=== PATIENT | male | born 1955 | race Caucasian/White ===

== ENCOUNTER 2018-03-02 12:43 | Emergency (ER) | END 2018-03-02 14:59 | disposition home or self-care (01) ==

== ENCOUNTER 2018-06-22 16:26 | Inpatient (IN) | payer OTHER ==
[~2018-06-22] VITALS: Ht 182.9 cm; Wt 61.2 kg
[~2018-06-22 16:26] MED LIST: CEPH-443 PO; LISI-471 PO
[2018-06-22] MEDS ORDERED: CEFEPIME 2GM/50 ML (PMX) 50 ML IVPB STA (16:34)
[2018-06-22] MEDS ORDERED: SODIUM CHLORIDE 0.9% 1L BAG IV* STA (16:34)
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
[2018-06-22] MEDS ORDERED: ACETAMINOPHEN 500 MG TAB PO STA (17:38)
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
[2018-06-22] MEDS ORDERED: NACL 0.9% 3 ML SYG IV SCH (18:30)
[2018-06-22] MEDS ORDERED: ACETAMINOPHEN 325 MG TAB PO PRN (18:30)
[2018-06-22] MEDS ORDERED: hydrALAzine 20 MG INJ IV PRN (19:00)
[2018-06-22] MEDS: traMADol 50 MG TAB PO PRN (20:02)
[2018-06-22 20:17] VITALS: PULSE 115
[2018-06-22 21:01] VITALS: BMI 18.4
[2018-06-22 21:25] VITALS: BP 136/81; PULSE 113; RESP 20
[2018-06-22] MEDS: SOD CHLORIDE 0.9% 1,000 ML IV SCH (22:04)
[2018-06-22] MEDS: TAMSULOSIN (SR) 0.4 MG CAP PO SCH (22:06)
[2018-06-22] MEDS: CEFEPIME 1GM/50 ML (PMX) 50 ML IV SCH (22:10)
[2018-06-22] MEDS ORDERED: SOD CHLORIDE 0.9% 500 ML IV ONE (23:30)
[2018-06-23] VITALS (12 sets, daily range): BP systolic 135–166; BP diastolic 78–90; PULSE 78–117; RESP 18–20
[2018-06-23] MEDS ORDERED: SOD CHLORIDE 0.9% 500 ML IV ONE (00:30)
[2018-06-23] MEDS ORDERED: PENDING SANTYL ORDER FOR WOUND CARE XX PRN (00:30)
[2018-06-23] MEDS ORDERED: POTASSIUM CHLORIDE (SR) 20 MEQ TAB PO STA (03:56)
[2018-06-23] MEDS ORDERED: SOD CHLORIDE 0.9% 1,000 ML IV ONE (03:56)
[2018-06-23] MEDS: SOD CHLORIDE 0.9% 1,000 ML IV SCH ×2 (07:28→20:04)
[2018-06-23] MEDS: ENOXAPARIN 30 MG/0.3 ML SYG SC SCH (09:00)
[2018-06-23] MEDS: TAMSULOSIN (SR) 0.4 MG CAP PO SCH (09:10)
[2018-06-23] MEDS: CEFEPIME 1GM/50 ML (PMX) 50 ML IV SCH (09:14)
[2018-06-23] MEDS: traMADol 50 MG TAB PO PRN (09:54)
[2018-06-23] MEDS ORDERED: BARIUM SULF 2% 450 ML BTL (BERRY SMOOTHIE) PO ONE (12:30)
[2018-06-23] MEDS: PIPER-TAZO 3.375 GM IV (PMX) 100 ML IVPB SCH ×3 (12:38→23:37)
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
[2018-06-23] MEDS ORDERED: VANCOMYCIN IV PER PHARMACY XX SCH (17:30)
[2018-06-23] MEDS ORDERED: morphine 2 MG INJ IV PRN (17:30)
[2018-06-23] MEDS: morphine 4 MG/ML VIAL IV PRN (17:44)
[2018-06-23] MEDS ORDERED: VANCOMYCIN HCL 1.25 GM in SOD CHLORIDE 0.9% 250 ML IVPB SCH (20:00)
[2018-06-23] MEDS: DOCUSATE SODIUM 100 MG CAP PO SCH (20:04)
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
[2018-06-23] MEDS: HYDROCODONE/APAP (10/325) TAB PO PRN (23:25)
[2018-06-24] VITALS (13 sets, daily range): BP systolic 137–164; BP diastolic 80–90; PULSE 73–150; RESP 18–19
[2018-06-24] MEDS: morphine 4 MG/ML VIAL IV PRN ×4 (05:36→22:19)
[2018-06-24] MEDS: PIPER-TAZO 3.375 GM IV (PMX) 100 ML IVPB SCH ×4 (05:36→23:44)
[2018-06-24] MEDS: TAMSULOSIN (SR) 0.4 MG CAP PO SCH (08:36)
[2018-06-24] MEDS: ENOXAPARIN 30 MG/0.3 ML SYG SC SCH (08:39)
[2018-06-24] MEDS: DOCUSATE SODIUM 100 MG CAP PO SCH ×2 (08:39→20:48)
[2018-06-24] MEDS: SOD CHLORIDE 0.9% 1,000 ML IV SCH ×2 (10:29→23:28)
[2018-06-24] MEDS ORDERED: LABETALOL HCL 20MG INJ IV PRN (13:30)
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
[2018-06-24] MEDS: VANCOMYCIN HCL 1.25 GM in SOD CHLORIDE 0.9% 250 ML IVPB SCH (20:07)
[2018-06-24] MEDS: ONDANSETRON 4 MG INJ IV PRN (20:07)
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
[2018-06-25] VITALS (12 sets, daily range): BP systolic 129–155; BP diastolic 75–87; PULSE 79–112; RESP 18–22
[2018-06-25] MEDS: morphine 4 MG/ML VIAL IV PRN ×4 (02:45→19:00)
[2018-06-25] MEDS: PIPER-TAZO 3.375 GM IV (PMX) 100 ML IVPB SCH ×3 (05:01→17:32)
[2018-06-25] MEDS: DOCUSATE SODIUM 100 MG CAP PO SCH ×2 (08:32→21:00)
[2018-06-25] MEDS: TAMSULOSIN (SR) 0.4 MG CAP PO SCH (08:32)
[2018-06-25] MEDS ORDERED: IODIXANOL LOCM 100 ML BTL ONE (08:59)
[2018-06-25] MEDS ORDERED: SOD CHLORIDE 0.9% 100 ML ONE (08:59)
[2018-06-25] MEDS: ENOXAPARIN 30 MG/0.3 ML SYG SC SCH (09:04)
--- NOTE | 2018-06-25 12:30 | CONS ---
Assessment/Plan Assessment/Plan Hospital Course (Demo Recall) All noted. No acute changes overnight. Patient looks comfortable. Status post CT scan this morning Microbiology: Blood culture growing gram-negative rods urine culture growing Proteus mirabilis susceptible to amikacin cefotaxime Chest x-ray on admission revealed no definite abnormalities. Antimicrobials: Vancomycin, Zosyn Physical examination: Well-developed chronically ill-appearing elderly man in no distress. Head atraumatic normocephalic sclera nonicteric neck is supple chest rise symmetrical breath sounds diminished bases heart S1-S2 abdomen soft bowel sounds present extremities wasted bilateral lower extremities Assessment: 1. Sepsis, present on admission 2. Proteus mirabilis bacteremia secondary to UTI 3. Multidrug-resistant Proteus mirabilis pyelonephritis 4. Bilateral hydronephrosis 5. Neurogenic bladder 6. Multiple decubitus with questionable osteomyelitis of right atrium and right iliac bone 7. Obstructive uropathy 8. Homelessness 9. Incomplete paraplegia Plan: Patient is clinically stable, surgery and urology on case, continue antibiotics,follow results of repeat CT abdomen pelvis with IV contrast, repeat blood culture, continue local wound care Consultation Date/Type/Reason Admit Date/Time Jun 22, 2018 at 18:09 Initial Consult Date 06/23/18 Type of Consult id Requesting Provider: TRACE REBOLLEDO Date/Time of Note DATE: 06/25/18 TIME: 12:24 Exam/Review of Systems Exam Vitals Vital Signs Date Temp Pulse Resp B/P (MAP) Pulse Ox O2 O2 Flow FiO2 Time Delivery Rate 06/25/18 112 12:15 06/25/18 98.0 22 136/78 100 Room Air 11:53 (97) Intake and Output 06/24/18 06/24/18 06/25/18 1414:59 22:59 06:59 IntakeIntake Total 950 ml 1470 ml OutputOutput Total 3800 ml 550 ml BalanceBalance -2850 ml 920 ml Results Result Diagram: 06/25/1852006/25/18520 Results 24hrs Laboratory Tests Test 06/24/18 13:46 06/25/18 05:21 White Blood Count 18.9 H 15.6 H Red Blood Count 5.04 4.56 L Hemoglobin 11.1 L 10.2 L Hematocrit 36.6 L 33.3 L Mean Corpuscular Volume 72.6 L 73.0 L Mean Corpuscular Hemoglobin 22.0 L 22.4 L Mean Corpuscular Hemoglobin Concent 30.3 L 30.6 L Red Cell Distribution Width 19.1 H 19.1 H Platelet Count 341 # 373 Mean Platelet Volume 9.5 9.5 Immature Granulocytes % 0.700 H 0.700 H Neutrophils % 90.4 H 84.3 H Lymphocytes % 3.8 L 6.9 L Monocytes % 3.8 6.4 Eosinophils % 0.9 1.4 Basophils % 0.4 0.3 Nucleated Red Blood Cells % 0.0 0.0 Immature Granulocytes # 0.140 H 0.110 H Neutrophils # 17.0 H 13.1 H Lymphocytes # 0.7 L 1.1 Monocytes # 0.7 1.0 H Eosinophils # 0.2 0.2 Basophils # 0.1 0.1 Nucleated Red Blood Cells # 0.0 0.0 Sodium Level 137 137 Potassium Level 3.9 3.7 Chloride Level 104 99 Carbon Dioxide Level 23 27 Anion Gap 10 # 11 Blood Urea Nitrogen 17 # 14 Creatinine 1.01 0.91 Est Glomerular Filtrat Rate mL/min > 60 > 60 Glucose Level 154 151 Calcium Level 8.0 L 7.7 L Total Bilirubin 0.1 L Direct Bilirubin 0.00 Indirect Bilirubin 0.1 Aspartate Amino Transf (AST/SGOT) 16 Alanine Aminotransferase (ALT/SGPT) 13 Alkaline Phosphatase 114 Total Protein 6.8 # Albumin 2.7 L Globulin 4.10 H Albumin/Globulin Ratio 0.65 Phosphorus Level 2.7 Magnesium Level 1.7 Medications Medication Current Medications Sodium Chloride 1,000 ml @ 75 mls/hr [id number] IV Last administered on 06/24/18at 10:29; Admin Dose 75 MLS/HR; Start 06/22/18 at 18:08 IV Flush (NS 3 ml) 3 ml PER PROTOCOL IV ; Start 06/22/18 at 18:30 Ondansetron HCl (Zofran Inj) 4 mg Q6H PRN IV NAUSEA/VOMITING Last administered on 06/24/18at 20:07; Admin Dose 4 MG; Start 06/22/18 at 18:30 Acetaminophen (Tylenol Tab) 650 mg Q6H PRN PO .PAIN 1-3 OR TEMP; Start 06/22/18 at 18:30 Enoxaparin Sodium (Lovenox) 30 mg DAILY SC Last administered on 06/25/18 09:04; Admin Dose 30 MG; Start 06/23/18 at 09:00 Phenazopyridine HCl (Pyridium) 200 mg TID PRN PO dysuria; Start 06/22/18 at 18:30 Hydralazine HCl (Apresoline) 10 mg Q4H PRN IV SBP >160; Start 06/22/18 at 19:00 Tramadol HCl (Ultram) 50 mg Q6H PRN PO MODERATE PAIN LEVEL 4-6 Last administered on 06/23/18at 09:54; Admin Dose 50 MG; Start 06/22/18 at 19:00 Miscellaneous Information (Pending [facility] Order For Wound Care) This patient villela... PRN PRN XX WOUND CARE; Start 06/23/18 at 00:30 Piperacillin Sod/ Tazobactam Sod 100 ml @ 200 mls/hr Q6 IVPB Last administered on 06/25/18 05:01; Admin Dose 200 MLS/HR; Start 06/23/18 at 12:30 Docusate Sodium (Colace) 100 mg BID PO Last administered on 06/23/18at 20:04; Admin Dose 100 MG; Start 06/23/18 at 21:00 Vancomycin HCl (Vanco Iv Per Pharmacy) VANCOMYCIN PER PHARMACY PER PROTOCOL XX ; Start 06/23/18 at 17:30 Acetaminophen/ Hydrocodone Bitart ([place] (10/325)) 1 tab Q4H PRN PO MODERATE PAIN LEVEL 4-6 Last administered on 06/23/18at 23:25; Admin Dose 1 TAB; Start 06/23/18 at 17:30 Tamsulosin HCl (Flomax) 0.4 mg DAILY PO Last administered on 06/25/18 08:32; Admin Dose 0.4 MG; Start 06/24/18 at 09:00 Morphine Sulfate (morphine) 2 mg Q4H PRN IV SEVERE PAIN LEVEL 7-10 Last administered on 06/25/18 07:37; Admin Dose 2 MG; Start 06/23/18 at 17:30 Vancomycin HCl 1.25 gm/Sodium Chloride 250 ml @ 83.333 mls/ hr Q24H IVPB Last administered on 06/24/18at 20:07; Admin Dose 83.333 MLS/HR; Start 06/24/18 at 20:00 Labetalol HCl (Labetalol) 10 mg Q4 PRN IV sbp>160; Start 06/24/18 at 13:30 JOHNSON PENDLETON NP Jun 25, 2018 12:30
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
[2018-06-25] MEDS: SOD CHLORIDE 0.45% 1,000 ML IV SCH (13:36)
--- NOTE | 2018-06-25 15:03 | PN ---
Date/Time of Note Date/Time of Note DATE: 06/25/18 TIME: 15:02 Assessment/Plan Lines/Catheters IV Catheter Type (from [facility]): Peripheral IV Baxter in Place (from [facility]): No Assessment/Plan Chief Complaint/Hosp Course 1. Multiple decubitus pressure ulcers -Encourage aggressive offloading -Encourage nutritional optimization -Continue wound care -Debridement as needed -Vitamin C 2. Possible abscess reported on CT not palpable clinically. Contrast ct:: Status post debridement and drainage of the right buttock abscess with associated skin defect and underlying osteomyelitis -abx per id 3. UTI on antibiotics 4. Acute leukocytosis and lactic acidosis secondary to sepsis secondary to above: improving -As above -Judicious fluid management -Antibiotics -Supportive measures 5. Hypoalbuminemia -Encourage nutritional optimization 6. Hypertension history -Nutrition and medication optimization 7. Anemia without evidence of acute blood loss -Monitor 8. Acute on chronic back pain, nephrolithiasis -Medical optimization -Judicious fluid management 9. Decompressed bladder with significant thickening concerning for bladder neoplasm versus cystitis: Urethritis, possible pyelonephritis -Consider urology consult -Antibiotics Thank you. Patient seen and examined in collaboration with Dr. Micah Hobbs. Subjective 24 Hr Interval Summary Feels well. Loose stools. No fevers, chills, sob, congested cough, cp, palpitations, villela, dizziness, n/v/d/dysuria. wbc improving Exam/Review of Systems Vital Signs Vitals Vital Signs Date Temp Pulse Resp B/P (MAP) Pulse Ox O2 O2 Flow FiO2 Time Delivery Rate 06/25/18 112 12:15 06/25/18 98.0 22 136/78 100 Room Air 11:53 (97) Intake and Output 06/24/18 06/24/18 06/25/18 1414:59 22:59 06:59 IntakeIntake Total 950 ml 1470 ml OutputOutput Total 3800 ml 550 ml BalanceBalance -2850 ml 920 ml Exam Free Text/Dictation Constitutional: alert, oriented No distress Psych: No anxiety Head: normocephalic, atraumatic Eyes: nl conjunctiva, EOMI, PERRL; No icteric ENMT: nl external ears & nose, nl lips & teeth, mucosa pink and moist Neck: supple, non-tender; No jvd Respiratory: normal air movement; No congested cough, No labored breathing, No wheezing Cardiovascular: regular rate and rhythm; No edema Gastrointestinal: soft, non-tender; No distended, No rebound or guarding Genitourinary - Male: nl penis, nl scrotum Musculoskeletal: No nl gait and stance, No joint tenderness Extremities: normal pulses; No calf tenderness, No edema, No tenderness Neurological: nl mental status, nl speech; No nl strength Skin: rash or lesions (Decubitus pressure ulcers as documented per nursing notes and pictures. No obvious abscess palpable- no palpable fluctuant areas. Right ischium : min odor/mod drainage); No ecchymosis Lymph: nl lymph nodes Results Result Diagram: 06/25/1821 06/25/18 0521 TIFFANIE KLEIN NP Jun 25, 2018 15:03
[2018-06-25] MEDS: HYDROCODONE/APAP (10/325) TAB PO PRN (15:49)
[2018-06-25] MEDS: PHENAZOPYRIDINE 200 MG TAB PO PRN (15:49)
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
[2018-06-25] MEDS: VANCOMYCIN HCL 1.25 GM in SOD CHLORIDE 0.9% 250 ML IVPB SCH (21:22)
[2018-06-25] MEDS: morphine LIQ (10 MG/5 ML) CUP PO PRN (23:02)
[2018-06-26] VITALS (11 sets, daily range): BP systolic 133–154; BP diastolic 76–83; PULSE 95–120; RESP 18–20
[2018-06-26] MEDS: PIPER-TAZO 3.375 GM IV (PMX) 100 ML IVPB SCH ×4 (01:25→17:52)
[2018-06-26] MEDS: HYDROCODONE/APAP (10/325) TAB PO PRN (01:25)
[2018-06-26] MEDS: morphine LIQ (10 MG/5 ML) CUP PO PRN ×3 (03:00→19:33)
[2018-06-26] MEDS: TAMSULOSIN (SR) 0.4 MG CAP PO SCH (08:32)
[2018-06-26] MEDS: DOCUSATE SODIUM 100 MG CAP PO SCH ×2 (08:39→21:00)
[2018-06-26] MEDS: ENOXAPARIN 30 MG/0.3 ML SYG SC SCH (08:39)
[2018-06-26] MEDS ORDERED: HYDROCODONE/APAP (5/325) TAB PO PRN (09:00)
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
--- NOTE | 2018-06-26 14:19 | CONS ---
Assessment/Plan Assessment/Plan Hospital Course (Demo Recall) All noted. No acute changes overnight. Patient looks comfortable. No fevers Microbiology: Blood culture growing gram-negative rods urine culture growing Proteus mirabilis susceptible to amikacin cefotaxime Chest x-ray on admission revealed no definite abnormalities. Antimicrobials: Vancomycin, Zosyn Physical examination: Well-developed chronically ill-appearing elderly man in no distress. Head atraumatic normocephalic sclera nonicteric neck is supple chest rise symmetrical breath sounds diminished bases heart S1-S2 abdomen soft bowel sounds present extremities wasted bilateral lower extremities Assessment: 1. Sepsis, present on admission 2. Proteus mirabilis bacteremia secondary to UTI 3. Multidrug-resistant Proteus mirabilis pyelonephritis 4. Bilateral hydronephrosis 5. Neurogenic bladder 6. Multiple decubitus with questionable osteomyelitis of right atrium and right iliac bone 7. Obstructive uropathy 8. Homelessness 9. Incomplete paraplegia Plan: Patient is clinically unchanged, urology rec-s noted, continue abx, f/u wound cx, surgical rec-s/wound care Consultation Date/Type/Reason Admit Date/Time Jun 22, 2018 at 18:09 Initial Consult Date 06/23/18 Type of Consult id Requesting Provider: TRACE REBOLLEDO Date/Time of Note DATE: 06/26/18 TIME: 14:17 Exam/Review of Systems Exam Vitals Vital Signs Date Temp Pulse Resp B/P (MAP) Pulse Ox O2 O2 Flow FiO2 Time Delivery Rate 06/26/18 109 12:10 06/26/18 98.1 20 154/83 100 Room Air 11:25 (106) Intake and Output 06/25/18 06/25/18 06/26/18 1515:00 23:00 07:00 IntakeIntake Total 850 ml 720 ml OutputOutput Total 700 ml 1350 ml BalanceBalance 150 ml -630 ml Results Result Diagram: 06/26/18 0521 06/26/18 0521 Results 24hrs Laboratory Tests Test 06/26/18 05:21 White Blood Count 15.4 H Red Blood Count 4.44 L Hemoglobin 9.9 L Hematocrit 32.1 L Mean Corpuscular Volume 72.3 L Mean Corpuscular Hemoglobin 22.3 L Mean Corpuscular Hemoglobin Concent 30.8 L Red Cell Distribution Width 18.8 H Platelet Count 440 H Mean Platelet Volume 9.0 Immature Granulocytes % 1.300 H Neutrophils % 84.2 H Lymphocytes % 7.0 L Monocytes % 5.4 Eosinophils % 1.8 Basophils % 0.3 Nucleated Red Blood Cells % 0.0 Immature Granulocytes # 0.200 H Neutrophils # 13.0 H Lymphocytes # 1.1 Monocytes # 0.8 Eosinophils # 0.3 Basophils # 0.0 Nucleated Red Blood Cells # 0.0 Sodium Level 134 L Potassium Level 3.9 Chloride Level 97 Carbon Dioxide Level 28 Anion Gap 9 Blood Urea Nitrogen 16 Creatinine 0.94 Est Glomerular Filtrat Rate mL/min > 60 Glucose Level 135 Calcium Level 7.8 L Phosphorus Level 3.0 Magnesium Level 1.7 Medications Medication Current Medications IV Flush (NS 3 ml) 3 ml PER PROTOCOL IV ; Start 06/22/18 at 18:30 Ondansetron HCl (Zofran Inj) 4 mg Q6H PRN IV NAUSEA/VOMITING Last administered on 06/24/18at 20:07; Admin Dose 4 MG; Start 06/22/18 at 18:30 Acetaminophen (Tylenol Tab) 650 mg Q6H PRN PO .PAIN 1-3 OR TEMP; Start 06/22/18 at 18:30 Enoxaparin Sodium (Lovenox) 30 mg DAILY SC Last administered on 06/25/18at 09:04; Admin Dose 30 MG; Start 06/23/18 at 09:00 Phenazopyridine HCl (Pyridium) 200 mg TID PRN PO dysuria Last administered on 06/25/18at 15:49; Admin Dose 200 MG; Start 06/22/18 at 18:30 Hydralazine HCl (Apresoline) 10 mg Q4H PRN IV SBP >160; Start 06/22/18 at 19:00 Tramadol HCl (Ultram) 50 mg Q6H PRN PO MODERATE PAIN LEVEL 4-6 Last administered on 06/23/18at 09:54; Admin Dose 50 MG; Start 06/22/18 at 19:00 Miscellaneous Information (Pending Santyl Order For Wound Care) This patient villela... PRN PRN XX WOUND CARE; Start 06/23/18 at 00:30 Piperacillin Sod/ Tazobactam Sod 100 ml @ 200 mls/hr Q6 IVPB Last administered on 06/26/18at 12:52; Admin Dose 200 MLS/HR; Start 06/23/18 at 12:30 Docusate Sodium (Colace) 100 mg BID PO Last administered on 06/23/18at 20:04; Admin Dose 100 MG; Start 06/23/18 at 21:00 Vancomycin HCl (Vanco Iv Per Pharmacy) VANCOMYCIN PER PHARMACY PER PROTOCOL XX ; Start 06/23/18 at 17:30 Acetaminophen/ Hydrocodone Bitart ([place] (10/325)) 1 tab Q4H PRN PO MODERATE PAIN LEVEL 4-6 Last administered on 06/26/18at 01:25; Admin Dose 1 TAB; Start 06/23/18 at 17:30 Tamsulosin HCl (Flomax) 0.4 mg DAILY PO Last administered on 06/26/18at 08:32; Admin Dose 0.4 MG; Start 06/24/18 at 09:00 Vancomycin HCl 1.25 gm/Sodium Chloride 250 ml @ 83.333 mls/ hr Q24H IVPB Last administered on 06/25/18at 21:22; Admin Dose 83.333 MLS/HR; Start 06/24/18 at 20:00 Labetalol HCl (Labetalol) 10 mg Q4 PRN IV sbp>160; Start 06/24/18 at 13:30 Sodium Chloride 1,000 ml @ 40 mls/hr Q24H IV Last administered on 06/25/18at 13:36; Admin Dose 40 MLS/HR; Start 06/25/18 at 13:00 Miscellaneous Information (*Rx Drug Level Order Reminder*) VANCO TR LEVEL PRIOR... ONCE ONCE XX ; Start 06/26/18 at 19:00; Stop 06/26/18 at 19:01 Morphine Sulfate (morphine) 6 mg Q4H PRN PO SEVERE PAIN LEVEL 7-10 Last administered on 06/26/18at 13:13; Admin Dose 6 MG; Start 06/25/18 at 21:30 Mupirocin (Bactroban) 1 applic BID TOP ; Start 06/26/18 at 21:00; Stop 07/03/18 at 20:59 JOHNSON PENDLETON NP Jun 26, 2018 14:19
--- NOTE | 2018-06-26 15:09 | PN ---
Date/Time of Note Date/Time of Note DATE: 06/26/18 TIME: 15:07 Assessment/Plan Lines/Catheters IV Catheter Type (from [facility]): Baxter in Place (from [facility]): No Assessment/Plan Chief Complaint/Hosp Course 1. Multiple decubitus pressure ulcers -Encourage aggressive offloading -Encourage nutritional optimization -Continue wound care -Debridement as needed -Vitamin C -We will likely need placement for osteomyelitis treatment 2. Possible abscess reported on CT not palpable clinically. Contrast ct:: Status post debridement and drainage of the right buttock abscess with associated skin defect and underlying osteomyelitis -abx per id 3. UTI on antibiotics 4. Acute leukocytosis and lactic acidosis secondary to sepsis secondary to above: improving -As above -Judicious fluid management -Antibiotics -Supportive measures 5. Hypoalbuminemia -Encourage nutritional optimization 6. Hypertension history -Nutrition and medication optimization 7. Anemia without evidence of acute blood loss -Monitor 8. Acute on chronic back pain, nephrolithiasis -Medical optimization -Judicious fluid management 9. Decompressed bladder with significant thickening concerning for bladder neoplasm versus cystitis: Urethritis, possible pyelonephritis -per urology -Antibiotics Thank you. Patient seen and examined in collaboration with Dr. Micah Hobbs. Subjective 24 Hr Interval Summary WBC minimally improved. Tachycardia. No fevers, chills, sob, congested cough, cp, palpitations, villela, dizziness, nausea, vomiting, diarrhea, dysuria. Exam/Review of Systems Vital Signs Vitals Vital Signs Date Temp Pulse Resp B/P (MAP) Pulse Ox O2 O2 Flow FiO2 Time Delivery Rate 06/26/18 109 12:10 06/26/18 98.1 20 154/83 100 Room Air 11:25 (106) Intake and Output 06/25/18 06/25/18 06/26/18 1515:00 23:00 07:00 IntakeIntake Total 850 ml 720 ml OutputOutput Total 700 ml 1350 ml BalanceBalance 150 ml -630 ml Exam Free Text/Dictation Constitutional: alert, oriented No distress Psych: No anxiety Head: normocephalic, atraumatic Eyes: nl conjunctiva, EOMI, PERRL; No icteric ENMT: nl external ears & nose, nl lips & teeth, mucosa pink and moist Neck: supple, non-tender; No jvd Respiratory: normal air movement; No congested cough, No labored breathing, No wheezing Cardiovascular: regular rate and rhythm; No edema Gastrointestinal: soft, non-tender; No distended, No rebound or guarding Genitourinary - Male: nl penis, nl scrotum Musculoskeletal: No nl gait and stance, No joint tenderness Extremities: normal pulses; No calf tenderness, No edema, No tenderness Neurological: nl mental status, nl speech; No nl strength Skin: rash or lesions (Decubitus pressure ulcers as documented per nursing notes and pictures. No obvious abscess palpable- no palpable fluctuant areas. Right ischium : min odor/mod drainage); No ecchymosis Lymph: nl lymph nodes Results Result Diagram: 06/26/1852006/26/18 0521 TIFFANIE KLEIN NP Jun 26, 2018 15:09
[2018-06-26] MEDS: SOD CHLORIDE 0.45% 1,000 ML IV SCH (15:57)
[2018-06-26] MEDS: ONDANSETRON 4 MG INJ IV PRN (15:57)
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
[2018-06-26] MEDS: SODIUM HYPOCHLORITE (1/40) 1 APPLIC BTL IRR SCH (17:53)
[2018-06-26] MEDS: VANCOMYCIN HCL 1.25 GM in SOD CHLORIDE 0.9% 250 ML IVPB SCH (19:33)
[2018-06-26] MEDS: MUPIROCIN 2% 22 GM OINT TOP SCH (21:01)
[2018-06-27] VITALS (12 sets, daily range): BP systolic 126–147; BP diastolic 73–84; PULSE 74–112; RESP 16–18
[2018-06-27] MEDS: PIPER-TAZO 3.375 GM IV (PMX) 100 ML IVPB SCH ×3 (00:01→11:47)
[2018-06-27] MEDS: PANTOPRAZOLE 40 MG INJ IV SCH (05:13)
[2018-06-27] MEDS: morphine LIQ (10 MG/5 ML) CUP PO PRN ×4 (06:41→23:43)
[2018-06-27] MEDS: ENOXAPARIN 30 MG/0.3 ML SYG SC SCH ×2 (09:00→09:23)
[2018-06-27] MEDS ORDERED: POLYETHYLENE GLYCOL 17 GM PACKET PO SCH (09:00)
[2018-06-27] MEDS: DOCUSATE SODIUM 100 MG CAP PO SCH ×2 (09:00→20:12)
[2018-06-27] MEDS: VANCOMYCIN HCL 1.25 GM in SOD CHLORIDE 0.9% 250 ML IVPB SCH ×2 (09:11→20:13)
[2018-06-27] MEDS: TAMSULOSIN (SR) 0.4 MG CAP PO SCH (09:11)
[2018-06-27] MEDS: SODIUM HYPOCHLORITE (1/40) 1 APPLIC BTL IRR SCH (09:12)
[2018-06-27] MEDS: MUPIROCIN 2% 22 GM OINT TOP SCH ×2 (09:16→21:10)
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
--- NOTE | 2018-06-27 11:58 | PN ---
Date/Time of Note Date/Time of Note DATE: 06/27/18 TIME: 11:52 Assessment/Plan Lines/Catheters IV Catheter Type (from [facility]): Peripheral IV Baxter in Place (from [facility]): Yes Assessment/Plan Chief Complaint/Hosp Course 1. Multiple decubitus pressure ulcers -Encourage aggressive offloading -Encourage nutritional optimization -Continue wound care -Debridement as needed -Vitamin C -We will likely need placement for osteomyelitis treatment 2. Possible abscess reported on CT not palpable clinically. Contrast ct:: Status post debridement and drainage of the right buttock abscess with associated skin defect and underlying osteomyelitis -abx per id 3. UTI on antibiotics 4. Acute leukocytosis: improving -As above -Judicious fluid management -Antibiotics -Supportive measures 5. Hypoalbuminemia -Encourage nutritional optimization 6. Hypertension history -Nutrition and medication optimization 7. Anemia without evidence of acute blood loss -Monitor 8. Acute on chronic back pain, nephrolithiasis -Medical optimization -Judicious fluid management 9. Decompressed bladder with significant thickening concerning for bladder neoplasm versus cystitis: Urethritis, possible pyelonephritis -per urology -Antibiotics 10. Dysphagia: -EGD pending Thank you. Patient seen and examined in collaboration with Dr. Micah Hobbs. Subjective 24 Hr Interval Summary Dysphagia episode yesterday. Pending EGD. No fevers, chills, sob, congested cough, cp, palpitations, [place], dizziness, nausea, vomiting, diarrhea, dysuria. Exam/Review of Systems Vital Signs Vitals Vital Signs Date Temp Pulse Resp B/P (MAP) Pulse Ox O2 O2 Flow FiO2 Time Delivery Rate 06/27/18 97.9 18 135/73 98 Room Air 11:25 (93) 06/27/18 105 08:29 Intake and Output 06/26/18 06/26/18 06/27/18 1515:00 23:00 07:00 IntakeIntake Total 1700 ml 1630 ml OutputOutput Total 2000 ml 1775 ml BalanceBalance -300 ml -145 ml Exam Free Text/Dictation Constitutional: alert, oriented No distress Psych: No anxiety Head: normocephalic, atraumatic Eyes: nl conjunctiva, EOMI, PERRL; No icteric ENMT: nl external ears & nose, nl lips & teeth, mucosa pink and moist Neck: supple, non-tender; No jvd Respiratory: normal air movement; No congested cough, No labored breathing, No wheezing Cardiovascular: regular rate and rhythm; No edema Gastrointestinal: soft, non-tender; No distended, No rebound or guarding Genitourinary - Male: nl penis, nl scrotum Musculoskeletal: No nl gait and stance, No joint tenderness Extremities: normal pulses; No calf tenderness, No edema, No tenderness Neurological: nl mental status, nl speech; No nl strength Skin: rash or lesions (Decubitus pressure ulcers: No obvious abscess palpable- no palpable fluctuant areas. Right ischium : Improved odor/mod drainage); No ecchymosis Lymph: nl lymph nodes Results Result Diagram: 06/27/18 0538 06/27/18 0538 TIFFANIE KLEIN NP Jun 27, 2018 11:57
[2018-06-27] MEDS: SOD CHLORIDE 0.45% 1,000 ML IV SCH ×2 (13:00→17:49)
[2018-06-27] MEDS: CARISOPRODOL 350 MG TAB PO PRN ×2 (14:10→23:43)
--- NOTE | 2018-06-27 15:46 | CONS ---
Assessment/Plan Assessment/Plan Hospital Course (Demo Recall) All noted. No acute changes overnight. Patient is awake, looks comfortable. No fevers Microbiology: Blood culture growing Proteus mirabilis, urine culture grew Proteus mirabilis and oxacillin sensitive staph aureus. Sacral wound culture growing E. coli, staph aureus and enterococcus species Chest x-ray on admission revealed no definite abnormalities. Antimicrobials: Vancomycin, Zosyn Physical examination: Well-developed chronically ill-appearing elderly man in no distress. Head atraumatic normocephalic sclera nonicteric neck is supple chest rise symmetrical breath sounds diminished bases heart S1-S2 abdomen soft bowel sounds present extremities wasted bilateral lower extremities Assessment: 1. Sepsis, present on admission 2. Proteus mirabilis bacteremia secondary to UTI 3. Multidrug-resistant Proteus mirabilis pyelonephritis 4. Bilateral hydronephrosis 5. Neurogenic bladder 6. Multiple decubitus with questionable osteomyelitis of right atrium and right iliac bone 7. Obstructive uropathy 8. Homelessness 9. Incomplete paraplegia Plan: Patient is clinically unchanged, will change Zosyn to Cefepime, f/u final cx, urology/surgical rec-s/wound care Consultation Date/Type/Reason Admit Date/Time Jun 22, 2018 at 18:09 Initial Consult Date 06/23/18 Type of Consult id Requesting Provider: TRACE REBOLLEDO Date/Time of Note DATE: 06/27/18 TIME: 15:42 Exam/Review of Systems Exam Vitals Vital Signs Date Temp Pulse Resp B/P (MAP) Pulse Ox O2 O2 Flow FiO2 Time Delivery Rate 06/27/18 98.2 107 18 137/84 97 Room Air 15:20 (101) Intake and Output 06/26/18 06/26/18 06/27/18 1515:00 23:00 07:00 IntakeIntake Total 1700 ml 1630 ml OutputOutput Total 2000 ml 1775 ml BalanceBalance -300 ml -145 ml Results Result Diagram: 06/27/18 0538 06/27/18 0538 Results 24hrs Laboratory Tests Test 06/26/18 18:44 06/27/18 05:38 Vancomycin Level Trough 7.2 L White Blood Count 16.1 H Red Blood Count 3.87 L Hemoglobin 8.6 L Hematocrit 28.0 L Mean Corpuscular Volume 72.4 L Mean Corpuscular Hemoglobin 22.2 L Mean Corpuscular Hemoglobin Concent 30.7 L Red Cell Distribution Width 18.6 H Platelet Count 411 Mean Platelet Volume 8.7 Immature Granulocytes % 1.300 H Neutrophils % 85.2 H Lymphocytes % 6.2 L Monocytes % 5.5 Eosinophils % 1.6 Basophils % 0.2 Nucleated Red Blood Cells % 0.0 Immature Granulocytes # 0.210 H Neutrophils # 13.7 H Lymphocytes # 1.0 Monocytes # 0.9 Eosinophils # 0.3 Basophils # 0.0 Nucleated Red Blood Cells # 0.0 Sodium Level 133 L Potassium Level 4.1 Chloride Level 102 Carbon Dioxide Level 28 Anion Gap 3 L Blood Urea Nitrogen 13 Creatinine 0.91 Est Glomerular Filtrat Rate mL/min > 60 Glucose Level 157 Calcium Level 7.6 L Phosphorus Level 2.9 Magnesium Level 1.6 L Medications Medication Current Medications IV Flush (NS 3 ml) 3 ml PER PROTOCOL IV ; Start 06/22/18 at 18:30 Ondansetron HCl (Zofran Inj) 4 mg Q6H PRN IV NAUSEA/VOMITING Last administered on 06/26/18at 15:57; Admin Dose 4 MG; Start 06/22/18 at 18:30 Acetaminophen (Tylenol Tab) 650 mg Q6H PRN PO .PAIN 1-3 OR TEMP; Start 06/22/18 at 18:30 Enoxaparin Sodium (Lovenox) 30 mg DAILY SC Last administered on 06/27/18at 09:23; Admin Dose 30 MG; Start 06/23/18 at 09:00 Phenazopyridine HCl (Pyridium) 200 mg TID PRN PO dysuria Last administered on 06/25/18at 15:49; Admin Dose 200 MG; Start 06/22/18 at 18:30 Hydralazine HCl (Apresoline) 10 mg Q4H PRN IV SBP >160; Start 06/22/18 at 19:00 Tramadol HCl (Ultram) 50 mg Q6H PRN PO MODERATE PAIN LEVEL 4-6 Last administered on 06/23/18at 09:54; Admin Dose 50 MG; Start 06/22/18 at 19:00 Miscellaneous Information (Pending Santyl Order For Wound Care) This patient villela... PRN PRN XX WOUND CARE; Start 06/23/18 at 00:30 Piperacillin Sod/ Tazobactam Sod 100 ml @ 200 mls/hr Q6 IVPB Last administered on 06/27/18 11:47; Admin Dose 200 MLS/HR; Start 06/23/18 at 12:30 Docusate Sodium (Colace) 100 mg BID PO Last administered on 06/23/18at 20:04; Admin Dose 100 MG; Start 06/23/18 at 21:00 Vancomycin HCl (Vanco Iv Per Pharmacy) VANCOMYCIN PER PHARMACY PER PROTOCOL XX ; Start 06/23/18 at 17:30 Acetaminophen/ Hydrocodone Bitart ([place] (10)) 1 tab Q4H PRN PO MODERATE PAIN LEVEL 4-6 Last administered on 06/26/18at 01:25; Admin Dose 1 TAB; Start 06/23/18 at 17:30 Tamsulosin HCl (Flomax) 0.4 mg DAILY PO Last administered on 06/27/18 09:11; Admin Dose 0.4 MG; Start 06/24/18 at 09:00 Labetalol HCl (Labetalol) 10 mg Q4 PRN IV sbp>160; Start 06/24/18 at 13:30 Sodium Chloride 1,000 ml @ 40 mls/hr Q24H IV Last administered on 06/26/18at 15:57; Admin Dose 40 MLS/HR; Start 06/25/18 at 13:00 Morphine Sulfate (morphine) 6 mg Q4H PRN PO SEVERE PAIN LEVEL 7-10 Last administered on 06/27/18at 11:47; Admin Dose 6 MG; Start 06/25/18 at 21:30 Mupirocin (Bactroban) 1 applic BID TOP Last administered on 06/27/18at 09:16; Admin Dose 1 APPLIC; Start 06/26/18 at 21:00; Stop 07/03/18 at 20:59 Sodium Hypochlorite (Dakin'S (Dilute )) 1 applic DAILY IRR Last administered on 06/27/18 09:12; Admin Dose 1 APPLIC; Start 06/26/18 at 16:00 Pantoprazole (Protonix Iv) 40 mg DAILY@06 IV Last administered on 06/27/18at 05:13; Admin Dose 40 MG; Start 06/27/18 at 06:00 Polyethylene Glycol (Miralax) 17 gm DAILY PO ; Start 06/27/18 at 09:00 Vancomycin HCl 1.25 gm/Sodium Chloride 250 ml @ 83.333 mls/ hr Q12H IVPB Last administered on 06/27/18at 09:11; Admin Dose 83.333 MLS/HR; Start 06/27/18 at 08:00 Carisoprodol (Soma) 350 mg Q8H PRN PO muscle spasms Last administered on 06/27/18at 14:10; Admin Dose 350 MG; Start 06/27/18 at 12:00 JOHNSON PENDLETON NP Jun 27, 2018 15:46
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
[2018-06-27] MEDS ORDERED: MAGNESIUM SULFATE 2 GM/50 ML 50 ML IVPB ONE (19:30)
[2018-06-27] MEDS: CEFEPIME 1GM/50 ML (PMX) 50 ML IVPB SCH (23:43)
[2018-06-28] VITALS (11 sets, daily range): BP systolic 126–150; BP diastolic 64–82; PULSE 79–111; RESP 18–22
[2018-06-28] MEDS: PANTOPRAZOLE 40 MG INJ IV SCH (05:51)
[2018-06-28] MEDS: morphine LIQ (10 MG/5 ML) CUP PO PRN ×3 (05:55→20:28)
[2018-06-28] MEDS ORDERED: POLYETHYLENE GLYCOL 17 GM PACKET PO PRN (09:00)
[2018-06-28] MEDS: CEFEPIME 1GM/50 ML (PMX) 50 ML IVPB SCH ×2 (09:14→20:30)
[2018-06-28] MEDS: SODIUM HYPOCHLORITE (1/40) 1 APPLIC BTL IRR SCH (09:14)
[2018-06-28] MEDS: VANCOMYCIN HCL 1.25 GM in SOD CHLORIDE 0.9% 250 ML IVPB SCH ×2 (09:14→21:22)
[2018-06-28] MEDS: DOCUSATE SODIUM 100 MG CAP PO SCH ×2 (09:25→20:29)
[2018-06-28] MEDS: MUPIROCIN 2% 22 GM OINT TOP SCH ×2 (09:25→21:43)
[2018-06-28] MEDS: TAMSULOSIN (SR) 0.4 MG CAP PO SCH (09:25)
[2018-06-28] MEDS: ENOXAPARIN 30 MG/0.3 ML SYG SC SCH (09:25)
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
[2018-06-28] MEDS: CARISOPRODOL 350 MG TAB PO PRN ×2 (11:59→20:34)
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
[2018-06-28] MEDS: metroNIDAZOLE 250 MG TAB PO SCH ×2 (14:26→21:29)
[2018-06-28] MEDS ORDERED: MAGNESIUM HYDROXIDE 30ML CUP PO PRN (21:00)
[2018-06-28] MEDS ORDERED: MAGNESIUM HYDROXIDE 30ML CUP PO ONE (21:00)
[2018-06-29] VITALS (12 sets, daily range): BP systolic 124–141; BP diastolic 70–83; PULSE 101–111; RESP 18–20
[2018-06-29] MEDS: morphine LIQ (10 MG/5 ML) CUP PO PRN ×3 (05:07→21:11)
[2018-06-29] MEDS: PANTOPRAZOLE 40 MG INJ IV SCH (05:08)
[2018-06-29] MEDS: CARISOPRODOL 350 MG TAB PO PRN ×3 (05:08→21:10)
[2018-06-29] MEDS: metroNIDAZOLE 250 MG TAB PO SCH ×3 (05:08→21:10)
[2018-06-29] MEDS: DOCUSATE SODIUM 100 MG CAP PO SCH ×3 (09:54→21:20)
[2018-06-29] MEDS: TAMSULOSIN (SR) 0.4 MG CAP PO SCH (09:54)
[2018-06-29] MEDS: MUPIROCIN 2% 22 GM OINT TOP SCH ×2 (09:56→21:17)
[2018-06-29] MEDS: LISINOPRIL 5 MG TAB PO SCH (09:56)
[2018-06-29] MEDS: CEFEPIME 1GM/50 ML (PMX) 50 ML IVPB SCH ×2 (09:56→21:14)
[2018-06-29] MEDS: SODIUM HYPOCHLORITE (1/40) 1 APPLIC BTL IRR SCH (09:57)
[2018-06-29] MEDS: ENOXAPARIN 30 MG/0.3 ML SYG SC SCH (10:05)
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
[2018-06-29] MEDS: VANCOMYCIN 1 GM 250 ML IVPB SCH ×2 (11:32→22:02)
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
[2018-06-29] MEDS: PHENAZOPYRIDINE 200 MG TAB PO PRN (13:21)
[2018-06-30] VITALS (9 sets, daily range): BP systolic 108–140; BP diastolic 63–82; PULSE 98–112; RESP 18
[2018-06-30] MEDS: CARISOPRODOL 350 MG TAB PO PRN ×3 (05:21→19:16)
[2018-06-30] MEDS: PANTOPRAZOLE 40 MG INJ IV SCH (05:21)
[2018-06-30] MEDS: metroNIDAZOLE 250 MG TAB PO SCH ×3 (05:21→21:45)
[2018-06-30] MEDS: morphine LIQ (10 MG/5 ML) CUP PO PRN (05:22)
[2018-06-30] MEDS: DOCUSATE SODIUM 100 MG CAP PO SCH ×2 (09:00→21:06)
[2018-06-30] MEDS: SODIUM HYPOCHLORITE (1/40) 1 APPLIC BTL IRR SCH (09:00)
[2018-06-30] MEDS: TAMSULOSIN (SR) 0.4 MG CAP PO SCH (09:09)
[2018-06-30] MEDS: LISINOPRIL 5 MG TAB PO SCH (09:09)
[2018-06-30] MEDS: CEFEPIME 1GM/50 ML (PMX) 50 ML IVPB SCH ×2 (09:10→21:05)
--- NOTE | 2018-06-30 09:11 | PN ---
Date/Time of Note Date/Time of Note DATE: 06/30/18 TIME: 09:11 Assessment/Plan VTE Prophylaxis Risk score (from Ns)>0 risk: 7 SCD applied (from Nsg): Yes Pharmacological prophylaxis: LMWH Lines/Catheters IV Catheter Type (from Nrsg): Saline Lock Urinary Cath still in place: No Assessment/Plan Assessment/Plan 1. Sepsis secondary to UTI, decubitus ulcers, and OM - ID on board and appreciate recommendation. Remains with elevated WBC and plan is to continue 6 weeks of antibiotics for OM treatment - remains afebrile - continue on current treatment 2. UTI with hydronephrosis - Urology on board and appreciate recommendations. plans to d/c cortez and continue with self cathing which patient is used to - continue on current antibiotics - CT scan results noted 3. Sacral decubitus ulcer with abscess - ID on board and continuing current antibiotics - Surgery on board and appreciate consultation. Will perform debridement as needed. Offloading as much as possible - wound care on board 4. Osteomyelitis of ischium - Will need to complete 6 weeks of IV antibiotics - ID on board and appreciate recommendations 5. Acute on chronic back pain - Pain control - soma for muscle spasms, patient on this chronically outpatient 6. Acute kidney injury- resolved - Likely secondary to UTI 7. Hypertension - Resume home meds as needed 8. Disposition - Continue current care at this time. - CM on board for placement for IV antibiotics Result Diagram: 06/30/18 0517 06/30/18 0517 Results 24hrs Laboratory Tests Test 06/30/18 05:17 White Blood Count 16.9 H Red Blood Count 3.70 L Hemoglobin 8.2 L Hematocrit 27.0 L Mean Corpuscular Volume 73.0 L Mean Corpuscular Hemoglobin 22.2 L Mean Corpuscular Hemoglobin Concent 30.4 L Red Cell Distribution Width 18.8 H Platelet Count 477 H Mean Platelet Volume 8.4 Immature Granulocytes % 1.000 H Neutrophils % 85.0 H Lymphocytes % 6.0 L Monocytes % 6.4 Eosinophils % 1.4 Basophils % 0.2 Nucleated Red Blood Cells % 0.0 Immature Granulocytes # 0.170 H Neutrophils # 14.3 H Lymphocytes # 1.0 Monocytes # 1.1 H Eosinophils # 0.2 Basophils # 0.0 Nucleated Red Blood Cells # 0.0 Sodium Level 134 L Potassium Level 4.2 Chloride Level 100 Carbon Dioxide Level 27 Anion Gap 7 Blood Urea Nitrogen 20 Creatinine 0.89 Est Glomerular Filtrat Rate mL/min > 60 Glucose Level 137 Calcium Level 7.7 L Phosphorus Level 3.1 Magnesium Level 1.9 Subjective 24 Hr Interval Summary Free Text/Dictation Patient states he is still in pain and complaining morphine was changed from IV to PO and discussed shortage in hospital. States IV provided some relief but now PO Morphine doesn't help Also upset since he is unsure if he had a BM and he is never told by nursing. Patient continues to refuse PT services as well. Exam/Review of Systems Exam Vitals Vital Signs Date Temp Pulse Resp B/P (MAP) Pulse Ox O2 O2 Flow FiO2 Time Delivery Rate 06/30/18 112 08:00 06/30/18 97.7 18 127/76 96 Room Air 07:31 (93) Intake and Output 06/29/18 06/29/18 06/30/18 1515:00 23:00 07:00 IntakeIntake Total 300 ml 50 ml 1550 ml OutputOutput Total 1900 ml BalanceBalance 300 ml 50 ml -350 ml Exam General: Patient is laying in bed and answers questions appropriately. appears irritated Neck: Supple Respiratory: Clear to auscultation bilaterally. no wheezing or rhonchi Cardiovascular: regular rate and rhythm, no obvious murmurs Gastrointestinal: soft, non-tender to palpation, bowel sounds heard. Neurological: Moves UE bilaterally Skin: Multiple lesions Results Results 24hrs Laboratory Tests Test 06/30/18 05:17 White Blood Count 16.9 H Red Blood Count 3.70 L Hemoglobin 8.2 L Hematocrit 27.0 L Mean Corpuscular Volume 73.0 L Mean Corpuscular Hemoglobin 22.2 L Mean Corpuscular Hemoglobin Concent 30.4 L Red Cell Distribution Width 18.8 H Platelet Count 477 H Mean Platelet Volume 8.4 Immature Granulocytes % 1.000 H Neutrophils % 85.0 H Lymphocytes % 6.0 L Monocytes % 6.4 Eosinophils % 1.4 Basophils % 0.2 Nucleated Red Blood Cells % 0.0 Immature Granulocytes # 0.170 H Neutrophils # 14.3 H Lymphocytes # 1.0 Monocytes # 1.1 H Eosinophils # 0.2 Basophils # 0.0 Nucleated Red Blood Cells # 0.0 Sodium Level 134 L Potassium Level 4.2 Chloride Level 100 Carbon Dioxide Level 27 Anion Gap 7 Blood Urea Nitrogen 20 Creatinine 0.89 Est Glomerular Filtrat Rate mL/min > 60 Glucose Level 137 Calcium Level 7.7 L Phosphorus Level 3.1 Magnesium Level 1.9 Medications Medication Current Medications IV Flush (NS 3 ml) 3 ml PER PROTOCOL IV ; Start 06/22/18 at 18:30 Ondansetron HCl (Zofran Inj) 4 mg Q6H PRN IV NAUSEA/VOMITING Last administered on 06/26/18at 15:57; Admin Dose 4 MG; Start 06/22/18 at 18:30 Acetaminophen (Tylenol Tab) 650 mg Q6H PRN PO .PAIN 1-3 OR TEMP; Start 06/22/18 at 18:30 Enoxaparin Sodium (Lovenox) 30 mg DAILY SC Last administered on 06/29/18 10:05; Admin Dose 30 MG; Start 06/23/18 at 09:00 Phenazopyridine HCl (Pyridium) 200 mg TID PRN PO dysuria Last administered on 06/29/18 13:21; Admin Dose 200 MG; Start 06/22/18 at 18:30 Hydralazine HCl (Apresoline) 10 mg Q4H PRN IV SBP >160; Start 06/22/18 at 19:00 Tramadol HCl (Ultram) 50 mg Q6H PRN PO MODERATE PAIN LEVEL 4-6 Last administered on 06/23/18 09:54; Admin Dose 50 MG; Start 06/22/18 at 19:00 [facility]iscellaneous [facility] This patient villela... PRN PRN XX WOUND CARE; Start 06/23/18 at 00:30 Docusate Sodium (Colace) 100 mg BID PO Last administered on 06/29/18 09:54; Admin Dose 100 MG; Start 06/23/18 at 21:00 Vancomycin HCl (Vanco Iv Per Pharmacy) VANCOMYCIN PER PHARMACY PER PROTOCOL XX ; Start 06/23/18 at 17:30 Acetaminophen/ Hydrocodone Bitart (Hobbs (10/325)) 1 tab Q4H PRN PO MODERATE PAIN LEVEL 4-6 Last administered on 06/26/18 01:25; Admin Dose 1 TAB; Start 06/23/18 at 17:30 Tamsulosin HCl (Flomax) 0.4 mg DAILY PO Last administered on 06/29/18 09:54; Admin Dose 0.4 MG; Start 06/24/18 at 09:00 Labetalol HCl (Labetalol) 10 mg Q4 PRN IV sbp>160; Start 06/24/18 at 13:30 Morphine Sulfate (morphine) 6 mg Q4H PRN PO SEVERE PAIN LEVEL 7-10 Last administered on 06/30/18 05:22; Admin Dose 6 MG; Start 06/25/18 at 21:30 Mupirocin (Bactroban) 1 applic BID TOP Last administered on 06/29/18 21:17; Admin Dose 1 APPLIC; Start 06/26/18 at 21:00; Stop 07/03/18 at 20:59 Sodium Hypochlorite (Dakin'S (Dilute )) 1 applic DAILY IRR Last administere d on 06/29/18 09:57; Admin Dose 1 APPLIC; Start 06/26/18 at 16:00 Pantoprazole (Protonix Iv) 40 mg DAILY@06 IV Last administered on 06/30/18 05:21; Admin Dose 40 MG; Start 06/27/18 at 06:00 Cefepime HCl 50 ml @ 100 mls/hr Q12 IVPB Last administered on 06/29/18 21:14; Admin Dose 100 MLS/HR; Start 06/27/18 at 21:00 Polyethylene Glycol (Miralax) 17 gm DAILY PRN PO constipation; Start 06/28/18 at 09:00 Carisoprodol (Soma) 350 mg Q6 PRN PO muscle spasms Last administered on 06/30/18 05:21; Admin Dose 350 MG; Start 06/28/18 at 10:00 Lisinopril (Zestril) 5 mg DAILY PO Last administered on 06/29/18 09:56; Admin Dose 5 MG; Start 06/29/18 at 09:00 Metronidazole (Flagyl) 250 mg Q8 PO Last administered on 06/30/18 05:21; Admin Dose 250 MG; Start 06/28/18 at 14:00 Magnesium Hydroxide (Milk Of Mag) 30 ml DAILY PRN PO CONSTIPATION; Start 06/28/18 at 21:00 Vancomycin HCl 250 ml @ 125 mls/hr Q12H IVPB Last administered on 06/29/18 22:02; Admin Dose 125 MLS/HR; Start 06/29/18 at 09:00 KINGA WILLETT MD Jun 30, 2018 09:11
[2018-06-30] MEDS: ENOXAPARIN 30 MG/0.3 ML SYG SC SCH (09:38)
[2018-06-30] MEDS: VANCOMYCIN 1 GM 250 ML IVPB SCH ×2 (10:00→21:45)
[2018-06-30] MEDS ORDERED: OXYCODONE/ACETAMINOPHEN (10/325) TAB PO PRN (10:30)
--- NOTE | 2018-06-30 10:57 | PN ---
Date/Time of Note Date/Time of Note DATE: 06/30/18 TIME: 10:52 Assessment/Plan Lines/Catheters IV Catheter Type (from [facility]): Saline Lock Baxter in Place (from [facility]): Yes Assessment/Plan Chief Complaint/Hosp Course 1. Multiple decubitus pressure ulcers -Encourage aggressive offloading -Encourage nutritional optimization -Continue wound care -Debridement as needed -Vitamin C -Osteomyelitis treatment 2. Possible abscess reported on CT not palpable clinically. Contrast ct:: Status post debridement and drainage of the right buttock abscess with associated skin defect and underlying osteomyelitis -abx per id -as above 3. UTI on antibiotics 4. Acute leukocytosis persisting -As above -Judicious fluid management -Antibiotics -Supportive measures -? further imaging 5. Hypoalbuminemia -Encourage nutritional optimization 6. Hypertension history -Nutrition and medication optimization 7. Anemia without evidence of acute blood loss -Monitor 8. Acute on chronic back pain, nephrolithiasis -Medical optimization -Judicious fluid management 9. Decompressed bladder with significant thickening concerning for bladder neoplasm versus cystitis: Urethritis, possible pyelonephritis -Urology following -Antibiotics 10. Dysphagia: -EGD refused by patient 11. Elevated CEA however patient refusing colonoscopy and further workup Thank you Subjective 24 Hr Interval Summary Dysphagia but patient refusing EGD. Elevated CEA but refusing colonoscopy by GI. No fevers, chills, sob, congested cough, cp, palpitations, villela, dizziness, nausea, vomiting, diarrhea, dysuria. Bowel function. Exam/Review of Systems Vital Signs Vitals Vital Signs Date Temp Pulse Resp B/P (MAP) Pulse Ox O2 O2 Flow FiO2 Time Delivery Rate 06/30/18 109 16:00 06/30/18 97.4 18 110/63 98 Room Air 15:30 (79) Intake and Output 06/29/18 06/29/18 06/30/18 1515:00 23:00 07:00 IntakeIntake Total 300 ml 50 ml 1550 ml OutputOutput Total 1900 ml BalanceBalance 300 ml 50 ml -350 ml Exam Free Text/Dictation Constitutional: alert, oriented No distress Psych: No anxiety Head: normocephalic, atraumatic Eyes: nl conjunctiva, EOMI, PERRL; No icteric ENMT: nl external ears & nose, nl lips & teeth, mucosa pink and moist Neck: supple, non-tender; No jvd Respiratory: normal air movement; No congested cough, No labored breathing, No wheezing Cardiovascular: regular rate and rhythm; No edema Gastrointestinal: soft, non-tender; No distended, No rebound or guarding Genitourinary - Male: nl penis, nl scrotum Musculoskeletal: No nl gait and stance, No joint tenderness Extremities: normal pulses; No calf tenderness, No edema, No tenderness Neurological: nl mental status, nl speech; No nl strength Skin: rash or lesions (Decubitus pressure ulcers: No obvious abscess palpable- no palpable fluctuant areas. Right ischium : Improved odor/mod drainage); No ecchymosis Lymph: nl lymph nodes Results Result Diagram: 06/30/18 0517 06/30/18 0517 GUSTABO GARCIA MD Jun 30, 2018 10:57
[2018-06-30] MEDS: HYDROmorphONE 0.5 MG/0.5 ML SYG IV PRN ×4 (11:01→23:27)
--- NOTE | 2018-06-30 13:40 | CONS ---
Assessment/Plan Assessment/Plan Hospital Course (Demo Recall) Awake, looks comfortable, s/p Baxter dc'd Microbiology: Blood culture growing Proteus mirabilis, urine culture grew Proteus mirabilis and oxacillin sensitive staph aureus. Sacral wound culture growing E. coli, staph aureus and enterococcus species Chest x-ray on admission revealed no definite abnormalities. Antimicrobials: Vancomycin, Cefepime, Flagyl Physical examination: Well-developed chronically ill-appearing elderly man in no distress. Head atraumatic normocephalic sclera nonicteric neck is supple chest rise symmetrical breath sounds diminished bases heart S1-S2 abdomen soft bowel sounds present extremities wasted bilateral lower extremities Assessment: 1. Sepsis, present on admission 2. Proteus mirabilis bacteremia secondary to UTI 3. Multidrug-resistant Proteus mirabilis pyelonephritis 4. Bilateral hydronephrosis 5. Neurogenic bladder 6. Multiple decubitus with questionable osteomyelitis of right atrium and right iliac bone 7. Obstructive uropathy 8. Homelessness 9. Incomplete paraplegia Plan: Stable, continue present care, needs 6 weeks IV abx for OM Consultation Date/Type/Reason Admit Date/Time Jun 22, 2018 at 18:09 Initial Consult Date 06/23/18 Type of Consult id Requesting Provider: TRACE REBOLLEDO Date/Time of Note DATE: 06/30/18 TIME: 13:39 Exam/Review of Systems Exam Vitals Vital Signs Date Temp Pulse Resp B/P (MAP) Pulse Ox O2 O2 Flow FiO2 Time Delivery Rate 06/30/18 112 12:00 06/30/18 98.1 18 124/70 95 Room Air 11:25 (88) Intake and Output 06/29/18 06/29/18 06/30/18 1515:00 23:00 07:00 IntakeIntake Total 300 ml 50 ml 1550 ml OutputOutput Total 1900 ml BalanceBalance 300 ml 50 ml -350 ml Results Result Diagram: 06/30/18 0517 06/30/18 0517 Results 24hrs Laboratory Tests Test 06/30/18 05:17 White Blood Count 16.9 H Red Blood Count 3.70 L Hemoglobin 8.2 L Hematocrit 27.0 L Mean Corpuscular Volume 73.0 L Mean Corpuscular Hemoglobin 22.2 L Mean Corpuscular Hemoglobin Concent 30.4 L Red Cell Distribution Width 18.8 H Platelet Count 477 H Mean Platelet Volume 8.4 Immature Granulocytes % 1.000 H Neutrophils % 85.0 H Lymphocytes % 6.0 L Monocytes % 6.4 Eosinophils % 1.4 Basophils % 0.2 Nucleated Red Blood Cells % 0.0 Immature Granulocytes # 0.170 H Neutrophils # 14.3 H Lymphocytes # 1.0 Monocytes # 1.1 H Eosinophils # 0.2 Basophils # 0.0 Nucleated Red Blood Cells # 0.0 Sodium Level 134 L Potassium Level 4.2 Chloride Level 100 Carbon Dioxide Level 27 Anion Gap 7 Blood Urea Nitrogen 20 Creatinine 0.89 Est Glomerular Filtrat Rate mL/min > 60 Glucose Level 137 Calcium Level 7.7 L Phosphorus Level 3.1 Magnesium Level 1.9 Medications Medication Current Medications IV Flush (NS 3 ml) 3 ml PER PROTOCOL IV ; Start 06/22/18 at 18:30 Ondansetron HCl (Zofran Inj) 4 mg Q6H PRN IV NAUSEA/VOMITING Last administered on 06/26/18at 15:57; Admin Dose 4 MG; Start 06/22/18 at 18:30 Acetaminophen (Tylenol Tab) 650 mg Q6H PRN PO .PAIN 1-3 OR TEMP; Start 06/22/18 at 18:30 Enoxaparin Sodium (Lovenox) 30 mg DAILY SC Last administered on 06/30/18 09:38; Admin Dose 30 MG; Start 06/23/18 at 09:00 Phenazopyridine HCl (Pyridium) 200 mg TID PRN PO dysuria Last administered on 06/29/18 13:21; Admin Dose 200 MG; Start 06/22/18 at 18:30 Hydralazine HCl (Apresoline) 10 mg Q4H PRN IV SBP >160; Start 06/22/18 at 19:00 Tramadol HCl (Ultram) 50 mg Q6H PRN PO MODERATE PAIN LEVEL 4-6 Last administered on 06/23/18 09:54; Admin Dose 50 MG; Start 06/22/18 at 19:00 Miscellaneous Information (Pending [facility] Order For Wound Care) This patient villela... PRN PRN XX WOUND CARE; Start 06/23/18 at 00:30 Docusate Sodium (Colace) 100 mg BID PO Last administered on 06/29/18 09:54; Admin Dose 100 MG; Start 06/23/18 at 21:00 Vancomycin HCl (Vanco Iv Per Pharmacy) VANCOMYCIN PER PHARMACY PER PROTOCOL XX ; Start 06/23/18 at 17:30 Tamsulosin HCl (Flomax) 0.4 mg DAILY PO Last administered on 06/30/18 09:09; Admin Dose 0.4 MG; Start 06/24/18 at 09:00 Labetalol HCl (Labetalol) 10 mg Q4 PRN IV sbp>160; Start 06/24/18 at 13:30 Mupirocin (Bactroban) 1 applic BID TOP Last administered on 06/29/18 21:17; Admin Dose 1 APPLIC; Start 06/26/18 at 21:00; Stop 07/03/18 at 20:59 Sodium Hypochlorite (Dakin'S (Dilute )) 1 applic DAILY IRR Last administered on 06/29/18 09:57; Admin Dose 1 APPLIC; Start 06/26/18 at 16:00 Pantoprazole (Protonix Iv) 40 mg DAILY@06 IV Last administered on 06/30/18 05:21; Admin Dose 40 MG; Start 06/27/18 at 06:00 Cefepime HCl 50 ml @ 100 mls/hr Q12 IVPB Last administered on 06/30/18 09:10; Admin Dose 100 MLS/HR; Start 06/27/18 at 21:00 Polyethylene Glycol (Miralax) 17 gm DAILY PRN PO constipation; Start 06/28/18 at 09:00 Carisoprodol (Soma) 350 mg Q6 PRN PO muscle spasms Last administered on 06/30/18 11:00; Admin Dose 350 MG; Start 06/28/18 at 10:00 Lisinopril (Zestril) 5 mg DAILY PO Last administered on 06/30/18 09:09; Admin Dose 5 MG; Start 06/29/18 at 09:00 Metronidazole (Flagyl) 250 mg Q8 PO Last administered on 06/30/18 05:21; Admin Dose 250 MG; Start 06/28/18 at 14:00 Magnesium Hydroxide (Milk Of Mag) 30 ml DAILY PRN PO CONSTIPATION; Start 06/28 at 21:00 Vancomycin HCl 250 ml @ 125 mls/hr Q12H IVPB Last administered on 2/4/19at 10:00; Admin Dose 125 MLS/HR; Start 06/29/18 at 09:00 Oxycodone/ Acetaminophen (Endocet ()) 1 tab Q4H PRN PO MODERATE PAIN LEVEL 4-6; Start 06/30/18 at 10:30 Hydromorphone HCl (Dilaudid) 0.5 mg Q4H PRN IV SEVERE PAIN LEVEL 7-10 Last administered on 06/30/18at 11:01; Admin Dose 0.5 MG; Start 06/30/18 at 10:30 JOHNSON PENDLETON NP Jun 30, 2018 13:40
[2018-06-30] MEDS: MUPIROCIN 2% 22 GM OINT TOP SCH ×2 (15:19→21:09)
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
[2018-07-01] VITALS (9 sets, daily range): BP systolic 97–131; BP diastolic 60–73; PULSE 89–119; RESP 16–18
[2018-07-01] MEDS: CARISOPRODOL 350 MG TAB PO PRN ×4 (01:35→20:32)
[2018-07-01] MEDS: HYDROmorphONE 0.5 MG/0.5 ML SYG IV PRN ×5 (03:36→21:51)
[2018-07-01] MEDS: metroNIDAZOLE 250 MG TAB PO SCH ×2 (05:23→14:22)
[2018-07-01] MEDS: PANTOPRAZOLE 40 MG INJ IV SCH (05:23)
[2018-07-01] MEDS: TAMSULOSIN (SR) 0.4 MG CAP PO SCH (08:00)
[2018-07-01] MEDS: CEFEPIME 1GM/50 ML (PMX) 50 ML IVPB SCH ×2 (08:01→20:32)
[2018-07-01] MEDS: LISINOPRIL 5 MG TAB PO SCH (08:01)
[2018-07-01] MEDS: ENOXAPARIN 30 MG/0.3 ML SYG SC SCH (08:22)
--- NOTE | 2018-07-01 08:49 | PN ---
Date/Time of Note Date/Time of Note DATE: 07/01/18 TIME: 08:49 Assessment/Plan VTE Prophylaxis Risk score (from Ns)>0 risk: 6 SCD applied (from Ns): Yes Pharmacological prophylaxis: LMWH Lines/Catheters IV Catheter Type (from Nrsg): Saline Lock Urinary Cath still in place: No Assessment/Plan Assessment/Plan 1. Sepsis secondary to UTI, decubitus ulcers, and OM - WBC trending down and remains afebrile - ID on board and appreciate consultation. Continue IV antibiotics for total of 6 weeks 2. UTI with hydronephrosis - Urology on board and appreciate recommendations. cortez d/c but patient having difficulty while straight cathing. per nursing, he has been leaving the cath tubing inserted to drain into the basin - continue on current antibiotics - CT scan results noted 3. Sacral decubitus ulcer with abscess - ID on board and continuing current antibiotics - Surgery on board and appreciate consultation. Will perform debridement as needed. Offloading as much as possible - wound care on board 4. Osteomyelitis of ischium - Will need to complete 6 weeks of IV antibiotics - ID on board and appreciate recommendations 5. Acute on chronic back pain - Pain control - soma for muscle spasms, patient on this chronically outpatient 6. Acute kidney injury- resolved - Likely secondary to UTI 7. Hypertension - Resume home meds as needed 8. Disposition - CM on board for placement but will be challenging. Required 6 weeks of antibiotics total for tx of osteomyelitis Result Diagram: 07/01/18 0553 07/01/18 0553 Results 24hrs Laboratory Tests Test 06/30/18 20:02 07/01/18 05:53 Vancomycin Level Trough 16.3 White Blood Count 14.3 H Red Blood Count 3.86 L Hemoglobin 8.5 L Hematocrit 28.8 L Mean Corpuscular Volume 74.6 L Mean Corpuscular Hemoglobin 22.0 L Mean Corpuscular Hemoglobin Concent 29.5 L Red Cell Distribution Width 19.0 H Platelet Count 490 H Mean Platelet Volume 8.5 Immature Granulocytes % 1.100 H Neutrophils % 82.2 H Lymphocytes % 8.5 L Monocytes % 6.4 Eosinophils % 1.4 Basophils % 0.4 Nucleated Red Blood Cells % 0.0 Immature Granulocytes # 0.160 H Neutrophils # 11.7 H Lymphocytes # 1.2 Monocytes # 0.9 Eosinophils # 0.2 Basophils # 0.1 Nucleated Red Blood Cells # 0.0 Sodium Level 136 Potassium Level 4.5 Chloride Level 100 Carbon Dioxide Level 31 Anion Gap 5 Blood Urea Nitrogen 24 H Creatinine 1.01 Glucose Level 87 # Calcium Level 8.1 L Phosphorus Level 3.6 Magnesium Level 2.1 Albumin 2.7 L Subjective 24 Hr Interval Summary Free Text/Dictation Patient still upset about his care and states people do not come quick enough. Also getting frustrated with straight cathing since keeps leaking following insertion. Exam/Review of Systems Exam Vitals Vital Signs Date Temp Pulse Resp B/P (MAP) Pulse Ox O2 O2 Flow FiO2 Time Delivery Rate 07/01/18 109 08:25 07/01/18 98.5 16 131/71 98 Room Air 08:18 (91) Intake and Output 06/30/18 06/30/18 07/01/18 1515:00 23:00 07:00 IntakeIntake Total 300 ml 1100 ml 850 ml OutputOutput Total 800 ml 900 ml BalanceBalance -500 ml 1100 ml -50 ml Exam General: Patient is laying in bed and answers questions appropriately. frustrated Neck: Supple Respiratory: Clear to auscultation bilaterally. no wheezing or rhonchi Cardiovascular: regular rate and rhythm, no obvious murmurs Gastrointestinal: soft, non-tender to palpation, bowel sounds heard. Neurological: Moves UE bilaterally Skin: Multiple lesions Results Results 24hrs Laboratory Tests Test 06/30/18 20:02 07/01/18 05:53 Vancomycin Level Trough 16.3 White Blood Count 14.3 H Red Blood Count 3.86 L Hemoglobin 8.5 L Hematocrit 28.8 L Mean Corpuscular Volume 74.6 L Mean Corpuscular Hemoglobin 22.0 L Mean Corpuscular Hemoglobin Concent 29.5 L Red Cell Distribution Width 19.0 H Platelet Count 490 H Mean Platelet Volume 8.5 Immature Granulocytes % 1.100 H Neutrophils % 82.2 H Lymphocytes % 8.5 L Monocytes % 6.4 Eosinophils % 1.4 Basophils % 0.4 Nucleated Red Blood Cells % 0.0 Immature Granulocytes # 0.160 H Neutrophils # 11.7 H Lymphocytes # 1.2 Monocytes # 0.9 Eosinophils # 0.2 Basophils # 0.1 Nucleated Red Blood Cells # 0.0 Sodium Level 136 Potassium Level 4.5 Chloride Level 100 Carbon Dioxide Level 31 Anion Gap 5 Blood Urea Nitrogen 24 H Creatinine 1.01 Glucose Level 87 # Calcium Level 8.1 L Phosphorus Level 3.6 Magnesium Level 2.1 Albumin 2.7 L Medications Medication Current Medications IV Flush (NS 3 ml) 3 ml PER PROTOCOL IV ; Start 06/22/18 at 18:30 Ondansetron HCl (Zofran Inj) 4 mg Q6H PRN IV NAUSEA/VOMITING Last administered on 06/26/18at 15:57; Admin Dose 4 MG; Start 06/22/18 at 18:30 Acetaminophen (Tylenol Tab) 650 mg Q6H PRN PO .PAIN 1-3 OR TEMP; Start 06/22/18 at 18:30 Enoxaparin Sodium (Lovenox) 30 mg DAILY SC Last administered on 07/01/18at 08:22; Admin Dose 30 MG; Start 06/23/18 at 09:00 Phenazopyridine HCl (Pyridium) 200 mg TID PRN PO dysuria Last administered on 06/29/18at 13:21; Admin Dose 200 MG; Start 06/22/18 at 18:30 Hydralazine HCl (Apresoline) 10 mg Q4H PRN IV SBP >160; Start 06/22/18 at 19:00 Tramadol HCl (Ultram) 50 mg Q6H PRN PO MODERATE PAIN LEVEL 4-6 Last administered on 06/23/18at 09:54; Admin Dose 50 MG; Start 06/22/18 at 19:00 Miscellaneous Information [facility] This patient villela... PRN PRN XX WOUND CARE; Start 06/23/18 at 00:30 Docusate Sodium (Colace) 100 mg BID PO Last administered on 06/30/18at 21:06; Admin Dose 100 MG; Start 06/23/18 at 21:00 Vancomycin HCl (Vanco Iv Per Pharmacy) VANCOMYCIN PER PHARMACY PER PROTOCOL XX ; Start 06/23/18 at 17:30 Tamsulosin HCl (Flomax) 0.4 mg DAILY PO Last administered on 07/01/18at 08:00; Admin Dose 0.4 MG; Start 06/24/18 at 09:00 Labetalol HCl (Labetalol) 10 mg Q4 PRN IV sbp>160; Start 06/24/18 at 13:30 Mupirocin (Bactroban) 1 applic BID TOP Last administered on 06/30/18 21:09; Admin Dose 1 APPLIC; Start 06/26/18 at 21:00; Stop 07/03/18 at 20:59 Sodium Hypochlorite (Dakin'S (Dilute )) 1 applic DAILY IRR Last administered on 06/29/18 09:57; Admin Dose 1 APPLIC; Start 06/26/18 at 16:00 Pantoprazole (Protonix Iv) 40 mg DAILY@06 IV Last administered on 07/01/18 05:23; Admin Dose 40 MG; Start 06/27/18 at 06:00 Cefepime HCl 50 ml @ 100 mls/hr Q12 IVPB Last administered on 07/01/18 08:01; Admin Dose 100 MLS/HR; Start 06/27/18 at 21:00 Polyethylene Glycol (Miralax) 17 gm DAILY PRN PO constipation; Start 06/28/18 at 09:00 Carisoprodol (Soma) 350 mg Q6 PRN PO muscle spasms Last administered on 07/01/18 08:01; Admin Dose 350 MG; Start 06/28/18 at 10:00 Lisinopril (Zestril) 5 mg DAILY PO Last administered on 07/01/18 08:01; Admin Dose 5 MG; Start 06/29/18 at 09:00 Metronidazole (Flagyl) 250 mg Q8 PO Last administered on 07/01/18 05:23; Admin Dose 250 MG; Start 06/28/18 at 14:00 Magnesium Hydroxide (Milk Of Mag) 30 ml DAILY PRN PO CONSTIPATION; Start 06/28/18 at 21:00 Vancomycin HCl 250 ml @ 125 mls/hr Q12H IVPB Last administered on 06/30/18 21:45; Admin Dose 125 MLS/HR; Start 06/29/18 at 09:00 Oxycodone/ Acetaminophen (Endocet (10/ 325)) 1 tab Q4H PRN PO MODERATE PAIN LEVEL 4-6; Start 06/30/18 at 10:30 Hydromorphone HCl (Dilaudid) 0.5 mg Q4H PRN IV SEVERE PAIN LEVEL 7-10 Last administered on 07/01/18 08:02; Admin Dose 0.5 MG; Start 06/30/18 at 10:30 KINGA WILLETT MD Jul 01, 2018 08:49
[2018-07-01] MEDS: DOCUSATE SODIUM 100 MG CAP PO SCH ×2 (09:00→21:00)
[2018-07-01] MEDS: MUPIROCIN 2% 22 GM OINT TOP SCH ×2 (11:48→20:45)
[2018-07-01] MEDS: VANCOMYCIN 1 GM 250 ML IVPB SCH ×2 (11:48→21:26)
--- NOTE | 2018-07-01 14:16 | PN ---
Date/Time of Note Date/Time of Note DATE: 07/01/18 TIME: 14:14 Assessment/Plan Lines/Catheters IV Catheter Type (from [facility]): Saline Lock Baxter in Place (from [facility]): Yes Assessment/Plan Chief Complaint/Hosp Course 1. Multiple decubitus pressure ulcers -Encourage aggressive offloading -Encourage nutritional optimization -Continue wound care -Debridement as needed -Vitamin C -Osteomyelitis treatment 2. Possible abscess reported on CT not palpable clinically. Contrast ct:: Status post debridement and drainage of the right buttock abscess with associated skin defect and underlying osteomyelitis -abx per id -as above 3. UTI on antibiotics 4. Acute leukocytosis persisting but improved -As above -Judicious fluid management -Antibiotics -Supportive measures 5. Hypoalbuminemia -Encourage nutritional optimization 6. Hypertension history -Nutrition and medication optimization 7. Anemia without evidence of acute blood loss -Monitor 8. Acute on chronic back pain, nephrolithiasis -Medical optimization -Judicious fluid management 9. Decompressed bladder with significant thickening concerning for bladder neoplasm versus cystitis: Urethritis, possible pyelonephritis -Urology following -Antibiotics 10. Dysphagia: -EGD refused by patient 11. Elevated CEA however patient refusing colonoscopy and further workup Thank you. Patient seen and examined in collaboration with Dr. Micah Hobbs. Subjective 24 Hr Interval Summary Intermittently agitated but no physical complaints. No fevers, chills, sob, congested cough, cp, palpitations, villela, dizziness, n/v/d/dysuria. WBC improving. Tachycardia. Exam/Review of Systems Vital Signs Vitals Vital Signs Date Temp Pulse Resp B/P (MAP) Pulse Ox O2 O2 Flow FiO2 Time Delivery Rate 07/01/18 98.5 110 18 112/69 100 Room Air 12:23 (83) Intake and Output 06/30/18 06/30/18 07/01/18 1515:00 23:00 07:00 IntakeIntake Total 300 ml 1100 ml 850 ml OutputOutput Total 800 ml 900 ml BalanceBalance -500 ml 1100 ml -50 ml Exam Free Text/Dictation Constitutional: alert, oriented No distress Psych: No anxiety Head: normocephalic, atraumatic Eyes: nl conjunctiva, EOMI, PERRL; No icteric ENMT: nl external ears & nose, nl lips & teeth, mucosa pink and moist Neck: supple, non-tender; No jvd Respiratory: normal air movement; No congested cough, No labored breathing, No wheezing Cardiovascular: regular rate and rhythm; No edema Gastrointestinal: soft, non-tender; No distended, No rebound or guarding Genitourinary - Male: nl penis, nl scrotum Musculoskeletal: No nl gait and stance, No joint tenderness Extremities: normal pulses; No calf tenderness, No edema, No tenderness Neurological: nl mental status, nl speech; No nl strength Skin: rash or lesions (Decubitus pressure ulcers: No obvious abscess palpable- no palpable fluctuant areas. Right ischium : Improved odor/mod drainage); No ecchymosis Lymph: nl lymph nodes Results Result Diagram: 07/01/18 0553 07/01/18 0553 TIFFANIE KLEIN NP Jul 01, 2018 14:16
--- NOTE | 2018-07-01 14:55 | CONS ---
Assessment/Plan Assessment/Plan Hospital Course (Demo Recall) Awake, no fevers, looks comfortable Microbiology: Blood culture growing Proteus mirabilis, urine culture grew Proteus mirabilis and oxacillin sensitive staph aureus. Sacral wound culture growing E. coli, staph aureus and enterococcus species Chest x-ray on admission revealed no definite abnormalities. Antimicrobials: Vancomycin, Cefepime, Flagyl Physical examination: Well-developed chronically ill-appearing elderly man in no distress. Head atraumatic normocephalic sclera nonicteric neck is supple chest rise symmetrical breath sounds diminished bases heart S1-S2 abdomen soft bowel sounds present extremities wasted bilateral lower extremities Assessment: 1. Sepsis, present on admission 2. Proteus mirabilis bacteremia secondary to UTI 3. Multidrug-resistant Proteus mirabilis pyelonephritis 4. Bilateral hydronephrosis 5. Neurogenic bladder 6. Multiple decubitus with questionable osteomyelitis of right atrium and right iliac bone 7. Obstructive uropathy 8. Homelessness 9. Incomplete paraplegia Plan: Stable, dc Flagyl, continue present care, needs 6 weeks IV abx for OM Consultation Date/Type/Reason Admit Date/Time Jun 22, 2018 at 18:09 Initial Consult Date 06/23/18 Type of Consult id Requesting Provider: TRACE REBOLLEDO Date/Time of Note DATE: 07/01/18 TIME: 14:54 Exam/Review of Systems Exam Vitals Vital Signs Date Temp Pulse Resp B/P (MAP) Pulse Ox O2 O2 Flow FiO2 Time Delivery Rate 07/01/18 98.5 110 18 112/69 100 Room Air 12:23 (83) Intake and Output 06/30/18 06/30/18 07/01/18 1515:00 23:00 07:00 IntakeIntake Total 300 ml 1100 ml 850 ml OutputOutput Total 800 ml 900 ml BalanceBalance -500 ml 1100 ml -50 ml Results Result Diagram: 07/01/18 0553 07/01/18 0553 Results 24hrs Laboratory Tests Test 06/30/18 20:02 07/01/18 05:53 Vancomycin Level Trough 16.3 White Blood Count 14.3 H Red Blood Count 3.86 L Hemoglobin 8.5 L Hematocrit 28.8 L Mean Corpuscular Volume 74.6 L Mean Corpuscular Hemoglobin 22.0 L Mean Corpuscular Hemoglobin Concent 29.5 L Red Cell Distribution Width 19.0 H Platelet Count 490 H Mean Platelet Volume 8.5 Immature Granulocytes % 1.100 H Neutrophils % 82.2 H Lymphocytes % 8.5 L Monocytes % 6.4 Eosinophils % 1.4 Basophils % 0.4 Nucleated Red Blood Cells % 0.0 Immature Granulocytes # 0.160 H Neutrophils # 11.7 H Lymphocytes # 1.2 Monocytes # 0.9 Eosinophils # 0.2 Basophils # 0.1 Nucleated Red Blood Cells # 0.0 Sodium Level 136 Potassium Level 4.5 Chloride Level 100 Carbon Dioxide Level 31 Anion Gap 5 Blood Urea Nitrogen 24 H Creatinine 1.01 Glucose Level 87 # Calcium Level 8.1 L Phosphorus Level 3.6 Magnesium Level 2.1 Albumin 2.7 L Medications Medication Current Medications IV Flush (NS 3 ml) 3 ml PER PROTOCOL IV ; Start 06/22/18 at 18:30 Ondansetron HCl (Zofran Inj) 4 mg Q6H PRN IV NAUSEA/VOMITING Last administered on 06/26/18at 15:57; Admin Dose 4 MG; Start 06/22/18 at 18:30 Acetaminophen (Tylenol Tab) 650 mg Q6H PRN PO .PAIN 1-3 OR TEMP; Start 06/22/18 at 18:30 Enoxaparin Sodium (Lovenox) 30 mg DAILY SC Last administered on 07/01/18at 08:22; Admin Dose 30 MG; Start 06/23/18 at 09:00 Phenazopyridine HCl (Pyridium) 200 mg TID PRN PO dysuria Last administered on 06/29/18at 13:21; Admin Dose 200 MG; Start 06/22/18 at 18:30 Hydralazine HCl (Apresoline) 10 mg Q4H PRN IV SBP >160; Start 06/22/18 at 19:00 Tramadol HCl (Ultram) 50 mg Q6H PRN PO MODERATE PAIN LEVEL 4-6 Last administered on 06/23/18at 09:54; Admin Dose 50 MG; Start 06/22/18 at 19:00 Miscellaneous Information (Pending Santyl Order For Wound Care) This patient villela... PRN PRN XX WOUND CARE; Start 06/23/18 at 00:30 Docusate Sodium (Colace) 100 mg BID PO Last administered on 06/30/18at 21:06; Admin Dose 100 MG; Start 06/23/18 at 21:00 Vancomycin HCl (Vanco Iv Per Pharmacy) VANCOMYCIN PER PHARMACY PER PROTOCOL XX ; Start 06/23/18 at 17:30 Tamsulosin HCl (Flomax) 0.4 mg DAILY PO Last administered on 07/01/18 08:00; Admin Dose 0.4 MG; Start 06/24/18 at 09:00 Labetalol HCl (Labetalol) 10 mg Q4 PRN IV sbp>160; Start 06/24/18 at 13:30 Mupirocin (Bactroban) 1 applic BID TOP Last administered on 07/01/18 11:48; Admin Dose 1 APPLIC; Start 06/26/18 at 21:00; Stop 07/03/18 at 20:59 Sodium Hypochlorite (Dakin'S (Dilute )) 1 applic DAILY IRR Last admi nistered on 06/29/18 09:57; Admin Dose 1 APPLIC; Start 06/26/18 at 16:00 Pantoprazole (Protonix Iv) 40 mg DAILY@06 IV Last administered on 07/01/18 05:23; Admin Dose 40 MG; Start 06/27/18 at 06:00 Cefepime HCl 50 ml @ 100 mls/hr Q12 IVPB Last administered on 07/01/18 08:01; Admin Dose 100 MLS/HR; Start 06/27/18 at 21:00 Polyethylene Glycol (Miralax) 17 gm DAILY PRN PO constipation; Start 06/28/18 at 09:00 Carisoprodol (Soma) 350 mg Q6 PRN PO muscle spasms Last administered on 07/01/18 13:40; Admin Dose 350 MG; Start 06/28/18 at 10:00 Lisinopril (Zestril) 5 mg DAILY PO Last administered on 07/01/18 08:01; Admin Dose 5 MG; Start 06/29/18 at 09:00 Metronidazole (Flagyl) 250 mg Q8 PO Last administered on 07/01/18 14:22; Admin Dose 250 MG; Start 06/28/18 at 14:00 Magnesium Hydroxide (Milk Of Mag) 30 ml DAILY PRN PO CONSTIPATION; Start 06/28/18 at 21:00 Vancomycin HCl 250 ml @ 125 mls/hr Q12H IVPB Last administered on 2/5/19at 11:48; Admin Dose 125 MLS/HR; Start 06/29/18 at 09:00 Oxycodone/ Acetaminophen (Endocet ()) 1 tab Q4H PRN PO MODERATE PAIN LEVEL 4-6; Start 06/30/18 at 10:30 Hydromorphone HCl (Dilaudid) 0.5 mg Q4H PRN IV SEVERE PAIN LEVEL 7-10 Last administered on 07/01/18at 13:41; Admin Dose 0.5 MG; Start 06/30/18 at 10:30 JOHNSON PENDLETON HIDE SORTER Jul 01, 2018 14:55
[2018-07-01] MEDS ORDERED: traMADol 50 MG TAB PO PRN (19:00)
[2018-07-01] MEDS: SODIUM HYPOCHLORITE (1/40) 1 APPLIC BTL IRR SCH (20:32)
[2018-07-02] VITALS (10 sets, daily range): BP systolic 117–148; BP diastolic 55–72; PULSE 79–111; RESP 16–18
[2018-07-02] MEDS: HYDROmorphONE 0.5 MG/0.5 ML SYG IV PRN ×5 (01:51→21:49)
[2018-07-02] MEDS: PANTOPRAZOLE 40 MG INJ IV SCH (06:18)
--- NOTE | 2018-07-02 08:15 | PN ---
Date/Time of Note Date/Time of Note DATE: 07/02/18 TIME: 08:15 Assessment/Plan VTE Prophylaxis Risk score (from Ns)>0 risk: 6 SCD applied (from Nsg): Yes Pharmacological prophylaxis: LMWH Lines/Catheters IV Catheter Type (from Nrsg): Saline Lock Urinary Cath still in place: No Assessment/Plan Assessment/Plan 1. Sepsis secondary to UTI, decubitus ulcers, and OM - Remains afebrile and WBC continues to trend downward - ID on board and appreciate consultation. Continue IV antibiotics for total of 6 weeks 2. UTI with hydronephrosis - Urology on board and appreciate recommendations. aware of leakage and frequency of straight caths. KUB ordered this am to assess nephrolithiasis - continue on current antibiotics - CT scan results noted 3. Sacral decubitus ulcer with abscess - ID on board and continuing current antibiotics - Surgery on board and appreciate consultation. Will perform debridement as needed. Offloading as much as possible - wound care on board 4. Osteomyelitis of ischium - Will need to complete 6 weeks of IV antibiotics - ID on board and appreciate recommendations 5. Acute on chronic back pain - Pain control - soma for muscle spasms, patient on this chronically outpatient 6. Acute kidney injury- resolved - Likely secondary to UTI 7. Hypertension - Resume home meds as needed 8. Disposition - CM on board for placement but will be challenging. Required 6 weeks of antibiotics total for tx of osteomyelitis Result Diagram: 07/02/18 0507 07/02/18 0507 Results 24hrs Laboratory Tests Test 07/02/18 05:07 White Blood Count 13.0 H Red Blood Count 3.82 L Hemoglobin 8.6 L Hematocrit 28.5 L Mean Corpuscular Volume 74.6 L Mean Corpuscular Hemoglobin 22.5 L Mean Corpuscular Hemoglobin Concent 30.2 L Red Cell Distribution Width 18.9 H Platelet Count 519 H Mean Platelet Volume 8.3 Immature Granulocytes % 0.800 H Neutrophils % 83.7 H Lymphocytes % 8.3 L Monocytes % 6.1 Eosinophils % 0.9 Basophils % 0.2 Nucleated Red Blood Cells % 0.0 Immature Granulocytes # 0.110 H Neutrophils # 10.8 H Lymphocytes # 1.1 Monocytes # 0.8 Eosinophils # 0.1 Basophils # 0.0 Nucleated Red Blood Cells # 0.0 Blood Urea Nitrogen 26 H Creatinine 1.06 Subjective 24 Hr Interval Summary Free Text/Dictation Patient still upset that he is not being attended to in a timely manner and sitting in wet chucks. No acute overnight events. Still with leakage in between catheterizations. Exam/Review of Systems Exam Vitals Vital Signs Date Temp Pulse Resp B/P (MAP) Pulse Ox O2 O2 Flow FiO2 Time Delivery Rate 07/02/18 107 08:09 07/02/18 97.5 16 117/70 98 Room Air 07:38 (86) Intake and Output 07/01/18 07/01/18 07/02/18 1515:00 23:00 07:00 IntakeIntake Total 300 ml 1200 ml 1400 ml OutputOutput Total 1000 ml 1500 ml BalanceBalance 300 ml 200 ml -100 ml Exam General: Patient is laying in bed and answers questions appropriately. more pleasant but remains frustrated Neck: Supple Respiratory: Clear to auscultation bilaterally. no wheezing or rhonchi Cardiovascular: regular rate and rhythm, no obvious murmurs Gastrointestinal: soft, non-tender to palpation, bowel sounds heard. Skin: Multiple lesions Results Results 24hrs Laboratory Tests Test 07/02/18 05:07 White Blood Count 13.0 H Red Blood Count 3.82 L Hemoglobin 8.6 L Hematocrit 28.5 L Mean Corpuscular Volume 74.6 L Mean Corpuscular Hemoglobin 22.5 L Mean Corpuscular Hemoglobin Concent 30.2 L Red Cell Distribution Width 18.9 H Platelet Count 519 H Mean Platelet Volume 8.3 Immature Granulocytes % 0.800 H Neutrophils % 83.7 H Lymphocytes % 8.3 L Monocytes % 6.1 Eosinophils % 0.9 Basophils % 0.2 Nucleated Red Blood Cells % 0.0 Immature Granulocytes # 0.110 H Neutrophils # 10.8 H Lymphocytes # 1.1 Monocytes # 0.8 Eosinophils # 0.1 Basophils # 0.0 Nucleated Red Blood Cells # 0.0 Blood Urea Nitrogen 26 H Creatinine 1.06 Medications Medication Current Medications IV Flush (NS 3 ml) 3 ml PER PROTOCOL IV ; Start 06/22/18 at 18:30 Ondansetron HCl (Zofran Inj) 4 mg Q6H PRN IV NAUSEA/VOMITING Last administered on 06/26/18at 15:57; Admin Dose 4 MG; Start 06/22/18 at 18:30 Acetaminophen (Tylenol Tab) 650 mg Q6H PRN PO .PAIN 1-3 OR TEMP; Start 06/22/18 at 18:30 Enoxaparin Sodium (Lovenox) 30 mg DAILY SC Last administered on 07/01/18 08:22; Admin Dose 30 MG; Start 06/23/18 at 09:00 Phenazopyridine HCl (Pyridium) 200 mg TID PRN PO dysuria Last administered on 06/29/18 13:21; Admin Dose 200 MG; Start 06/22/18 at 18:30 Hydralazine HCl (Apresoline) 10 mg Q4H PRN IV SBP >160; Start 06/22/18 at 19:00 Miscellaneous Information (Pending Santyl Order For Wound Care) This patient ville[place]... PRN PRN XX WOUND CARE; Start 06/23/18 at 00:30 Docusate Sodium (Colace) 100 mg BID PO Last administered on 06/30/18 21:06; Admin Dose 100 MG; Start 06/23/18 at 21:00 Vancomycin HCl (Vanco Iv Per Pharmacy) VANCOMYCIN PER PHARMACY PER PROTOCOL XX ; Start 06/23/18 at 17:30 Tamsulosin HCl (Flomax) 0.4 mg DAILY PO Last administered on 07/01/18 08:00; Admin Dose 0.4 MG; Start 06/24/18 at 09:00 Labetalol HCl (Labetalol) 10 mg Q4 PRN IV sbp>160; Start 06/24/18 at 13:30 Mupirocin (Bactroban) 1 applic BID TOP Last administered on 07/01/18at 20:45; Admin Dose 1 APPLIC; Start 06/26/18 at 21:00; Stop 07/03/18 at 20:59 Sodium Hypochlorite (Dakin'S (Dilute 40)) 1 applic DAILY IRR Last administered on 07/01/18 20:32; Admin Dose 1 APPLIC; Start 06/26/18 at 16:00 Pantoprazole (Protonix Iv) 40 mg DAILY@06 IV Last administered on 07/02/18 06:18; Admin Dose 40 MG; Start 06/27/18 at 06:00 Cefepime HCl 50 ml @ 100 mls/hr Q12 IVPB Last administered on 07/01/18 20:32; Admin Dose 100 MLS/HR; Start 06/27/18 at 21:00 Polyethylene Glycol (Miralax) 17 gm DAILY PRN PO constipation; Start 06/28/18 at 09:00 Carisoprodol (Soma) 350 mg Q6 PRN PO muscle spasms Last administered on 07/01/18at 20:32; Admin Dose 350 MG; Start 06/28/18 at 10:00 Lisinopril (Zestril) 5 mg DAILY PO Last administered on 07/01/18at 08:01; Admin Dose 5 MG; Start 06/29/18 at 09:00 Magnesium Hydroxide (Milk Of Mag) 30 ml DAILY PRN PO CONSTIPATION; Start 06/28/18 at 21:00 Vancomycin HCl 250 ml @ 125 mls/hr Q12H IVPB Last administered on 07/01/18at 21:26; Admin Dose 125 MLS/HR; Start 06/29/18 at 09:00 Hydromorphone HCl (Dilaudid) 1 mg Q4H PRN IV SEVERE PAIN LEVEL 7-10 Last administered on 07/02/18at 06:21; Admin Dose 1 MG; Start 07/01/18 at 18:30 Oxycodone/ Acetaminophen (Endocet (10/ 325)) 2 tab Q4H PRN PO MODERATE PAIN LEVEL 4-6; Start 07/01/18 at 18:30 Tramadol HCl (Ultram) 100 mg Q6H PRN PO MODERATE PAIN LEVEL 4-6; Start 07/01/18 at 19:00 KINGA WILLETT MD Jul 02, 2018 08:15
[2018-07-02] MEDS: CEFEPIME 1GM/50 ML (PMX) 50 ML IVPB SCH ×2 (08:21→20:49)
[2018-07-02] MEDS: LISINOPRIL 5 MG TAB PO SCH (08:21)
[2018-07-02] MEDS: TAMSULOSIN (SR) 0.4 MG CAP PO SCH (08:22)
[2018-07-02] MEDS: ENOXAPARIN 30 MG/0.3 ML SYG SC SCH (08:23)
[2018-07-02] MEDS: DOCUSATE SODIUM 100 MG CAP PO SCH ×2 (08:29→20:49)
[2018-07-02] MEDS: SODIUM HYPOCHLORITE (1/40) 1 APPLIC BTL IRR SCH (08:30)
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
[2018-07-02] MEDS: OXYCODONE/ACETAMINOPHEN (10/325) TAB PO PRN ×3 (08:39→20:49)
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
[2018-07-02] MEDS: MUPIROCIN 2% 22 GM OINT TOP SCH ×2 (09:04→20:49)
[2018-07-02] MEDS: VANCOMYCIN 1 GM 250 ML IVPB SCH ×2 (09:04→21:48)
--- NOTE | 2018-07-02 11:59 | CONS ---
Assessment/Plan Assessment/Plan Hospital Course (Demo Recall) All noted, no events over night, no fevers, looks comfortable Microbiology: Blood culture growing Proteus mirabilis, urine culture grew Proteus mirabilis and oxacillin sensitive staph aureus. Sacral wound culture growing E. coli, staph aureus and enterococcus species Chest x-ray on admission revealed no definite abnormalities. Antimicrobials: Vancomycin, Cefepime Physical examination: Well-developed chronically ill-appearing elderly man in no distress. Head atraumatic normocephalic sclera nonicteric neck is supple chest rise symmetrical breath sounds diminished bases heart S1-S2 abdomen soft bowel sounds present extremities wasted bilateral lower extremities Assessment: 1. Sepsis, present on admission 2. Proteus mirabilis bacteremia secondary to UTI, repeat bld cx neg 3. Multidrug-resistant Proteus mirabilis pyelonephritis 4. Bilateral hydronephrosis 5. Neurogenic bladder 6. Multiple decubitus with questionable osteomyelitis of right atrium and right iliac bone 7. Obstructive uropathy 8. Homelessness 9. Incomplete paraplegia Plan: Remains stable, urology rec-s noted, continue straight cath, abx for 6 weeks Consultation Date/Type/Reason Admit Date/Time Jun 22, 2018 at 18:09 Initial Consult Date 06/23/18 Type of Consult id Requesting Provider: TRACE REBOLLEDO Date/Time of Note DATE: 07/02/18 TIME: 11:56 Exam/Review of Systems Exam Vitals Vital Signs Date Temp Pulse Resp B/P (MAP) Pulse Ox O2 O2 Flow FiO2 Time Delivery Rate 07/02/18 97.5 79 18 119/66 98 Room Air 11:16 (83) Intake and Output 07/01/18 07/01/18 07/02/18 1515:00 23:00 07:00 IntakeIntake Total 300 ml 1200 ml 1400 ml OutputOutput Total 1000 ml 1500 ml BalanceBalance 300 ml 200 ml -100 ml Results Result Diagram: 07/02/18 0507 07/02/18 0507 Results 24hrs Laboratory Tests Test 07/02/18 05:07 White Blood Count 13.0 H Red Blood Count 3.82 L Hemoglobin 8.6 L Hematocrit 28.5 L Mean Corpuscular Volume 74.6 L Mean Corpuscular Hemoglobin 22.5 L Mean Corpuscular Hemoglobin Concent 30.2 L Red Cell Distribution Width 18.9 H Platelet Count 519 H Mean Platelet Volume 8.3 Immature Granulocytes % 0.800 H Neutrophils % 83.7 H Lymphocytes % 8.3 L Monocytes % 6.1 Eosinophils % 0.9 Basophils % 0.2 Nucleated Red Blood Cells % 0.0 Immature Granulocytes # 0.110 H Neutrophils # 10.8 H Lymphocytes # 1.1 Monocytes # 0.8 Eosinophils # 0.1 Basophils # 0.0 Nucleated Red Blood Cells # 0.0 Blood Urea Nitrogen 26 H Creatinine 1.06 Medications Medication Current Medications IV Flush (NS 3 ml) 3 ml PER PROTOCOL IV ; Start 06/22/18 at 18:30 Ondansetron HCl (Zofran Inj) 4 mg Q6H PRN IV NAUSEA/VOMITING Last administered on 06/26/18at 15:57; Admin Dose 4 MG; Start 06/22/18 at 18:30 Acetaminophen (Tylenol Tab) 650 mg Q6H PRN PO .PAIN 1-3 OR TEMP; Start 06/22/18 at 18:30 Enoxaparin Sodium (Lovenox) 30 mg DAILY SC Last administered on 07/02/18at 08:23; Admin Dose 30 MG; Start 06/23/18 at 09:00 Phenazopyridine HCl (Pyridium) 200 mg TID PRN PO dysuria Last administered on 06/29/18at 13:21; Admin Dose 200 MG; Start 06/22/18 at 18:30 Hydralazine HCl (Apresoline) 10 mg Q4H PRN IV SBP >160; Start 06/22/18 at 19:00 Miscellaneous Information (Pending [facility] Order For Wound Care) This patient villela... PRN PRN XX WOUND CARE; Start 06/23/18 at 00:30 Docusate Sodium (Colace) 100 mg BID PO Last administered on 06/30/18at 21:06; Admin Dose 100 MG; Start 06/23/18 at 21:00 Vancomycin HCl (Vanco Iv Per Pharmacy) VANCOMYCIN PER PHARMACY PER PROTOCOL XX ; Start 06/23/18 at 17:30 Tamsulosin HCl (Flomax) 0.4 mg DAILY PO Last administered on 07/02/18at 08:22; Admin Dose 0.4 MG; Start 06/24/18 at 09:00 Labetalol HCl (Labetalol) 10 mg Q4 PRN IV sbp>160; Start 06/24/18 at 13:30 Mupirocin (Bactroban) 1 applic BID TOP Last administered on 07/02/18 09:04; Admin Dose 1 APPLIC; Start 06/26/18 at 21:00; Stop 07/03/18 at 20:59 Sodium Hypochlorite (Dakin'S (Dilute )) 1 applic DAILY IRR Last administe red on 07/01/18 20:32; Admin Dose 1 APPLIC; Start 06/26/18 at 16:00 Pantoprazole (Protonix Iv) 40 mg DAILY@06 IV Last administered on 07/02/18 06:18; Admin Dose 40 MG; Start 06/27/18 at 06:00 Cefepime HCl 50 ml @ 100 mls/hr Q12 IVPB Last administered on 07/02/18 08:21; Admin Dose 100 MLS/HR; Start 06/27/18 at 21:00 Polyethylene Glycol (Miralax) 17 gm DAILY PRN PO constipation; Start 06/28/18 at 09:00 Carisoprodol (Soma) 350 mg Q6 PRN PO muscle spasms Last administered on 07/01/18 20:32; Admin Dose 350 MG; Start 06/28/18 at 10:00 Lisinopril (Zestril) 5 mg DAILY PO Last administered on 07/02/18 08:21; Admin Dose 5 MG; Start 06/29/18 at 09:00 Magnesium Hydroxide (Milk Of Mag) 30 ml DAILY PRN PO CONSTIPATION; Start 06/28/18 at 21:00 Vancomycin HCl 250 ml @ 125 mls/hr Q12H IVPB Last administered on 07/02/18 09:04; Admin Dose 125 MLS/HR; Start 06/29/18 at 09:00 Hydromorphone HCl (Dilaudid) 1 mg Q4H PRN IV SEVERE PAIN LEVEL 7-10 Last administered on 07/02/18 06:21; Admin Dose 1 MG; Start 07/01/18 at 18:30 Oxycodone/ Acetaminophen (Endocet (10/ 325)) 2 tab Q4H PRN PO MODERATE PAIN LEVEL 4-6 Last administered on 07/02/18 08:39; Admin Dose 2 TAB; Start 07/01/18 at 18:30 Tramadol HCl (Ultram) 100 mg Q6H PRN PO MODERATE PAIN LEVEL 4-6; Start 07/01/18 at 19:00 JOHNSON PENDLETON NP Jul 02, 2018 11:59
[2018-07-02] MEDS: CARISOPRODOL 350 MG TAB PO PRN (16:12)
--- NOTE | 2018-07-02 18:41 | PN ---
Date/Time of Note Date/Time of Note DATE: 07/02/18 TIME: 18:40 Assessment/Plan Lines/Catheters IV Catheter Type (from [facility]): Saline Lock Baxter in Place (from [facility]): No Assessment/Plan Chief Complaint/Hosp Course 1. Multiple decubitus pressure ulcers -Encourage aggressive offloading -Encourage nutritional optimization -Continue wound care -Debridement as needed -Vitamin C -Osteomyelitis treatment 2. Possible abscess reported on CT not palpable clinically. Contrast ct:: Status post debridement and drainage of the right buttock abscess with associated skin defect and underlying osteomyelitis -abx per id -as above 3. UTI on antibiotics 4. Acute leukocytosis persisting but improved -As above -Judicious fluid management -Antibiotics -Supportive measures 5. Hypoalbuminemia -Encourage nutritional optimization 6. Hypertension history -Nutrition and medication optimization 7. Anemia without evidence of acute blood loss -Monitor 8. Acute on chronic back pain, nephrolithiasis -Medical optimization -Judicious fluid management 9. Decompressed bladder with significant thickening concerning for bladder neoplasm versus cystitis: Urethritis, possible pyelonephritis -Urology following -Antibiotics 10. Dysphagia: -EGD refused by patient 11. Elevated CEA however patient refusing colonoscopy and further workup Thank you Subjective 24 Hr Interval Summary Intermittently agitated. No fevers, chills, sob, congested cough, cp, palpitations, villela, dizziness, n/v/d/dysuria. WBC improving. Tachycardia on/off. Exam/Review of Systems Vital Signs Vitals Vital Signs Date Temp Pulse Resp B/P (MAP) Pulse Ox O2 O2 Flow FiO2 Time Delivery Rate 07/02/18 98 16:06 07/02/18 98.7 18 134/72 98 Room Air 15:23 (92) Intake and Output 07/01/18 07/01/18 07/02/18 1515:00 23:00 07:00 IntakeIntake Total 300 ml 1200 ml 1400 ml OutputOutput Total 1000 ml 1500 ml BalanceBalance 300 ml 200 ml -100 ml Exam Free Text/Dictation Constitutional: alert, oriented No distress Psych: No anxiety Head: normocephalic, atraumatic Eyes: nl conjunctiva, EOMI, PERRL; No icteric ENMT: nl external ears & nose, nl lips & teeth, mucosa pink and moist Neck: supple, non-tender; No jvd Respiratory: normal air movement; No congested cough, No labored breathing, No wheezing Cardiovascular: regular rate and rhythm; No edema Gastrointestinal: soft, non-tender; No distended, No rebound or guarding Genitourinary - Male: nl penis, nl scrotum Musculoskeletal: No nl gait and stance, No joint tenderness Extremities: normal pulses; No calf tenderness, No edema, No tenderness Neurological: nl mental status, nl speech; No nl strength Skin: rash or lesions (Decubitus pressure ulcers: No obvious abscess palpable- no palpable fluctuant areas. Right ischium : Improved odor/mod drainage); No ecchymosis Lymph: nl lymph nodes Results Result Diagram: 07/02/18 0507 07/02/18 0507 GUSTABO GARCIA MD Jul 02, 2018 18:41
[2018-07-03] VITALS (12 sets, daily range): BP systolic 113–126; BP diastolic 58–71; PULSE 98–111; RESP 17–18
[2018-07-03] MEDS: HYDROmorphONE 0.5 MG/0.5 ML SYG IV PRN ×6 (01:57→22:55)
[2018-07-03] MEDS: CARISOPRODOL 350 MG TAB PO PRN ×3 (04:09→22:55)
[2018-07-03] MEDS: OXYCODONE/ACETAMINOPHEN (10/325) TAB PO PRN ×2 (04:09→20:17)
[2018-07-03] MEDS: PANTOPRAZOLE 40 MG INJ IV SCH (05:55)
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
[2018-07-03] MEDS: SODIUM HYPOCHLORITE (1/40) 1 APPLIC BTL IRR SCH (08:21)
[2018-07-03] MEDS ORDERED: MAGNESIUM HYDROXIDE 30ML CUP PO ONE (08:30)
[2018-07-03] MEDS: DOCUSATE SODIUM 100 MG CAP PO SCH ×2 (09:00→20:19)
--- NOTE | 2018-07-03 09:06 | PN ---
Date/Time of Note Date/Time of Note DATE: 07/03/18 TIME: 09:06 Assessment/Plan VTE Prophylaxis Risk score (from Ns)>0 risk: 6 SCD applied (from Ns): No SCD contraindicated: patient refusal Pharmacological prophylaxis: LMWH Lines/Catheters IV Catheter Type (from Nrsg): Peripheral IV Urinary Cath still in place: Yes Reason Cath still needed: urinary retention, pres ulcer contaminated by urine Assessment/Plan Assessment/Plan 1. Sepsis secondary to UTI, decubitus ulcers, and OM- stable - Remains afebrile - ID on board and appreciate consultation. Continue IV antibiotics for total of 6 weeks for treatment of osteomyelitis 2. UTI with hydronephrosis - Urology on board and appreciate recommendations. due to leakage affecting sacral wounds, catheter reinserted. - continue on current antibiotics - CT scan results noted 3. Sacral decubitus ulcer with abscess - ID on board and continuing current antibiotics - Surgery on board and appreciate consultation. Offloading as much as possible - wound care on board 4. Osteomyelitis of ischium - Will need to complete 6 weeks of IV antibiotics - ID on board and appreciate recommendations 5. Acute on chronic back pain - Pain control - soma for muscle spasms, patient on this chronically outpatient 6. Acute kidney injury- resolved - Likely secondary to UTI 7. Hypertension - stable 8. Disposition - CM on board for placement. Required 6 weeks of antibiotics total for tx of osteomyelitis Result Diagram: 07/02/18 0507 07/02/18 0507 Subjective 24 Hr Interval Summary Free Text/Dictation Patient appears more comfortable today with less frustration but does have noted lower extremity muscle spasms. No acute overnight events. Baxter placed due to leakage from straight cathing affecting his wounds. Exam/Review of Systems Exam Vitals Vital Signs Date Temp Pulse Resp B/P (MAP) Pulse Ox O2 O2 Flow FiO2 Time Delivery Rate 07/03/18 110 08:09 07/03/18 97.9 18 120/67 96 Room Air 07:30 (84) Intake and Output 07/02/18 07/02/18 07/03/18 1515:00 23:00 07:00 IntakeIntake Total 300 ml 1050 ml OutputOutput Total 700 ml 50 ml 800 ml BalanceBalance -400 ml -50 ml 250 ml Exam General: Patient is laying in bed and answers questions appropriately. no acute distress Neck: Supple Respiratory: Clear to auscultation bilaterally. no wheezing or rhonchi Cardiovascular: regular rate and rhythm, no obvious murmurs Gastrointestinal: soft, non-tender to palpation, bowel sounds heard. Musculoskeletal: LE muscle spasms noted Skin: Multiple lesions Medications Medication Current Medications IV Flush (NS 3 ml) 3 ml PER PROTOCOL IV ; Start 06/22/18 at 18:30 Ondansetron HCl (Zofran Inj) 4 mg Q6H PRN IV NAUSEA/VOMITING Last administered on 06/26/18at 15:57; Admin Dose 4 MG; Start 06/22/18 at 18:30 Acetaminophen (Tylenol Tab) 650 mg Q6H PRN PO .PAIN 1-3 OR TEMP; Start 06/22/18 at 18:30 Enoxaparin Sodium (Lovenox) 30 mg DAILY SC Last administered on 07/02/18at 08:23; Admin Dose 30 MG; Start 06/23/18 at 09:00 Phenazopyridine HCl (Pyridium) 200 mg TID PRN PO dysuria Last administered on 06/29/18at 13:21; Admin Dose 200 MG; Start 06/22/18 at 18:30 Hydralazine HCl (Apresoline) 10 mg Q4H PRN IV SBP >160; Start 06/22/18 at 19:00 Miscellaneous Information (Pending [facility] Order For Wound Care) This patient villela... PRN PRN XX WOUND CARE; Start 06/23/18 at 00:30 Docusate Sodium (Colace) 100 mg BID PO Last administered on 07/02/18at 20:49; Admin Dose 100 MG; Start 06/23/18 at 21:00 Vancomycin HCl (Vanco Iv Per Pharmacy) VANCOMYCIN PER PHARMACY PER PROTOCOL XX ; Start 06/23/18 at 17:30 Tamsulosin HCl (Flomax) 0.4 mg DAILY PO Last administered on 07/02/18 08:22; Admin Dose 0.4 MG; Start 06/24/18 at 09:00 Labetalol HCl (Labetalol) 10 mg Q4 PRN IV sbp>160; Start 06/24/18 at 13:30 Mupirocin (Bactroban) 1 applic BID TOP Last administered on 07/02/18at 20:49; Admin Dose 1 APPLIC; Start 06/26/18 at 21:00; Stop 07/03/18 at 20:59 Sodium Hypochlorite (Dakin'S (Dilute )) 1 applic DAILY IRR Last administered on 07/01/18 20:32; Admin Dose 1 APPLIC; Start 06/26/18 at 16:00 Pantoprazole (Protonix Iv) 40 mg DAILY@06 IV Last administered on 07/03/18 05:55; Admin Dose 40 MG; Start 06/27/18 at 06:00 Cefepime HCl 50 ml @ 100 mls/hr Q12 IVPB Last administered on 07/02/18 20:49; Admin Dose 100 MLS/HR; Start 06/27/18 at 21:00 Polyethylene Glycol (Miralax) 17 gm DAILY PRN PO constipation; Start 06/28/18 at 09:00 Carisoprodol (Soma) 350 mg Q6 PRN PO muscle spasms Last administered on 07/03/18 04:09; Admin Dose 350 MG; Start 06/28/18 at 10:00 Lisinopril (Zestril) 5 mg DAILY PO Last administered on 07/02/18 08:21; Admin Dose 5 MG; Start 06/29/18 at 09:00 Magnesium Hydroxide (Milk Of Mag) 30 ml DAILY PRN PO CONSTIPATION; Start 06/28/18 at 21:00 Vancomycin HCl 250 ml @ 125 mls/hr Q12H IVPB Last administered on 07/02/18 21:48; Admin Dose 125 MLS/HR; Start 06/29/18 at 09:00 Hydromorphone HCl (Dilaudid) 1 mg Q4H PRN IV SEVERE PAIN LEVEL 7-10 Last administered on 07/03/18 05:55; Admin Dose 1 MG; Start 07/01/18 at 18:30 Oxycodone/ Acetaminophen (Endocet (10/ 325)) 2 tab Q4H PRN PO MODERATE PAIN LEVEL 4-6 Last administered on 07/03/18 04:09; Admin Dose 2 TAB; Start 07/01/18 at 18:30 Tramadol HCl (Ultram) 100 mg Q6H PRN PO MODERATE PAIN LEVEL 4-6; Start 07/01/18 at 19:00 Magnesium Hydroxide (Milk Of Mag) 30 ml DAILY PO ; Start 07/04/18 at 09:00 KINGA WILLETT MD Jul 03, 2018 09:06
[2018-07-03] MEDS: TAMSULOSIN (SR) 0.4 MG CAP PO SCH (09:11)
[2018-07-03] MEDS: CEFEPIME 1GM/50 ML (PMX) 50 ML IVPB SCH ×2 (09:12→20:21)
[2018-07-03] MEDS: LISINOPRIL 5 MG TAB PO SCH (09:12)
[2018-07-03] MEDS: ENOXAPARIN 30 MG/0.3 ML SYG SC SCH (09:20)
[2018-07-03] MEDS: VANCOMYCIN 1 GM 250 ML IVPB SCH ×2 (10:19→21:50)
[2018-07-03] MEDS: MUPIROCIN 2% 22 GM OINT TOP SCH (10:20)
--- NOTE | 2018-07-03 10:27 | PN ---
Date/Time of Note Date/Time of Note DATE: 07/03/18 TIME: 10:23 Assessment/Plan Lines/Catheters IV Catheter Type (from [facility]): Peripheral IV Cortez in Place (from [facility]): Yes Assessment/Plan Chief Complaint/Hosp Course 1. Multiple decubitus pressure ulcers -Encourage aggressive offloading -Encourage nutritional optimization -Continue wound care -Debridement as needed -Vitamin C -Osteomyelitis treatment> per id 2. Possible abscess reported on CT not palpable clinically. Contrast ct:: Status post debridement and drainage of the right buttock abscess with associat ed skin defect and underlying osteomyelitis -abx per id -as above 3. UTI on antibiotics 4. Acute leukocytosis persisting but improved -As above -Judicious fluid management -Antibiotics -Supportive measures 5. Hypoalbuminemia -Encourage nutritional optimization 6. Hypertension history -Nutrition and medication optimization 7. Anemia without evidence of acute blood loss -Monitor 8. Acute on chronic back pain, nephrolithiasis -Medical optimization -Judicious fluid management 9. Decompressed bladder with significant thickening concerning for bladder neoplasm versus cystitis: Urethritis, possible pyelonephritis; leaking between self caths, indwelling cortez placed -per Urology -Antibiotics 10. Dysphagia: -EGD refused by patient 11. Elevated CEA however patient refusing colonoscopy and further workup Thank you. Patient seen and examined in collaboration with Dr. Micah Hobbs. Subjective 24 Hr Interval Summary WBC improving. No fevers, chills, sob, congested cough, cp, palpitations, villela, dizziness, n/v/d/dysuria. + bowel function. Exam/Review of Systems Vital Signs Vitals Vital Signs Date Temp Pulse Resp B/P (MAP) Pulse Ox O2 O2 Flow FiO2 Time Delivery Rate 07/03/18 110 08:09 07/03/18 97.9 18 120/67 96 Room Air 07:30 (84) Intake and Output 07/02/18 07/02/18 07/03/18 1515:00 23:00 07:00 IntakeIntake Total 300 ml 1050 ml OutputOutput Total 700 ml 50 ml 800 ml BalanceBalance -400 ml -50 ml 250 ml Exam Free Text/Dictation Constitutional: alert, oriented No distress Psych: No anxiety Head: normocephalic, atraumatic Eyes: nl conjunctiva, EOMI, PERRL; No icteric ENMT: nl external ears & nose, nl lips & teeth, mucosa pink and moist Neck: supple, non-tender; No jvd Respiratory: normal air movement; No congested cough, No labored breathing, No wheezing Cardiovascular: regular rate and rhythm; No edema Gastrointestinal: soft, non-tender; No distended, No rebound or guarding Genitourinary - Male: nl penis, nl scrotum Musculoskeletal: No nl gait and stance, No joint tenderness Extremities: normal pulses; No calf tenderness, No edema, No tenderness Neurological: nl mental status, nl speech; No nl strength Skin: rash or lesions (Decubitus pressure ulcers: No obvious abscess palpable- no palpable fluctuant areas. Right ischium : Improved odor/mod drainage); No ecchymosis Lymph: nl lymph nodes Results Result Diagram: 07/02/18 0507 07/02/18 0507 TIFFANIE KLEIN NP Jul 03, 2018 10:27
--- NOTE | 2018-07-03 14:22 | CONS ---
Assessment/Plan Assessment/Plan Hospital Course (Demo Recall) Alert, no fevers, nad Microbiology: Blood culture growing Proteus mirabilis, urine culture grew Proteus mirabilis and oxacillin sensitive staph aureus. Sacral wound culture growing E. coli, staph aureus and enterococcus species Chest x-ray on admission revealed no definite abnormalities. Indwelling: Baxter Antimicrobials: Vancomycin, Cefepime Physical examination: Well-developed chronically ill-appearing elderly man in no distress. Head atraumatic normocephalic sclera nonicteric neck is supple chest rise symmetrical breath sounds diminished bases heart S1-S2 abdomen soft bowel s ounds present extremities wasted bilateral lower extremities Assessment: 1. Sepsis, present on admission 2. Proteus mirabilis bacteremia secondary to UTI, repeat bld cx neg 3. Multidrug-resistant Proteus mirabilis pyelonephritis 4. Bilateral hydronephrosis 5. Neurogenic bladder 6. Multiple decubitus with questionable osteomyelitis of right atrium and right iliac bone 7. Obstructive uropathy 8. Homelessness 9. Incomplete paraplegia Plan: Remains stable, repeat urine cx + Enterococcus, continue abx Consultation Date/Type/Reason Admit Date/Time Jun 22, 2018 at 18:09 Initial Consult Date 06/23/18 Type of Consult id Requesting Provider: TRACE REBOLLEDO Date/Time of Note DATE: 07/03/18 TIME: 14:21 Exam/Review of Systems Exam Vitals Vital Signs Date Temp Pulse Resp B/P (MAP) Pulse Ox O2 O2 Flow FiO2 Time Delivery Rate 07/03/18 98 12:10 07/03/18 98.0 18 124/68 96 Room Air 11:25 (86) Intake and Output 07/02/18 07/02/18 07/03/18 1414:59 22:59 06:59 IntakeIntake Total 300 ml 1050 ml OutputOutput Total 700 ml 50 ml 800 ml BalanceBalance -400 ml -50 ml 250 ml Results Result Diagram: 07/02/18 0507 07/02/18 0507 Medications Medication Current Medications IV Flush (NS 3 ml) 3 ml PER PROTOCOL IV ; Start 06/22/18 at 18:30 Ondansetron HCl (Zofran Inj) 4 mg Q6H PRN IV NAUSEA/VOMITING Last administered on 06/26/18at 15:57; Admin Dose 4 MG; Start 06/22/18 at 18:30 Acetaminophen (Tylenol Tab) 650 mg Q6H PRN PO .PAIN 1-3 OR TEMP; Start 06/22/18 at 18:30 Enoxaparin Sodium (Lovenox) 30 mg DAILY SC Last administered on 07/03/18 09:20; Admin Dose 30 MG; Start 06/23/18 at 09:00 Phenazopyridine HCl (Pyridium) 200 mg TID PRN PO dysuria Last administered on 06/29/18 13:21; Admin Dose 200 MG; Start 06/22/18 at 18:30 Hydralazine HCl (Apresoline) 10 mg Q4H PRN IV SBP >160; Start 06/22/18 at 19:00 Miscellaneous Information (Pending [facility] Order For Wound Care) This patient villela... PRN PRN XX WOUND CARE; Start 06/23/18 at 00:30 Docusate Sodium (Colace) 100 mg BID PO Last administered on 07/02/18 20:49; Admin Dose 100 MG; Start 06/23/18 at 21:00 Vancomycin HCl (Vanco Iv Per Pharmacy) VANCOMYCIN PER PHARMACY PER PROTOCOL XX ; Start 06/23/18 at 17:30 Tamsulosin HCl (Flomax) 0.4 mg DAILY PO Last administered on 07/03/18 09:11; Admin Dose 0.4 MG; Start 06/24/18 at 09:00 Labetalol HCl (Labetalol) 10 mg Q4 PRN IV sbp>160; Start 06/24/18 at 13:30 Mupirocin (Bactroban) 1 applic BID TOP Last administered on 07/03/18at 10:20; Admin Dose 1 APPLIC; Start 06/26/18 at 21:00; Stop 07/03/18 at 20:59 Sodium Hypochlorite (Dakin'S (Dilute )) 1 applic DAILY IRR Last administered on 07/01/18 20:32; Admin Dose 1 APPLIC; Start 06/26/18 at 16:00 Pantoprazole (Protonix Iv) 40 mg DAILY@06 IV Last administered on 07/03/18 05:55; Admin Dose 40 MG; Start 06/27/18 at 06:00 Cefepime HCl 50 ml @ 100 mls/hr Q12 IVPB Last administered on 07/03/18 09:12; Admin Dose 100 MLS/HR; Start 06/27/18 at 21:00 Polyethylene Glycol (Miralax) 17 gm DAILY PRN PO constipation; Start 06/28/18 at 09:00 Carisoprodol (Soma) 350 mg Q6 PRN PO muscle spasms Last administered on 07/03/18 13:49; Admin Dose 350 MG; Start 06/28/18 at 10:00 Lisinopril (Zestril) 5 mg DAILY PO Last administered on 07/03/18 09:12; Admin Dose 5 MG; Start 06/29/18 at 09:00 Magnesium Hydroxide (Milk Of Mag) 30 ml DAILY PRN PO CONSTIPATION; Start at 21:00 Vancomycin HCl 250 ml @ 125 mls/hr Q12H IVPB Last administered on 07/03/18 10:19; Admin Dose 125 MLS/HR; Start 06/29/18 at 09:00 Hydromorphone HCl (Dilaudid) 1 mg Q4H PRN IV SEVERE PAIN LEVEL 7-10 Last administered on 07/03/18 13:50; Admin Dose 1 MG; Start 07/01/18 at 18:30 Oxycodone/ Acetaminophen (Endocet (10/ 325)) 2 tab Q4H PRN PO MODERATE PAIN LEVEL 4-6 Last administered on 07/03/18 04:09; Admin Dose 2 TAB; Start 07/01/18 at 18:30 Tramadol HCl (Ultram) 100 mg Q6H PRN PO MODERATE PAIN LEVEL 4-6; Start 07/01/18 at 19:00 Magnesium Hydroxide (Milk Of Mag) 30 ml DAILY PO ; Start 07/04/18 at 09:00 JOHNSON PENDLETON NP Jul 03, 2018 14:22
[2018-07-04] VITALS (13 sets, daily range): BP systolic 112–132; BP diastolic 61–72; PULSE 93–111; RESP 18–19
[2018-07-04] MEDS: HYDROmorphONE 0.5 MG/0.5 ML SYG IV PRN ×5 (04:25→21:00)
[2018-07-04] MEDS: OXYCODONE/ACETAMINOPHEN (10/325) TAB PO PRN (05:42)
[2018-07-04] MEDS: PANTOPRAZOLE (EC) 40 MG TAB PO SCH (05:42)
[2018-07-04] MEDS: LISINOPRIL 5 MG TAB PO SCH (08:27)
[2018-07-04] MEDS: MAGNESIUM HYDROXIDE 30ML CUP PO SCH (08:27)
[2018-07-04] MEDS: DOCUSATE SODIUM 100 MG CAP PO SCH ×2 (08:27→20:44)
[2018-07-04] MEDS: TAMSULOSIN (SR) 0.4 MG CAP PO SCH (08:27)
[2018-07-04] MEDS: SODIUM HYPOCHLORITE (1/40) 1 APPLIC BTL IRR SCH (08:27)
[2018-07-04] MEDS: CEFEPIME 1GM/50 ML (PMX) 50 ML IVPB SCH ×2 (08:27→20:48)
[2018-07-04] MEDS: VANCOMYCIN 1 GM 250 ML IVPB SCH (08:29)
[2018-07-04] MEDS: ENOXAPARIN 30 MG/0.3 ML SYG SC SCH (08:45)
--- NOTE | 2018-07-04 08:54 | PN ---
Date/Time of Note Date/Time of Note DATE: 07/04/18 TIME: 08:54 Assessment/Plan VTE Prophylaxis Risk score (from Ns)>0 risk: 8 [place] [facility] [place] contraindicated: patient refusal Pharmacological prophylaxis: LMWH Lines/Catheters IV C[facility] Type (from [facility]): Peripheral IV Urinary Cath still in place: Yes Reason Cath still needed: urinary retention, pres ulcer contaminated by urine Assessment/Plan Assessment/Plan 1. Sepsis secondary to UTI, decubitus ulcers, and OM- stable - WBC normalized and remains afebrile - ID on board and appreciate consultation. Continue IV antibiotics for total of 6 weeks for treatment of osteomyelitis 2. UTI with hydronephrosis - Urology on board and appreciate recommendations. - continue on current antibiotics - CT scan results noted and discussed results with patient 3. Sacral decubitus ulcer with abscess - Surgery on board and appreciate consultation. Offloading as much as possible - wound care on board 4. Osteomyelitis of ischium - Will need to complete 6 weeks of IV antibiotics - ID on board and appreciate recommendations 5. Acute on chronic back pain - Pain control - soma for muscle spasms, patient on this chronically outpatient 6. Acute kidney injury- resolved - Likely secondary to UTI 7. Hypertension - stable 8. Disposition - CM on board for placement to SNF for fpc antibiotic therapy Result Diagram: 07/04/1813 07/04/18 0513 Results 24hrs Laboratory Tests Test 07/04/18 05:13 White Blood Count 9.2 # Red Blood Count 3.45 L Hemoglobin 7.7 L Hematocrit 26.2 L Mean Corpuscular Volume 75.9 L Mean Corpuscular Hemoglobin 22.3 L Mean Corpuscular Hemoglobin Concent 29.4 L Red Cell Distribution Width 19.1 H Platelet Count 411 # Mean Platelet Volume 9.9 Immature Granulocytes % 0.500 H Neutrophils % 79.3 H Lymphocytes % 11.1 L Monocytes % 6.7 Eosinophils % 1.7 Basophils % 0.7 Nucleated Red Blood Cells % 0.0 Immature Granulocytes # 0.050 H Neutrophils # 7.3 Lymphocytes # 1.0 Monocytes # 0.6 Eosinophils # 0.2 Basophils # 0.1 Nucleated Red Blood Cells # 0.0 Blood Urea Nitrogen 26 H Creatinine 0.84 Subjective 24 Hr Interval Summary Free Text/Dictation Patient denies any acute issues. Doing well and no overnight events. 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 Exam/Review of Systems Exam Vitals Vital Signs Date Temp Pulse Resp B/P (MAP) Pulse Ox O2 O2 Flow FiO2 Time Delivery Rate 07/04/18 109 08:01 07/04/18 97.9 18 122/62 96 Room Air 07:28 (82) Intake and Output 07/03/18 07/03/18 07/04/18 1515:00 23:00 07:00 IntakeIntake Total 1350 ml 1050 ml OutputOutput Total 1500 ml 1300 ml BalanceBalance -150 ml -250 ml Exam General: Patient is laying in bed and answers questions appropriately. no acute distress Neck: Supple Respiratory: Clear to auscultation bilaterally. no wheezing or rhonchi Cardiovascular: regular rate and rhythm, no obvious murmurs Gastrointestinal: soft, non-tender to palpation, bowel sounds heard. Musculoskeletal: LE muscle spasms noted Skin: Multiple lesions Results Results 24hrs Laboratory Tests Test 07/04/18 05:13 White Blood Count 9.2 # Red Blood Count 3.45 L Hemoglobin 7.7 L Hematocrit 26.2 L Mean Corpuscular Volume 75.9 L Mean Corpuscular Hemoglobin 22.3 L Mean Corpuscular Hemoglobin Concent 29.4 L Red Cell Distribution Width 19.1 H Platelet Count 411 # Mean Platelet Volume 9.9 Immature Granulocytes % 0.500 H Neutrophils % 79.3 H Lymphocytes % 11.1 L Monocytes % 6.7 Eosinophils % 1.7 Basophils % 0.7 Nucleated Red Blood Cells % 0.0 Immature Granulocytes # 0.050 H Neutrophils # 7.3 Lymphocytes # 1.0 Monocytes # 0.6 Eosinophils # 0.2 Basophils # 0.1 Nucleated Red Blood Cells # 0.0 Blood Urea Nitrogen 26 H Creatinine 0.84 Medications Medication Current Medications IV Flush (NS 3 ml) 3 ml PER PROTOCOL IV ; Start 06/22/18 at 18:30 Ondansetron HCl (Zofran Inj) 4 mg Q6H PRN IV NAUSEA/VOMITING Last administered on 06/26/18at 15:57; Admin Dose 4 MG; Start 06/22/18 at 18:30 Acetaminophen (Tylenol Tab) 650 mg Q6H PRN PO .PAIN 1-3 OR TEMP; Start 06/22/18 at 18:30 Enoxaparin Sodium (Lovenox) 30 mg DAILY SC Last administered on 07/03/18 09:20; Admin Dose 30 MG; Start 06/23/18 at 09:00 Phenazopyridine HCl (Pyridium) 200 mg TID PRN PO dysuria Last administered on 06/29/18 13:21; Admin Dose 200 MG; Start 06/22/18 at 18:30 Hydralazine HCl (Apresoline) 10 mg Q4H PRN IV SBP >160; Start 06/22/18 at 19:00 Miscellaneous Information (Pending [facility] Order For Wound Care) This patient villela... PRN PRN XX WOUND CARE; Start 06/23/18 at 00:30 Docusate Sodium (Colace) 100 mg BID PO Last administered on 07/04/18 08:27; Admin Dose 100 MG; Start 06/23/18 at 21:00 Vancomycin HCl (Vanco Iv Per Pharmacy) VANCOMYCIN PER PHARMACY PER PROTOCOL XX ; Start 06/23/18 at 17:30 Tamsulosin HCl (Flomax) 0.4 mg DAILY PO Last administered on 07/04/18 08:27; Admin Dose 0.4 MG; Start 06/24/18 at 09:00 Labetalol HCl (Labetalol) 10 mg Q4 PRN IV sbp>160; Start 06/24/18 at 13:30 Sodium Hypochlorite (Dakin'S (Dilute 140)) 1 applic DAILY IRR Last administered on 07/04/18 08:27; Admin Dose 1 APPLIC; Start 06/26/18 at 16:00 Cefepime HCl 50 ml @ 100 mls/hr Q12 IVPB Last administered on 07/04/18 08:27; Admin Dose 100 MLS/HR; Start 06/27/18 at 21:00 Polyethylene Glycol (Miralax) 17 gm DAILY PRN PO constipation; Start 06/28/18 at 09:00 Carisoprodol (Soma) 350 mg Q6 PRN PO muscle spasms Last administered on 07/03/18 22:55; Admin Dose 350 MG; Start 06/28/18 at 10:00 Lisinopril (Zestril) 5 mg DAILY PO Last administered on 07/04/18 08:27; Admin Dose 5 MG; Start 06/29/18 at 09:00 Magnesium Hydroxide (Milk Of Mag) 30 ml DAILY PRN PO CONSTIPATION; Start 06/28/18 at 21:00 Vancomycin HCl 250 ml @ 125 mls/hr Q12H IVPB Last administered on 07/04/18 08:29; Admin Dose 125 MLS/HR; Start 06/29/18 at 09:00 Hydromorphone HCl (Dilaudid) 1 mg Q4H PRN IV SEVERE PAIN LEVEL 7-10 Last administered on 07/04/18 04:25; Admin Dose 1 MG; Start 07/01/18 at 18:30 Oxycodone/ Acetaminophen (Endocet (10/ 325)) 2 tab Q4H PRN PO MODERATE PAIN LEVEL 4-6 Last administered on 07/04/18 05:42; Admin Dose 2 TAB; Start 07/01/18 at 18:30 Tramadol HCl (Ultram) 100 mg Q6H PRN PO MODERATE PAIN LEVEL 4-6; Start 07/01/18 at 19:00 Magnesium Hydroxide (Milk Of Mag) 30 ml DAILY PO Last administered on 07/04/18 08:27; Admin Dose 30 ML; Start 07/04/18 at 09:00 Pantoprazole (Protonix Tab) 40 mg DAILY@06 PO Last administered on 07/04/18 05:42; Admin Dose 40 MG; Start 07/04/18 at 06:00 KINGA WILLETT MD Jul 04, 2018 08:54
--- NOTE | 2018-07-04 11:43 | PN ---
Date/Time of Note Date/Time of Note DATE: 07/04/18 TIME: 11:38 Assessment/Plan Lines/Catheters IV Catheter Type (from [facility]): Peripheral IV Cortez in Place (from [facility]): Yes Assessment/Plan Chief Complaint/Hosp Course 1. Multiple decubitus pressure ulcers -Encourage aggressive offloading -Encourage nutritional optimization -Continue wound care -Debridement as needed -Vitamin C -Osteomyelitis treatment> per id 2. Possible abscess reported on CT not palpable clinically. Contrast ct:: Status post debridement and drainage of the right buttock abscess with associat ed skin defect and underlying osteomyelitis -abx per id -as above 3. UTI on antibiotics 4. Acute leukocytosis resolved 5. Hypoalbuminemia -Encourage nutritional optimization 6. Hypertension history -Nutrition and medication optimization 7. Anemia without evidence of acute blood loss -Monitor 8. Acute on chronic back pain, nephrolithiasis -Medical optimization -Judicious fluid management 9. Decompressed bladder with significant thickening concerning for bladder neoplasm versus cystitis: Urethritis, possible pyelonephritis; leaking between self caths, indwelling cortez placed -per Urology -Antibiotics 10. Dysphagia: -EGD refused by patient 11. Elevated CEA however patient refusing colonoscopy and further workup 12. Constipation: -bowel optimization Thank you. Patient seen and examined in collaboration with Dr. Micah Hobbs. Subjective 24 Hr Interval Summary Intermittently agitated. No fevers, chills, sob, congested cough, cp, palpitations, [place], dizziness, n/v/d/dysuria, acute pain/discomfort. Exam/Review of Systems Vital Signs Vitals Vital Signs Date Temp Pulse Resp B/P (MAP) Pulse Ox O2 O2 Flow FiO2 Time Delivery Rate 07/04/18 97.9 95 18 132/72 98 Room Air 11:31 (92) Intake and Output 07/03/18 07/03/18 07/04/18 1414:59 22:59 06:59 IntakeIntake Total 1350 ml 1050 ml OutputOutput Total 1500 ml 1300 ml BalanceBalance -150 ml -250 ml Exam Free Text/Dictation Constitutional: alert, oriented No distress Psych: No anxiety Head: normocephalic, atraumatic Eyes: nl conjunctiva, EOMI, PERRL; No icteric ENMT: nl external ears & nose, nl lips & teeth, mucosa pink and moist Neck: supple, non-tender; No jvd Respiratory: normal air movement; No congested cough, No labored breathing, No wheezing Cardiovascular: regular rate and rhythm; No edema Gastrointestinal: soft, non-tender; No distended, No rebound or guarding Genitourinary - Male: nl penis, nl scrotum Musculoskeletal: No nl gait and stance, No joint tenderness Extremities: normal pulses; No calf tenderness, No edema, No tenderness Neurological: nl mental status, nl speech; No nl strength Skin: rash or lesions (Decubitus pressure ulcers: No obvious abscess palpable- no palpable fluctuant areas, packed. Right ischium : no odor/mod drainage); No ecchymosis Lymph: nl lymph nodes Results Result Diagram: 07/04/18 0513 07/04/18 0513 TIFFANIE KLEIN NP Jul 04, 2018 11:43
--- NOTE | 2018-07-04 11:54 | CONS ---
Assessment/Plan Assessment/Plan Hospital Course (Demo Recall) All noted, no events over night, looks comfortable, no fevers WBC 9.2 Microbiology: Blood culture growing Proteus mirabilis, urine culture grew Proteus mirabilis and oxacillin sensitive staph aureus. Sacral wound culture growing E. coli, staph aureus and enterococcus species Chest x-ray on admission revealed no definite abnormalities. Indwelling: Baxter Antimicrobials: Vancomycin, Cefepime Physical examination: Well-developed chronically ill-appearing elderly man in no distress. Head atraumatic normocephalic sclera nonicteric neck is supple chest rise symmetrical breath sounds diminished bases heart S1-S2 abdomen soft bowel sounds present extremities wasted bilateral lower extremities Assessment: 1. Sepsis, present on admission 2. Proteus mirabilis bacteremia secondary to UTI, repeat bld cx neg 3. Multidrug-resistant Proteus mirabilis pyelonephritis 4. Bilateral hydronephrosis 5. Neurogenic bladder 6. Multiple decubitus with questionable osteomyelitis of right atrium and right iliac bone 7. Obstructive uropathy 8. Homelessness 9. Incomplete paraplegia Plan: Remains stable, repeat urine cx + Enterococcus, continue abx Consultation Date/Type/Reason Admit Date/Time Jun 22, 2018 at 18:09 Initial Consult Date 06/23/18 Type of Consult id Requesting Provider: TRACE REBOLLEDO Date/Time of Note DATE: 07/04/18 TIME: 11:53 Exam/Review of Systems Exam Vitals Vital Signs Date Temp Pulse Resp B/P (MAP) Pulse Ox O2 O2 Flow FiO2 Time Delivery Rate 07/04/18 97.9 95 18 132/72 98 Room Air 11:31 (92) Intake and Output 07/03/18 07/03/18 07/04/18 1515:00 23:00 07:00 IntakeIntake Total 1350 ml 1050 ml OutputOutput Total 1500 ml 1300 ml BalanceBalance -150 ml -250 ml Results Result Diagram: 07/04/18 0513 07/04/18 0513 Results 24hrs Laboratory Tests Test 07/04/18 05:13 White Blood Count 9.2 # Red Blood Count 3.45 L Hemoglobin 7.7 L Hematocrit 26.2 L Mean Corpuscular Volume 75.9 L Mean Corpuscular Hemoglobin 22.3 L Mean Corpuscular Hemoglobin Concent 29.4 L Red Cell Distribution Width 19.1 H Platelet Count 411 # Mean Platelet Volume 9.9 Immature Granulocytes % 0.500 H Neutrophils % 79.3 H Lymphocytes % 11.1 L Monocytes % 6.7 Eosinophils % 1.7 Basophils % 0.7 Nucleated Red Blood Cells % 0.0 Immature Granulocytes # 0.050 H Neutrophils # 7.3 Lymphocytes # 1.0 Monocytes # 0.6 Eosinophils # 0.2 Basophils # 0.1 Nucleated Red Blood Cells # 0.0 Blood Urea Nitrogen 26 H Creatinine 0.84 Medications Medication Current Medications IV Flush (NS 3 ml) 3 ml PER PROTOCOL IV ; Start 06/22/18 at 18:30 Ondansetron HCl (Zofran Inj) 4 mg Q6H PRN IV NAUSEA/VOMITING Last administered on 06/26/18at 15:57; Admin Dose 4 MG; Start 06/22/18 at 18:30 Acetaminophen (Tylenol Tab) 650 mg Q6H PRN PO .PAIN 1-3 OR TEMP; Start 06/22/18 at 18:30 Enoxaparin Sodium (Lovenox) 30 mg DAILY SC Last administered on 07/03/18at 09:20; Admin Dose 30 MG; Start 06/23/18 at 09:00 Phenazopyridine HCl (Pyridium) 200 mg TID PRN PO dysuria Last administered on 06/29/18 13:21; Admin Dose 200 MG; Start 06/22/18 at 18:30 Hydralazine HCl (Apresoline) 10 mg Q4H PRN IV SBP >160; Start 06/22/18 at 19:00 Miscellaneous Information (Pending [facility] Order For Wound Care) This patient [place] ... PRN PRN XX WOUND CARE; Start 06/23/18 at 00:30 Docusate Sodium (Colace) 100 mg BID PO Last administered on 07/04/18 08:27; Admin Dose 100 MG; Start 06/23/18 at 21:00 Vancomycin HCl (Vanco Iv Per Pharmacy) VANCOMYCIN PER PHARMACY PER PROTOCOL XX ; Start 06/23/18 at 17:30 Tamsulosin HCl (Flomax) 0.4 mg DAILY PO Last administered on 07/04/18 08:27; Admin Dose 0.4 MG; Start 06/24/18 at 09:00 Labetalol HCl (Labetalol) 10 mg Q4 PRN IV sbp>160; Start 06/24/18 at 13:30 Sodium Hypochlorite (Dakin'S (Dilute )) 1 applic DAILY IRR Last administered on 07/04/18 08:27; Admin Dose 1 APPLIC; Start 06/26/18 at 16:00 Cefepime HCl 50 ml @ 100 mls/hr Q12 IVPB Last administered on 07/04/18 08:27; Admin Dose 100 MLS/HR; Start 06/27/18 at 21:00 Polyethylene Glycol (Miralax) 17 gm DAILY PRN PO constipation; Start 06/28/18 at 09:00 Carisoprodol (Soma) 350 mg Q6 PRN PO muscle spasms Last administered on 07/03/18 22:55; Admin Dose 350 MG; Start 06/28/18 at 10:00 Lisinopril (Zestril) 5 mg DAILY PO Last administered on 07/04/18 08:27; Admin Dose 5 MG; Start 06/29/18 at 09:00 Magnesium Hydroxide (Milk Of Mag) 30 ml DAILY PRN PO CONSTIPATION; Start 06/28/18 at 21:00 Vancomycin HCl 250 ml @ 125 mls/hr Q12H IVPB Last administered on 07/04/18 08:29; Admin Dose 125 MLS/HR; Start 06/29/18 at 09:00 Hydromorphone HCl (Dilaudid) 1 mg Q4H PRN IV SEVERE PAIN LEVEL 7-10 Last administered on 07/04/18 09:06; Admin Dose 1 MG; Start 07/01/18 at 18:30 Oxycodone/ Acetaminophen (Endocet (10/ 325)) 2 tab Q4H PRN PO MODERATE PAIN LEVEL 4-6 Last administered on 07/04/18 05:42; Admin Dose 2 TAB; Start 07/01/18 at 18:30 Tramadol HCl (Ultram) 100 mg Q6H PRN PO MODERATE PAIN LEVEL 4-6; Start 07/01/18 at 19:00 Magnesium Hydroxide (Milk Of Mag) 30 ml DAILY PO Last administered on 07/04/18 08:27; Admin Dose 30 ML; Start 07/04/18 at 09:00 Pantoprazole (Protonix Tab) 40 mg DAILY@06 PO Last administered on 07/04/18 05:42; Admin Dose 40 MG; Start 07/04/18 at 06:00 JOHNSON PENDLETON NP Jul 04, 2018 11:54
[2018-07-04] MEDS: CARISOPRODOL 350 MG TAB PO PRN (13:15)
[2018-07-05] VITALS (12 sets, daily range): BP systolic 114–143; BP diastolic 61–78; PULSE 73–114; RESP 18–20
[2018-07-05] MEDS: VANCOMYCIN 750 MG (PMX) 250 ML IVPB SCH ×2 (00:28→12:11)
[2018-07-05] MEDS: OXYCODONE/ACETAMINOPHEN (10/325) TAB PO PRN (00:29)
[2018-07-05] MEDS: HYDROmorphONE 0.5 MG/0.5 ML SYG IV PRN ×5 (02:27→20:17)
[2018-07-05] MEDS: PANTOPRAZOLE (EC) 40 MG TAB PO SCH (06:21)
[2018-07-05] MEDS: SODIUM HYPOCHLORITE (1/40) 1 APPLIC BTL IRR SCH (08:21)
[2018-07-05] MEDS: TAMSULOSIN (SR) 0.4 MG CAP PO SCH (08:22)
[2018-07-05] MEDS: MAGNESIUM HYDROXIDE 30ML CUP PO SCH ×3 (08:22→08:45)
[2018-07-05] MEDS: CEFEPIME 1GM/50 ML (PMX) 50 ML IVPB SCH ×2 (08:22→20:17)
[2018-07-05] MEDS: DOCUSATE SODIUM 100 MG CAP PO SCH ×2 (08:22→08:44)
[2018-07-05] MEDS: LISINOPRIL 5 MG TAB PO SCH (08:22)
[2018-07-05] MEDS: ENOXAPARIN 30 MG/0.3 ML SYG SC SCH (08:35)
--- NOTE | 2018-07-05 11:35 | CONS ---
Consultation Date/Type/Reason Admit Date/Time Jun 22, 2018 at 18:09 Initial Consult Date SUBJECTIVE: Pt is awake, alert, resting in bed. No fevers. VS: HR: 104, T: 98.0 LABS: reviewed. Microbiology: Blood culture growing Proteus mirabilis, urine culture grew Proteus mirabilis and oxacillin sensitive staph aureus. Sacral wound culture growing E. coli, staph aureus and enterococcus species Chest x-ray on admission revealed no definite abnormalities. Indwelling: Baxter Antimicrobials: Vancomycin, Cefepime Physical examination: GEN: Well-developed chronically ill-appearing elderly man, in no distress. HENT: Head atraumatic normocephalic, sclera nonicteric, neck is supple. PULM: chest rise symmetrical, breath sounds diminished bases Heart: S1-S2 abdomen soft bowel sounds present Extremities: wasted bilateral lower extremities, no cyanosis Assessment: 1. Sepsis, present on admission 2. Proteus mirabilis bacteremia secondary to UTI, repeat bld cx neg 3. Multidrug-resistant Proteus mirabilis pyelonephritis 4. Bilateral hydronephrosis 5. Neurogenic bladder 6. Multiple decubitus with questionable osteomyelitis of right atrium and right iliac bone 7. Obstructive uropathy 8. Homelessness 9. Incomplete paraplegia Plan: Remains stable. Continue current abx. Tachycardia is noted today. WBC is improved and no fevers. Responding well to current treatment. Requesting Provider: TRACE REBOLLEDO Date/Time of Note DATE: 07/05/18 TIME: 11:31 Exam/Review of Systems Exam Vitals Vital Signs Date Temp Pulse Resp B/P (MAP) Pulse Ox O2 O2 Flow FiO2 Time Delivery Rate 07/05/18 98.0 104 20 140/76 96 Room Air 11:17 (97) Intake and Output 07/04/18 07/04/18 07/05/18 1515:00 23:00 07:00 IntakeIntake Total 300 ml 1500 ml 1250 ml OutputOutput Total 1650 ml 1900 ml BalanceBalance 300 ml -150 ml -650 ml Results Result Diagram: 07/04/18 0513 07/04/18 0513 Results 24hrs Laboratory Tests Test 07/04/18 19:25 Vancomycin Level Trough 20.6 *H Medications Medication Current Medications IV Flush (NS 3 ml) 3 ml PER PROTOCOL IV ; Start 06/22/18 at 18:30 Ondansetron HCl (Zofran Inj) 4 mg Q6H PRN IV NAUSEA/VOMITING Last administered on 06/26/18at 15:57; Admin Dose 4 MG; Start 06/22/18 at 18:30 Acetaminophen (Tylenol Tab) 650 mg Q6H PRN PO .PAIN 1-3 OR TEMP; Start 06/22/18 at 18:30 Enoxaparin Sodium (Lovenox) 30 mg DAILY SC Last administered on 07/05/18at 08:35; Admin Dose 30 MG; Start 06/23/18 at 09:00 Phenazopyridine HCl (Pyridium) 200 mg TID PRN PO dysuria Last administered on 06/29/18 13:21; Admin Dose 200 MG; Start 06/22/18 at 18:30 Hydralazine HCl (Apresoline) 10 mg Q4H PRN IV SBP >160; Start 06/22/18 at 19:00 Miscellaneous Information (Pending [facility] Order For Wound Care) This patient villela... PRN PRN XX WOUND CARE; Start 06/23/18 at 00:30 Docusate Sodium (Colace) 100 mg BID PO Last administered on 07/04/18 08:27; Ad min Dose 100 MG; Start 06/23/18 at 21:00 Vancomycin HCl (Vanco Iv Per Pharmacy) VANCOMYCIN PER PHARMACY PER PROTOCOL XX ; Start 06/23/18 at 17:30 Tamsulosin HCl (Flomax) 0.4 mg DAILY PO Last administered on 07/05/18 08:22; Admin Dose 0.4 MG; Start 06/24/18 at 09:00 Labetalol HCl (Labetalol) 10 mg Q4 PRN IV sbp>160; Start 06/24/18 at 13:30 Sodium Hypochlorite (Dakin'S (Dilute 140)) 1 applic DAILY IRR Last administered on 07/05/18 08:21; Admin Dose 1 APPLIC; Start 06/26/18 at 16:00 Cefepime HCl 50 ml @ 100 mls/hr Q12 IVPB Last administered on 07/05/18 08:22; Admin Dose 100 MLS/HR; Start 06/27/18 at 21:00 Polyethylene Glycol (Miralax) 17 gm DAILY PRN PO constipation; Start 06/28/18 at 09:00 Carisoprodol (Soma) 350 mg Q6 PRN PO muscle spasms Last administered on 07/04/18 13:15; Admin Dose 350 MG; Start 06/28/18 at 10:00 Lisinopril (Zestril) 5 mg DAILY PO Last administered on 07/05/18 08:22; Admin Dose 5 MG; Start 06/29/18 at 09:00 Magnesium Hydroxide (Milk Of Mag) 30 ml DAILY PRN PO CONSTIPATION; Start 06/28/18 at 21:00 Hydromorphone HCl (Dilaudid) 1 mg Q4H PRN IV SEVERE PAIN LEVEL 7-10 Last administered on 07/05/18 10:53; Admin Dose 1 MG; Start 07/01/18 at 18:30 Oxycodone/ Acetaminophen (Endocet (10/ 325)) 2 tab Q4H PRN PO MODERATE PAIN LEVEL 4-6 Last administered on 07/05/18 00:29; Admin Dose 2 TAB; Start 07/01/18 at 18:30 Tramadol HCl (Ultram) 100 mg Q6H PRN PO MODERATE PAIN LEVEL 4-6; Start 07/01/18 at 19:00 Magnesium Hydroxide (Milk Of Mag) 30 ml DAILY PO Last administered on 07/04/18 08:27; Admin Dose 30 ML; Start 07/04/18 at 09:00 Pantoprazole (Protonix Tab) 40 mg DAILY@06 PO Last administered on 07/05/18 06:21; Admin Dose 40 MG; Start 07/04/18 at 06:00 Vancomycin/Sodium Chloride 250 ml @ 125 mls/hr Q12H IVPB Last administered on 07/05/18 00:28; Admin Dose 125 MLS/HR; Start 07/05/18 at 00:00 AURA JAVED Jul 05, 2018 11:35
--- NOTE | 2018-07-05 13:29 | PN ---
Date/Time of Note Date/Time of Note DATE: 07/05/18 TIME: 13:26 Assessment/Plan VTE Prophylaxis Risk score (from Ns)>0 risk: 8 SCD applied (from Ns): No SCD contraindicated: patient refusal Pharmacological prophylaxis: LMWH Lines/Catheters IV Catheter Type (from Nrsg): Peripheral IV Urinary Cath still in place: Yes Reason Cath still needed: urinary retention Assessment/Plan Assessment/Plan 1. Sepsis secondary to UTI, decubitus ulcers, and OM- resolving - Remains afebrile and continue on currently antibiotics - ID on board and appreciate consultation. Plan to continue total of 6 weeks of IV antibiotics for OM 2. UTI with hydronephrosis - Urology on board and appreciate recommendations. - continue on current antibiotics - CT scan results noted and discussed results with patient 3. Sacral decubitus ulcer with abscess - Surgery on board and appreciate consultation. Offloading as much as possible - wound care on board 4. Osteomyelitis of ischium - Will need to complete 6 weeks of IV antibiotics - ID on board and appreciate recommendations 5. Acute on chronic back pain - Pain control - soma for muscle spasms, patient on this chronically outpatient 6. Acute kidney injury- resolved 7. Hypertension - stable 8. Disposition - Continue current treatment and CM on board for placement Result Diagram: 07/04/18 0507/04/18 05 Results 24hrs Laboratory Tests Test 07/04/18 19:25 Vancomycin Level Trough 20.6 *H Subjective 24 Hr Interval Summary Free Text/Dictation Patient doing well and denies any new issues. No acute overnight events. Exam/Review of Systems Exam Vitals Vital Signs Date Temp Pulse Resp B/P (MAP) Pulse Ox O2 O2 Flow FiO2 Time Delivery Rate 07/05/18 104 12:01 07/05/18 98.0 20 140/76 96 Room Air 11:17 (97) Intake and Output 07/04/18 07/04/18 07/05/18 1515:00 23:00 07:00 IntakeIntake Total 300 ml 1500 ml 1250 ml OutputOutput Total 1650 ml 1900 ml BalanceBalance 300 ml -150 ml -650 ml Exam General: Patient is sitting up in bed and answers questions appropriately. no acute distress Neck: Supple Respiratory: Clear to auscultation bilaterally. no wheezing or rhonchi Cardiovascular: regular rate and rhythm, no obvious murmurs Gastrointestinal: soft, non-tender to palpation, bowel sounds heard. Musculoskeletal: LE muscle spasms noted Skin: Multiple lesions Results Results 24hrs Laboratory Tests Test 07/04/18 19:25 Vancomycin Level Trough 20.6 *H Medications Medication Current Medications IV Flush (NS 3 ml) 3 ml PER PROTOCOL IV ; Start 06/22/18 at 18:30 Ondansetron HCl (Zofran Inj) 4 mg Q6H PRN IV NAUSEA/VOMITING Last administered on 06/26/18at 15:57; Admin Dose 4 MG; Start 06/22/18 at 18:30 Acetaminophen (Tylenol Tab) 650 mg Q6H PRN PO .PAIN 1-3 OR TEMP; Start 06/22/18 at 18:30 Enoxaparin Sodium (Lovenox) 30 mg DAILY SC Last administered on 07/05/18at 08:35; Admin Dose 30 MG; Start 06/23/18 at 09:00 Phenazopyridine HCl (Pyridium) 200 mg TID PRN PO dysuria Last administered on 06/29/18at 13:21; Admin Dose 200 MG; Start 06/22/18 at 18:30 Hydralazine HCl (Apresoline) 10 mg Q4H PRN IV SBP >160; Start 06/22/18 at 19:00 Miscellaneous Information (Pending [facility] Order For Wound Care) This patient villela... PRN PRN XX WOUND CARE; Start 06/23/18 at 00:30 Docusate Sodium (Colace) 100 mg BID PO Last administered on 07/04/18at 08:27; Admin Dose 100 MG; Start 06/23/18 at 21:00 Vancomycin HCl (Vanco Iv Per Pharmacy) VANCOMYCIN PER PHARMACY PER PROTOCOL XX ; Start 06/23/18 at 17:30 Tamsulosin HCl (Flomax) 0.4 mg DAILY PO Last administered on 07/05/18at 08:22; Admin Dose 0.4 MG; Start 06/24/18 at 09:00 Labetalol HCl (Labetalol) 10 mg Q4 PRN IV sbp>160; Start 06/24/18 at 13:30 Sodium Hypochlorite (Dakin'S (Dilute )) 1 applic DAILY IRR Last administered on 07/05/18at 08:21; Admin Dose 1 APPLIC; Start 06/26/18 at 16:00 Cefepime HCl 50 ml @ 100 mls/hr Q12 IVPB Last administered on 07/05/18 08:22; Admin Dose 100 MLS/HR; Start 06/27/18 at 21:00 Polyethylene Glycol (Miralax) 17 gm DAILY PRN PO constipation; Start 06/28/18 at 09:00 Carisoprodol (Soma) 350 mg Q6 PRN PO muscle spasms Last administered on 07/04/18 13:15; Admin Dose 350 MG; Start 06/28/18 at 10:00 Lisinopril (Zestril) 5 mg DAILY PO Last administered on 07/05/18 08:22; Admin Dose 5 MG; Start 06/29/18 at 09:00 Magnesium Hydroxide (Milk Of Mag) 30 ml DAILY PRN PO CONSTIPATION; Start 06/28/18 at 21:00 Hydromorphone HCl (Dilaudid) 1 mg Q4H PRN IV SEVERE PAIN LEVEL 7-10 Last administered on 07/05/18 10:53; Admin Dose 1 MG; Start 07/01/18 at 18:30 Oxycodone/ Acetaminophen (Endocet (10/ 325)) 2 tab Q4H PRN PO MODERATE PAIN LEVEL 4-6 Last administered on 07/05/18 00:29; Admin Dose 2 TAB; Start 07/01/18 at 18:30 Tramadol HCl (Ultram) 100 mg Q6H PRN PO MODERATE PAIN LEVEL 4-6; Start 07/01/18 at 19:00 Magnesium Hydroxide (Milk Of Mag) 30 ml DAILY PO Last administered on 07/04/18 08:27; Admin Dose 30 ML; Start 07/04/18 at 09:00 Pantoprazole (Protonix Tab) 40 mg DAILY@06 PO Last administered on 07/05/18 06:21; Admin Dose 40 MG; Start 07/04/18 at 06:00 Vancomycin/Sodium Chloride 250 ml @ 125 mls/hr Q12H IVPB Last administered on 07/05/18 12:11; Admin Dose 125 MLS/HR; Start 07/05/18 at 00:00 KINGA WILLETT MD Jul 05, 2018 13:29
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
--- NOTE | 2018-07-05 17:19 | PN ---
Date/Time of Note Date/Time of Note DATE: 07/05/18 TIME: 17:18 Assessment/Plan Lines/Catheters IV Catheter Type (from [facility]): Peripheral IV Cortez in Place (from [facility]): Yes Assessment/Plan Chief Complaint/Hosp Course 1. Multiple decubitus pressure ulcers -Encourage aggressive offloading -Encourage nutritional optimization -Continue wound care -Debridement as needed -Vitamin C -Continue osteomyelitis treatment> per id 2. Possible abscess reported on CT not palpable clinically. Contrast ct:: Status post debridement and drainage of the right buttock abscess with associated skin defect and underlying osteomyelitis -abx per id -as above 3. UTI on antibiotics 4. Acute leukocytosis resolved 5. Hypoalbuminemia -Encourage nutritional optimization 6. Hypertension history -Nutrition and medication optimization 7. Anemia without evidence of acute blood loss -Monitor 8. Acute on chronic back pain, nephrolithiasis -Medical optimization -Judicious fluid management 9. Decompressed bladder with significant thickening concerning for bladder neoplasm versus cystitis: Urethritis, possible pyelonephritis; leaking between self caths, indwelling cortez placed -per Urology -Antibiotics 10. Dysphagia: -EGD refused by patient 11. Elevated CEA however patient refusing colonoscopy and further workup 12. Constipation: -bowel optimization Thank you. Patient seen and examined in collaboration with Dr. Micah Hobbs. Subjective 24 Hr Interval Summary WBC normalized. Minimal tachycardia. No fevers, chills, sob, congested cough, cp, palpitations, villela, dizziness, nausea, vomiting, diarrhea, dysuria. Exam/Review of Systems Vital Signs Vitals Vital Signs Date Temp Pulse Resp B/P (MAP) Pulse Ox O2 O2 Flow FiO2 Time Delivery Rate 07/05/18 112 16:01 07/05/18 98.0 20 141/78 95 Room Air 14:59 (99) Intake and Output 07/04/18 07/04/18 07/05/18 1515:00 23:00 07:00 IntakeIntake Total 300 ml 1500 ml 1250 ml OutputOutput Total 1650 ml 1900 ml BalanceBalance 300 ml -150 ml -650 ml Exam Free Text/Dictation Constitutional: alert, oriented No distress Psych: No anxiety Head: normocephalic, atraumatic Eyes: nl conjunctiva, EOMI, PERRL; No icteric ENMT: nl external ears & nose, nl lips & teeth, mucosa pink and moist Neck: supple, non-tender; No jvd Respiratory: normal air movement; No congested cough, No labored breathing, No wheezing Cardiovascular: regular rate and rhythm; No edema Gastrointestinal: soft, non-tender; No distended, No rebound or guarding Genitourinary - Male: nl penis, nl scrotum Musculoskeletal: No nl gait and stance, No joint tenderness Extremities: normal pulses; No calf tenderness, No edema, No tenderness Neurological: nl mental status, nl speech; No nl strength Skin: rash or lesions (Decubitus pressure ulcers: packed, no odor/drainage. Right ischium : no odor/mod drainage); No ecchymosis Lymph: nl lymph nodes Results Result Diagram: 07/04/18 0513 07/04/18 0513 TIFFANIE KLEIN NP Jul 05, 2018 17:19
[2018-07-06] VITALS (12 sets, daily range): BP systolic 102–153; BP diastolic 55–75; PULSE 83–110; RESP 16–20
[2018-07-06] MEDS: VANCOMYCIN 750 MG (PMX) 250 ML IVPB SCH ×2 (00:39→12:26)
[2018-07-06] MEDS: HYDROmorphONE 0.5 MG/0.5 ML SYG IV PRN ×6 (00:40→21:21)
[2018-07-06] MEDS: PANTOPRAZOLE (EC) 40 MG TAB PO SCH (06:27)
[2018-07-06] MEDS ORDERED: INSULIN REGULAR, HUMAN 100 UNIT/1 ML 3ML VIAL IVP STA (08:53)
--- NOTE | 2018-07-06 08:54 | PN ---
Date/Time of Note Date/Time of Note DATE: 07/06/18 TIME: 08:54 Assessment/Plan VTE Prophylaxis Risk score (from Ns)>0 risk: 8 SCD applied (from [facility] [place] No SCD contraindicated: patient refusal Pharmacological prophylaxis: LMWH Lines/Catheters IV Catheter Type (from Nrsg): Peripheral IV Urinary Cath still in place: Yes Reason Cath still needed: urinary retention, pres ulcer contaminated by urine Assessment/Plan Assessment/Plan 1. Sepsis secondary to UTI, decubitus ulcers, and OM- resolving - remains stable - ID on board and appreciate consultation. Plan to continue total of 6 weeks of IV antibiotics for OM 2. UTI with hydronephrosis - Urology on board and appreciate recommendations. - continue on current antibiotics - CT scan results noted and discussed results with patient 3. Sacral decubitus ulcer with abscess - Surgery on board and appreciate consultation. Offloading as much as possible - wound care on board 4. Osteomyelitis of ischium - Will need to complete 6 weeks of IV antibiotics - ID on board and appreciate recommendations 5. Acute on chronic back pain - Pain control - soma for muscle spasms, patient on this chronically outpatient 6. Acute kidney injury- resolved 7. Hypertension - stable 8. Disposition - Continue current treatment and CM on board for placement Result Diagram: 07/06/18 0515 07/06/18 0516 Results 24hrs Laboratory Tests Test 07/06/18 05:15 07/06/18 05:16 White Blood Count 9.8 Red Blood Count 3.48 L Hemoglobin 7.9 L Hematocrit 26.8 L Mean Corpuscular Volume 77.0 L Mean Corpuscular Hemoglobin 22.7 L Mean Corpuscular Hemoglobin Concent 29.5 L Red Cell Distribution Width 19.5 H Platelet Count 329 Mean Platelet Volume 10.1 Immature Granulocytes % 0.200 Neutrophils % 82.0 H Lymphocytes % 8.8 L Monocytes % 6.9 Eosinophils % 1.7 Basophils % 0.4 Nucleated Red Blood Cells % 0.0 Immature Granulocytes # 0.020 Neutrophils # 8.0 H Lymphocytes # 0.9 Monocytes # 0.7 Eosinophils # 0.2 Basophils # 0.0 Nucleated Red Blood Cells # 0.0 Sodium Level 135 Potassium Level 5.5 H Chloride Level 105 Carbon Dioxide Level 24 Anion Gap 6 Blood Urea Nitrogen 34 H Creatinine 0.84 Glucose Level 85 Calcium Level 8.4 Phosphorus Level 3.4 Magnesium Level 2.1 Albumin 2.8 L Subjective 24 Hr Interval Summary Free Text/Dictation Patient with muscle spasms and states the timing of his pain medication and soma is throwing off his schedule. Discussed starting Soma as a standing order to see if can provide him more comfort during the day. Exam/Review of Systems Exam Vitals Vital Signs Date Temp Pulse Resp B/P (MAP) Pulse Ox O2 O2 Flow FiO2 Time Delivery Rate 07/06/18 107 08:01 07/06/18 98.6 20 137/67 99 Room Air 07:34 (90) Intake and Output 07/05/18 07/05/18 07/06/18 1515:00 23:00 07:00 IntakeIntake Total 1310 ml 1750 ml OutputOutput Total 1300 ml 1600 ml 2700 ml BalanceBalance -1300 ml -290 ml -950 ml Exam General: Patient is sitting up in bed and answers questions appropriately. no a cute distress Neck: Supple Respiratory: Clear to auscultation bilaterally. no wheezing or rhonchi Cardiovascular: regular rate and rhythm, no obvious murmurs Gastrointestinal: soft, non-tender to palpation, bowel sounds heard. Musculoskeletal: LE muscle spasms noted Skin: Multiple lesions Results Results 24hrs Laboratory Tests Test 07/06/18 05:15 07/06/18 05:16 White Blood Count 9.8 Red Blood Count 3.48 L Hemoglobin 7.9 L Hematocrit 26.8 L Mean Corpuscular Volume 77.0 L Mean Corpuscular Hemoglobin 22.7 L Mean Corpuscular Hemoglobin Concent 29.5 L Red Cell Distribution Width 19.5 H Platelet Count 329 Mean Platelet Volume 10.1 Immature Granulocytes % 0.200 Neutrophils % 82.0 H Lymphocytes % 8.8 L Monocytes % 6.9 Eosinophils % 1.7 Basophils % 0.4 Nucleated Red Blood Cells % 0.0 Immature Granulocytes # 0.020 Neutrophils # 8.0 H Lymphocytes # 0.9 Monocytes # 0.7 Eosinophils # 0.2 Basophils # 0.0 Nucleated Red Blood Cells # 0.0 Sodium Level 135 Potassium Level 5.5 H Chloride Level 105 Carbon Dioxide Level 24 Anion Gap 6 Blood Urea Nitrogen 34 H Creatinine 0.84 Glucose Level 85 Calcium Level 8.4 Phosphorus Level 3.4 Magnesium Level 2.1 Albumin 2.8 L Medications Medication Current Medications IV Flush (NS 3 ml) 3 ml PER PROTOCOL IV ; Start 06/22/18 at 18:30 Ondansetron HCl (Zofran Inj) 4 mg Q6H PRN IV NAUSEA/VOMITING Last administered on 06/26/18at 15:57; Admin Dose 4 MG; Start 06/22/18 at 18:30 Acetaminophen (Tylenol Tab) 650 mg Q6H PRN PO .PAIN 1-3 OR TEMP; Start 06/22/18 at 18:30 Enoxaparin Sodium (Lovenox) 30 mg DAILY SC Last administered on 07/05/18at 08:35; Admin Dose 30 MG; Start 06/23/18 at 09:00 Phenazopyridine HCl (Pyridium) 200 mg TID PRN PO dysuria Last administered on 06/29/18 13:21; Admin Dose 200 MG; Start 06/22/18 at 18:30 Hydralazine HCl (Apresoline) 10 mg Q4H PRN IV SBP >160; Start 06/22/18 at 19:00 Miscellaneous Information (Pending [facility] Order For Wound Care) This patient villela... PRN PRN XX WOUND CARE; Start 06/23/18 at 00:30 Docusate Sodium (Colace) 100 mg BID PO Last administered on 07/04/18 08:27; Admin Dose 100 MG; Start 06/23/18 at 21:00 Vancomycin HCl (Vanco Iv Per Pharmacy) VANCOMYCIN PER PHARMACY PER PROTOCOL XX ; Start 06/23/18 at 17:30 Tamsulosin HCl (Flomax) 0.4 mg DAILY PO Last administered on 07/05/18 08:22; Admin Dose 0.4 MG; Start 06/24/18 at 09:00 Labetalol HCl (Labetalol) 10 mg Q4 PRN IV sbp>160; Start 06/24/18 at 13:30 Sodium Hypochlorite (Dakin'S (Dilute 140)) 1 applic DAILY IRR Last administered on 07/05/18 08:21; Admin Dose 1 APPLIC; Start 06/26/18 at 16:00 Cefepime HCl 50 ml @ 100 mls/hr Q12 IVPB Last administered on 07/05/18 20:17; Admin Dose 100 MLS/HR; Start 06/27/18 at 21:00 Polyethylene Glycol (Miralax) 17 gm DAILY PRN PO constipation; Start 06/28/18 at 09:00 Carisoprodol (Soma) 350 mg Q6 PRN PO muscle spasms Last administered on 07/04/18 13:15; Admin Dose 350 MG; Start 06/28/18 at 10:00 Lisinopril (Zestril) 5 mg DAILY PO Last administered on 07/05/18 08:22; Admin Dose 5 MG; Start 06/29/18 at 09:00 Magnesium Hydroxide (Milk Of Mag) 30 ml DAILY PRN PO CONSTIPATION; Start 06/28/18 at 21:00 Hydromorphone HCl (Dilaudid) 1 mg Q4H PRN IV SEVERE PAIN LEVEL 7-10 Last administered on 07/06/18 04:34; Admin Dose 1 MG; Start 07/01/18 at 18:30 Oxycodone/ Acetaminophen (Endocet (10/ 325)) 2 tab Q4H PRN PO MODERATE PAIN LEVEL 4-6 Last administered on 07/05/18 00:29; Admin Dose 2 TAB; Start 07/01/18 at 18:30 Tramadol HCl (Ultram) 100 mg Q6H PRN PO MODERATE PAIN LEVEL 4-6; Start 07/01/18 at 19:00 Magnesium Hydroxide (Milk Of Mag) 30 ml DAILY PO Last administered on 07/04/18 08:27; Admin Dose 30 ML; Start 07/04/18 at 09:00 Pantoprazole (Protonix Tab) 40 mg DAILY@06 PO Last administered on 07/06/18 06:27; Admin Dose 40 MG; Start 07/04/18 at 06:00 Vancomycin/Sodium Chloride 250 ml @ 125 mls/hr Q12H IVPB Last administered on 07/06/18 00:39; Admin Dose 125 MLS/HR; Start 07/05/18 at 00:00 KINGA WILLETT MD Jul 06, 2018 08:54
[2018-07-06] MEDS ORDERED: DEXTROSE 50% 50 ML SYRINGE IV PRN (09:00)
[2018-07-06] MEDS: DOCUSATE SODIUM 100 MG CAP PO SCH ×2 (09:00→21:11)
[2018-07-06] MEDS: MAGNESIUM HYDROXIDE 30ML CUP PO SCH (09:00)
[2018-07-06] MEDS: CEFEPIME 1GM/50 ML (PMX) 50 ML IVPB SCH ×2 (09:10→21:11)
[2018-07-06] MEDS: LISINOPRIL 5 MG TAB PO SCH (09:11)
[2018-07-06] MEDS: TAMSULOSIN (SR) 0.4 MG CAP PO SCH (09:11)
[2018-07-06] MEDS: SODIUM HYPOCHLORITE (1/40) 1 APPLIC BTL IRR SCH (09:12)
[2018-07-06] MEDS: ENOXAPARIN 30 MG/0.3 ML SYG SC SCH (10:17)
[2018-07-06] MEDS ORDERED: DEXTROSE 50% 50 ML SYRINGE IV ONE (12:00)
[2018-07-06] MEDS: CARISOPRODOL 350 MG TAB PO SCH ×3 (12:02→23:28)
[2018-07-06] MEDS: OXYCODONE/ACETAMINOPHEN (10/325) TAB PO PRN ×2 (12:02→23:29)
--- NOTE | 2018-07-06 14:26 | CONS ---
Consultation Date/Type/Reason Admit Date/Time Jun 22, 2018 at 18:09 Initial Consult Date SUBJECTIVE: Pt is awake, alert, resting in bed. No acut events over night. Pt declined colonoscopy. VS: HR: 103, T: 98.6 LABS: reviewed. WBC-9.8 Microbiology: Blood culture growing Proteus mirabilis, urine culture grew Proteus mirabilis and oxacillin sensitive staph aureus. Sacral wound culture growing E. coli, staph aureus and enterococcus species ABD US: IMPRESSION: 1. Large colonic stool burden. 2. Calcifications over the right mid and lower abdomen/pelvis which may represent phleboliths or previously seen right ureter calcification. Indwelling: Baxter Antimicrobials: Vancomycin, Cefepime Physical examination: GEN: Well-developed chronically ill-appearing elderly man, in no distress. HENT: Head atraumatic normocephalic, sclera nonicteric, neck is supple. PULM: chest rise symmetrical, breath sounds diminished bases Heart: S1-S2 abdomen soft bowel sounds present Extremities: wasted bilateral lower extremities, no cyanosis Assessment: 1. Sepsis, present on admission 2. Proteus mirabilis bacteremia secondary to UTI, repeat bld cx neg 3. Multidrug-resistant Proteus mirabilis pyelonephritis 4. Bilateral hydronephrosis 5. Neurogenic bladder 6. Multiple decubitus with questionable osteomyelitis of right atrium and right iliac bone 7. Obstructive uropathy 8. Homelessness 9. Incomplete paraplegia Plan: Remains stable. Continue current abx. Pt remains to be tachycardic but stable. Abd US noted. Responding well to current treatment. Requesting Provider: TRACE REBOLLEDO Date/Time of Note DATE: 07/06/18 TIME: 14:24 Exam/Review of Systems Exam Vitals Vital Signs Date Temp Pulse Resp B/P (MAP) Pulse Ox O2 O2 Flow FiO2 Time Delivery Rate 07/06/18 103 12:01 07/06/18 98.6 20 135/75 98 Room Air 11:14 (95) Intake and Output 07/05/18 07/05/18 07/06/18 1515:00 23:00 07:00 IntakeIntake Total 1310 ml 1750 ml OutputOutput Total 1300 ml 1600 ml 2700 ml BalanceBalance -1300 ml -290 ml -950 ml Results Result Diagram: 07/06/18 0515 07/06/18 0516 Results 24hrs Laboratory Tests Test 07/06/18 05:15 07/06/18 05:16 White Blood Count 9.8 Red Blood Count 3.48 L Hemoglobin 7.9 L Hematocrit 26.8 L Mean Corpuscular Volume 77.0 L Mean Corpuscular Hemoglobin 22.7 L Mean Corpuscular Hemoglobin Concent 29.5 L Red Cell Distribution Width 19.5 H Platelet Count 329 Mean Platelet Volume 10.1 Immature Granulocytes % 0.200 Neutrophils % 82.0 H Lymphocytes % 8.8 L Monocytes % 6.9 Eosinophils % 1.7 Basophils % 0.4 Nucleated Red Blood Cells % 0.0 Immature Granulocytes # 0.020 Neutrophils # 8.0 H Lymphocytes # 0.9 Monocytes # 0.7 Eosinophils # 0.2 Basophils # 0.0 Nucleated Red Blood Cells # 0.0 Sodium Level 135 Potassium Level 5.5 H Chloride Level 105 Carbon Dioxide Level 24 Anion Gap 6 Blood Urea Nitrogen 34 H Creatinine 0.84 Glucose Level 85 Calcium Level 8.4 Phosphorus Level 3.4 Magnesium Level 2.1 Albumin 2.8 L Medications Medication Current Medications IV Flush (NS 3 ml) 3 ml PER PROTOCOL IV ; Start 06/22/18 at 18:30 Ondansetron HCl (Zofran Inj) 4 mg Q6H PRN IV NAUSEA/VOMITING Last administered on 06/26/18at 15:57; Admin Dose 4 MG; Start 06/22/18 at 18:30 Acetaminophen (Tylenol Tab) 650 mg Q6H PRN PO .PAIN 1-3 OR TEMP; Start 06/22/18 at 18:30 Enoxaparin Sodium (Lovenox) 30 mg DAILY SC Last administered on 07/06/18at 10:17; Admin Dose 30 MG; Start 06/23/18 at 09:00 Phenazopyridine HCl (Pyridium) 200 mg TID PRN PO dysuria Last administered on 06/29/18at 13:21; Admin Dose 200 MG; Start 06/22/18 at 18:30 Hydralazine HCl (Apresoline) 10 mg Q4H PRN IV SBP >160; Start 06/22/18 at 19:00 Miscellaneous Information (Pending Santyl Order For Wound Care) This patient villela... PRN PRN XX WOUND CARE; Start 06/23/18 at 00:30 Docusate Sodium (Colace) 100 mg BID PO Last administered on 07/04/18 08:27; Admin Dose 100 MG; Start 06/23/18 at 21:00 Vancomycin HCl (Vanco Iv Per Pharmacy) VANCOMYCIN PER PHARMACY PER PROTOCOL XX ; Start 06/23/18 at 17:30 Tamsulosin HCl (Flomax) 0.4 mg DAILY PO Last administered on 07/06/18 09:11; Admin Dose 0.4 MG; Start 06/24/18 at 09:00 Labetalol HCl (Labetalol) 10 mg Q4 PRN IV sbp>160; Start 06/24/18 at 13:30 Sodium Hypochlorite (Dakin'S (Dilute )) 1 applic DAILY IRR Last administered on 07/06/18 09:12; Admin Dose 1 APPLIC; Start 06/26/18 at 16:00 Cefepime HCl 50 ml @ 100 mls/hr Q12 IVPB Last administered on 07/06/18 09:10; Admin Dose 100 MLS/HR; Start 06/27/18 at 21:00 Polyethylene Glycol (Miralax) 17 gm DAILY PRN PO constipation; Start 06/28/18 at 09:00 Lisinopril (Zestril) 5 mg DAILY PO Last administered on 07/06/18 09:11; Admin Dose 5 MG; Start 06/29/18 at 09:00 Magnesium Hydroxide (Milk Of Mag) 30 ml DAILY PRN PO CONSTIPATION; Start 06/28/18 at 21:00 Hydromorphone HCl (Dilaudid) 1 mg Q4H PRN IV SEVERE PAIN LEVEL 7-10 Last administered on 07/06/18 13:25; Admin Dose 1 MG; Start 07/01/18 at 18:30 Oxycodone/ Acetaminophen (Endocet (10/ 325)) 2 tab Q4H PRN PO MODERATE PAIN LEVEL 4-6 Last administered on 07/06/18 12:02; Admin Dose 2 TAB; Start 07/01/18 at 18:30 Tramadol HCl (Ultram) 100 mg Q6H PRN PO MODERATE PAIN LEVEL 4-6; Start 07/01/18 at 19:00 Magnesium Hydroxide (Milk Of Mag) 30 ml DAILY PO Last administered on 07/04/18 08:27; Admin Dose 30 ML; Start 07/04/18 at 09:00 Pantoprazole (Protonix Tab) 40 mg DAILY@06 PO Last administered on 07/06/18 06:27; Admin Dose 40 MG; Start 07/04/18 at 06:00 Vancomycin/Sodium Chloride 250 ml @ 125 mls/hr Q12H IVPB Last administered on 07/06/18 12:26; Admin Dose 125 MLS/HR; Start 07/05/18 at 00:00 Dextrose (D50w Syringe) ONCE PRN IV DECREASED GLUCOSE Last administered on 07/06/18at 12:07; Admin Dose 100 ML; Start 07/06/18 at 09:00; Stop 07/07/18 at 23:00 Carisoprodol (Soma) 350 mg Q6 PO Last administered on 07/06/18 12:02; Admin Dose 350 MG; Start 07/06/18 at 12:00 Miscellaneous Information (*Rx Drug Level Order Reminder*) VANCOMYCIN TROUGH AT 2300 ONCE ONCE XX ; Start 07/06/18 at 23:00; Stop 07/06/18 at 23:01 AURA JAVED Jul 06, 2018 14:26
--- NOTE | 2018-07-06 14:34 | PN ---
Date/Time of Note Date/Time of Note DATE: 07/06/18 TIME: 14:32 Assessment/Plan Lines/Catheters IV Catheter Type (from [facility]): Peripheral IV Cortez in Place (from [facility]): Yes Assessment/Plan Chief Complaint/Hosp Course 1. Multiple decubitus pressure ulcers -Encourage aggressive offloading -Encourage nutritional optimization -Continue wound care -Debridement as needed -Vitamin C -Continue osteomyelitis treatment> per id 2. Possible abscess reported on CT not palpable clinically. Contrast ct:: Status post debridement and drainage of the right buttock abscess with associated skin defect and underlying osteomyelitis -abx per id -as above 3. UTI on antibiotics 4. Acute leukocytosis resolved 5. Hypoalbuminemia -Encourage nutritional optimization 6. Hypertension history -Nutrition and medication optimization 7. Anemia without evidence of acute blood loss -Monitor 8. Acute on chronic back pain, nephrolithiasis -Medical optimization -Judicious fluid management 9. Decompressed bladder with significant thickening concerning for bladder neoplasm versus cystitis: Urethritis, possible pyelonephritis; leaking between self caths, indwelling cortez placed -per Urology -Antibiotics 10. Dysphagia: -EGD refused by patient 11. Elevated CEA however patient refusing colonoscopy and further workup 12. Constipation: -bowel optimization Thank you. Patient seen and examined in collaboration with Dr. Micah Hobbs. Subjective 24 Hr Interval Summary Feels well. No acute complaints. No fevers, chills, sob, congested cough, cp, palpitations, villela, dizziness, nausea, vomiting, diarrhea, dysuria, excessive wound drainage or odor. Exam/Review of Systems Vital Signs Vitals Vital Signs Date Temp Pulse Resp B/P (MAP) Pulse Ox O2 O2 Flow FiO2 Time Delivery Rate 07/06/18 103 12:01 07/06/18 98.6 20 135/75 98 Room Air 11:14 (95) Intake and Output 07/05/18 07/05/18 07/06/18 1515:00 23:00 07:00 IntakeIntake Total 1310 ml 1750 ml OutputOutput Total 1300 ml 1600 ml 2700 ml BalanceBalance -1300 ml -290 ml -950 ml Exam Free Text/Dictation Constitutional: alert, oriented No distress Psych: No anxiety Head: normocephalic, atraumatic Eyes: nl conjunctiva, EOMI, PERRL; No icteric ENMT: nl external ears & nose, nl lips & teeth, mucosa pink and moist Neck: supple, non-tender; No jvd Respiratory: normal air movement; No congested cough, No labored breathing, No wheezing Cardiovascular: regular rate and rhythm; No edema Gastrointestinal: soft, non-tender; No distended, No rebound or guarding Genitourinary - Male: nl penis, nl scrotum Musculoskeletal: No nl gait and stance, No joint tenderness Extremities: normal pulses; No calf tenderness, No edema, No tenderness Neurological: nl mental status, nl speech; No nl strength Skin: rash or lesions (Decubitus pressure ulcers: packed, no odor/drainage. Right ischium : no odor/mod drainage); No ecchymosis Lymph: nl lymph nodes Results Result Diagram: 07/06/18 0515 07/06/18 0516 TIFFANIE KLEIN NP Jul 06, 2018 14:34
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
[2018-07-07] VITALS (12 sets, daily range): BP systolic 118–147; BP diastolic 68–79; PULSE 88–118; RESP 18–20
[2018-07-07] MEDS: VANCOMYCIN 750 MG (PMX) 250 ML IVPB SCH (00:55)
[2018-07-07] MEDS: HYDROmorphONE 0.5 MG/0.5 ML SYG IV PRN ×5 (02:18→21:00)
[2018-07-07] MEDS: CARISOPRODOL 350 MG TAB PO SCH ×5 (05:12→23:54)
[2018-07-07] MEDS: PANTOPRAZOLE (EC) 40 MG TAB PO SCH (05:12)
[2018-07-07] MEDS: MAGNESIUM HYDROXIDE 30ML CUP PO SCH (08:14)
[2018-07-07] MEDS: TAMSULOSIN (SR) 0.4 MG CAP PO SCH (08:15)
[2018-07-07] MEDS: LISINOPRIL 5 MG TAB PO SCH (08:15)
[2018-07-07] MEDS: DOCUSATE SODIUM 100 MG CAP PO SCH ×3 (08:15→20:19)
[2018-07-07] MEDS: CEFEPIME 1GM/50 ML (PMX) 50 ML IVPB SCH ×2 (08:15→20:18)
[2018-07-07] MEDS: SODIUM HYPOCHLORITE (1/40) 1 APPLIC BTL IRR SCH (08:15)
[2018-07-07] MEDS: ENOXAPARIN 30 MG/0.3 ML SYG SC SCH (08:22)
--- NOTE | 2018-07-07 09:13 | PN ---
Date/Time of Note Date/Time of Note DATE: 07/07/18 TIME: 09:13 Assessment/Plan VTE Prophylaxis Risk score (from Ns)>0 risk: 8 SCD applied (from [facility] [place]): No SCD contraindicated: patient refusal Pharmacological prophylaxis: LMWH Lines/Catheters IV Catheter Type (from Nrsg): Peripheral IV Urinary Cath still in place: Yes Reason Cath still needed: pres ulcer contaminated by urine Assessment/Plan Assessment/Plan 1. Sepsis secondary to UTI, decubitus ulcers, and OM- resolving - remains stable - ID on board and appreciate consultation. Will need to complete 6 weeks total of IV antibiotics, last dose 08/04/18 for treatment of OM. 2. UTI with hydronephrosis- resolving - Urology on board and appreciate recommendations. Cortez in place since when patient was straight cathing self, he was contaminating his sacral ulcer. - continue on current antibiotics - CT scan results noted and discussed results with patient 3. Sacral decubitus ulcer with abscess - Surgery on board and appreciate consultation. Offload as much as possible - wound care on board 4. Osteomyelitis of ischium - Will need to complete 6 weeks of IV antibiotics, last dose 08/04/18 - ID on board and appreciate recommendations 5. Acute on chronic back pain - Pain control - soma for muscle spasms, patient on this chronically outpatient 6. Acute kidney injury- resolved 7. Hypertension - stable 8. Disposition - CM on board for placement for continuation of IV antibiotics until 08/04/18. Medically stable for discharge to SNF when accepted - Patient states he will be agreeable for PICC placement once SNF found - Continue cortez care Result Diagram: 07/07/18 0447 07/07/18 0447 Results 24hrs Laboratory Tests Test 07/06/18 23:04 07/07/18 04:47 Vancomycin Level Trough 17.8 White Blood Count 9.5 Red Blood Count 3.57 L Hemoglobin 8.0 L Hematocrit 27.1 L Mean Corpuscular Volume 75.9 L Mean Corpuscular Hemoglobin 22.4 L Mean Corpuscular Hemoglobin Concent 29.5 L Red Cell Distribution Width 19.5 H Platelet Count 436 #H Mean Platelet Volume 8.5 Immature Granulocytes % 0.300 Neutrophils % 82.6 H Lymphocytes % 9.7 L Monocytes % 5.5 Eosinophils % 1.5 Basophils % 0.4 Nucleated Red Blood Cells % 0.0 Immature Granulocytes # 0.030 Neutrophils # 7.9 H Lymphocytes # 0.9 Monocytes # 0.5 Eosinophils # 0.1 Basophils # 0.0 Nucleated Red Blood Cells # 0.0 Sodium Level 139 Potassium Level 4.6 Chloride Level 106 Carbon Dioxide Level 28 Anion Gap 5 Blood Urea Nitrogen 33 H Creatinine 1.07 Glucose Level 107 Calcium Level 8.5 Phosphorus Level 4.0 Magnesium Level 2.3 Albumin 3.0 L Subjective 24 Hr Interval Summary Free Text/Dictation Patient is getting frustrated with his care and states he doesn't get his medications when he asked. Discussed midline vs PICC line placement and would like to hold off until he is found placement. Exam/Review of Systems Exam Vitals Vital Signs Date Temp Pulse Resp B/P (MAP) Pulse Ox O2 O2 Flow FiO2 Time Delivery Rate 07/07/18 112 08:01 07/07/18 98.7 20 132/70 96 07:39 (90) 07/06/18 Room Air 15:41 Intake and Output 07/06/18 07/06/18 07/07/18 1515:00 23:00 07:00 IntakeIntake Total 850 ml 1000 ml OutputOutput Total 1900 ml 1500 ml BalanceBalance -1050 ml -500 ml Exam General: Patient is sitting up in bed and answers questions appropriately. no acute distress Neck: Supple Respiratory: Clear to auscultation bilaterally. no wheezing or rhonchi Cardiovascular: regular rate and rhythm, no obvious murmurs Gastrointestinal: soft, non-tender to palpation, bowel sounds heard. Musculoskeletal: LE muscle spasms noted Skin: Multiple lesions Results Results 24hrs Laboratory Tests Test 07/06/18 23:04 07/07/18 04:47 Vancomycin Level Trough 17.8 White Blood Count 9.5 Red Blood Count 3.57 L Hemoglobin 8.0 L Hematocrit 27.1 L Mean Corpuscular Volume 75.9 L Mean Corpuscular Hemoglobin 22.4 L Mean Corpuscular Hemoglobin Concent 29.5 L Red Cell Distribution Width 19.5 H Platelet Count 436 #H Mean Platelet Volume 8.5 Immature Granulocytes % 0.300 Neutrophils % 82.6 H Lymphocytes % 9.7 L Monocytes % 5.5 Eosinophils % 1.5 Basophils % 0.4 Nucleated Red Blood Cells % 0.0 Immature Granulocytes # 0.030 Neutrophils # 7.9 H Lymphocytes # 0.9 Monocytes # 0.5 Eosinophils # 0.1 Basophils # 0.0 Nucleated Red Blood Cells # 0.0 Sodium Level 139 Potassium Level 4.6 Chloride Level 106 Carbon Dioxide Level 28 Anion Gap 5 Blood Urea Nitrogen 33 H Creatinine 1.07 Glucose Level 107 Calcium Level 8.5 Phosphorus Level 4.0 Magnesium Level 2.3 Albumin 3.0 L Medications Medication Current Medications IV Flush (NS 3 ml) 3 ml PER PROTOCOL IV ; Start 06/22/18 at 18:30 Ondansetron HCl (Zofran Inj) 4 mg Q6H PRN IV NAUSEA/VOMITING Last administered on 06/26/18at 15:57; Admin Dose 4 MG; Start 06/22/18 at 18:30 Acetaminophen (Tylenol Tab) 650 mg Q6H PRN PO .PAIN 1-3 OR TEMP; Start 06/22/18 at 18:30 Enoxaparin Sodium (Lovenox) 30 mg DAILY SC Last administered on 07/07/18at 08:22; Admin Dose 30 MG; Start 06/23/18 at 09:00 Phenazopyridine HCl (Pyridium) 200 mg TID PRN PO dysuria Last administered on 06/29/18at 13:21; Admin Dose 200 MG; Start 06/22/18 at 18:30 Hydralazine HCl (Apresoline) 10 mg Q4H PRN IV SBP >160; Start 06/22/18 at 19:00 [facility] This patient villela... PRN PRN XX WOUND CARE; Start 06/23/18 at 00:30 Docusate Sodium (Colace) 100 mg BID PO Last administered on 07/07/18at 08:15; Admin Dose 100 MG; Start 06/23/18 at 21:00 Vancomycin HCl (Vanco Iv Per Pharmacy) VANCOMYCIN PER PHARMACY PER PROTOCOL XX ; Start 06/23/18 at 17:30 Tamsulosin HCl (Flomax) 0.4 mg DAILY PO Last administered on 07/07/18at 08:15; Admin Dose 0.4 MG; Start 06/24/18 at 09:00 Labetalol HCl (Labetalol) 10 mg Q4 PRN IV sbp>160; Start 06/24/18 at 13:30 Sodium Hypochlorite (Dakin'S (Dilute )) 1 applic DAILY IRR Last administered on 07/07/18 08:15; Admin Dose 1 APPLIC; Start 06/26/18 at 16:00 Cefepime HCl 50 ml @ 100 mls/hr Q12 IVPB Last administered on 07/07/18 08:15; Admin Dose 100 MLS/HR; Start 06/27/18 at 21:00 Polyethylene Glycol (Miralax) 17 gm DAILY PRN PO constipation; Start 06/28/18 at 09:00 Lisinopril (Zestril) 5 mg DAILY PO Last administered on 07/07/18 08:15; Admin Dose 5 MG; Start 06/29/18 at 09:00 Magnesium Hydroxide (Milk Of Mag) 30 ml DAILY PRN PO CONSTIPATION; Start 06/28/18 at 21:00 Hydromorphone HCl (Dilaudid) 1 mg Q4H PRN IV SEVERE PAIN LEVEL 7-10 Last administered on 07/07/18 08:16; Admin Dose 1 MG; Start 07/01/18 at 18:30 Oxycodone/ Acetaminophen (Endocet (10/ 325)) 2 tab Q4H PRN PO MODERATE PAIN LEVEL 4-6 Last administered on 07/06/18 23:29; Admin Dose 2 TAB; Start 07/01/18 at 18:30 Tramadol HCl (Ultram) 100 mg Q6H PRN PO MODERATE PAIN LEVEL 4-6; Start 07/01/18 at 19:00 Magnesium Hydroxide (Milk Of Mag) 30 ml DAILY PO Last administered on 07/07/18 08:14; Admin Dose 30 ML; Start 07/04/18 at 09:00 Pantoprazole (Protonix Tab) 40 mg DAILY@06 PO Last administered on 07/06/18 06:27; Admin Dose 40 MG; Start 07/04/18 at 06:00 Vancomycin/Sodium Chloride 250 ml @ 125 mls/hr Q12H IVPB Last administered on 07/07/18 00:55; Admin Dose 125 MLS/HR; Start 07/05/18 at 00:00 Dextrose (D50w Syringe) ONCE PRN IV DECREASED GLUCOSE Last administered on 07/06/18 12:07; Admin Dose 100 ML; Start 07/06/18 at 09:00; Stop 07/07/18 at 23:00 Carisoprodol (Soma) 350 mg Q6 PO Last administered on 07/06/18at 23:28; Admin Dose 350 MG; Start 07/06/18 at 12:00 KINGA WILLETT MD Jul 07, 2018 09:13
--- NOTE | 2018-07-07 11:30 | CONS ---
Assessment/Plan Assessment/Plan Hospital Course (Demo Recall) Patient is alert looks comfortable no fevers overnight Microbiology: Blood culture growing Proteus mirabilis, urine culture grew Proteus mirabilis and oxacillin sensitive staph aureus. Sacral wound culture growing E. coli, staph aureus and enterococcus species Chest x-ray on admission revealed no definite abnormalities. Indwelling: Baxter Antimicrobials: Vancomycin, Cefepime Physical examination: Well-developed chronically ill-appearing elderly man in no distress. Head atraumatic normocephalic sclera nonicteric neck is supple chest rise symmetrical breath sounds diminished bases heart S1-S2 abdomen soft bowel sounds present extremities wasted bilateral lower extremities Assessment: 1. S/p sepsis, present on admission 2. Proteus mirabilis bacteremia secondary to UTI, repeat bld cx neg 3. Multidrug-resistant Proteus mirabilis pyelonephritis 4. Bilateral hydronephrosis 5. Neurogenic bladder 6. Multiple decubitus with questionable osteomyelitis of right atrium and right iliac bone 7. Obstructive uropathy 8. Homelessness 9. Incomplete paraplegia Plan: Remains stable, continue abx Consultation Date/Type/Reason Admit Date/Time Jun 22, 2018 at 18:09 Initial Consult Date 06/23/18 Type of Consult id Requesting Provider: TRACE REBOLLEDO Date/Time of Note DATE: 07/07/18 TIME: 11:29 Exam/Review of Systems Exam Vitals Vital Signs Date Temp Pulse Resp B/P (MAP) Pulse Ox O2 O2 Flow FiO2 Time Delivery Rate 07/07/18 98.2 93 20 128/71 96 Room Air 11:18 (90) Intake and Output 07/06/18 07/06/18 07/07/18 1515:00 23:00 07:00 IntakeIntake Total 850 ml 1000 ml OutputOutput Total 1900 ml 1500 ml BalanceBalance -1050 ml -500 ml Results Result Diagram: 07/07/187 07/07/187 Results 24hrs Laboratory Tests Test 07/06/18 23:04 07/07/18 04:47 Vancomycin Level Trough 17.8 White Blood Count 9.5 Red Blood Count 3.57 L Hemoglobin 8.0 L Hematocrit 27.1 L Mean Corpuscular Volume 75.9 L Mean Corpuscular Hemoglobin 22.4 L Mean Corpuscular Hemoglobin Concent 29.5 L Red Cell Distribution Width 19.5 H Platelet Count 436 #H Mean Platelet Volume 8.5 Immature Granulocytes % 0.300 Neutrophils % 82.6 H Lymphocytes % 9.7 L Monocytes % 5.5 Eosinophils % 1.5 Basophils % 0.4 Nucleated Red Blood Cells % 0.0 Immature Granulocytes # 0.030 Neutrophils # 7.9 H Lymphocytes # 0.9 Monocytes # 0.5 Eosinophils # 0.1 Basophils # 0.0 Nucleated Red Blood Cells # 0.0 Sodium Level 139 Potassium Level 4.6 Chloride Level 106 Carbon Dioxide Level 28 Anion Gap 5 Blood Urea Nitrogen 33 H Creatinine 1.07 Glucose Level 107 Calcium Level 8.5 Phosphorus Level 4.0 Magnesium Level 2.3 Albumin 3.0 L Medications Medication Current Medications IV Flush (NS 3 ml) 3 ml PER PROTOCOL IV ; Start 06/22/18 at 18:30 Ondansetron HCl (Zofran Inj) 4 mg Q6H PRN IV NAUSEA/VOMITING Last administered on 06/26/18at 15:57; Admin Dose 4 MG; Start 06/22/18 at 18:30 Acetaminophen (Tylenol Tab) 650 mg Q6H PRN PO .PAIN 1-3 OR TEMP; Start 06/22/18 at 18:30 Enoxaparin Sodium (Lovenox) 30 mg DAILY SC Last administered on 07/07/18at 08:22; Admin Dose 30 MG; Start 06/23/18 at 09:00 Phenazopyridine HCl (Pyridium) 200 mg TID PRN PO dysuria Last administered on 06/29/18at 13:21; Admin Dose 200 MG; Start 06/22/18 at 18:30 Hydralazine HCl (Apresoline) 10 mg Q4H PRN IV SBP >160; Start 06/22/18 at 19:00 Miscellaneous Information (Pending [facility] Order For Wound Care) This patient villela... PRN PRN XX WOUND CARE; Start 06/23/18 at 00:30 Docusate Sodium (Colace) 100 mg BID PO Last administered on 07/07/18at 08:15; Admin Dose 100 MG; Start 06/23/18 at 21:00 Vancomycin HCl (Vanco Iv Per Pharmacy) VANCOMYCIN PER PHARMACY PER PROTOCOL XX ; Start 06/23/18 at 17:30 Tamsulosin HCl (Flomax) 0.4 mg DAILY PO Last administered on 2/11/19at 08:15; Admin Dose 0.4 MG; Start 06/24/18 at 09:00 Labetalol HCl (Labetalol) 10 mg Q4 PRN IV sbp>160; Start 06/24/18 at 13:30 Sodium Hypochlorite (Dakin'S (Dilute )) 1 applic DAILY IRR Last administered on 07/07/18 08:15; Admin Dose 1 APPLIC; Start 06/26/18 at 16:00 Cefepime HCl 50 ml @ 100 mls/hr Q12 IVPB Last administered on 07/07/18 08:15; Admin Dose 100 MLS/HR; Start 06/27/18 at 21:00 Polyethylene Glycol (Miralax) 17 gm DAILY PRN PO constipation; Start 06/28/18 at 09:00 Lisinopril (Zestril) 5 mg DAILY PO Last administered on 07/07/18 08:15; Admin Dose 5 MG; Start 06/29/18 at 09:00 Magnesium Hydroxide (Milk Of Mag) 30 ml DAILY PRN PO CONSTIPATION; Start 06/28 at 21:00 Hydromorphone HCl (Dilaudid) 1 mg Q4H PRN IV SEVERE PAIN LEVEL 7-10 Last administered on 07/07/18 08:16; Admin Dose 1 MG; Start 07/01/18 at 18:30 Oxycodone/ Acetaminophen (Endocet (10/ 325)) 2 tab Q4H PRN PO MODERATE PAIN LEVEL 4-6 Last administered on 07/06/18 23:29; Admin Dose 2 TAB; Start 07/01/18 at 18:30 Tramadol HCl (Ultram) 100 mg Q6H PRN PO MODERATE PAIN LEVEL 4-6; Start 07/01/18 at 19:00 Magnesium Hydroxide (Milk Of Mag) 30 ml DAILY PO Last administered on 07/07/18 08:14; Admin Dose 30 ML; Start 07/04/18 at 09:00 Pantoprazole (Protonix Tab) 40 mg DAILY@06 PO Last administered on 07/06/18 06:27; Admin Dose 40 MG; Start 07/04/18 at 06:00 Dextrose (D50w Syringe) ONCE PRN IV DECREASED GLUCOSE Last administered on 07/06/18 12:07; Admin Dose 100 ML; Start 07/06/18 at 09:00; Stop 07/07/18 at 23:00 Carisoprodol (Soma) 350 mg Q6 PO Last administered on 07/06/18at 23:28; Admin Dose 350 MG; Start 07/06/18 at 12:00 Vancomycin HCl 100 ml @ 100 mls/hr Q12H IVPB ; Start 07/07/18 at 12:00 JOHNSON PENDLETON NP Jul 07, 2018 11:30
--- NOTE | 2018-07-07 12:17 | PN ---
Date/Time of Note Date/Time of Note DATE: 07/07/18 TIME: 12:14 Assessment/Plan Lines/Catheters IV Catheter Type (from [facility]): Peripheral IV Cortez in Place (from [facility]): Yes Assessment/Plan Chief Complaint/Hosp Course 1. Multiple decubitus pressure ulcers -Encourage aggressive offloading -Encourage nutritional optimization -Continue wound care -Debridement as needed -Vitamin C -Continue osteomyelitis treatment> per id -SNF placement pending 2. Decompressed bladder with significant thickening concerning for bladder neoplasm versus cystitis: Urethritis, possible pyelonephritis; leaking between self caths, indwelling cortez placed -per Urology -Antibiotics 3. UTI on antibiotics 4. Acute leukocytosis resolved 5. Hypoalbuminemia -Encourage nutritional optimization 6. Hypertension history -Nutrition and medication optimization 7. Anemia without evidence of acute blood loss -Monitor 8. Acute on chronic back pain, nephrolithiasis -Medical optimization -Judicious fluid management 9. Constipation: -bowel optimization 10. Dysphagia: -EGD refused by patient 11. Elevated CEA however patient refusing colonoscopy and further workup Thank you. Patient seen and examined in collaboration with Dr. Micah Hobbs. Subjective 24 Hr Interval Summary No acute complaints. DC planning pending snf. No fevers, chills, sob, c ongested cough, cp, palpitations, villela, dizziness, nausea, vomiting, diarrhea, dysuria. Exam/Review of Systems Vital Signs Vitals Vital Signs Date Temp Pulse Resp B/P (MAP) Pulse Ox O2 O2 Flow FiO2 Time Delivery Rate 07/07/18 98.2 93 20 128/71 96 Room Air 11:18 (90) Intake and Output 07/06/18 07/06/18 07/07/18 1515:00 23:00 07:00 IntakeIntake Total 850 ml 1000 ml OutputOutput Total 1900 ml 1500 ml BalanceBalance -1050 ml -500 ml Exam Free Text/Dictation Constitutional: alert, oriented No distress Psych: No anxiety Head: normocephalic, atraumatic Eyes: nl conjunctiva, EOMI, PERRL; No icteric ENMT: nl external ears & nose, nl lips & teeth, mucosa pink and moist Neck: supple, non-tender; No jvd Respiratory: normal air movement; No congested cough, No labored breathing, No wheezing Cardiovascular: regular rate and rhythm; No edema Gastrointestinal: soft, non-tender; No distended, No rebound or guarding Genitourinary - Male: nl penis, nl scrotum Musculoskeletal: No nl gait and stance, No joint tenderness Extremities: normal pulses; No calf tenderness, No edema, No tenderness Neurological: nl mental status, nl speech; No nl strength Skin: rash or lesions (Decubitus pressure ulcers: packed, no odor/drainage. Right ischium : no odor/mod drainage); No ecchymosis Lymph: nl lymph nodes Results Result Diagram: 07/07/18 0447 07/07/18 0447 TIFFANIE KLEIN NP Jul 07, 2018 12:17
[2018-07-07] MEDS: VANCOMYCIN 500 MG (PMX) 100 ML IVPB SCH ×2 (13:01→23:53)
[2018-07-08] VITALS (7 sets, daily range): BP systolic 127–137; BP diastolic 69–76; PULSE 87–100; RESP 18
[2018-07-08] MEDS: HYDROmorphONE 0.5 MG/0.5 ML SYG IV PRN ×3 (01:06→09:10)
[2018-07-08] MEDS: OXYCODONE/ACETAMINOPHEN (10/325) TAB PO PRN ×3 (03:55→18:37)
[2018-07-08] MEDS: CARISOPRODOL 350 MG TAB PO SCH ×4 (05:10→23:14)
[2018-07-08] MEDS: PANTOPRAZOLE (EC) 40 MG TAB PO SCH (05:11)
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
[2018-07-08] MEDS: MAGNESIUM HYDROXIDE 30ML CUP PO SCH ×2 (09:00→19:30)
[2018-07-08] MEDS: CEFEPIME 1GM/50 ML (PMX) 50 ML IVPB SCH (09:10)
[2018-07-08] MEDS: LISINOPRIL 5 MG TAB PO SCH (09:11)
[2018-07-08] MEDS: TAMSULOSIN (SR) 0.4 MG CAP PO SCH (09:11)
[2018-07-08] MEDS: DOCUSATE SODIUM 100 MG CAP PO SCH ×2 (09:11→21:00)
[2018-07-08] MEDS: SODIUM HYPOCHLORITE (1/40) 1 APPLIC BTL IRR SCH (09:24)
[2018-07-08] MEDS: ENOXAPARIN 30 MG/0.3 ML SYG SC SCH (09:24)
[2018-07-08] MEDS: POLYETHYLENE GLYCOL 17 GM PACKET PO SCH ×2 (11:00→21:00)
--- NOTE | 2018-07-08 11:17 | PN ---
Date/Time of Note Date/Time of Note DATE: 07/08/18 TIME: 11:13 Assessment/Plan Lines/Catheters IV Catheter Type (from [facility]): Peripheral IV Cortez in Place (from [facility]): Yes Assessment/Plan Chief Complaint/Hosp Course 1. Multiple decubitus pressure ulcers -Continue aggressive offloading -Continue nutritional optimization -Continue wound care -Debridement as needed -Vitamin C -Continue osteomyelitis treatment> per id -SNF placement pending 2. Decompressed bladder with significant thickening concerning for bladder neoplasm versus cystitis: Urethritis, possible pyelonephritis; leaking between self caths, indwelling cortez placed -per Urology -Antibiotics 3. UTI on antibiotics 4. Acute leukocytosis resolved 5. Hypoalbuminemia -Encourage nutritional optimization 6. Hypertension history -Nutrition and medication optimization 7. Anemia without evidence of acute blood loss -Monitor 8. Acute on chronic back pain, nephrolithiasis -Medical optimization -Judicious fluid management 9. Constipation: -bowel optimization 10. Dysphagia: -EGD refused by patient 11. Elevated CEA however patient refusing colonoscopy and further workup Thank you. Patient seen and examined in collaboration with Dr. Micah Hobbs. Subjective 24 Hr Interval Summary Intermittent generalized pain-relieved by medications. No fevers, chills, sob, congested cough, cp, palpitations, [place], dizziness, nausea, vomiting, diarrhea, dysuria, wound drainage or odor. Exam/Review of Systems Vital Signs Vitals Vital Signs Date Temp Pulse Resp B/P (MAP) Pulse Ox O2 O2 Flow FiO2 Time Delivery Rate 07/08/18 97 08:01 07/08/18 98.0 18 128/76 98 07:39 (93) 07/08/18 Room Air 04:00 Intake and Output 07/07/18 07/07/18 07/08/18 1515:00 23:00 07:00 IntakeIntake Total 1550 ml 1740 ml OutputOutput Total 2200 ml 2850 ml BalanceBalance -650 ml -1110 ml Exam Free Text/Dictation Constitutional: alert, oriented No distress Psych: No anxiety Head: normocephalic, atraumatic Eyes: nl conjunctiva, EOMI, PERRL; No icteric ENMT: nl external ears & nose, nl lips & teeth, mucosa pink and moist Neck: supple, non-tender; No jvd Respiratory: normal air movement; No congested cough, No labored breathing, No wheezing Cardiovascular: regular rate and rhythm; No edema Gastrointestinal: soft, non-tender; No distended, No rebound or guarding Genitourinary - Male: nl penis, nl scrotum Musculoskeletal: No nl gait and stance, No joint tenderness Extremities: normal pulses; No calf tenderness, No edema, No tenderness Neurological: nl mental status, nl speech; No nl strength Skin: rash or lesions (Decubitus pressure ulcers: packed, no odor/drainage. Right ischium : no odor/mod drainage); No ecchymosis Lymph: nl lymph nodes Results Result Diagram: 07/08/18 0525 07/08/18 0525 TIFFANIE KLEIN NP Jul 08, 2018 11:16
--- NOTE | 2018-07-08 11:23 | CONS ---
Assessment/Plan Assessment/Plan Hospital Course (Demo Recall) All noted. No acute events. Patient is alert looks comfortable no fevers overnight Microbiology: Blood culture growing Proteus mirabilis, urine culture grew Proteus mirabilis and oxacillin sensitive staph aureus. Sacral wound culture growing E. coli, staph aureus and enterococcus species Chest x-ray on admission revealed no definite abnormalities. Indwelling: Baxter Antimicrobials: Vancomycin, Cefepime Physical examination: Well-developed chronically ill-appearing elderly man in no distress. Head atraumatic normocephalic sclera nonicteric neck is supple chest rise symmetrical breath sounds diminished bases heart S1-S2 abdomen soft bowel sounds present extremities wasted bilateral lower extremities Assessment: 1. S/p sepsis, present on admission 2. Proteus mirabilis bacteremia secondary to UTI, repeat bld cx neg 3. Multidrug-resistant Proteus mirabilis pyelonephritis 4. Bilateral hydronephrosis 5. Neurogenic bladder 6. Multiple decubitus with questionable osteomyelitis of right atrium and right iliac bone 7. Obstructive uropathy 8. Homelessness 9. Incomplete paraplegia Plan: Remains stable, change abx to oral Cipro and IV Ampicillin to complete 6 weeks for treatment of OM Consultation Date/Type/Reason Admit Date/Time Jun 22, 2018 at 18:09 Initial Consult Date 06/23/18 Type of Consult id Requesting Provider: TRACE REBOLLEDO Date/Time of Note DATE: 07/08/18 TIME: 11:21 Exam/Review of Systems Exam Vitals Vital Signs Date Temp Pulse Resp B/P (MAP) Pulse Ox O2 O2 Flow FiO2 Time Delivery Rate 07/08/18 97 08:01 07/08/18 98.0 18 128/76 98 07:39 (93) 07/08/18 Room Air 04:00 Intake and Output 07/07/18 07/07/18 07/08/18 1515:00 23:00 07:00 IntakeIntake Total 1550 ml 1740 ml OutputOutput Total 2200 ml 2850 ml BalanceBalance -650 ml -1110 ml Results Result Diagram: 07/08/18 0525 07/08/18 0525 Results 24hrs Laboratory Tests Test 07/08/18 05:25 White Blood Count 7.8 Red Blood Count 3.53 L Hemoglobin 7.9 L Hematocrit 26.7 L Mean Corpuscular Volume 75.6 L Mean Corpuscular Hemoglobin 22.4 L Mean Corpuscular Hemoglobin Concent 29.6 L Red Cell Distribution Width 19.5 H Platelet Count 413 Mean Platelet Volume 8.4 Immature Granulocytes % 0.400 Neutrophils % 78.5 H Lymphocytes % 10.1 L Monocytes % 8.7 Eosinophils % 1.9 Basophils % 0.4 Nucleated Red Blood Cells % 0.0 Immature Granulocytes # 0.030 Neutrophils # 6.1 Lymphocytes # 0.8 Monocytes # 0.7 Eosinophils # 0.2 Basophils # 0.0 Nucleated Red Blood Cells # 0.0 Sodium Level 139 Potassium Level 4.9 Chloride Level 104 Carbon Dioxide Level 30 Anion Gap 5 Blood Urea Nitrogen 28 H Creatinine 0.92 Glucose Level 102 Calcium Level 8.5 Phosphorus Level 3.8 Magnesium Level 2.0 Albumin 2.9 L Medications Medication Current Medications IV Flush (NS 3 ml) 3 ml PER PROTOCOL IV ; Start 06/22/18 at 18:30 Ondansetron HCl (Zofran Inj) 4 mg Q6H PRN IV NAUSEA/VOMITING Last administered on 06/26/18at 15:57; Admin Dose 4 MG; Start 06/22/18 at 18:30 Acetaminophen (Tylenol Tab) 650 mg Q6H PRN PO .PAIN 1-3 OR TEMP; Start 06/22/18 at 18:30 Enoxaparin Sodium (Lovenox) 30 mg DAILY SC Last administered on 07/08/18at 09:24; Admin Dose 30 MG; Start 06/23/18 at 09:00 Phenazopyridine HCl (Pyridium) 200 mg TID PRN PO dysuria Last administered on 06/29/18at 13:21; Admin Dose 200 MG; Start 06/22/18 at 18:30 Hydralazine HCl (Apresoline) 10 mg Q4H PRN IV SBP >160; Start 06/22/18 at 19:00 Miscellaneous Information (Pending Santyl Order For Wound Care) This patient [place]... PRN PRN XX WOUND CARE; Start 06/23/18 at 00:30 Docusate Sodium (Colace) 100 mg BID PO Last administered on 07/08/18at 09:11; Admin Dose 100 MG; Start 06/23/18 at 21:00 Vancomycin HCl (Vanco Iv Per Pharmacy) VANCOMYCIN PER PHARMACY PER PROTOCOL XX ; Start 06/23/18 at 17:30 Tamsulosin HCl (Flomax) 0.4 mg DAILY PO Last administered on 07/08/18 09:11; Admin Dose 0.4 MG; Start 06/24/18 at 09:00 Labetalol HCl (Labetalol) 10 mg Q4 PRN IV sbp>160; Start 06/24/18 at 13:30 Sodium Hypochlorite (Dakin'S (Dilute )) 1 applic DAILY IRR Last administered on 07/08/18 09:24; Admin Dose 1 APPLIC; Start 06/26/18 at 16:00 Cefepime HCl 50 ml @ 100 mls/hr Q12 IVPB Last administered on 07/08/18 09:10; Admin Dose 100 MLS/HR; Start 06/27/18 at 21:00 Lisinopril (Zestril) 5 mg DAILY PO Last administered on 07/08/18 09:11; Admin Dose 5 MG; Start 06/29/18 at 09:00 Magnesium Hydroxide (Milk Of Mag) 30 ml DAILY PRN PO CONSTIPATION; Start 06/28/18 at 21:00 Tramadol HCl (Ultram) 100 mg Q6H PRN PO MODERATE PAIN LEVEL 4-6; Start 07/01/18 at 19:00 Magnesium Hydroxide (Milk Of Mag) 30 ml DAILY PO Last administered on 07/07/18at 08:14; Admin Dose 30 ML; Start 07/04/18 at 09:00 Pantoprazole (Protonix Tab) 40 mg DAILY@06 PO Last administered on 07/08/18 05:11; Admin Dose 40 MG; Start 07/04/18 at 06:00 Carisoprodol (Soma) 350 mg Q6 PO Last administered on 07/08/18 05:10; Admin Dose 350 MG; Start 07/06/18 at 12:00 Vancomycin HCl 100 ml @ 100 mls/hr Q12H IVPB Last administered on 07/07/18 23:53; Admin Dose 100 MLS/HR; Start 07/07/18 at 12:00 Polyethylene Glycol (Miralax) 17 gm BID PO ; Start 07/08/18 at 11:00 JOHNSON PENDLETON NP Jul 08, 2018 11:23
--- NOTE | 2018-07-08 12:00 | PN ---
Date/Time of Note Date/Time of Note DATE: 07/08/18 TIME: 11:58 Assessment/Plan VTE Prophylaxis Risk score (from Nsg)>0 risk: 8 SCD applied (from Nsg): Yes Pharmacological prophylaxis: heparin Lines/Catheters IV Catheter Type (from Nrsg): Peripheral IV Urinary Cath still in place: Yes Reason Cath still needed: urinary retention Assessment/Plan Hospital Course 63 yo male with LE paraplegia, chronic cortez here with UTI and sacral decubitus with OM 1. Sepsis secondary to UTI, decubitus ulcers, and OM- resolving - remains stable - ID on board and appreciate consultation. Will need to complete 6 weeks total of IV antibiotics, last dose 08/04/18 for treatment of OM. 2. UTI with hydronephrosis- resolving - Urology on board and appreciate recommendations. Cortez in place since when patient was straight cathing self, he was contaminating his sacral ulcer. - continue on current antibiotics - CT scan results noted and discussed results with patient 3. Sacral decubitus ulcer with abscess - Surgery on board and appreciate consultation. Offload as much as possible - wound care on board 4. Osteomyelitis of ischium - Will need to complete 6 weeks of IV antibiotics, last dose 08/04/18 - ID on board and appreciate recommendations 5. Acute on chronic back pain - Pain control - soma for muscle spasms, patient on this chronically outpatient 6. Acute kidney injury- resolved 7. Hypertension - stable Constipation: - Laxatives and enema 8. Disposition - CM on board for placement for continuation of IV antibiotics until 08/04/18. Medically stable for discharge to SNF when accepted - Patient states he will be agreeable for PICC placement once SNF found - Continue cortez care Result Diagram: 07/08/18 0525 07/08/18 0525 Results 24hrs Laboratory Tests Test 07/08/18 05:25 White Blood Count 7.8 Red Blood Count 3.53 L Hemoglobin 7.9 L Hematocrit 26.7 L Mean Corpuscular Volume 75.6 L Mean Corpuscular Hemoglobin 22.4 L Mean Corpuscular Hemoglobin Concent 29.6 L Red Cell Distribution Width 19.5 H Platelet Count 413 Mean Platelet Volume 8.4 Immature Granulocytes % 0.400 Neutrophils % 78.5 H Lymphocytes % 10.1 L Monocytes % 8.7 Eosinophils % 1.9 Basophils % 0.4 Nucleated Red Blood Cells % 0.0 Immature Granulocytes # 0.030 Neutrophils # 6.1 Lymphocytes # 0.8 Monocytes # 0.7 Eosinophils # 0.2 Basophils # 0.0 Nucleated Red Blood Cells # 0.0 Sodium Level 139 Potassium Level 4.9 Chloride Level 104 Carbon Dioxide Level 30 Anion Gap 5 Blood Urea Nitrogen 28 H Creatinine 0.92 Glucose Level 102 Calcium Level 8.5 Phosphorus Level 3.8 Magnesium Level 2.0 Albumin 2.9 L Subjective 24 Hr Interval Summary Free Text/Dictation Upset with nursing reponse time to pain med requests. That said he can't identify any pain he is having. Told he will not receive any more IV dilaudid Exam/Review of Systems Exam Vitals Vital Signs Date Temp Pulse Resp B/P (MAP) Pulse Ox O2 O2 Flow FiO2 Time Delivery Rate 07/08/18 98.0 87 18 130/76 98 11:27 (94) 07/08/18 Room Air 04:00 Intake and Output 07/07/18 07/07/18 07/08/18 1515:00 23:00 07:00 IntakeIntake Total 1550 ml 1740 ml OutputOutput Total 2200 ml 2850 ml BalanceBalance -650 ml -1110 ml Exam Comfortable thought upset Paraplegia Breathing comfortably RRR Results Results 24hrs Laboratory Tests Test 07/08/18 05:25 White Blood Count 7.8 Red Blood Count 3.53 L Hemoglobin 7.9 L Hematocrit 26.7 L Mean Corpuscular Volume 75.6 L Mean Corpuscular Hemoglobin 22.4 L Mean Corpuscular Hemoglobin Concent 29.6 L Red Cell Distribution Width 19.5 H Platelet Count 413 Mean Platelet Volume 8.4 Immature Granulocytes % 0.400 Neutrophils % 78.5 H Lymphocytes % 10.1 L Monocytes % 8.7 Eosinophils % 1.9 Basophils % 0.4 Nucleated Red Blood Cells % 0.0 Immature Granulocytes # 0.030 Neutrophils # 6.1 Lymphocytes # 0.8 Monocytes # 0.7 Eosinophils # 0.2 Basophils # 0.0 Nucleated Red Blood Cells # 0.0 Sodium Level 139 Potassium Level 4.9 Chloride Level 104 Carbon Dioxide Level 30 Anion Gap 5 Blood Urea Nitrogen 28 H Creatinine 0.92 Glucose Level 102 Calcium Level 8.5 Phosphorus Level 3.8 Magnesium Level 2.0 Albumin 2.9 L Medications Medication Current Medications IV Flush (NS 3 ml) 3 ml PER PROTOCOL IV ; Start 06/22/18 at 18:30 Ondansetron HCl (Zofran Inj) 4 mg Q6H PRN IV NAUSEA/VOMITING Last administered on 06/26/18at 15:57; Admin Dose 4 MG; Start 06/22/18 at 18:30 Acetaminophen (Tylenol Tab) 650 mg Q6H PRN PO .PAIN 1-3 OR TEMP; Start 06/22/18 at 18:30 Enoxaparin Sodium (Lovenox) 30 mg DAILY SC Last administered on 07/08/18 09:24; Admin Dose 30 MG; Start 06/23/18 at 09:00 Phenazopyridine HCl (Pyridium) 200 mg TID PRN PO dysuria Last administered on 06/29/18 13:21; Admin Dose 200 MG; Start 06/22/18 at 18:30 Hydralazine HCl (Apresoline) 10 mg Q4H PRN IV SBP >160; Start 06/22/18 at 19:00 Miscellaneous Information (Pending [facility] Order For Wound Care) This patient [place]... PRN PRN XX WOUND CARE; Start 06/23/18 at 00:30 Docusate Sodium (Colace) 100 mg BID PO Last administered on 07/08/18 09:11; Admin Dose 100 MG; Start 06/23/18 at 21:00 Tamsulosin HCl (Flomax) 0.4 mg DAILY PO Last administered on 07/08/18 09:11; Admin Dose 0.4 MG; Start 06/24/18 at 09:00 Labetalol HCl (Labetalol) 10 mg Q4 PRN IV sbp>160; Start 06/24/18 at 13:30 Sodium Hypochlorite (Dakin'S (Dilute 1/40)) 1 applic DAILY IRR Last administered on 07/08/18 09:24; Admin Dose 1 APPLIC; Start 06/26/18 at 16:00 Lisinopril (Zestril) 5 mg DAILY PO Last administered on 07/08/18 09:11; Admin Dose 5 MG; Start 06/29/18 at 09:00 Magnesium Hydroxide (Milk Of Mag) 30 ml DAILY PRN PO CONSTIPATION; Start 06/28/18 at 21:00 Tramadol HCl (Ultram) 100 mg Q6H PRN PO MODERATE PAIN LEVEL 4-6; Start 07/01/18 at 19:00 Magnesium Hydroxide (Milk Of Mag) 30 ml DAILY PO Last administered on 07/07/18at 08:14; Admin Dose 30 ML; Start 07/04/18 at 09:00 Pantoprazole (Protonix Tab) 40 mg DAILY@06 PO Last administered on 07/08/18at 05:11; Admin Dose 40 MG; Start 07/04/18 at 06:00 Carisoprodol (Soma) 350 mg Q6 PO Last administered on 07/08/18at 11:26; Admin Dose 350 MG; Start 07/06/18 at 12:00 Polyethylene Glycol (Miralax) 17 gm BID PO ; Start 07/08/18 at 11:00 Ciprofloxacin (Cipro) 500 mg BID@06,18 PO ; Start 07/08/18 at 18:00 Ampicillin 50 ml @ 100 mls/hr Q8 IVPB ; Start 07/08/18 at 14:00 BHARATH KUMAR MD Jul 08, 2018 12:00
[2018-07-08] MEDS: AMPICILLIN 1 GM/NS (PMX) 50 ML IVPB SCH ×2 (14:30→21:02)
[2018-07-08] MEDS: CIPROFLOXACIN 500 MG TAB PO SCH ×2 (17:26→18:37)
[2018-07-08] MEDS ORDERED: MAGNESIUM HYDROXIDE 30ML CUP PO ONE (19:30)
[2018-07-09 02:24] VITALS: BP 135/80; PULSE 95; RESP 18
[2018-07-09] MEDS: CARISOPRODOL 350 MG TAB PO SCH ×4 (05:55→23:33)
[2018-07-09] MEDS: AMPICILLIN 1 GM/NS (PMX) 50 ML IVPB SCH ×3 (05:55→21:36)
[2018-07-09] MEDS: CIPROFLOXACIN 500 MG TAB PO SCH ×2 (05:55→17:44)
[2018-07-09] MEDS: PANTOPRAZOLE (EC) 40 MG TAB PO SCH (05:55)
[2018-07-09 08:03] VITALS: BP 141/82; PULSE 103; RESP 18
[2018-07-09] MEDS: SODIUM HYPOCHLORITE (1/40) 1 APPLIC BTL IRR SCH (09:00)
[2018-07-09] MEDS: POLYETHYLENE GLYCOL 17 GM PACKET PO SCH ×2 (09:00→21:00)
[2018-07-09] MEDS: TAMSULOSIN (SR) 0.4 MG CAP PO SCH (09:00)
[2018-07-09] MEDS: MAGNESIUM HYDROXIDE 30ML CUP PO SCH (09:00)
[2018-07-09] MEDS: LISINOPRIL 5 MG TAB PO SCH (09:00)
[2018-07-09] MEDS: ENOXAPARIN 30 MG/0.3 ML SYG SC SCH (09:00)
[2018-07-09] MEDS: DOCUSATE SODIUM 100 MG CAP PO SCH ×2 (09:00→21:00)
--- NOTE | 2018-07-09 11:59 | CONS ---
Assessment/Plan Assessment/Plan Hospital Course (Demo Recall) All noted. No acute events. Patient is alert looks comfortable no fevers overnight Microbiology: Blood culture growing Proteus mirabilis, urine culture grew Proteus mirabilis and oxacillin sensitive staph aureus. Sacral wound culture growing E. coli, staph aureus and enterococcus species Chest x-ray on admission revealed no definite abnormalities. Indwelling: Baxter Antimicrobials: Cipro, ampicillin Physical examination: Well-developed chronically ill-appearing elderly man in no distress. Head atraumatic normocephalic sclera nonicteric neck is supple chest rise symmetrical breath sounds diminished bases heart S1-S2 abdomen soft bowel sounds present extremities wasted bilateral lower extremities Assessment: 1. S/p sepsis, present on admission 2. Proteus mirabilis bacteremia secondary to UTI, repeat bld cx neg 3. Multidrug-resistant Proteus mirabilis pyelonephritis 4. Bilateral hydronephrosis 5. Neurogenic bladder 6. Multiple decubitus with questionable osteomyelitis of right atrium and right iliac bone 7. Obstructive uropathy 8. Homelessness 9. Incomplete paraplegia Plan: Remains stable, continue antibiotics to complete 6 weeks for treatment of OM Consultation Date/Type/Reason Admit Date/Time Jun 22, 2018 at 18:09 Initial Consult Date 06/23/18 Type of Consult id Requesting Provider: TRACE REBOLLEDO Date/Time of Note DATE: 07/09/18 TIME: 11:59 Exam/Review of Systems Exam Vitals Vital Signs Date Temp Pulse Resp B/P (MAP) Pulse Ox O2 O2 Flow FiO2 Time Delivery Rate 07/09/18 98.1 103 18 141/82 95 Room Air 08:03 (101) Intake and Output 07/08/18 07/08/18 07/09/18 1515:00 23:00 07:00 IntakeIntake Total 100 ml 100 ml 50 ml BalanceBalance 100 ml 100 ml 50 ml Results Result Diagram: 07/09/18 0554 07/09/18 0554 Results 24hrs Laboratory Tests Test 07/09/18 05:54 White Blood Count 8.0 Red Blood Count 3.45 L Hemoglobin 7.8 L Hematocrit 25.6 L Mean Corpuscular Volume 74.2 L Mean Corpuscular Hemoglobin 22.6 L Mean Corpuscular Hemoglobin Concent 30.5 L Red Cell Distribution Width 19.5 H Platelet Count 390 Mean Platelet Volume 8.4 Immature Granulocytes % 0.400 Neutrophils % 81.3 H Lymphocytes % 9.3 L Monocytes % 7.0 Eosinophils % 1.6 Basophils % 0.4 Nucleated Red Blood Cells % 0.0 Immature Granulocytes # 0.030 Neutrophils # 6.5 Lymphocytes # 0.7 L Monocytes # 0.6 Eosinophils # 0.1 Basophils # 0.0 Nucleated Red Blood Cells # 0.0 Sodium Level 138 Potassium Level 4.4 Chloride Level 104 Carbon Dioxide Level 28 Anion Gap 6 Blood Urea Nitrogen 24 H Creatinine 0.77 Glucose Level 83 Calcium Level 8.3 L Phosphorus Level 3.7 Magnesium Level 1.7 Albumin 2.7 L Medications Medication Current Medications IV Flush (NS 3 ml) 3 ml PER PROTOCOL IV ; Start 06/22/18 at 18:30 Ondansetron HCl (Zofran Inj) 4 mg Q6H PRN IV NAUSEA/VOMITING Last administered on 06/26/18at 15:57; Admin Dose 4 MG; Start 06/22/18 at 18:30 Acetaminophen (Tylenol Tab) 650 mg Q6H PRN PO .PAIN 1-3 OR TEMP; Start 06/22/18 at 18:30 Enoxaparin Sodium (Lovenox) 30 mg DAILY SC Last administered on 07/08/18at 09:24; Admin Dose 30 MG; Start 06/23/18 at 09:00 Phenazopyridine HCl (Pyridium) 200 mg TID PRN PO dysuria Last administered on 06/29/18 13:21; Admin Dose 200 MG; Start 06/22/18 at 18:30 Hydralazine HCl (Apresoline) 10 mg Q4H PRN IV SBP >160; Start 06/22/18 at 19:00 Miscellaneous Information (Pending Santyl Order For Wound Care) This patient [place]... PRN PRN XX WOUND CARE; Start 06/23/18 at 00:30 Docusate Sodium (Colace) 100 mg BID PO Last administered on 07/08/18at 09:11; Admin Dose 100 MG; Start 06/23/18 at 21:00 Tamsulosin HCl (Flomax) 0.4 mg DAILY PO Last administered on 07/08/18 09:11; Admin Dose 0.4 MG; Start 06/24/18 at 09:00 Labetalol HCl (Labetalol) 10 mg Q4 PRN IV sbp>160; Start 06/24/18 at 13:30 Sodium Hypochlorite (Dakin'S (Dilute )) 1 applic DAILY IRR Last administered on 07/08/18at 09:24; Admin Dose 1 APPLIC; Start 06/26/18 at 16:00 Lisinopril (Zestril) 5 mg DAILY PO Last administered on 07/08/18at 09:11; Admin Dose 5 MG; Start 06/29/18 at 09:00 Magnesium Hydroxide (Milk Of Mag) 30 ml DAILY PRN PO CONSTIPATION; Start 06/28/18 at 21:00 Tramadol HCl (Ultram) 100 mg Q6H PRN PO MODERATE PAIN LEVEL 4-6; Start 07/01/18 at 19:00 Pantoprazole (Protonix Tab) 40 mg DAILY@06 PO Last administered on 07/09/18at 05:55; Admin Dose 40 MG; Start 07/04/18 at 06:00 Carisoprodol (Soma) 350 mg Q6 PO Last administered on 07/09/18 05:55; Admin Dose 350 MG; Start 07/06/18 at 12:00 Polyethylene Glycol (Miralax) 17 gm BID PO ; Start 07/08/18 at 11:00 Ciprofloxacin (Cipro) 500 mg BID@06,18 PO Last administered on 07/09/18at 05:55; Admin Dose 500 MG; Start 07/08/18 at 18:00 Ampicillin 50 ml @ 100 mls/hr Q8 IVPB Last administered on 07/09/18at 05:55; Admin Dose 100 MLS/HR; Start 07/08/18 at 14:00 Oxycodone/ Acetaminophen (Endocet (10/ 325)) 1 tab Q6H PRN PO MODERATE PAIN LEVEL 4-6 Last administered on 07/08/18at 18:37; Admin Dose 1 TAB; Start 07/08/18 at 16:00 Magnesium Hydroxide (Milk Of Mag) 30 ml DAILY PO ; Start 07/08/18 at 19:30 JOHNSON PENDLETON NP Jul 09, 2018 11:59
[2018-07-09] MEDS: OXYCODONE/ACETAMINOPHEN (10/325) TAB PO PRN ×3 (12:53→21:36)
[2018-07-09 14:10] VITALS: BP 143/75; PULSE 107; RESP 18
--- NOTE | 2018-07-09 15:45 | PN ---
Date/Time of Note Date/Time of Note DATE: 07/09/18 TIME: 15:42 Assessment/Plan VTE Prophylaxis Risk score (from Nsg)>0 risk: 7 SCD applied (from Nsg): Yes Pharmacological prophylaxis: heparin Lines/Catheters IV Catheter Type (from Nrsg): Peripheral IV Urinary Cath still in place: Yes Reason Cath still needed: urinary retention Assessment/Plan Hospital Course 63 yo male with LE paraplegia, chronic cortez here with UTI and sacral decubitus with OM Sepsis secondary to UTI, decubitus ulcers, and OM- resolving - remains stable - ID on board and appreciate consultation. Will need to complete 6 weeks total of IV antibiotics, last dose 08/04/18 for treatment of OM. 2. UTI with hydronephrosis- resolving - Urology on board and appreciate recommendations. Cortez in place since when patient was straight cathing self, he was contaminating his sacral ulcer. - continue on current antibiotics - CT scan results noted and discussed results with patient 3. Sacral decubitus ulcer with abscess - Surgery on board and appreciate consultation. Offload as much as possible - wound care on board 4. Osteomyelitis of ischium - Will need to complete 6 weeks of IV antibiotics, last dose 08/04/18 - ID on board and appreciate recommendations 5. Acute on chronic back pain - Pain control - soma for muscle spasms, patient on this chronically outpatient 6. Acute kidney injury- resolved 7. Hypertension - stable Constipation: - Laxatives and enema 8. Disposition - CM on board for placement for continuation of IV antibiotics until 08/04/18. Medically stable for discharge to SNF when accepted - Patient states he will be agreeable for PICC placement once SNF found - Continue cortez care Result Diagram: 07/09/18 0554 07/09/18 0554 Results 24hrs Laboratory Tests Test 07/09/18 05:54 White Blood Count 8.0 Red Blood Count 3.45 L Hemoglobin 7.8 L Hematocrit 25.6 L Mean Corpuscular Volume 74.2 L Mean Corpuscular Hemoglobin 22.6 L Mean Corpuscular Hemoglobin Concent 30.5 L Red Cell Distribution Width 19.5 H Platelet Count 390 Mean Platelet Volume 8.4 Immature Granulocytes % 0.400 Neutrophils % 81.3 H Lymphocytes % 9.3 L Monocytes % 7.0 Eosinophils % 1.6 Basophils % 0.4 Nucleated Red Blood Cells % 0.0 Immature Granulocytes # 0.030 Neutrophils # 6.5 Lymphocytes # 0.7 L Monocytes # 0.6 Eosinophils # 0.1 Basophils # 0.0 Nucleated Red Blood Cells # 0.0 Sodium Level 138 Potassium Level 4.4 Chloride Level 104 Carbon Dioxide Level 28 Anion Gap 6 Blood Urea Nitrogen 24 H Creatinine 0.77 Glucose Level 83 Calcium Level 8.3 L Phosphorus Level 3.7 Magnesium Level 1.7 Albumin 2.7 L Subjective 24 Hr Interval Summary Free Text/Dictation No change to clinical status Again told he wont received any IV opiates Exam/Review of Systems Exam Vitals Vital Signs Date Temp Pulse Resp B/P (MAP) Pulse Ox O2 O2 Flow FiO2 Time Delivery Rate 07/09/18 97.9 107 18 143/75 96 Room Air 14:10 (97) Intake and Output 07/08/18 07/08/18 07/09/18 1515:00 23:00 07:00 IntakeIntake Total 100 ml 100 ml 50 ml BalanceBalance 100 ml 100 ml 50 ml Exam Comfortable RRR Breathign comfortably Firm belly Paraplegia of legs Results Results 24hrs Laboratory Tests Test 07/09/18 05:54 White Blood Count 8.0 Red Blood Count 3.45 L Hemoglobin 7.8 L Hematocrit 25.6 L Mean Corpuscular Volume 74.2 L Mean Corpuscular Hemoglobin 22.6 L Mean Corpuscular Hemoglobin Concent 30.5 L Red Cell Distribution Width 19.5 H Platelet Count 390 Mean Platelet Volume 8.4 Immature Granulocytes % 0.400 Neutrophils % 81.3 H Lymphocytes % 9.3 L Monocytes % 7.0 Eosinophils % 1.6 Basophils % 0.4 Nucleated Red Blood Cells % 0.0 Immature Granulocytes # 0.030 Neutrophils # 6.5 Lymphocytes # 0.7 L Monocytes # 0.6 Eosinophils # 0.1 Basophils # 0.0 Nucleated Red Blood Cells # 0.0 Sodium Level 138 Potassium Level 4.4 Chloride Level 104 Carbon Dioxide Level 28 Anion Gap 6 Blood Urea Nitrogen 24 H Creatinine 0.77 Glucose Level 83 Calcium Level 8.3 L Phosphorus Level 3.7 Magnesium Level 1.7 Albumin 2.7 L Medications Medication Current Medications IV Flush (NS 3 ml) 3 ml PER PROTOCOL IV ; Start 06/22/18 at 18:30 Ondansetron HCl (Zofran Inj) 4 mg Q6H PRN IV NAUSEA/VOMITING Last administered on 06/26/18 15:57; Admin Dose 4 MG; Start 06/22/18 at 18:30 Acetaminophen (Tylenol Tab) 650 mg Q6H PRN PO .PAIN 1-3 OR TEMP; Start 06/22/18 at 18:30 Enoxaparin Sodium (Lovenox) 30 mg DAILY SC Last administered on 07/08/18 09: 24; Admin Dose 30 MG; Start 06/23/18 at 09:00 Phenazopyridine HCl (Pyridium) 200 mg TID PRN PO dysuria Last administered on 06/29/18 13:21; Admin Dose 200 MG; Start 06/22/18 at 18:30 Hydralazine HCl (Apresoline) 10 mg Q4H PRN IV SBP >160; Start 06/22/18 at 19:00 Miscellaneous Information (Pending [facility] Order For Wound Care) This patient villela... PRN PRN XX WOUND CARE; Start 06/23/18 at 00:30 Docusate Sodium (Colace) 100 mg BID PO Last administered on 07/08/18 09:11; Admin Dose 100 MG; Start 06/23/18 at 21:00 Tamsulosin HCl (Flomax) 0.4 mg DAILY PO Last administered on 07/08/18 09:11; Admin Dose 0.4 MG; Start 06/24/18 at 09:00 Labetalol HCl (Labetalol) 10 mg Q4 PRN IV sbp>160; Start 06/24/18 at 13:30 Sodium Hypochlorite (Dakin'S (Dilute 1/40)) 1 applic DAILY IRR Last administered on 07/08/18 09:24; Admin Dose 1 APPLIC; Start 06/26/18 at 16:00 Lisinopril (Zestril) 5 mg DAILY PO Last administered on 07/08/18 09:11; Admin Dose 5 MG; Start 06/29/18 at 09:00 Magnesium Hydroxide (Milk Of Mag) 30 ml DAILY PRN PO CONSTIPATION; Start 06/28/18 at 21:00 Tramadol HCl (Ultram) 100 mg Q6H PRN PO MODERATE PAIN LEVEL 4-6; Start 07/01/18 at 19:00 Pantoprazole (Protonix Tab) 40 mg DAILY@06 PO Last administered on 2/13/19at 05:55; Admin Dose 40 MG; Start 07/04/18 at 06:00 Carisoprodol (Soma) 350 mg Q6 PO Last administered on 07/09/18at 12:52; Admin Dose 350 MG; Start 07/06/18 at 12:00 Polyethylene Glycol (Miralax) 17 gm BID PO ; Start 07/08/18 at 11:00 Ciprofloxacin (Cipro) 500 mg BID@06,18 PO Last administered on 07/09/18at 05:55; Admin Dose 500 MG; Start 07/08/18 at 18:00 Ampicillin 50 ml @ 100 mls/hr Q8 IVPB Last administered on 07/09/18at 12:56; Admin Dose 100 MLS/HR; Start 07/08/18 at 14:00 Magnesium Hydroxide (Milk Of Mag) 30 ml DAILY PO ; Start 07/08/18 at 19:30 Oxycodone/ Acetaminophen (Endocet (10/ 325)) 2 tab Q6H PRN PO MODERATE PAIN LEVEL 4-6 Last administered on 07/09/18at 15:27; Admin Dose 1 TAB; Start 07/09/18 at 16:00 BHARATH KUMAR MD Jul 09, 2018 15:45
--- NOTE | 2018-07-09 18:53 | PSY ---
Date/Time of Note Date/Time of Note DATE: 07/09/18 TIME: 18:46 Psychiatric Subjective Eval Consent Pt consented to telemedicine: No Subjective Evaluation Patient location: inpatient Chief Complaint: BACK PAIN, DYSURIA, URINARY FREQUENCY, BED SORES History of present illness Patient is 63 year old male medical history of nephrolithiasis, and recurrent UTI, On a face to face evaluation, patient reports history of fugue, he denies suicidal ideation and contracted for safety. Patient declines any medication, states therapy helps him and medication makes him non functional Past psychiatric history History of amnesia Medical history Problems Medical Problems: (1) Back pain Status: Acute (2) Nephrolithiasis Status: Acute (3) Pyelonephritis Status: Acute (4) Sepsis Status: Acute (5) Urinary retention Status: Acute (6) Urinary tract infection Status: Acute Allergies: Coded Allergies: No Known Allergy (Unverified , 06/22/18) Substance Abuse Substance abuse history: No Prior substance abuse treatmen: No Social History Marital status: other DPA/Conservatorship: No Psychiatric Objective Eval Mental Status Examination: Appearance: Poor Hygiene Eye Contact: Good Psychomotor Activity: Normal Behavior: Cooperative Speech: Clear AFFECT: Anxious Mood: Anxious Though Process: Linear Thought Content: Normal Orientation: x4 Insight: Intact Judgement: Intact Attention Span: Distractible Laboratory Results Laboratory Tests Test 07/08/18 05:25 07/09/18 05:54 White Blood Count 7.8 10^3/ul 8.0 10^3/ul Red Blood Count 3.53 10^6/ul 3.45 10^6/ul Hemoglobin 7.9 g/dl 7.8 g/dl Hematocrit 26.7 % 25.6 % Mean Corpuscular Volume 75.6 fl 74.2 fl Mean Corpuscular Hemoglobin 22.4 pg 22.6 pg Mean Corpuscular Hemoglobin Concent 29.6 g/dl 30.5 g/dl Red Cell Distribution Width 19.5 % 19.5 % Platelet Count 413 10^3/UL 390 10^3/UL Mean Platelet Volume 8.4 fl 8.4 fl Immature Granulocytes % 0.400 % 0.400 % Neutrophils % 78.5 % 81.3 % Lymphocytes % 10.1 % 9.3 % Monocytes % 8.7 % 7.0 % Eosinophils % 1.9 % 1.6 % Basophils % 0.4 % 0.4 % Nucleated Red Blood Cells % 0.0 /100WBC 0.0 /100WBC Immature Granulocytes # 0.030 10^3/ul 0.030 10^3/ul Neutrophils # 6.1 10^3/ul 6.5 10^3/ul Lymphocytes # 0.8 10^3/ul 0.7 10^3/ul Monocytes # 0.7 10^3/ul 0.6 10^3/ul Eosinophils # 0.2 10^3/ul 0.1 10^3/ul Basophils # 0.0 10^3/ul 0.0 10^3/ul Nucleated Red Blood Cells # 0.0 10^3/ul 0.0 10^3/ul Sodium Level 139 mmol/L 138 mmol/L Potassium Level 4.9 mmol/L 4.4 mmol/L Chloride Level 104 mmol/L 104 mmol/L Carbon Dioxide Level 30 mmol/L 28 mmol/L Anion Gap 5 6 Blood Urea Nitrogen 28 mg/dl 24 mg/dl Creatinine 0.92 mg/dl 0.77 mg/dl Glucose Level 102 mg/dl 83 mg/dl Calcium Level 8.5 mg/dl 8.3 mg/dl Phosphorus Level 3.8 mg/dl 3.7 mg/dl Magnesium Level 2.0 mg/dl 1.7 mg/dl Albumin 2.9 g/dl 2.7 g/dl Assessment and Plan Recommendation/Plan Medication Management Declines Multiple antipsychotics: No Discharge Disposition: Other Legal Status: Voluntary (Does not meet criteria for 5150 hold) AURORA RODRIGUEZ NP Jul 09, 2018 18:53
[2018-07-09 20:00] VITALS: BP 118/70; PULSE 101; RESP 19
--- NOTE | 2018-07-09 21:20 | PN ---
Date/Time of Note Date/Time of Note DATE: 07/09/18 TIME: 21:17 Assessment/Plan Lines/Catheters IV Catheter Type (from [facility]): Peripheral IV Cortez in Place (from [facility]): Yes Assessment/Plan Chief Complaint/Hosp Course 1. Multiple decubitus pressure ulcers -Continue aggressive offloading -Continue nutritional optimization -Continue wound care -Debridement as needed -Vitamin C -Continue osteomyelitis treatment> per id -SNF placement pending 2. Decompressed bladder with significant thickening concerning for bladder neoplasm versus cystitis: Urethritis, possible pyelonephritis; leaking between self caths, indwelling cortez placed -per Urology -Antibiotics 3. UTI on antibiotics 4. Labile mood with intermittent bursts of anger -Consider psych eval 5. Hypoalbuminemia -Encourage nutritional optimization 6. Hypertension history -Nutrition and medication optimization 7. Anemia without evidence of acute blood loss -Monitor 8. Acute on chronic back pain, nephrolithiasis -Medical optimization -Judicious fluid management 9. Constipation: -bowel optimization 10. Dysphagia: -EGD refused by patient 11. Elevated CEA however patient refusing colonoscopy and further workup Thank you. Patient seen and examined in collaboration with Dr. Micah Hobbs. Subjective 24 Hr Interval Summary Intermittently angry. No fevers, chills, sob, congested cough, cp, palpitations, villela, dizziness, n/v/d/dysuria. Pending placement. Exam/Review of Systems Vital Signs Vitals Vital Signs Date Temp Pulse Resp B/P (MAP) Pulse Ox O2 O2 Flow FiO2 Time Delivery Rate 07/09/18 98.1 101 19 118/70 100 20:00 (86) 07/09/18 Room Air 14:10 Intake and Output 07/08/18 07/08/18 07/09/18 1515:00 23:00 07:00 IntakeIntake Total 100 ml 100 ml 50 ml BalanceBalance 100 ml 100 ml 50 ml Exam Free Text/Dictation Constitutional: alert, oriented No distress Psych: No anxiety, labile Head: normocephalic, atraumatic Eyes: nl conjunctiva, EOMI, PERRL; No icteric ENMT: nl external ears & nose, nl lips & teeth, mucosa pink and moist Neck: supple, non-tender; No jvd Respiratory: normal air movement; No congested cough, No labored breathing, No wheezing Cardiovascular: regular rate and rhythm; No edema Gastrointestinal: soft, non-tender; No distended, No rebound or guarding Genitourinary - Male: nl penis, nl scrotum Musculoskeletal: No nl gait and stance, No joint tenderness Extremities: normal pulses; No calf tenderness, No edema, No tenderness Neurological: nl mental status, nl speech; No nl strength Skin: rash or lesions (Decubitus pressure ulcers: packed, no odor/drainage. Right ischium : no odor/mod drainage); No ecchymosis Lymph: nl lymph nodes Results Result Diagram: 07/09/18 0554 07/09/18 0554 TIFFANIE KLEIN NP Jul 09, 2018 21:20
[2018-07-10 02:00] VITALS: BP 134/65; PULSE 95; RESP 17
[2018-07-10] MEDS: OXYCODONE/ACETAMINOPHEN (10/325) TAB PO PRN ×4 (03:11→23:32)
[2018-07-10] MEDS: PANTOPRAZOLE (EC) 40 MG TAB PO SCH (06:26)
[2018-07-10] MEDS: AMPICILLIN 1 GM/NS (PMX) 50 ML IVPB SCH ×3 (06:26→21:19)
[2018-07-10] MEDS: CARISOPRODOL 350 MG TAB PO SCH ×4 (06:26→23:32)
[2018-07-10] MEDS: CIPROFLOXACIN 500 MG TAB PO SCH ×2 (06:27→18:18)
[2018-07-10 08:00] VITALS: BP 108/65; PULSE 85; RESP 18
[2018-07-10] MEDS: TAMSULOSIN (SR) 0.4 MG CAP PO SCH (08:38)
[2018-07-10] MEDS: LISINOPRIL 5 MG TAB PO SCH (08:39)
[2018-07-10] MEDS: ENOXAPARIN 30 MG/0.3 ML SYG SC SCH (08:42)
[2018-07-10] MEDS: POLYETHYLENE GLYCOL 17 GM PACKET PO SCH ×2 (08:48→20:43)
[2018-07-10] MEDS: DOCUSATE SODIUM 100 MG CAP PO SCH ×2 (08:48→20:43)
[2018-07-10] MEDS: MAGNESIUM HYDROXIDE 30ML CUP PO SCH (08:48)
[2018-07-10] MEDS: SODIUM HYPOCHLORITE (1/40) 1 APPLIC BTL IRR SCH ×2 (09:00→16:43)
--- NOTE | 2018-07-10 11:05 | CONS ---
Assessment/Plan Assessment/Plan Hospital Course (Demo Recall) No acute events. Patient is alert looks comfortable no fevers overnight Microbiology: Blood culture growing Proteus mirabilis, urine culture grew Proteus mirabilis and oxacillin sensitive staph aureus. Sacral wound culture growing E. coli, staph aureus and enterococcus species Chest x-ray on admission revealed no definite abnormalities. Indwelling: Baxter Antimicrobials: Cipro, ampicillin Physical examination: Well-developed chronically ill-appearing elderly man in no distress. Head atraumatic normocephalic sclera nonicteric neck is supple chest rise symmetrical breath sounds diminished bases heart S1-S2 abdomen soft bowel sounds present extremities wasted bilateral lower extremities Assessment: 1. S/p sepsis, present on admission 2. Proteus mirabilis bacteremia secondary to UTI, repeat bld cx neg 3. Multidrug-resistant Proteus mirabilis pyelonephritis 4. Bilateral hydronephrosis 5. Neurogenic bladder 6. Multiple decubitus with questionable osteomyelitis of right atrium and right iliac bone 7. Obstructive uropathy 8. Homelessness 9. Incomplete paraplegia Plan: Remains stable, continue antibiotics to complete 6 weeks for treatment of OM Consultation Date/Type/Reason Admit Date/Time Jun 22, 2018 at 18:09 Initial Consult Date 06/23/18 Type of Consult id Requesting Provider: TRACE REBOLLEDO Date/Time of Note DATE: 07/10/18 TIME: 11:05 Exam/Review of Systems Exam Vitals Vital Signs Date Temp Pulse Resp B/P (MAP) Pulse Ox O2 O2 Flow FiO2 Time Delivery Rate 07/10/18 98.4 85 18 108/65 98 Room Air 08:00 (79) Intake and Output 07/09/18 07/09/18 07/10/18 1414:59 22:59 06:59 IntakeIntake Total 560 ml 400 ml 580 ml OutputOutput Total 2000 ml 600 ml BalanceBalance -1440 ml -200 ml 580 ml Results Result Diagram: 07/09/18 0554 07/09/18 0554 Medications Medication Current Medications IV Flush (NS 3 ml) 3 ml PER PROTOCOL IV ; Start 06/22/18 at 18:30 Ondansetron HCl (Zofran Inj) 4 mg Q6H PRN IV NAUSEA/VOMITING Last administered on 06/26/18at 15:57; Admin Dose 4 MG; Start 06/22/18 at 18:30 Acetaminophen (Tylenol Tab) 650 mg Q6H PRN PO .PAIN 1-3 OR TEMP; Start 06/22/18 at 18:30 Enoxaparin Sodium (Lovenox) 30 mg DAILY SC Last administered on 07/10/18at 08:42; Admin Dose 30 MG; Start 06/23/18 at 09:00 Phenazopyridine HCl (Pyridium) 200 mg TID PRN PO dysuria Last administered on 06/29/18 13:21; Admin Dose 200 MG; Start 06/22/18 at 18:30 Hydralazine HCl (Apresoline) 10 mg Q4H PRN IV SBP >160; Start 06/22/18 at 19:00 Miscellaneous Information (Pending [facility] Order For Wound Care) This patient villela... PRN PRN XX WOUND CARE; Start 06/23/18 at 00:30 Docusate Sodium (Colace) 100 mg BID PO Last administered on 07/08/18at 09:11; Admin Dose 100 MG; Start 06/23/18 at 21:00 Tamsulosin HCl (Flomax) 0.4 mg DAILY PO Last administered on 07/10/18at 08:38; Admin Dose 0.4 MG; Start 06/24/18 at 09:00 Labetalol HCl (Labetalol) 10 mg Q4 PRN IV sbp>160; Start 06/24/18 at 13:30 Sodium Hypochlorite (Dakin'S (Dilute 1/40)) 1 applic DAILY IRR Last administered on 07/08/18 09:24; Admin Dose 1 APPLIC; Start 06/26/18 at 16:00 Lisinopril (Zestril) 5 mg DAILY PO Last administered on 07/10/18at 08:39; Admin Dose 5 MG; Start 06/29/18 at 09:00 Magnesium Hydroxide (Milk Of Mag) 30 ml DAILY PRN PO CONSTIPATION; Start 06/28/18 at 21:00 Tramadol HCl (Ultram) 100 mg Q6H PRN PO MODERATE PAIN LEVEL 4-6; Start 07/01/18 at 19:00 Pantoprazole (Protonix Tab) 40 mg DAILY@06 PO Last administered on 07/10/18 06:26; Admin Dose 40 MG; Start 07/04/18 at 06:00 Carisoprodol (Soma) 350 mg Q6 PO Last administered on 07/10/18at 06:26; Admin Dose 350 MG; Start 07/06/18 at 12:00 Polyethylene Glycol (Miralax) 17 gm BID PO ; Start 07/08/18 at 11:00 Ciprofloxacin (Cipro) 500 mg BID@06,18 PO Last administered on 07/10/18at 06:27; Admin Dose 500 MG; Start 07/08/18 at 18:00 Ampicillin 50 ml @ 100 mls/hr Q8 IVPB Last administered on 07/10/18at 06:26; Admin Dose 100 MLS/HR; Start 07/08/18 at 14:00 Magnesium Hydroxide (Milk Of Mag) 30 ml DAILY PO ; Start 07/08/18 at 19:30 Oxycodone/ Acetaminophen (Endocet (10/ 325)) 2 tab Q6H PRN PO MODERATE PAIN LEVEL 4-6 Last administered on 07/10/18at 08:47; Admin Dose 2 TAB; Start 07/09/18 at 16:00 JOHNSON PENDLETON NP Jul 10, 2018 11:05
--- NOTE | 2018-07-10 11:17 | PN ---
Date/Time of Note Date/Time of Note DATE: 07/10/18 TIME: 11:16 Assessment/Plan Lines/Catheters IV Catheter Type (from [facility]): Saline Lock Cortez in Place (from [facility]): Yes Assessment/Plan Chief Complaint/Hosp Course 1. Multiple decubitus pressure ulcers -Continue aggressive offloading -Continue nutritional optimization -Continue wound care> will change to honey -Debridement as needed -Vitamin C -Continue osteomyelitis treatment> per id -SNF placement pending 2. Decompressed bladder with significant thickening concerning for bladder neoplasm versus cystitis: Urethritis, possible pyelonephritis; leaking between self caths, indwelling cortez placed -per Urology -Antibiotics 3. UTI on antibiotics 4. Labile mood with intermittent bursts of anger -Consider psych eval 5. Hypoalbuminemia -Encourage nutritional optimization 6. Hypertension history -Nutrition and medication optimization 7. Anemia without evidence of acute blood loss -Monitor 8. Acute on chronic back pain, nephrolithiasis -Medical optimization -Judicious fluid management 9. Constipation: -bowel optimization 10. Dysphagia: -EGD refused by patient 11. Elevated CEA however patient refusing colonoscopy and further workup Thank you. Patient seen and examined in collaboration with Dr. Micah Hobbs. Subjective 24 Hr Interval Summary Feels ok. No discomfort noted. No fevers, chills, sob, congested cough, cp, palpitations, villela, dizziness, n/v/d/dysuria. Exam/Review of Systems Vital Signs Vitals Vital Signs Date Temp Pulse Resp B/P (MAP) Pulse Ox O2 O2 Flow FiO2 Time Delivery Rate 07/10/18 98.4 85 18 108/65 98 Room Air 08:00 (79) Intake and Output 07/09/18 07/09/18 07/10/18 1414:59 22:59 06:59 IntakeIntake Total 560 ml 400 ml 580 ml OutputOutput Total 2000 ml 600 ml BalanceBalance -1440 ml -200 ml 580 ml Exam Free Text/Dictation Constitutional: alert, oriented No distress Psych: No anxiety, labile Head: normocephalic, atraumatic Eyes: nl conjunctiva, EOMI, PERRL; No icteric ENMT: nl external ears & nose, nl lips & teeth, mucosa pink and moist Neck: supple, non-tender; No jvd Respiratory: normal air movement; No congested cough, No labored breathing, No wheezing Cardiovascular: regular rate and rhythm; No edema Gastrointestinal: soft, non-tender; No distended, No rebound or guarding Genitourinary - Male: nl penis, nl scrotum Musculoskeletal: No nl gait and stance, No joint tenderness Extremities: normal pulses; No calf tenderness, No edema, No tenderness Neurological: nl mental status, nl speech; No nl strength Skin: rash or lesions (Decubitus pressure ulcers: packed, no odor/drainage. Right ischium : no odor/mod drainage); No ecchymosis Lymph: nl lymph nodes Results Result Diagram: 07/09/18 0554 07/09/18 0554 TIFFANIE KLEIN NP Jul 10, 2018 11:17
--- NOTE | 2018-07-10 12:36 | PN ---
Date/Time of Note Date/Time of Note DATE: 07/10/18 TIME: 12:36 Assessment/Plan VTE Prophylaxis Risk score (from Ns)>0 risk: 6 SCD applied (from Nsg): Yes Pharmacological prophylaxis: LMWH Lines/Catheters IV Catheter Type (from Nrsg): Saline Lock Urinary Cath still in place: Yes Reason Cath still needed: urinary retention Assessment/Plan Assessment/Plan 1. Sepsis due to UTI and Possible OM of iliac bone from decubitus 2. Proteus mirabilis bacteremia secondary to UTI, repeat bld cx neg 3. Multidrug-resistant Proteus mirabilis pyelonephritis 4. Bilateral hydronephrosis 5. Neurogenic bladder 6. Multiple decubitus Ulcers with questionable osteomyelitis of right atrium and right iliac bone 7. Obstructive uropathy 8. Homelessness 9. Incomplete paraplegia 10. recurrent urinary retention s/p cortez catheter now Plan: IV abx Unasyn. Po Ciprofloxacin, ID following Wound care for his decubitus wounds keep cortez catheter in for recurren turinary retention and Sacral decubitus BP stable pain controlled SNF placement for d/c planning Lovenox for DVT prophylaxis will follow up Result Diagram: 07/09/18 0554 07/09/18 0554 Subjective 24 Hr Interval Summary Free Text/Dictation c/o pain at sacral decubitus site, on IV unasyn and PO cipro as per ID Exam/Review of Systems Exam Vitals Vital Signs Date Temp Pulse Resp B/P (MAP) Pulse Ox O2 O2 Flow FiO2 Time Delivery Rate 07/10/18 98.4 85 18 108/65 98 Room Air 08:00 (79) Intake and Output 07/09/18 07/09/18 07/10/18 1515:00 23:00 07:00 IntakeIntake Total 560 ml 400 ml 580 ml OutputOutput Total 2000 ml 600 ml BalanceBalance -1440 ml -200 ml 580 ml Constitutional: alert Head: normocephalic Eyes: nl conjunctiva Neck: supple Respiratory: congested cough, diminished breath sounds Cardiovascular: regular rate and rhythm, nl pulses Gastrointestinal: soft, non-tender, other (BS+) Musculoskeletal: other (Bilateral LE wasted ) Neurological: other (No focal ) Skin: nl turgor Medications Medication Current Medications IV Flush (NS 3 ml) 3 ml PER PROTOCOL IV ; Start 06/22/18 at 18:30 Ondansetron HCl (Zofran Inj) 4 mg Q6H PRN IV NAUSEA/VOMITING Last administered on 06/26/18at 15:57; Admin Dose 4 MG; Start 06/22/18 at 18:30 Acetaminophen (Tylenol Tab) 650 mg Q6H PRN PO .PAIN 1-3 OR TEMP; Start 06/22/18 at 18:30 Enoxaparin Sodium (Lovenox) 30 mg DAILY SC Last administered on 07/10/18at 08:42; Admin Dose 30 MG; Start 06/23/18 at 09:00 Phenazopyridine HCl (Pyridium) 200 mg TID PRN PO dysuria Last administered on 06/29/18 13:21; Admin Dose 200 MG; Start 06/22/18 at 18:30 Hydralazine HCl (Apresoline) 10 mg Q4H PRN IV SBP >160; Start 06/22/18 at 19:00 [facility] This patient [place]... PRN PRN XX WOUND CARE; Start 06/23/18 at 00:30 Docusate Sodium (Colace) 100 mg BID PO Last administered on 07/08/18at 09:11; Admin Dose 100 MG; Start 06/23/18 at 21:00 Tamsulosin HCl (Flomax) 0.4 mg DAILY PO Last administered on 07/10/18at 08:38; Admin Dose 0.4 MG; Start 06/24/18 at 09:00 Labetalol HCl (Labetalol) 10 mg Q4 PRN IV sbp>160; Start 06/24/18 at 13:30 Sodium Hypochlorite (Dakin'S (Dilute 140)) 1 applic DAILY IRR Last ad ministered on 07/08/18at 09:24; Admin Dose 1 APPLIC; Start 06/26/18 at 16:00 Lisinopril (Zestril) 5 mg DAILY PO Last administered on 07/10/18at 08:39; Admin Dose 5 MG; Start 06/29/18 at 09:00 Magnesium Hydroxide (Milk Of Mag) 30 ml DAILY PRN PO CONSTIPATION; Start 06/28/18 at 21:00 Tramadol HCl (Ultram) 100 mg Q6H PRN PO MODERATE PAIN LEVEL 4-6; Start 07/01/18 at 19:00 Pantoprazole (Protonix Tab) 40 mg DAILY@06 PO Last administered on 07/10/18 06:26; Admin Dose 40 MG; Start 07/04/18 at 06:00 Carisoprodol (Soma) 350 mg Q6 PO Last administered on 07/10/18at 12:01; Admin Dose 350 MG; Start 07/06/18 at 12:00 Polyethylene Glycol (Miralax) 17 gm BID PO ; Start 07/08/18 at 11:00 Ciprofloxacin (Cipro) 500 mg BID@06,18 PO Last administered on 07/10/18at 06:27; Admin Dose 500 MG; Start 07/08/18 at 18:00 Ampicillin 50 ml @ 100 mls/hr Q8 IVPB Last administered on 07/10/18at 06:26; Admin Dose 100 MLS/HR; Start 07/08/18 at 14:00 Magnesium Hydroxide (Milk Of Mag) 30 ml DAILY PO ; Start 07/08/18 at 19:30 Oxycodone/ Acetaminophen (Endocet (10/ 325)) 2 tab Q6H PRN PO MODERATE PAIN LEVEL 4-6 Last administered on 07/10/18at 08:47; Admin Dose 2 TAB; Start 07/09/18 at 16:00 HEDY CHIN MD Jul 10, 2018 12:36
[2018-07-10 20:40] VITALS: BP 136/93; PULSE 93; RESP 18
[2018-07-11 02:20] VITALS: BP 136/70; PULSE 96; RESP 18
[2018-07-11] MEDS: OXYCODONE/ACETAMINOPHEN (10/325) TAB PO PRN ×3 (05:31→19:31)
[2018-07-11] MEDS: AMPICILLIN 1 GM/NS (PMX) 50 ML IVPB SCH ×3 (05:31→21:02)
[2018-07-11] MEDS: PANTOPRAZOLE (EC) 40 MG TAB PO SCH (05:32)
[2018-07-11] MEDS: CIPROFLOXACIN 500 MG TAB PO SCH ×2 (05:32→17:42)
[2018-07-11] MEDS: CARISOPRODOL 350 MG TAB PO SCH ×3 (05:32→17:42)
[2018-07-11 07:48] VITALS: BP 131/81; PULSE 87; RESP 16
[2018-07-11] MEDS: MAGNESIUM HYDROXIDE 30ML CUP PO SCH (09:00)
[2018-07-11] MEDS: POLYETHYLENE GLYCOL 17 GM PACKET PO SCH ×2 (09:00→21:00)
[2018-07-11] MEDS: DOCUSATE SODIUM 100 MG CAP PO SCH ×2 (09:00→21:00)
[2018-07-11] MEDS: TAMSULOSIN (SR) 0.4 MG CAP PO SCH (09:20)
[2018-07-11] MEDS: LISINOPRIL 5 MG TAB PO SCH (09:20)
[2018-07-11] MEDS: ENOXAPARIN 30 MG/0.3 ML SYG SC SCH (09:22)
--- NOTE | 2018-07-11 10:56 | PN ---
Date/Time of Note Date/Time of Note DATE: 07/11/18 TIME: 10:55 Assessment/Plan Lines/Catheters IV Catheter Type (from [facility]): Saline Lock Cortez in Place (from [facility]): Yes Assessment/Plan Chief Complaint/Hosp Course 1. Multiple decubitus pressure ulcers -Continue aggressive offloading -Continue nutritional optimization -Continue wound care> changed to honey -Debridement as needed -Vitamin C -Continue osteomyelitis treatment> per id -SNF placement pending 2. Decompressed bladder with significant thickening concerning for bladder neoplasm versus cystitis: Urethritis, possible pyelonephritis; leaking between self caths, indwelling cortez placed -per Urology -Antibiotics 3. UTI on antibiotics 4. Labile mood with intermittent bursts of anger -Consider psych eval 5. Hypoalbuminemia -Encourage nutritional optimization 6. Hypertension history -Nutrition and medication optimization 7. Anemia without evidence of acute blood loss -Monitor 8. Acute on chronic back pain, nephrolithiasis -Medical optimization -Judicious fluid management 9. Constipation: -bowel optimization 10. Dysphagia: -EGD refused by patient 11. Elevated CEA however patient refusing colonoscopy and further workup Thank you. Patient seen and examined in collaboration with Dr. Micah Hobbs. Subjective 24 Hr Interval Summary No acute events. No fevers, chills, sob, congested cough, cp, palpitations, ville[place], dizziness, nausea, vomiting, diarrhea, dysuria. Exam/Review of Systems Vital Signs Vitals Vital Signs Date Temp Pulse Resp B/P (MAP) Pulse Ox O2 O2 Flow FiO2 Time Delivery Rate 07/11/18 98.1 87 16 131/81 95 Room Air 07:48 (98) Intake and Output 07/10/18 07/10/18 07/11/18 1515:00 23:00 07:00 IntakeIntake Total 1080 ml 550 ml 50 ml OutputOutput Total 1000 ml 1300 ml BalanceBalance 80 ml -750 ml 50 ml Exam Free Text/Dictation Constitutional: alert, oriented No distress Psych: No anxiety, labile Head: normocephalic, atraumatic Eyes: nl conjunctiva, EOMI, PERRL; No icteric ENMT: nl external ears & nose, nl lips & teeth, mucosa pink and moist Neck: supple, non-tender; No jvd Respiratory: normal air movement; No congested cough, No labored breathing, No wheezing Cardiovascular: regular rate and rhythm; No edema Gastrointestinal: soft, non-tender; No distended, No rebound or guarding Genitourinary - Male: nl penis, nl scrotum Musculoskeletal: No nl gait and stance, No joint tenderness Extremities: normal pulses; No calf tenderness, No edema, No tenderness Neurological: nl mental status, nl speech; No nl strength Skin: rash or lesions (Decubitus pressure ulcers: packed, no odor/drainage. Right ischium : no odor/mod drainage); No ecchymosis Lymph: nl lymph nodes Results Result Diagram: 07/11/1842707/11/18427 TIFFANIE KLEIN NP Jul 11, 2018 10:56
--- NOTE | 2018-07-11 10:58 | CONS ---
Assessment/Plan Assessment/Plan Hospital Course (Demo Recall) No acute events. No fevers overnight Microbiology: Blood culture growing Proteus mirabilis, urine culture grew Proteus mirabilis and oxacillin sensitive staph aureus. Sacral wound culture growing E. coli, staph aureus and enterococcus species Chest x-ray on admission revealed no definite abnormalities. Indwelling: Baxter Antimicrobials: Cipro, ampicillin Physical examination: Well-developed chronically ill-appearing elderly man in no distress. Head atraumatic normocephalic sclera nonicteric neck is supple chest rise symmetrical breath sounds diminished bases heart S1-S2 abdomen soft bowel sounds present extremities wasted bilateral lower extremities Assessment: 1. S/p sepsis, present on admission 2. Proteus mirabilis bacteremia secondary to UTI, repeat bld cx neg 3. Multidrug-resistant Proteus mirabilis pyelonephritis 4. Bilateral hydronephrosis 5. Neurogenic bladder 6. Multiple decubitus with questionable osteomyelitis of right atrium and right iliac bone 7. Obstructive uropathy 8. Homelessness 9. Incomplete paraplegia Plan: Remains stable, continue antibiotics to complete 6 weeks for treatment of OM==> last day August 03 Consultation Date/Type/Reason Admit Date/Time Jun 22, 2018 at 18:09 Initial Consult Date 06/23/18 Type of Consult id Requesting Provider: TRACE REBOLLEDO Date/Time of Note DATE: 07/11/18 TIME: 10:57 Exam/Review of Systems Exam Vitals Vital Signs Date Temp Pulse Resp B/P (MAP) Pulse Ox O2 O2 Flow FiO2 Time Delivery Rate 07/11/18 98.1 87 16 131/81 95 Room Air 07:48 (98) Intake and Output 07/10/18 07/10/18 07/11/18 1515:00 23:00 07:00 IntakeIntake Total 1080 ml 550 ml 50 ml OutputOutput Total 1000 ml 1300 ml BalanceBalance 80 ml -750 ml 50 ml Results Result Diagram: 07/11/18 0428 07/11/18 0428 Results 24hrs Laboratory Tests Test 07/11/18 04:28 White Blood Count 7.6 Red Blood Count 3.50 L Hemoglobin 7.8 L Hematocrit 27.0 L Mean Corpuscular Volume 77.1 L Mean Corpuscular Hemoglobin 22.3 L Mean Corpuscular Hemoglobin Concent 28.9 L Red Cell Distribution Width 19.8 H Platelet Count 385 Mean Platelet Volume 8.4 Immature Granulocytes % 0.400 Neutrophils % 76.7 Lymphocytes % 11.2 L Monocytes % 8.3 Eosinophils % 3.0 Basophils % 0.4 Nucleated Red Blood Cells % 0.0 Immature Granulocytes # 0.030 Neutrophils # 5.8 Lymphocytes # 0.9 Monocytes # 0.6 Eosinophils # 0.2 Basophils # 0.0 Nucleated Red Blood Cells # 0.0 Prothrombin Time 13.1 Prothrombin Time Ratio 1.0 INR International Normalized Ratio 0.98 Activated Partial Thromboplast Time 28.4 Sodium Level 138 Potassium Level 4.4 Chloride Level 104 Carbon Dioxide Level 28 Anion Gap 6 Blood Urea Nitrogen 23 H Creatinine 0.92 Est Glomerular Filtrat Rate mL/min > 60 Glucose Level 97 Calcium Level 8.2 L Magnesium Level 1.7 Total Bilirubin 0.0 L Direct Bilirubin 0.00 Indirect Bilirubin 0.0 Aspartate Amino Transf (AST/SGOT) 29 Alanine Aminotransferase (ALT/SGPT) 19 Alkaline Phosphatase 123 H Total Protein 7.4 Albumin 3.0 L Globulin 4.40 H Albumin/Globulin Ratio 0.68 Medications Medication Current Medications IV Flush (NS 3 ml) 3 ml PER PROTOCOL IV ; Start 06/22/18 at 18:30 Ondansetron HCl (Zofran Inj) 4 mg Q6H PRN IV NAUSEA/VOMITING Last administered on 06/26/18at 15:57; Admin Dose 4 MG; Start 06/22/18 at 18:30 Acetaminophen (Tylenol Tab) 650 mg Q6H PRN PO .PAIN 1-3 OR TEMP; Start 06/22/18 at 18:30 Enoxaparin Sodium (Lovenox) 30 mg DAILY SC Last administered on 07/11/18at 09:22; Admin Dose 30 MG; Start 06/23/18 at 09:00 Phenazopyridine HCl (Pyridium) 200 mg TID PRN PO dysuria Last administered on 06/29/18at 13:21; Admin Dose 200 MG; Start 06/22/18 at 18:30 Hydralazine HCl (Apresoline) 10 mg Q4H PRN IV SBP >160; Start 06/22/18 at 19:00 Miscellaneous Information (Pending [facility] Order For Wound Care) This patient villela... PRN PRN XX WOUND CARE; Start 06/23/18 at 00:30 Docusate Sodium (Colace) 100 mg BID PO Last administered on 07/08/18at 09:11; Admin Dose 100 MG; Start 06/23/18 at 21:00 Tamsulosin HCl (Flomax) 0.4 mg DAILY PO Last administered on 07/11/18at 09:20; Admin Dose 0.4 MG; Start 06/24/18 at 09:00 Labetalol HCl (Labetalol) 10 mg Q4 PRN IV sbp>160; Start 06/24/18 at 13:30 Sodium Hypochlorite (Dakin'S (Dilute )) 1 applic DAILY IRR Last administered on 07/10/18at 16:43; Admin Dose 1 APPLIC; Start 06/26/18 at 16:00 Lisinopril (Zestril) 5 mg DAILY PO Last administered on 07/11/18at 09:20; Admin Dose 5 MG; Start 06/29/18 at 09:00 Magnesium Hydroxide (Milk Of Mag) 30 ml DAILY PRN PO CONSTIPATION; Start 06/28/18 at 21:00 Tramadol HCl (Ultram) 100 mg Q6H PRN PO MODERATE PAIN LEVEL 4-6; Start 07/01/18 at 19:00 Pantoprazole (Protonix Tab) 40 mg DAILY@06 PO Last administered on 07/11/18at 05:32; Admin Dose 40 MG; Start 07/04/18 at 06:00 Carisoprodol (Soma) 350 mg Q6 PO Last administered on 07/11/18at 05:32; Admin Dose 350 MG; Start 07/06/18 at 12:00 Polyethylene Glycol (Miralax) 17 gm BID PO ; Start 07/08/18 at 11:00 Ciprofloxacin (Cipro) 500 mg BID@06,18 PO Last administered on 07/11/18at 05:32; Admin Dose 500 MG; Start 07/08/18 at 18:00 Ampicillin 50 ml @ 100 mls/hr Q8 IVPB Last administered on 07/11/18 05:31; Admin Dose 100 MLS/HR; Start 07/08/18 at 14:00 Magnesium Hydroxide (Milk Of Mag) 30 ml DAILY PO ; Start 07/08/18 at 19:30 Oxycodone/ Acetaminophen (Endocet (10/ 325)) 2 tab Q6H PRN PO MODERATE PAIN LEVEL 4-6 Last administered on 07/11/18at 05:31; Admin Dose 2 TAB; Start 07/09/18 at 16:00 JOHNSON PENDLETON NP Jul 11, 2018 10:58
[2018-07-11 14:00] VITALS: BP 113/63; PULSE 94; RESP 18
--- NOTE | 2018-07-11 16:21 | PN ---
Date/Time of Note Date/Time of Note DATE: 07/11/18 TIME: 16:19 Assessment/Plan VTE Prophylaxis Risk score (from Nsg)>0 risk: 3 SCD applied (from Nsg): Yes Pharmacological prophylaxis: heparin Lines/Catheters IV Catheter Type (from Nrsg): Saline Lock Urinary Cath still in place: Yes Reason Cath still needed: urinary retention Assessment/Plan Hospital Course 63 yo undomiciled male with LE paraplegia, chronic cortez here with UTI and sacral decubitus with OM. Currently awaiting placement to complete abx course. Medically stable for discharge otherwise Sepsis secondary to UTI, decubitus ulcers, and OM- resolving - remains stable - ID on board and appreciate consultation. Will need to complete 6 weeks total of IV antibiotics, last dose 08/04/18 for treatment of OM. 2. UTI with hydronephrosis- resolving - Urology on board and appreciate recommendations. Cortez in place since when patient was straight cathing self, he was contaminating his sacral ulcer. - continue on current antibiotics - CT scan results noted and discussed results with patient 3. Sacral decubitus ulcer with abscess - Surgery on board and appreciate consultation. Offload as much as possible - wound care on board 4. Osteomyelitis of ischium - Will need to complete 6 weeks of IV antibiotics, last dose 08/04/18 - ID on board and appreciate recommendations Acute on chronic back pain - Pain control with PO only. Dr Jordan is following from pain management - [facility] for muscle spasms, patient on this chronically outpatient Acute kidney injury- resolved Hypertension - stable Constipation: - Laxatives and enema 8. Disposition - CM on board for placement for continuation of IV antibiotics until 08/04/18. Medically stable for discharge to SNF when accepted - Patient states he will be agreeable for PICC placement once SNF found - Continue cortez care Result Diagram: 07/11/18 0428 07/11/18 0428 Results 24hrs Laboratory Tests Test 07/11/18 04:28 White Blood Count 7.6 Red Blood Count 3.50 L Hemoglobin 7.8 L Hematocrit 27.0 L Mean Corpuscular Volume 77.1 L Mean Corpuscular Hemoglobin 22.3 L Mean Corpuscular Hemoglobin Concent 28.9 L Red Cell Distribution Width 19.8 H Platelet Count 385 Mean Platelet Volume 8.4 Immature Granulocytes % 0.400 Neutrophils % 76.7 Lymphocytes % 11.2 L Monocytes % 8.3 Eosinophils % 3.0 Basophils % 0.4 Nucleated Red Blood Cells % 0.0 Immature Granulocytes # 0.030 Neutrophils # 5.8 Lymphocytes # 0.9 Monocytes # 0.6 Eosinophils # 0.2 Basophils # 0.0 Nucleated Red Blood Cells # 0.0 Prothrombin Time 13.1 Prothrombin Time Ratio 1.0 INR International Normalized Ratio 0.98 Activated Partial Thromboplast Time 28.4 Sodium Level 138 Potassium Level 4.4 Chloride Level 104 Carbon Dioxide Level 28 Anion Gap 6 Blood Urea Nitrogen 23 H Creatinine 0.92 Est Glomerular Filtrat Rate mL/min > 60 Glucose Level 97 Calcium Level 8.2 L Magnesium Level 1.7 Total Bilirubin 0.0 L Direct Bilirubin 0.00 Indirect Bilirubin 0.0 Aspartate Amino Transf (AST/SGOT) 29 Alanine Aminotransferase (ALT/SGPT) 19 Alkaline Phosphatase 123 H Total Protein 7.4 Albumin 3.0 L Globulin 4.40 H Albumin/Globulin Ratio 0.68 Subjective 24 Hr Interval Summary Free Text/Dictation Upset about no IV narcotics. Again told we will only be giving PO. Unable to describe to me exactly what is hurting him Exam/Review of Systems Exam Vitals Vital Signs Date Temp Pulse Resp B/P (MAP) Pulse Ox O2 O2 Flow FiO2 Time Delivery Rate 07/11/18 98.1 94 18 113/63 92 14:00 (80) 07/11/18 Room Air 07:48 Intake and Output 07/10/18 07/10/18 07/11/18 1414:59 22:59 06:59 IntakeIntake Total 1080 ml 550 ml 50 ml OutputOutput Total 1000 ml 1300 ml BalanceBalance 80 ml -750 ml 50 ml Constitutional: alert, oriented, well developed Psych: no complaints, nl mood/affect Head: normocephalic, atraumatic Eyes: nl conjunctiva, EOMI, nl lids, nl sclera, PERRL ENMT: nl external ears & nose, nl lips & teeth, nl nasal mucosa & septum Neck: supple, non-tender Respiratory: clear to auscultation, normal air movement Cardiovascular: regular rate and rhythm, nl pulses Gastrointestinal: soft, nl liver, spleen, non-tender Musculoskeletal: nl extremities to inspection, nl gait and stance Extremities: normal pulses Neurological: [employer] II-XII intact, nl mental status, nl speech, nl strength Skin: nl turgor; No rash or lesions Lymph: nl lymph nodes Results Results 24hrs Laboratory Tests Test 07/11/18 04:28 White Blood Count 7.6 Red Blood Count 3.50 L Hemoglobin 7.8 L Hematocrit 27.0 L Mean Corpuscular Volume 77.1 L Mean Corpuscular Hemoglobin 22.3 L Mean Corpuscular Hemoglobin Concent 28.9 L Red Cell Distribution Width 19.8 H Platelet Count 385 Mean Platelet Volume 8.4 Immature Granulocytes % 0.400 Neutrophils % 76.7 Lymphocytes % 11.2 L Monocytes % 8.3 Eosinophils % 3.0 Basophils % 0.4 Nucleated Red Blood Cells % 0.0 Immature Granulocytes # 0.030 Neutrophils # 5.8 Lymphocytes # 0.9 Monocytes # 0.6 Eosinophils # 0.2 Basophils # 0.0 Nucleated Red Blood Cells # 0.0 Prothrombin Time 13.1 Prothrombin Time Ratio 1.0 INR International Normalized Ratio 0.98 Activated Partial Thromboplast Time 28.4 Sodium Level 138 Potassium Level 4.4 Chloride Level 104 Carbon Dioxide Level 28 Anion Gap 6 Blood Urea Nitrogen 23 H Creatinine 0.92 Est Glomerular Filtrat Rate mL/min > 60 Glucose Level 97 Calcium Level 8.2 L Magnesium Level 1.7 Total Bilirubin 0.0 L Direct Bilirubin 0.00 Indirect Bilirubin 0.0 Aspartate Amino Transf (AST/SGOT) 29 Alanine Aminotransferase (ALT/SGPT) 19 Alkaline Phosphatase 123 H Total Protein 7.4 Albumin 3.0 L Globulin 4.40 H Albumin/Globulin Ratio 0.68 Medications Medication Current Medications IV Flush (NS 3 ml) 3 ml PER PROTOCOL IV ; Start 06/22/18 at 18:30 Ondansetron HCl (Zofran Inj) 4 mg Q6H PRN IV NAUSEA/VOMITING Last administered on 06/26/18at 15:57; Admin Dose 4 MG; Start 06/22/18 at 18:30 Acetaminophen (Tylenol Tab) 650 mg Q6H PRN PO .PAIN 1-3 OR TEMP; Start 06/22/18 at 18:30 Enoxaparin Sodium (Lovenox) 30 mg DAILY SC Last administered on 07/11/18at 0 9:22; Admin Dose 30 MG; Start 06/23/18 at 09:00 Phenazopyridine HCl (Pyridium) 200 mg TID PRN PO dysuria Last administered on 06/29/18at 13:21; Admin Dose 200 MG; Start 06/22/18 at 18:30 Hydralazine HCl (Apresoline) 10 mg Q4H PRN IV SBP >160; Start 06/22/18 at 19:00 Miscellaneous Information (Pending [facility] Order For Wound Care) This patient villela... PRN PRN XX WOUND CARE; Start 06/23/18 at 00:30 Docusate Sodium (Colace) 100 mg BID PO Last administered on 07/08/18at 09:11; Admin Dose 100 MG; Start 06/23/18 at 21:00 Tamsulosin HCl (Flomax) 0.4 mg DAILY PO Last administered on 07/11/18 09:20; Admin Dose 0.4 MG; Start 06/24/18 at 09:00 Labetalol HCl (Labetalol) 10 mg Q4 PRN IV sbp>160; Start 06/24/18 at 13:30 Sodium Hypochlorite (Dakin'S (Dilute )) 1 applic DAILY IRR Last administered on 07/10/18at 16:43; Admin Dose 1 APPLIC; Start 06/26/18 at 16:00 Lisinopril (Zestril) 5 mg DAILY PO Last administered on 07/11/18 09:20; Admin Dose 5 MG; Start 06/29/18 at 09:00 Magnesium Hydroxide (Milk Of Mag) 30 ml DAILY PRN PO CONSTIPATION; Start 06/28/18 at 21:00 Tramadol HCl (Ultram) 100 mg Q6H PRN PO MODERATE PAIN LEVEL 4-6; Start 07/01/18 at 19:00 Pantoprazole (Protonix Tab) 40 mg DAILY@06 PO Last administered on 07/11/18 05:32; Admin Dose 40 MG; Start 07/04/18 at 06:00 Carisoprodol (Soma) 350 mg Q6 PO Last administered on 07/11/18 11:40; Admin Dose 350 MG; Start 07/06/18 at 12:00 Polyethylene Glycol (Miralax) 17 gm BID PO ; Start 07/08/18 at 11:00 Ciprofloxacin (Cipro) 500 mg BID@06,18 PO Last administered on 07/11/18 05:32; Admin Dose 500 MG; Start 07/08/18 at 18:00 Ampicillin 50 ml @ 100 mls/hr Q8 IVPB Last administered on 07/11/18at 13:47; Admin Dose 100 MLS/HR; Start 07/08/18 at 14:00 Magnesium Hydroxide (Milk Of Mag) 30 ml DAILY PO ; Start 07/08/18 at 19:30 Oxycodone/ Acetaminophen (Endocet (10/ 325)) 2 tab Q6H PRN PO MODERATE PAIN LEVEL 4-6 Last administered on 07/11/18at 12:03; Admin Dose 2 TAB; Start 07/09/18 at 16:00 BHARATH KUMAR MD Jul 11, 2018 16:21
[2018-07-11 20:00] VITALS: BP 128/67; PULSE 100; RESP 19
[2018-07-12] MEDS: CARISOPRODOL 350 MG TAB PO SCH ×5 (00:08→23:52)
[2018-07-12 02:00] VITALS: BP 132/71; PULSE 91; RESP 18
[2018-07-12] MEDS: CIPROFLOXACIN 500 MG TAB PO SCH ×2 (05:20→18:03)
[2018-07-12] MEDS: OXYCODONE/ACETAMINOPHEN (10/325) TAB PO PRN ×3 (05:20→18:03)
[2018-07-12] MEDS: PANTOPRAZOLE (EC) 40 MG TAB PO SCH (05:20)
[2018-07-12] MEDS: AMPICILLIN 1 GM/NS (PMX) 50 ML IVPB SCH ×3 (05:21→21:24)
[2018-07-12 08:00] VITALS: BP 119/76; PULSE 100; RESP 18
[2018-07-12] MEDS: LISINOPRIL 5 MG TAB PO SCH (08:28)
[2018-07-12] MEDS: TAMSULOSIN (SR) 0.4 MG CAP PO SCH (08:29)
[2018-07-12] MEDS: ENOXAPARIN 30 MG/0.3 ML SYG SC SCH (08:33)
[2018-07-12] MEDS: POLYETHYLENE GLYCOL 17 GM PACKET PO SCH ×2 (08:33→21:00)
[2018-07-12] MEDS: MAGNESIUM HYDROXIDE 30ML CUP PO SCH (08:34)
[2018-07-12] MEDS: DOCUSATE SODIUM 100 MG CAP PO SCH ×2 (08:34→21:00)
[2018-07-12] MEDS: SODIUM HYPOCHLORITE (1/40) 1 APPLIC BTL IRR SCH (09:00)
--- NOTE | 2018-07-12 11:26 | PN ---
Date/Time of Note Date/Time of Note DATE: 07/12/18 TIME: 11:23 Assessment/Plan VTE Prophylaxis Risk score (from Ns)>0 risk: 6 [place] [facility] [place]CD contraindicated: bilateral LE trauma Pharmacological prophylaxis: heparin Lines/Catheters IV Catheter Type (from [facility]): Saline Lock Urinary Cath still in place: Yes Reason Cath still needed: urinary retention Assessment/Plan Problems: (1) Chronic pain syndrome Status: Chronic Comment: We will reassess pain management to take a look at him to see if we can balance this out slightly better (2) Sacral decubitus ulcer Status: Chronic Comment: Being managed as best possible Qualifiers: Pressure injury stage: unstageable Qualified Codes: L89.150 - Pressure ulcer of sacral region, unstageable (3) Osteomyelitis, pelvis Status: Chronic Comment: On antibiotic therapy. Please note we have included in the orders and dates as specified by infectious diseases (4) Essential hypertension Status: Chronic Comment: Able control (5) Bacterial infection due to Proteus mirabilis Status: Resolved Comment: Resolved with antibiotic therapy (6) Enterococcus UTI Status: Acute Comment: Currently on antibiotic therapy for the (7) Anemia Status: Chronic Comment: Noted. Check iron levels Qualifiers: Anemia type: unspecified type Qualified Codes: D64.9 - Anemia, unspecified Result Diagram: 07/11/1842707/11/18427 Subjective 24 Hr Interval Summary Free Text/Dictation She reports that he is not happy with his pain control at the present time. Constitutional: no complaints (No fevers chills or sweats) Respiratory: no complaints Cardiovascular: no complaints Gastrointestinal: no complaints Musculoskeletal: back pain Exam/Review of Systems Exam Vitals Vital Signs Date Temp Pulse Resp B/P (MAP) Pulse Ox O2 O2 Flow FiO2 Time Delivery Rate 07/12/18 100 18 119/76 92 Room Air 08:00 (90) 07/12/18 98.8 02:00 Intake and Output 07/11/18 07/11/18 07/12/18 1515:00 23:00 07:00 IntakeIntake Total 410 ml 600 ml OutputOutput Total 2300 ml 1850 ml 2000 ml BalanceBalance -1890 ml -1850 ml -1400 ml Exam Somewhat angry -Portuguese male sitting up in bed writing in a journal Constitutional: alert, oriented Psych: anxiety, depression Respiratory: clear to auscultation, normal air movement Cardiovascular: regular rate and rhythm, nl pulses Gastrointestinal: soft, nl liver, spleen, non-tender Medications Medication Current Medications IV Flush (NS 3 ml) 3 ml PER PROTOCOL IV ; Start 06/22/18 at 18:30 Ondansetron HCl (Zofran Inj) 4 mg Q6H PRN IV NAUSEA/VOMITING Last administered on 06/26/18at 15:57; Admin Dose 4 MG; Start 06/22/18 at 18:30 Acetaminophen (Tylenol Tab) 650 mg Q6H PRN PO .PAIN 1-3 OR TEMP; Start 06/22/18 at 18:30 Enoxaparin Sodium (Lovenox) 30 mg DAILY SC Last administered on 07/12/18 08:33; Admin Dose 30 MG; Start 06/23/18 at 09:00 Phenazopyridine HCl (Pyridium) 200 mg TID PRN PO dysuria Last administered on 06/29/18 13:21; Admin Dose 200 MG; Start 06/22/18 at 18:30 Hydralazine HCl (Apresoline) 10 mg Q4H PRN IV SBP >160; Start 06/22/18 at 19:00 Miscellaneous Information (Pending [facility] Order For Wound Care) This patient villela... PRN PRN XX WOUND CARE; Start 06/23/18 at 00:30 Docusate Sodium (Colace) 100 mg BID PO Last administered on 07/08/18at 09:11; Admin Dose 100 MG; Start 06/23/18 at 21:00 Tamsulosin HCl (Flomax) 0.4 mg DAILY PO Last administered on 07/12/18 08:29; Admin Dose 0.4 MG; Start 06/24/18 at 09:00 Labetalol HCl (Labetalol) 10 mg Q4 PRN IV sbp>160; Start 06/24/18 at 13:30 Sodium Hypochlorite (Dakin'S (Dilute 40)) 1 applic DAILY IRR Last administered on 07/10/18 16:43; Admin Dose 1 APPLIC; Start 06/26/18 at 16:00 Lisinopril (Zestril) 5 mg DAILY PO Last administered on 07/12/18 08:28; Admin Dose 5 MG; Start 06/29/18 at 09:00 Magnesium Hydroxide (Milk Of Mag) 30 ml DAILY PRN PO CONSTIPATION; Start 06/28/18 at 21:00 Tramadol HCl (Ultram) 100 mg Q6H PRN PO MODERATE PAIN LEVEL 4-6; Start 07/01/18 at 19:00 Pantoprazole (Protonix Tab) 40 mg DAILY@06 PO Last administered on 07/12/18 05:20; Admin Dose 40 MG; Start 07/04/18 at 06:00 Carisoprodol (Soma) 350 mg Q6 PO Last administered on 07/12/18 05:21; Admin Dose 350 MG; Start 07/06/18 at 12:00 Polyethylene Glycol (Miralax) 17 gm BID PO ; Start 07/08/18 at 11:00 Ciprofloxacin (Cipro) 500 mg BID@06,18 PO Last administered on 07/12/18 05:20; Admin Dose 500 MG; Start 07/08/18 at 18:00 Ampicillin 50 ml @ 100 mls/hr Q8 IVPB Last administered on 07/12/18at 05:21; Admin Dose 100 MLS/HR; Start 07/08/18 at 14:00 Magnesium Hydroxide (Milk Of Mag) 30 ml DAILY PO ; Start 07/08/18 at 19:30 Oxycodone/ Acetaminophen (Endocet (10/ 325)) 2 tab Q6H PRN PO MODERATE PAIN LEVEL 4-6 Last administered on 07/12/18 05:20; Admin Dose 2 TAB; Start 07/09/18 at 16:00 SAL BRADLEY MD Jul 12, 2018 11:26
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
[2018-07-12 19:55] VITALS: BP 129/72; PULSE 88; RESP 18
[2018-07-12] MEDS: HYDROmorphONE 1 MG/ML SYG IV PRN (21:17)
[2018-07-13 01:49] VITALS: BP 126/79; PULSE 96; RESP 18
[2018-07-13] MEDS: HYDROmorphONE 1 MG/ML SYG IV PRN ×6 (02:31→23:02)
[2018-07-13] MEDS: PANTOPRAZOLE (EC) 40 MG TAB PO SCH (05:24)
[2018-07-13] MEDS: CIPROFLOXACIN 500 MG TAB PO SCH ×2 (05:24→17:27)
[2018-07-13] MEDS: AMPICILLIN 1 GM/NS (PMX) 50 ML IVPB SCH ×3 (05:24→21:09)
[2018-07-13] MEDS: CARISOPRODOL 350 MG TAB PO SCH ×4 (05:24→23:02)
[2018-07-13 07:48] VITALS: BP 134/83; PULSE 89; RESP 20
[2018-07-13] MEDS: LISINOPRIL 5 MG TAB PO SCH (08:20)
[2018-07-13] MEDS: TAMSULOSIN (SR) 0.4 MG CAP PO SCH (08:20)
[2018-07-13] MEDS: ENOXAPARIN 30 MG/0.3 ML SYG SC SCH (08:24)
[2018-07-13] MEDS: DOCUSATE SODIUM 100 MG CAP PO SCH ×2 (08:24→21:00)
[2018-07-13] MEDS: MAGNESIUM HYDROXIDE 30ML CUP PO SCH (08:24)
[2018-07-13] MEDS: POLYETHYLENE GLYCOL 17 GM PACKET PO SCH ×2 (08:25→21:00)
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
[2018-07-13 14:32] VITALS: BP 104/132; RESP 20
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
[2018-07-13 19:34] VITALS: BP 138/73; PULSE 97; RESP 20
[2018-07-13] MEDS: FERROUS FUMARATE (SR) TAB PO SCH (21:00)
[2018-07-13] MEDS: OXYCODONE/ACETAMINOPHEN (10/325) TAB PO PRN (21:14)
[2018-07-14 02:05] VITALS: BP 137/72; PULSE 89; RESP 20
[2018-07-14] MEDS: HYDROmorphONE 1 MG/ML SYG IV PRN ×5 (03:03→20:08)
[2018-07-14] MEDS: AMPICILLIN 1 GM/NS (PMX) 50 ML IVPB SCH ×3 (06:36→21:56)
[2018-07-14] MEDS: PANTOPRAZOLE (EC) 40 MG TAB PO SCH (06:37)
[2018-07-14] MEDS: CARISOPRODOL 350 MG TAB PO SCH ×3 (06:37→17:36)
[2018-07-14] MEDS: CIPROFLOXACIN 500 MG TAB PO SCH ×2 (06:37→17:36)
[2018-07-14 08:00] VITALS: BP 143/79; PULSE 88; RESP 18
[2018-07-14] MEDS: DOCUSATE SODIUM 100 MG CAP PO SCH ×2 (08:17→20:12)
[2018-07-14] MEDS: MAGNESIUM HYDROXIDE 30ML CUP PO SCH (08:18)
[2018-07-14] MEDS: POLYETHYLENE GLYCOL 17 GM PACKET PO SCH ×2 (08:18→20:13)
[2018-07-14] MEDS: FERROUS FUMARATE (SR) TAB PO SCH ×2 (08:18→20:13)
[2018-07-14] MEDS: TAMSULOSIN (SR) 0.4 MG CAP PO SCH (08:19)
[2018-07-14] MEDS: LISINOPRIL 5 MG TAB PO SCH (08:19)
[2018-07-14] MEDS: ENOXAPARIN 30 MG/0.3 ML SYG SC SCH (08:20)
--- NOTE | 2018-07-14 11:58 | PN ---
Date/Time of Note Date/Time of Note DATE: 07/14/18 TIME: 11:56 Assessment/Plan Lines/Catheters IV Catheter Type (from [facility]): Saline Lock Cortez in Place (from [facility]): Yes Assessment/Plan Chief Complaint/Hosp Course 1. Multiple decubitus pressure ulcers -Continue aggressive offloading -Continue nutritional optimization -Continue wound care > medihoney -Debridement as needed -Vitamin C -Continue osteomyelitis treatment> per id -SNF placement pending 2. Decompressed bladder with significant thickening concerning for bladder neoplasm versus cystitis: Urethritis, possible pyelonephritis; leaking between self caths, indwelling cortez placed -per Urology -Antibiotics 3. UTI on antibiotics 4. Labile mood with intermittent bursts of anger -Consider psych eval 5. Hypoalbuminemia -Encourage nutritional optimization 6. Hypertension history -Nutrition and medication optimization 7. Anemia without evidence of acute blood loss -Monitor 8. Acute on chronic back pain, nephrolithiasis -Medical optimization -Judicious fluid management 9. Constipation: -bowel optimization 10. Dysphagia: -EGD refused by patient 11. Elevated CEA however patient refusing colonoscopy and further workup Thank you Subjective 24 Hr Interval Summary No fevers, chills, sob, congested cough, cp, palpitations, villela, dizziness, nausea, vomiting, diarrhea, dysuria. Exam/Review of Systems Vital Signs Vitals Vital Signs Date Temp Pulse Resp B/P (MAP) Pulse Ox O2 O2 Flow FiO2 Time Delivery Rate 07/14/18 97.8 88 18 143/79 94 08:00 (100) 07/12/18 Room Air 08:00 Intake and Output 07/13/18 07/13/18 07/14/18 1515:00 23:00 07:00 IntakeIntake Total 810 ml 450 ml 1200 ml OutputOutput Total 3200 ml BalanceBalance 810 ml 450 ml -2000 ml Exam Free Text/Dictation Constitutional: alert, oriented No distress Psych: No anxiety, labile Head: normocephalic, atraumatic Eyes: nl conjunctiva, EOMI, PERRL; No icteric ENMT: nl external ears & nose, nl lips & teeth, mucosa pink and moist Neck: supple, non-tender; No jvd Respiratory: normal air movement; No congested cough, No labored breathing, No wheezing Cardiovascular: regular rate and rhythm; No edema Gastrointestinal: soft, non-tender; No distended, No rebound or guarding Genitourinary - Male: nl penis, nl scrotum Musculoskeletal: No nl gait and stance, No joint tenderness Extremities: normal pulses; No calf tenderness, No edema, No tenderness Neurological: nl mental status, nl speech; No nl strength Skin: rash or lesions (Decubitus pressure ulcers: packed, no odor/drainage. Right ischium : no odor/mod drainage); No ecchymosis Lymph: nl lymph nodes Results Result Diagram: 07/11/188 07/11/18 0428 GUSTABO GARCIA MD Jul 14, 2018 11:58
--- NOTE | 2018-07-14 13:26 | PN ---
Date/Time of Note Date/Time of Note DATE: 07/14/18 TIME: 13:26 Assessment/Plan VTE Prophylaxis Risk score (from Nsg)>0 risk: 7 SCD applied (from Nsg): Yes Pharmacological prophylaxis: heparin Lines/Catheters IV Catheter Type (from Nrsg): Saline Lock Urinary Cath still in place: Yes Reason Cath still needed: urinary retention Assessment/Plan Hospital Course 63 yo undomiciled male with LE paraplegia, chronic cortez here with UTI and sacral decubitus with OM. Currently awaiting placement to complete abx course. Medically stable for discharge otherwise Sepsis secondary to UTI, decubitus ulcers, and OM- resolving - remains stable - ID on board and appreciate consultation. Will need to complete 6 weeks total of IV antibiotics, last dose 08/04/18 for treatment of OM. 2. UTI with hydronephrosis- resolving - Urology on board and appreciate recommendations. Cortez in place since when patient was straight cathing self, he was contaminating his sacral ulcer. - continue on current antibiotics - CT scan results noted and discussed results with patient 3. Sacral decubitus ulcer with abscess - Surgery on board and appreciate consultation. Offload as much as possible - wound care on board 4. Osteomyelitis of ischium - Will need to complete 6 weeks of IV antibiotics, last dose 08/04/18 - ID on board and appreciate recommendations Acute on chronic back pain - Pain control with PO only. Dr Jordan is following from pain management - [facility] for muscle spasms, patient on this chronically outpatient Acute kidney injury- resolved Hypertension - stable Constipation: - Laxatives and enema 8. Disposition - CM on board for placement for continuation of IV antibiotics until 08/04/18. Medically stable for discharge to SNF when accepted - Patient states he will be agreeable for PICC placement once SNF found - Continue cortez care Result Diagram: 07/11/18 0428 07/11/18 0428 Subjective 24 Hr Interval Summary Free Text/Dictation No change to clinical status He is awaiting placement No complaintas Exam/Review of Systems Exam Vitals Vital Signs Date Temp Pulse Resp B/P (MAP) Pulse Ox O2 O2 Flow FiO2 Time Delivery Rate 07/14/18 97.8 88 18 143/79 94 08:00 (100) 07/12/18 Room Air 08:00 Intake and Output 07/13/18 07/13/18 07/14/18 1515:00 23:00 07:00 IntakeIntake Total 810 ml 450 ml 1200 ml OutputOutput Total 3200 ml BalanceBalance 810 ml 450 ml -2000 ml Constitutional: alert, oriented, well developed Psych: no complaints, nl mood/affect Head: normocephalic, atraumatic Eyes: nl conjunctiva, EOMI, nl lids, nl sclera, PERRL ENMT: nl external ears & nose, nl lips & teeth, nl nasal mucosa & septum Neck: supple, non-tender Respiratory: clear to auscultation, normal air movement Cardiovascular: regular rate and rhythm, nl pulses Gastrointestinal: soft, nl liver, spleen, non-tender Musculoskeletal: nl extremities to inspection, nl gait and stance Extremities: normal pulses Neurological: HAND RIGGER II-XII intact, nl mental status, nl speech, nl strength Skin: nl turgor; No rash or lesions Lymph: nl lymph nodes Medications Medication Current Medications IV Flush (NS 3 ml) 3 ml PER PROTOCOL IV ; Start 06/22/18 at 18:30 Ondansetron HCl (Zofran Inj) 4 mg Q6H PRN IV NAUSEA/VOMITING Last administered on 06/26/18at 15:57; Admin Dose 4 MG; Start 06/22/18 at 18:30 Acetaminophen (Tylenol Tab) 650 mg Q6H PRN PO .PAIN 1-3 OR TEMP; Start 06/22/18 at 18:30 Enoxaparin Sodium (Lovenox) 30 mg DAILY SC Last administered on 07/14/18at 08:20; Admin Dose 30 MG; Start 06/23/18 at 09:00 Phenazopyridine HCl (Pyridium) 200 mg TID PRN PO dysuria Last administered on 06/29/18at 13:21; Admin Dose 200 MG; Start 06/22/18 at 18:30 Hydralazine HCl (Apresoline) 10 mg Q4H PRN IV SBP >160; Start 06/22/18 at 19:00 Miscellaneous Information (Pending [facility] Order For Wound Care) This patient villela... PRN PRN XX WOUND CARE; Start 06/23/18 at 00:30 Docusate Sodium (Colace) 100 mg BID PO Last administered on 07/08/18at 09:11; Admin Dose 100 MG; Start 06/23/18 at 21:00 Tamsulosin HCl (Flomax) 0.4 mg DAILY PO Last administered on 07/14/18 08:19; Admin Dose 0.4 MG; Start 06/24/18 at 09:00 Labetalol HCl (Labetalol) 10 mg Q4 PRN IV sbp>160; Start 06/24/18 at 13:30 Lisinopril (Zestril) 5 mg DAILY PO Last administered on 07/14/18at 08:19; Admin Dose 5 MG; Start 06/29/18 at 09:00 Magnesium Hydroxide (Milk Of Mag) 30 ml DAILY PRN PO CONSTIPATION; Start 06/28/18 at 21:00 Pantoprazole (Protonix Tab) 40 mg DAILY@06 PO Last administered on 07/14/18at 06:37; Admin Dose 40 MG; Start 07/04/18 at 06:00 Carisoprodol (Soma) 350 mg Q6 PO Last administered on 07/14/18at 11:38; Admin Dose 350 MG; Start 07/06/18 at 12:00 Polyethylene Glycol (Miralax) 17 gm BID PO ; Start 07/08/18 at 11:00 Ciprofloxacin (Cipro) 500 mg BID@06,18 PO Last administered on 07/14/18at 06:37; Admin Dose 500 MG; Start 07/08/18 at 18:00; Stop 08/03/18 at 23:00 Ampicillin 50 ml @ 100 mls/hr Q8 IVPB Last administered on 07/14/18at 06:36; Admin Dose 100 MLS/HR; Start 07/08/18 at 14:00; Stop 08/03/18 at 23:00 Magnesium Hydroxide (Milk Of Mag) 30 ml DAILY PO ; Start 07/08/18 at 19:30 Oxycodone/ Acetaminophen (Endocet (10/ 325)) 2 tab Q6H PRN PO MODERATE PAIN LEVEL 4-6 Last administered on 07/13/18at 21:14; Admin Dose 2 TAB; Start 07/09/18 at 16:00 Hydromorphone HCl (Dilaudid) 1 mg Q4H PRN IV SEVERE PAIN LEVEL 7-10 Last administered on 07/14/18at 10:56; Admin Dose 1 MG; Start 07/12/18 at 19:00 Docusate Sodium/ Ferrous Fumarate (Harry-Sequels) 1 tab BID PO Last adminis tered on 07/14/18at 08:18; Admin Dose 1 TAB; Start 07/13/18 at 21:00; Stop 08/12/18 at 20:59 BHARATH KUMAR MD Jul 14, 2018 13:26
[2018-07-14 14:00] VITALS: BP 135/70; PULSE 140; RESP 20
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
[2018-07-14 19:50] VITALS: BP 136/74; PULSE 103; RESP 18
[2018-07-14] MEDS: CHOLESTYRAMINE 4 GM PACKET PO SCH ×2 (21:00→22:51)
[2018-07-15] MEDS: HYDROmorphONE 1 MG/ML SYG IV PRN ×6 (00:22→21:36)
[2018-07-15] MEDS: CARISOPRODOL 350 MG TAB PO SCH ×5 (00:57→23:24)
[2018-07-15 01:28] VITALS: BP 144/76; PULSE 101; RESP 18
[2018-07-15] MEDS: AMPICILLIN 1 GM/NS (PMX) 50 ML IVPB SCH ×3 (05:36→21:37)
[2018-07-15] MEDS: PANTOPRAZOLE (EC) 40 MG TAB PO SCH (05:36)
[2018-07-15] MEDS: CIPROFLOXACIN 500 MG TAB PO SCH ×2 (05:36→17:22)
[2018-07-15 07:46] VITALS: BP 128/78; PULSE 94; RESP 18
[2018-07-15] MEDS: POLYETHYLENE GLYCOL 17 GM PACKET PO SCH ×2 (09:00→20:06)
[2018-07-15] MEDS: MAGNESIUM HYDROXIDE 30ML CUP PO SCH (09:00)
[2018-07-15] MEDS: DOCUSATE SODIUM 100 MG CAP PO SCH ×2 (09:00→20:06)
[2018-07-15] MEDS: TAMSULOSIN (SR) 0.4 MG CAP PO SCH (09:29)
[2018-07-15] MEDS: LISINOPRIL 5 MG TAB PO SCH (09:30)
[2018-07-15] MEDS: FERROUS FUMARATE (SR) TAB PO SCH ×2 (09:31→21:36)
[2018-07-15] MEDS: ENOXAPARIN 30 MG/0.3 ML SYG SC SCH (09:39)
--- NOTE | 2018-07-15 10:50 | PN ---
Date/Time of Note Date/Time of Note DATE: 07/15/18 TIME: 10:48 Assessment/Plan VTE Prophylaxis Risk score (from Ns)>0 risk: 7 SCD applied (from Ns): No SCD contraindicated: patient refusal Pharmacological prophylaxis: LMWH Lines/Catheters IV Catheter Type (from Nrsg): Peripheral IV Urinary Cath still in place: Yes Reason Cath still needed: urinary retention Assessment/Plan Hospital Course SUBJECTIVE: Lying in bed, highly temperamental, upset with nursing staff, providers and hospital routines. OBJECTIVE: Vital signs-see below PHYSICAL EXAM: Constitutional: Anxious, highly temperamental -[place] male, not in acute medical distress. Psych: Highly temperamental,anxious Head: atraumatic, normocephalic Eyes: nl conjunctiva, nl sclera ENMT: mucosa pink and moist, nl external ears & nose Neck: non-tender, supple Respiratory: clear to auscultation, normal air movement Cardiovascular: nl pulses, regular rate and rhythm Gastrointestinal: non-tender, soft, bowel sounds active in all 4 quadrants. Musculoskeletal/extremities: paraplegic+. Normal pulses,no cyanosis, no edema. Neurological: Alert oriented 3,nl speech Skin: nl turgor, +Decubs sacrococcyx. ASSESSMENT/PLAN:63 yo male with LE paraplegia, chronic cortez here with UTI and sacral decubitus with OM. 1/ s/p Sepsis secondary to UTI, decubitus ulcers, and OM- resolving -Will need to complete 6 weeks total of IV antibiotics, last dose 08/04/18 for treatment of OM. 2. UTI with hydronephrosis -As per urology, Cortez can be discontinued and patient can continue in and out cath which he was doing prior admission. However, patient opted to keep his Cortez in place secondary to PUs -cont.abx w/stop date placed. 3. Sacral decubitus ulcer with abscess - Surgery recommended medical mgmt. w/-Debridement as needed -wound care/offloading. -start zinc sulf/vit c/Theragen sup -Julius protein sup w/diet 4. Osteomyelitis of ischium - Will need to complete 6 weeks of IV antibiotics, last dose 08/04/18 - Picc line 5. Chronic back pain - Cont.pain control as appropriate 6.Hypertension - stable DVT prophylaxis; Lovenox PUD prophylaxis: PPI Diet:Regular code: FC Disposition - CM on board for placement for continuation of IV antibiotics until 08/04/18. Medically stable for discharge to SNF when accepted - PICC line today. Patient was seen in collaboration with Result Diagram: 07/11/1842707/11/18427 Exam/Review of Systems Exam Vitals Vital Signs Date Temp Pulse Resp B/P (MAP) Pulse Ox O2 O2 Flow FiO2 Time Delivery Rate 07/15/18 98.0 94 18 128/78 94 Room Air 07:46 (95) Intake and Output 07/14/18 07/14/18 07/15/18 1515:00 23:00 07:00 IntakeIntake Total 770 ml 530 ml 890 ml OutputOutput Total 300 ml 1900 ml BalanceBalance 770 ml 230 ml -1010 ml Medications Medication Current Medications IV Flush (NS 3 ml) 3 ml PER PROTOCOL IV ; Start 06/22/18 at 18:30 Ondansetron HCl (Zofran Inj) 4 mg Q6H PRN IV NAUSEA/VOMITING Last administered on 06/26/18at 15:57; Admin Dose 4 MG; Start 06/22/18 at 18:30 Acetaminophen (Tylenol Tab) 650 mg Q6H PRN PO .PAIN 1-3 OR TEMP; Start 06/22/18 at 18:30 Enoxaparin Sodium (Lovenox) 30 mg DAILY SC Last administered on 07/15/18at 09:39; Admin Dose 30 MG; Start 06/23/18 at 09:00 Phenazopyridine HCl (Pyridium) 200 mg TID PRN PO dysuria Last administered on 06/29/18 13:21; Admin Dose 200 MG; Start 06/22/18 at 18:30 Hydralazine HCl (Apresoline) 10 mg Q4H PRN IV SBP >160; Start 06/22/18 at 19:00 [facility] This patient villela... PRN PRN XX WOUND CARE; Start 06/23/18 at 00:30 Docusate Sodium (Colace) 100 mg BID PO Last administered on 07/08/18at 09:11; Admin Dose 100 MG; Start 06/23/18 at 21:00 Tamsulosin HCl (Flomax) 0.4 mg DAILY PO Last administered on 07/15/18 09:29; Admin Dose 0.4 MG; Start 06/24/18 at 09:00 Labetalol HCl (Labetalol) 10 mg Q4 PRN IV sbp>160; Start 06/24/18 at 13:30 Lisinopril (Zestril) 5 mg DAILY PO Last administered on 07/15/18 09:30; Admin Dose 5 MG; Start 06/29/18 at 09:00 Magnesium Hydroxide (Milk Of Mag) 30 ml DAILY PRN PO CONSTIPATION; Start 06/28/18 at 21:00 Pantoprazole (Protonix Tab) 40 mg DAILY@06 PO Last administered on 07/15/18 05:36; Admin Dose 40 MG; Start 07/04/18 at 06:00 Carisoprodol (Soma) 350 mg Q6 PO Last administered on 07/15/18 05:36; Admin Dose 350 MG; Start 07/06/18 at 12:00 Polyethylene Glycol (Miralax) 17 gm BID PO ; Start 07/08/18 at 11:00 Ciprofloxacin (Cipro) 500 mg BID@06,18 PO Last administered on 07/15/18 05:36; Admin Dose 500 MG; Start 07/08/18 at 18:00; Stop 08/03/18 at 23:00 Ampicillin 50 ml @ 100 mls/hr Q8 IVPB Last administered on 07/15/18 05:36; Admin Dose 100 MLS/HR; Start 07/08/18 at 14:00; Stop 08/03/18 at 23:00 Magnesium Hydroxide (Milk Of Mag) 30 ml DAILY PO ; Start 07/08/18 at 19:30 Oxycodone/ Acetaminophen (Endocet (10/ 325)) 2 tab Q6H PRN PO MODERATE PAIN LEVEL 4-6 Last administered on 07/13/18 21:14; Admin Dose 2 TAB; Start 07/09/18 at 16:00 Hydromorphone HCl (Dilaudid) 1 mg Q4H PRN IV SEVERE PAIN LEVEL 7-10 Last administered on 07/15/18 09:26; Admin Dose 1 MG; Start 07/12/18 at 19:00 Docusate Sodium/ Ferrous Fumarate (Harry-Sequels) 1 tab BID PO Last administered on 07/15/18 09:31; Admin Dose 1 TAB; Start 07/13/18 at 21:00; Stop 08/12/18 at 20:59 Cholestyramine Resin (Questran) 1 pkt TID PO Last administered on 07/14/18at 22:51; Admin Dose 1 PKT; Start 07/14/18 at 21:00 JHONNY DONG NP Jul 15, 2018 10:50
--- NOTE | 2018-07-15 10:51 | PDOCDIS ---
Discharge Instructions CONDITION [id number] Patient Condition: [id number] Stable HOME CARE INSTRUCTIONS: [id number] Diet Instructions: [id number] Regular [id number] Your diet recommendation is: [id number] add Julius protein sup/Boost FOLLOW UP/APPOINTMENTS Follow-up Plan Follow-up with primary care physician JHONNY DONG NP Jul 15, 2018 10:51
[2018-07-15] MEDS ORDERED: QUESTRAN PO (10:56)
[2018-07-15] MEDS ORDERED: CARI350T29 PO (10:56)
[2018-07-15] MEDS ORDERED: FERR1TAB14 PO (10:56)
[2018-07-15] MEDS ORDERED: TAMS-14 PO (10:56)
[2018-07-15] MEDS ORDERED: DOCU-144 PO (10:56)
[2018-07-15] MEDS ORDERED: PANT40TA4 PO (10:56)
[2018-07-15] MEDS ORDERED: UDMOM PO (10:56)
[2018-07-15] MEDS ORDERED: POLY17PO6 PO (10:56)
[2018-07-15] MEDS ORDERED: MULTI PO (10:56)
[2018-07-15] MEDS ORDERED: LIDOCAINE 1% (MPF) 5 ML VIAL SC ONE (11:00)
--- NOTE | 2018-07-15 11:43 | PN ---
Date/Time of Note Date/Time of Note DATE: 07/15/18 TIME: 11:41 Assessment/Plan Lines/Catheters IV Catheter Type (from [facility]): Peripheral IV Cortez in Place (from [facility]): Yes Assessment/Plan Chief Complaint/Hosp Course 1. Multiple decubitus pressure ulcers -Continue aggressive offloading -Continue nutritional optimization -Continue wound care > medihoney -Debridement as needed -Vitamin C -Continue osteomyelitis treatment> per id -SNF placement pending 2. Decompressed bladder with significant thickening concerning for bladder neoplasm versus cystitis: Urethritis, possible pyelonephritis; leaking between self caths, indwelling cortez placed -per Urology -Antibiotics 3. UTI on antibiotics 4. Labile mood with intermittent bursts of anger -Consider psych eval 5. Hypoalbuminemia -Encourage nutritional optimization 6. Hypertension history -Nutrition and medication optimization 7. Anemia without evidence of acute blood loss -Monitor 8. Acute on chronic back pain, nephrolithiasis -Medical optimization -Judicious fluid management 9. Constipation: -bowel optimization 10. Dysphagia: -EGD refused by patient 11. Elevated CEA however patient refusing colonoscopy and further workup Thank you. Patient seen and examined in collaboration with Dr. Micah Hobbs. Subjective 24 Hr Interval Summary Intermittent tachycardia. Intermittently agitated with staff. No fevers, chills, sob, congested cough, cp, palpitations, villela, dizziness, nausea, vomiting, diarrhea, dysuria. Exam/Review of Systems Vital Signs Vitals Vital Signs Date Temp Pulse Resp B/P (MAP) Pulse Ox O2 O2 Flow FiO2 Time Delivery Rate 07/15/18 98.0 94 18 128/78 94 Room Air 07:46 (95) Intake and Output 07/14/18 07/14/18 07/15/18 1515:00 23:00 07:00 IntakeIntake Total 770 ml 530 ml 890 ml OutputOutput Total 300 ml 1900 ml BalanceBalance 770 ml 230 ml -1010 ml Exam Free Text/Dictation Constitutional: alert, oriented No distress Psych: No anxiety, labile Head: normocephalic, atraumatic Eyes: nl conjunctiva, EOMI, PERRL; No icteric ENMT: nl external ears & nose, nl lips & teeth, mucosa pink and moist Neck: supple, non-tender; No jvd Respiratory: normal air movement; No congested cough, No labored breathing, No wheezing Cardiovascular: regular rate and rhythm; No edema Gastrointestinal: soft, non-tender; No distended, No rebound or guarding Genitourinary - Male: nl penis, nl scrotum Musculoskeletal: No nl gait and stance, No joint tenderness Extremities: normal pulses; No calf tenderness, No edema, No tenderness Neurological: nl mental status, nl speech; No nl strength Skin: rash or lesions (Decubitus pressure ulcers: packed, no odor/drainage. Right ischium : no odor/mod drainage); No ecchymosis Lymph: nl lymph nodes Results Result Diagram: 07/11/1842707/11/18427 TIFFANIE KLEIN NP Jul 15, 2018 11:43
[2018-07-15] MEDS: CHOLESTYRAMINE 4 GM PACKET PO SCH (12:09)
[2018-07-15] MEDS: ASCORBIC ACID 500 MG TAB PO SCH (12:58)
[2018-07-15] MEDS: MULTIVITAMINS THERAPEUTIC TAB PO SCH (12:58)
[2018-07-15] MEDS: ZINC SULFATE 220 MG CAP PO SCH (12:59)
[2018-07-15 13:50] VITALS: BP 154/78; PULSE 97; RESP 18
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
[2018-07-15 20:00] VITALS: BP 139/67; PULSE 101; RESP 19
[2018-07-16] MEDS: HYDROmorphONE 1 MG/ML SYG IV PRN ×6 (01:30→21:53)
[2018-07-16 01:59] VITALS: BP 141/72; PULSE 95; RESP 18
[2018-07-16] MEDS: AMPICILLIN 1 GM/NS (PMX) 50 ML IVPB SCH ×3 (05:30→21:53)
[2018-07-16] MEDS: CIPROFLOXACIN 500 MG TAB PO SCH ×2 (05:30→17:38)
[2018-07-16] MEDS: CARISOPRODOL 350 MG TAB PO SCH ×4 (05:30→23:46)
[2018-07-16] MEDS: PANTOPRAZOLE (EC) 40 MG TAB PO SCH (05:30)
[2018-07-16 07:34] VITALS: BP 135/71; PULSE 96; RESP 18
--- NOTE | 2018-07-16 08:55 | PN ---
Date/Time of Note Date/Time of Note DATE: 07/16/18 TIME: 08:55 Assessment/Plan VTE Prophylaxis Risk score (from Ns)>0 risk: 7 SCD applied (from [facility] [place]): No SCD contraindicated: patient refusal Pharmacological prophylaxis: LMWH Lines/Catheters IV Catheter Type (from Nrs): PICC Line Central line still needed: Yes Urinary Cath still in place: Yes Reason Cath still needed: pres ulcer contaminated by urine Assessment/Plan Assessment/Plan 1. Sepsis secondary to UTI, decubitus ulcers, and OM- resolved - Remains stable and plans for IV antibiotics until 08/04/18. PICC line in place - ID on board and appreciate recommendations 2. UTI with hydronephrosis - Urology on board and appreciate consultation. Baxter remains in place given presence of decub ulcers. Patient usually straight caths himself 3. Sacral decubitus ulcer with abscess- stable - Surgery consultation appreciated and continue current medical management and wound care. Debridement as needed - Start zinc sulf/vit c/Theragen sup - Julius protein w/diet 4. Osteomyelitis of ischium - Will need to complete 6 weeks of IV antibiotics, last dose 08/04/18 5. Chronic back pain - continue pain control 6. Hypertension - stable 7. Disposition - Continue current care, stable for discharge once accepted to [facility] Result Diagram: 07/16/18 0433 07/16/18 0433 Results 24hrs Laboratory Tests Test 07/16/18 04:33 White Blood Count 7.9 Red Blood Count 3.63 L Hemoglobin 8.0 L Hematocrit 27.4 L Mean Corpuscular Volume 75.5 L Mean Corpuscular Hemoglobin 22.0 L Mean Corpuscular Hemoglobin Concent 29.2 L Red Cell Distribution Width 19.6 H Platelet Count 416 H Mean Platelet Volume 8.7 Immature Granulocytes % 0.400 Neutrophils % 68.1 Lymphocytes % 13.3 L Monocytes % 13.0 H Eosinophils % 4.7 Basophils % 0.5 Nucleated Red Blood Cells % 0.0 Immature Granulocytes # 0.030 Neutrophils # 5.4 Lymphocytes # 1.1 Monocytes # 1.0 H Eosinophils # 0.4 Basophils # 0.0 Nucleated Red Blood Cells # 0.0 Sodium Level 137 Potassium Level 4.0 Chloride Level 105 Carbon Dioxide Level 27 Anion Gap 5 Blood Urea Nitrogen 25 H Creatinine 1.04 Est Glomerular Filtrat Rate mL/min > 60 Glucose Level 101 Calcium Level 8.6 Magnesium Level 1.8 Subjective 24 Hr Interval Summary Free Text/Dictation Patients doing well and denies any issues. No acute overnight events. Exam/Review of Systems Exam Vitals Vital Signs Date Temp Pulse Resp B/P (MAP) Pulse Ox O2 O2 Flow FiO2 Time Delivery Rate 07/16/18 97.6 96 18 135/71 96 Room Air 07:34 (92) Intake and Output 07/15/18 07/15/18 07/16/18 1515:00 23:00 07:00 IntakeIntake Total 50 ml 750 ml 650 ml OutputOutput Total 1800 ml 800 ml BalanceBalance 50 ml -1050 ml -150 ml Exam General: No acute distress. twitching lower extremities appreciated Neck: Supple Chest: Nontender Lungs: Clear to auscultation bilaterally no crackles rales or wheezing Heart: Normal S1-S2, Regular rate and rhythm. no murmurs Abdomen: Soft , nontender, nondistended , bowel sounds are present. No guarding no rebound tenderness Extremities: Normal to inspection, no edema no cyanosis Results Results 24hrs Laboratory Tests Test 07/16/18 04:33 White Blood Count 7.9 Red Blood Count 3.63 L Hemoglobin 8.0 L Hematocrit 27.4 L Mean Corpuscular Volume 75.5 L Mean Corpuscular Hemoglobin 22.0 L Mean Corpuscular Hemoglobin Concent 29.2 L Red Cell Distribution Width 19.6 H Platelet Count 416 H Mean Platelet Volume 8.7 Immature Granulocytes % 0.400 Neutrophils % 68.1 Lymphocytes % 13.3 L Monocytes % 13.0 H Eosinophils % 4.7 Basophils % 0.5 Nucleated Red Blood Cells % 0.0 Immature Granulocytes # 0.030 Neutrophils # 5.4 Lymphocytes # 1.1 Monocytes # 1.0 H Eosinophils # 0.4 Basophils # 0.0 Nucleated Red Blood Cells # 0.0 Sodium Level 137 Potassium Level 4.0 Chloride Level 105 Carbon Dioxide Level 27 Anion Gap 5 Blood Urea Nitrogen 25 H Creatinine 1.04 Est Glomerular Filtrat Rate mL/min > 60 Glucose Level 101 Calcium Level 8.6 Magnesium Level 1.8 Medications Medication Current Medications IV Flush (NS 3 ml) 3 ml PER PROTOCOL IV ; Start 06/22/18 at 18:30 Ondansetron HCl (Zofran Inj) 4 mg Q6H PRN IV NAUSEA/VOMITING Last administered on 06/26/18 15:57; Admin Dose 4 MG; Start 06/22/18 at 18:30 Acetaminophen (Tylenol Tab) 650 mg Q6H PRN PO .PAIN 1-3 OR TEMP; Start 06/22/18 at 18:30 Enoxaparin Sodium (Lovenox) 30 mg DAILY SC Last administered on 07/15/18 09:39; Admin Dose 30 MG; Start 06/23/18 at 09:00 Phenazopyridine HCl (Pyridium) 200 mg TID PRN PO dysuria Last administered on 06/29/18 13:21; Admin Dose 200 MG; Start 06/22/18 at 18:30 Hydralazine HCl (Apresoline) 10 mg Q4H PRN IV SBP >160; Start 06/22/18 at 19:00 [facility] This patient villela... PRN PRN XX WOUND CARE; Start 06/23/18 at 00:30 Docusate Sodium (Colace) 100 mg BID PO Last administered on 07/08/18 09:11; Admin Dose 100 MG; Start 06/23/18 at 21:00 Tamsulosin HCl (Flomax) 0.4 mg DAILY PO Last administered on 07/15/18 09:29; Admin Dose 0.4 MG; Start 06/24/18 at 09:00 Labetalol HCl (Labetalol) 10 mg Q4 PRN IV sbp>160; Start 06/24/18 at 13:30 Lisinopril (Zestril) 5 mg DAILY PO Last administered on 07/15/18 09:30; Admin Dose 5 MG; Start 06/29/18 at 09:00 Magnesium Hydroxide (Milk Of Mag) 30 ml DAILY PRN PO CONSTIPATION; Start 06/28/18 at 21:00 Pantoprazole (Protonix Tab) 40 mg DAILY@06 PO Last administered on 07/16/18 05:30; Admin Dose 40 MG; Start 07/04/18 at 06:00 Carisoprodol (Soma) 350 mg Q6 PO Last administered on 07/16/18 05:30; Admin Dose 350 MG; Start 07/06/18 at 12:00 Polyethylene Glycol (Miralax) 17 gm BID PO ; Start 07/08/18 at 11:00 Ciprofloxacin (Cipro) 500 mg BID@06,18 PO Last administered on 07/16/18 05:30; Admin Dose 500 MG; Start 07/08/18 at 18:00; Stop 08/03/18 at 23:00 Ampicillin 50 ml @ 100 mls/hr Q8 IVPB Last administered on 07/16/18 05:30; Admin Dose 100 MLS/HR; Start 07/08/18 at 14:00; Stop 08/03/18 at 23:00 Magnesium Hydroxide (Milk Of Mag) 30 ml DAILY PO ; Start 07/08/18 at 19:30 Oxycodone/ Acetaminophen (Endocet (10 325)) 2 tab Q6H PRN PO MODERATE PAIN LEVEL 4-6 Last administered on 07/13/18at 21:14; Admin Dose 2 TAB; Start 07/09/18 at 16:00 Hydromorphone HCl (Dilaudid) 1 mg Q4H PRN IV SEVERE PAIN LEVEL 7-10 Last administered on 07/16/18 05:31; Admin Dose 1 MG; Start 07/12/18 at 19:00 Docusate Sodium/ Ferrous Fumarate (Harry-Sequels) 1 tab BID PO Last administered on 07/15/18 21:36; Admin Dose 1 TAB; Start 07/13/18 at 21:00; Stop 08/12/18 at 20:59 Ascorbic Acid (Vitamin C) 500 mg DAILY PO Last administered on 07/15/18 12:58; Admin Dose 500 MG; Start 07/15/18 at 12:00 Zinc Sulfate (Zinc Sulfate) 220 mg DAILY PO Last administered on 07/15/18at 12:59; Admin Dose 220 MG; Start 07/15/18 at 11:00 Multivitamins Therapeutic (Theragran) 1 tab DAILY PO Last administered on 07/15/18 12:58; Admin Dose 1 TAB; Start 07/15/18 at 11:00 IV Flush (NS 10 ml) 10 ml PRN PRN IV IV PROTOCOL; Start 07/15/18 at 17:00 KINGA WILLETT MD Jul 16, 2018 08:55
[2018-07-16] MEDS: POLYETHYLENE GLYCOL 17 GM PACKET PO SCH ×3 (09:00→20:43)
[2018-07-16] MEDS: DOCUSATE SODIUM 100 MG CAP PO SCH ×3 (09:00→20:42)
[2018-07-16] MEDS: MAGNESIUM HYDROXIDE 30ML CUP PO SCH ×2 (09:00→09:11)
[2018-07-16] MEDS: ZINC SULFATE 220 MG CAP PO SCH (09:10)
[2018-07-16] MEDS: FERROUS FUMARATE (SR) TAB PO SCH ×2 (09:10→21:53)
[2018-07-16] MEDS: MULTIVITAMINS THERAPEUTIC TAB PO SCH (09:10)
[2018-07-16] MEDS: LISINOPRIL 5 MG TAB PO SCH (09:10)
[2018-07-16] MEDS: ASCORBIC ACID 500 MG TAB PO SCH (09:11)
[2018-07-16] MEDS: TAMSULOSIN (SR) 0.4 MG CAP PO SCH (09:11)
[2018-07-16] MEDS: ENOXAPARIN 30 MG/0.3 ML SYG SC SCH (09:11)
--- NOTE | 2018-07-16 11:35 | PN ---
Date/Time of Note Date/Time of Note DATE: 07/16/18 TIME: 11:31 Assessment/Plan Lines/Catheters IV Catheter Type (from Nrs): PICC Line Cortez in Place (from Nrs): Yes Assessment/Plan Chief Complaint/Hosp Course 1. Multiple decubitus pressure ulcers -Continue aggressive offloading -Continue nutritional optimization -Continue wound care > medihoney -Debridement as needed -Vitamin C -Continue osteomyelitis treatment> per id -SNF placement still pending 2. Decompressed bladder with significant thickening concerning for bladder neoplasm versus cystitis: Urethritis, possible pyelonephritis; leaking between self caths, indwelling cortez placed -per Urology 3. Labile mood with intermittent bursts of anger -Consider psych eval 4. Hypoalbuminemia -Encourage nutritional optimization 5. Hypertension history -Nutrition and medication optimization 6. Anemia without evidence of acute blood loss -Monitor 7. Acute on chronic back pain, nephrolithiasis -Medical optimization -Judicious fluid management 8. Constipation: -bowel optimization 9. Elevated CEA however patient refusing colonoscopy and further workup Thank you. Patient seen and examined in collaboration with Dr. Micah Hobbs. Subjective 24 Hr Interval Summary Continues to be intermittently agitated. No fevers, chills, sob, congested cough, cp, palpitations, villela, dizziness, n/v/d/dysuria, mod drainage. Exam/Review of Systems Vital Signs Vitals Vital Signs Date Temp Pulse Resp B/P (MAP) Pulse Ox O2 O2 Flow FiO2 Time Delivery Rate 07/16/18 97.6 96 18 135/71 96 Room Air 07:34 (92) Intake and Output 07/15/18 07/15/18 07/16/18 1515:00 23:00 07:00 IntakeIntake Total 50 ml 750 ml 650 ml OutputOutput Total 1800 ml 800 ml BalanceBalance 50 ml -1050 ml -150 ml Exam Free Text/Dictation Constitutional: alert, oriented No distress Psych: No anxiety, labile Head: normocephalic, atraumatic Eyes: nl conjunctiva, EOMI, PERRL; No icteric ENMT: nl external ears & nose, nl lips & teeth, mucosa pink and moist Neck: supple, non-tender; No jvd Respiratory: normal air movement; No congested cough, No labored breathing, No wheezing Cardiovascular: regular rate and rhythm; No edema Gastrointestinal: soft, non-tender; No distended, No rebound or guarding Genitourinary - Male: nl penis, nl scrotum Musculoskeletal: No nl gait and stance, No joint tenderness Extremities: normal pulses; No calf tenderness, No edema, No tenderness Neurological: nl mental status, nl speech; No nl strength Skin: rash or lesions (Decubitus pressure ulcers: packed, no odor/ small drainage. Right ischium : no odor/small drainage); No ecchymosis Lymph: nl lymph nodes Results Result Diagram: 07/16/18 0433 07/16/18 0433 TIFFANIE KLEIN NP Jul 16, 2018 11:35
[2018-07-16 14:32] VITALS: BP 128/68; PULSE 90; RESP 18
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
[2018-07-16] MEDS: OXYCODONE/ACETAMINOPHEN (10/325) TAB PO PRN (16:24)
[2018-07-16 19:51] VITALS: BP 118/59; PULSE 86; RESP 20
[2018-07-17 01:39] VITALS: BP 133/65; PULSE 90; RESP 20
[2018-07-17] MEDS: HYDROmorphONE 1 MG/ML SYG IV PRN ×6 (02:14→22:02)
[2018-07-17] MEDS: CIPROFLOXACIN 500 MG TAB PO SCH ×2 (05:56→18:06)
[2018-07-17] MEDS: PANTOPRAZOLE (EC) 40 MG TAB PO SCH (05:56)
[2018-07-17] MEDS: AMPICILLIN 1 GM/NS (PMX) 50 ML IVPB SCH ×3 (05:56→22:02)
[2018-07-17] MEDS: CARISOPRODOL 350 MG TAB PO SCH ×3 (05:56→18:06)
[2018-07-17 08:00] VITALS: BP 124/80; PULSE 94; RESP 18
--- NOTE | 2018-07-17 08:37 | PN ---
Date/Time of Note Date/Time of Note DATE: 07/17/18 TIME: 08:37 Assessment/Plan VTE Prophylaxis Risk score (from Ns)>0 risk: 6 SCD applied (from [facility]): No SCD contraindicated: patient refusal Pharmacological prophylaxis: LMWH Lines/Catheters IV Catheter Type (from Nrs): PICC Line Central line still needed: Yes Urinary Cath still in place: Yes Reason Cath still needed: pres ulcer contaminated by urine Assessment/Plan Assessment/Plan 1. Sepsis secondary to UTI, decubitus ulcers, and OM- resolved - Remains stable and plans for IV antibiotics until 08/04/18. PICC line in place - ID on board and appreciate recommendations 2. UTI with hydronephrosis - Urology on board and appreciate consultation. Baxter remains in place given presence of decub ulcers. - Patient usually self caths but has been having leakage which has been contaminating his ulcers 3. Sacral decubitus ulcer with abscess- stable - Surgery consultation appreciated and continue current medical management and wound care. Debridement as needed - Start zinc sulf/vit c/Theragen sup - Julius protein w/diet 4. Osteomyelitis of ischium - Will need to complete 6 weeks of IV antibiotics, last dose 08/04/18 5. Chronic back pain - continue pain control 6. Hypertension - stable 7. Disposition - Continue current care, stable for discharge once accepted to [facility] Result Diagram: 07/17/18 0554 07/16/18 0433 Results 24hrs Laboratory Tests Test 07/17/18 05:54 White Blood Count 6.9 Red Blood Count 3.69 L Hemoglobin 8.2 L Hematocrit 28.1 L Mean Corpuscular Volume 76.2 L Mean Corpuscular Hemoglobin 22.2 L Mean Corpuscular Hemoglobin Concent 29.2 L Red Cell Distribution Width 19.6 H Platelet Count 391 Mean Platelet Volume 8.6 Immature Granulocytes % 0.400 Neutrophils % 63.8 Lymphocytes % 15.9 Monocytes % 13.2 H Eosinophils % 6.3 Basophils % 0.4 Nucleated Red Blood Cells % 0.0 Immature Granulocytes # 0.030 Neutrophils # 4.4 Lymphocytes # 1.1 Monocytes # 0.9 Eosinophils # 0.4 Basophils # 0.0 Nucleated Red Blood Cells # 0.0 Subjective 24 Hr Interval Summary Free Text/Dictation Patient is upset because he denies getting his pain medication this am but per nursing it was given. Exam/Review of Systems Exam Vitals Vital Signs Date Temp Pulse Resp B/P (MAP) Pulse Ox O2 O2 Flow FiO2 Time Delivery Rate 07/17/18 98.4 90 20 133/65 95 Room Air 01:39 (87) Intake and Output 07/16/18 07/16/18 07/17/18 1515:00 23:00 07:00 IntakeIntake Total 100 ml 790 ml 50 ml OutputOutput Total 2000 ml 1800 ml BalanceBalance 100 ml -1210 ml -1750 ml Exam General: No acute distress. upset Neck: Supple Chest: Nontender Lungs: Clear to auscultation bilaterally no crackles rales or wheezing Heart: Normal S1-S2, Regular rate and rhythm. no murmurs Abdomen: Soft , nontender, nondistended , bowel sounds are present. No guarding no rebound tenderness Skin: no new rashes Results Results 24hrs Laboratory Tests Test 07/17/18 05:54 White Blood Count 6.9 Red Blood Count 3.69 L Hemoglobin 8.2 L Hematocrit 28.1 L Mean Corpuscular Volume 76.2 L Mean Corpuscular Hemoglobin 22.2 L Mean Corpuscular Hemoglobin Concent 29.2 L Red Cell Distribution Width 19.6 H Platelet Count 391 Mean Platelet Volume 8.6 Immature Granulocytes % 0.400 Neutrophils % 63.8 Lymphocytes % 15.9 Monocytes % 13.2 H Eosinophils % 6.3 Basophils % 0.4 Nucleated Red Blood Cells % 0.0 Immature Granulocytes # 0.030 Neutrophils # 4.4 Lymphocytes # 1.1 Monocytes # 0.9 Eosinophils # 0.4 Basophils # 0.0 Nucleated Red Blood Cells # 0.0 Medications Medication Current Medications IV Flush (NS 3 ml) 3 ml PER PROTOCOL IV ; Start 06/22/18 at 18:30 Ondansetron HCl (Zofran Inj) 4 mg Q6H PRN IV NAUSEA/VOMITING Last administered on 06/26/18at 15:57; Admin Dose 4 MG; Start 06/22/18 at 18:30 Acetaminophen (Tylenol Tab) 650 mg Q6H PRN PO .PAIN 1-3 OR TEMP; Start 06/22/18 at 18:30 Enoxaparin Sodium (Lovenox) 30 mg DAILY SC Last administered on 07/16/18at 09:11; Admin Dose 30 MG; Start 06/23/18 at 09:00 Phenazopyridine HCl (Pyridium) 200 mg TID PRN PO dysuria Last administered on 06/29/18 13:21; Admin Dose 200 MG; Start 06/22/18 at 18:30 Hydralazine HCl (Apresoline) 10 mg Q4H PRN IV SBP >160; Start 06/22/18 at 19:00 Miscellaneous Information (Pending Santyl Order For Wound Care) This patient villela... PRN PRN XX WOUND CARE; Start 06/23/18 at 00:30 Docusate Sodium (Colace) 100 mg BID PO Last administered on 07/08/18at 09:11; Admin Dose 100 MG; Start 06/23/18 at 21:00 Tamsulosin HCl (Flomax) 0.4 mg DAILY PO Last administered on 07/16/18at 09:11; Admin Dose 0.4 MG; Start 06/24/18 at 09:00 Labetalol HCl (Labetalol) 10 mg Q4 PRN IV sbp>160; Start 06/24/18 at 13:30 Lisinopril (Zestril) 5 mg DAILY PO Last administered on 07/16/18at 09:10; Admin Dose 5 MG; Start 06/29/18 at 09:00 Magnesium Hydroxide (Milk Of Mag) 30 ml DAILY PRN PO CONSTIPATION; Start at 21:00 Pantoprazole (Protonix Tab) 40 mg DAILY@06 PO Last administered on 07/17/18at 05:56; Admin Dose 40 MG; Start 07/04/18 at 06:00 Carisoprodol (Soma) 350 mg Q6 PO Last administered on 07/17/18at 05:56; Admin Dose 350 MG; Start 07/06/18 at 12:00 Polyethylene Glycol (Miralax) 17 gm BID PO ; Start 07/08/18 at 11:00 Ciprofloxacin (Cipro) 500 mg BID@06,18 PO Last administered on 07/17/18at 05:56; Admin Dose 500 MG; Start 07/08/18 at 18:00; Stop 08/03/18 at 23:00 Ampicillin 50 ml @ 100 mls/hr Q8 IVPB Last administered on 07/17/18at 05:56; Admin Dose 100 MLS/HR; Start 07/08/18 at 14:00; Stop 08/03/18 at 23:00 Magnesium Hydroxide (Milk Of Mag) 30 ml DAILY PO ; Start 07/08/18 at 19:30 Oxycodone/ Acetaminophen (Endocet (10/ 325)) 2 tab Q6H PRN PO MODERATE PAIN LEVEL 4-6 Last administered on 07/16/18 16:24; Admin Dose 2 TAB; Start 07/09/18 at 16:00 Hydromorphone HCl (Dilaudid) 1 mg Q4H PRN IV SEVERE PAIN LEVEL 7-10 Last administered on 07/17/18at 06:04; Admin Dose 1 MG; Start 07/12/18 at 19:00 Docusate Sodium/ Ferrous Fumarate (Harry-Sequels) 1 tab BID PO Last administered on 07/16/18at 21:53; Admin Dose 1 TAB; Start 07/13/18 at 21:00; Stop 08/12/18 at 20:59 Ascorbic Acid (Vitamin C) 500 mg DAILY PO Last administered on 07/16/18 09:11; Admin Dose 500 MG; Start 07/15/18 at 12:00 Zinc Sulfate (Zinc Sulfate) 220 mg DAILY PO Last administered on 07/16/18 09:10; Admin Dose 220 MG; Start 07/15/18 at 11:00 Multivitamins Therapeutic (Theragran) 1 tab DAILY PO Last administered on 07/16/18 09:10; Admin Dose 1 TAB; Start 07/15/18 at 11:00 IV Flush (NS 10 ml) 10 ml PRN PRN IV IV PROTOCOL; Start 07/15/18 at 17:00 KINGA WILLETT MD Jul 17, 2018 08:37
[2018-07-17] MEDS: DOCUSATE SODIUM 100 MG CAP PO SCH ×2 (09:00→20:28)
[2018-07-17] MEDS: MAGNESIUM HYDROXIDE 30ML CUP PO SCH (09:00)
[2018-07-17] MEDS: POLYETHYLENE GLYCOL 17 GM PACKET PO SCH ×2 (09:00→20:29)
[2018-07-17] MEDS: ASCORBIC ACID 500 MG TAB PO SCH (09:13)
[2018-07-17] MEDS: ZINC SULFATE 220 MG CAP PO SCH (09:13)
[2018-07-17] MEDS: TAMSULOSIN (SR) 0.4 MG CAP PO SCH (09:13)
[2018-07-17] MEDS: LISINOPRIL 5 MG TAB PO SCH (09:13)
[2018-07-17] MEDS: FERROUS FUMARATE (SR) TAB PO SCH ×2 (09:13→20:27)
[2018-07-17] MEDS: MULTIVITAMINS THERAPEUTIC TAB PO SCH (09:13)
[2018-07-17] MEDS: ENOXAPARIN 30 MG/0.3 ML SYG SC SCH (09:17)
--- NOTE | 2018-07-17 10:55 | PN ---
Date/Time of Note Date/Time of Note DATE: 07/17/18 TIME: 10:52 Assessment/Plan Lines/Catheters IV Catheter Type (from Nrs): PICC Line Cortez in Place (from Nrs): Yes Assessment/Plan Chief Complaint/Hosp Course 1. Multiple decubitus pressure ulcers -Continue aggressive offloading -Continue nutritional optimization -Continue wound care > medihoney -Debridement as needed -Vitamin C -Continue osteomyelitis treatment> per id -SNF placement still pending 2. Decompressed bladder with significant thickening concerning for bladder neoplasm versus cystitis: Urethritis, possible pyelonephritis; leaking between self caths, indwelling cortez placed -per Urology 3. Labile mood with intermittent bursts of anger -Consider psych eval 4. Hypoalbuminemia -Encourage nutritional optimization 5. Hypertension history -Nutrition and medication optimization 6. Anemia without evidence of acute blood loss -Monitor 7. Acute on chronic back pain, nephrolithiasis -Medical optimization -Judicious fluid management 8. Constipation: -bowel optimization 9. Elevated CEA however patient refusing colonoscopy and further workup Thank you. Patient seen and examined in collaboration with Dr. Micah Hobbs. Subjective 24 Hr Interval Summary Intermittent buttock pain. Continues to be intermittently agitated. Still pending discharge placement. No fevers, chills, sob, congested cough, cp, palpitations, villela, dizziness, nausea, vomiting, diarrhea, dysuria. Exam/Review of Systems Vital Signs Vitals Vital Signs Date Temp Pulse Resp B/P (MAP) Pulse Ox O2 O2 Flow FiO2 Time Delivery Rate 07/17/18 98.5 94 18 124/80 96 Room Air 08:00 (95) Intake and Output 07/16/18 07/16/18 07/17/18 1515:00 23:00 07:00 IntakeIntake Total 100 ml 790 ml 50 ml OutputOutput Total 2000 ml 1800 ml BalanceBalance 100 ml -1210 ml -1750 ml Exam Free Text/Dictation Constitutional: alert, oriented No distress Psych: No anxiety, labile Head: normocephalic, atraumatic Eyes: nl conjunctiva, EOMI, PERRL; No icteric ENMT: nl external ears & nose, nl lips & teeth, mucosa pink and moist Neck: supple, non-tender; No jvd Respiratory: normal air movement; No congested cough, No labored breathing, No wheezing Cardiovascular: regular rate and rhythm; No edema Gastrointestinal: soft, non-tender; No distended, No rebound or guarding Genitourinary - Male: nl penis, nl scrotum Musculoskeletal: No nl gait and stance, No joint tenderness Extremities: normal pulses; No calf tenderness, No edema, No tenderness Neurological: nl mental status, nl speech; No nl strength Skin: rash or lesions (Decubitus pressure ulcers: packed, no odor/ small drainage. Right ischium : no odor/small drainage); No ecchymosis Lymph: nl lymph nodes Results Result Diagram: 07/17/18 0554 07/16/18 0433 TIFFANIE KLEIN NP Jul 17, 2018 10:55
[2018-07-17 14:00] VITALS: BP 128/72; PULSE 76; RESP 20
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
[2018-07-17 20:26] VITALS: BP 135/82; PULSE 101; RESP 20
[2018-07-17] MEDS: OXYCODONE/ACETAMINOPHEN (10/325) TAB PO PRN (20:27)
[2018-07-18] MEDS: CARISOPRODOL 350 MG TAB PO SCH ×5 (01:59→23:53)
[2018-07-18] MEDS: HYDROmorphONE 1 MG/ML SYG IV PRN ×6 (01:59→22:26)
[2018-07-18 02:00] VITALS: BP 126/72; PULSE 84; RESP 20
[2018-07-18] MEDS: AMPICILLIN 1 GM/NS (PMX) 50 ML IVPB SCH ×3 (05:55→22:18)
[2018-07-18] MEDS: CIPROFLOXACIN 500 MG TAB PO SCH ×2 (06:47→17:37)
[2018-07-18] MEDS: PANTOPRAZOLE (EC) 40 MG TAB PO SCH (06:47)
[2018-07-18 08:00] VITALS: BP 141/86; PULSE 86; RESP 18
[2018-07-18] MEDS: DOCUSATE SODIUM 100 MG CAP PO SCH ×2 (08:54→21:00)
[2018-07-18] MEDS: MAGNESIUM HYDROXIDE 30ML CUP PO SCH (08:54)
[2018-07-18] MEDS: POLYETHYLENE GLYCOL 17 GM PACKET PO SCH ×2 (08:54→21:00)
[2018-07-18] MEDS: FERROUS FUMARATE (SR) TAB PO SCH ×2 (08:55→20:17)
[2018-07-18] MEDS: ASCORBIC ACID 500 MG TAB PO SCH (08:56)
[2018-07-18] MEDS: ZINC SULFATE 220 MG CAP PO SCH (08:56)
[2018-07-18] MEDS: LISINOPRIL 5 MG TAB PO SCH (08:56)
[2018-07-18] MEDS: TAMSULOSIN (SR) 0.4 MG CAP PO SCH (08:56)
[2018-07-18] MEDS: MULTIVITAMINS THERAPEUTIC TAB PO SCH (08:56)
[2018-07-18] MEDS: ENOXAPARIN 30 MG/0.3 ML SYG SC SCH (08:57)
--- NOTE | 2018-07-18 11:18 | PN ---
Date/Time of Note Date/Time of Note DATE: 07/18/18 TIME: 11:18 Assessment/Plan Lines/Catheters IV Catheter Type (from [facility]): PICC Line Cortez in Place (from [facility]): Yes Assessment/Plan Chief Complaint/Hosp Course 1. Multiple decubitus pressure ulcers -Continue aggressive offloading -Continue nutritional optimization -Continue wound care > medihoney -Debridement as needed -Vitamin C -Continue osteomyelitis treatment> per id -SNF placement still pending 2. Decompressed bladder with significant thickening concerning for bladder neoplasm versus cystitis: Urethritis, possible pyelonephritis; leaking between self caths, indwelling cortez placed -per Urology 3. Labile mood with intermittent bursts of anger -Consider psych eval 4. Hypoalbuminemia -Encourage nutritional optimization 5. Hypertension history -Nutrition and medication optimization 6. Anemia without evidence of acute blood loss -Monitor 7. Acute on chronic back pain, nephrolithiasis -Medical optimization -Judicious fluid management 8. Constipation: -bowel optimization 9. Elevated CEA however patient refusing colonoscopy and further workup Thank you. Patient seen and examined in collaboration with Dr. Micah Hobbs. Subjective 24 Hr Interval Summary No acute overnight events. Mood labile. No fevers, chills, sob, congested cough, cp, palpitations, villela, dizziness, n/v/d/dysuria, excessive wound drainage/odor. Exam/Review of Systems Vital Signs Vitals Vital Signs Date Temp Pulse Resp B/P (MAP) Pulse Ox O2 O2 Flow FiO2 Time Delivery Rate 07/18/18 98.0 86 18 141/86 98 08:00 (104) 07/17/18 Room Air 08:00 Intake and Output 07/17/18 07/17/18 07/18/18 1515:00 23:00 07:00 IntakeIntake Total 970 ml 470 ml 530 ml OutputOutput Total 1600 ml BalanceBalance 970 ml 470 ml -1070 ml Exam Free Text/Dictation Constitutional: alert, oriented No distress Psych: No anxiety, labile Head: normocephalic, atraumatic Eyes: nl conjunctiva, EOMI, PERRL; No icteric ENMT: nl external ears & nose, nl lips & teeth, mucosa pink and moist Neck: supple, non-tender; No jvd Respiratory: normal air movement; No congested cough, No labored breathing, No wheezing Cardiovascular: regular rate and rhythm; No edema Gastrointestinal: soft, non-tender; No distended, No rebound or guarding Genitourinary - Male: nl penis, nl scrotum Musculoskeletal: No nl gait and stance, No joint tenderness Extremities: normal pulses; No calf tenderness, No edema, No tenderness Neurological: nl mental status, nl speech; No nl strength Skin: rash or lesions (Decubitus pressure ulcers: packed, no odor/ small drainage. Right ischium : no odor/small drainage); No ecchymosis Lymph: nl lymph nodes Results Result Diagram: 07/17/18 0554 07/16/18 0433 TIFFANIE KLEIN NP Jul 18, 2018 11:18
[2018-07-18] MEDS: OXYCODONE/ACETAMINOPHEN (10/325) TAB PO PRN (12:21)
--- NOTE | 2018-07-18 13:32 | PN ---
Date/Time of Note Date/Time of Note DATE: 07/18/18 TIME: 13:27 Assessment/Plan VTE Prophylaxis Risk score (from Ns)>0 risk: 4 SCD applied (from Ns): No SCD contraindicated: patient refusal Pharmacological prophylaxis: LMWH Lines/Catheters IV Catheter Type (from Nrsg): PICC Line Central line still needed: Yes Urinary Cath still in place: Yes Reason Cath still needed: pres ulcer contaminated by urine Assessment/Plan Assessment/Plan 1. Sepsis secondary to UTI, decubitus ulcers, and OM- resolved - Remains stable and plans for IV antibiotics until 08/04/18. PICC line in place - ID on board and appreciate recommendations 2. UTI- resolved - Urology on board and appreciate consultation. Cortez remains in place given presence of decub ulcers. 3. Sacral decubitus ulcer with abscess- stable - Surgery consultation appreciated and continue current medical management and wound care. Debridement as needed - Start zinc sulf/Vit c/Theragen sup - Julius protein w/diet 4. Osteomyelitis of ischium - Will need to complete 6 weeks of IV antibiotics, with last dose on 08/04/18 5. Chronic back pain - continue pain control 6. Hypertension - stable 7. Neurogenic bladder - cortez in place - Urology on board 8. Disposition - Continue current care, stable for discharge once accepted to [facility] Result Diagram: 07/17/18 0554 07/16/18 0433 Subjective 24 Hr Interval Summary Free Text/Dictation Patient doing well and denies any acute issues. No acute overnight events. Exam/Review of Systems Exam Vitals Vital Signs Date Temp Pulse Resp B/P (MAP) Pulse Ox O2 O2 Flow FiO2 Time Delivery Rate 07/18/18 98.0 86 18 141/86 98 08:00 (104) 07/17/18 Room Air 08:00 Intake and Output 07/17/18 07/17/18 07/18/18 1515:00 23:00 07:00 IntakeIntake Total 970 ml 470 ml 530 ml OutputOutput Total 1600 ml BalanceBalance 970 ml 470 ml -1070 ml Exam General: No acute distress. calm Neck: Supple Chest: Nontender Lungs: Clear to auscultation bilaterally no crackles rales or wheezing Heart: Normal S1-S2, Regular rate and rhythm. no murmurs Abdomen: Soft , nontender, nondistended , bowel sounds are present. No guarding no rebound tenderness Skin: no new rashes Medications Medication Current Medications IV Flush (NS 3 ml) 3 ml PER PROTOCOL IV ; Start 06/22/18 at 18:30 Ondansetron HCl (Zofran Inj) 4 mg Q6H PRN IV NAUSEA/VOMITING Last administered on 06/26/18 15:57; Admin Dose 4 MG; Start 06/22/18 at 18:30 Acetaminophen (Tylenol Tab) 650 mg Q6H PRN PO .PAIN 1-3 OR TEMP; Start 06/22/18 at 18:30 Enoxaparin Sodium (Lovenox) 30 mg DAILY SC Last administered on 07/18/18 08:57; Admin Dose 30 MG; Start 06/23/18 at 09:00 Phenazopyridine HCl (Pyridium) 200 mg TID PRN PO dysuria Last administered on 06/29/18 13:21; Admin Dose 200 MG; Start 06/22/18 at 18:30 Hydralazine HCl (Apresoline) 10 mg Q4H PRN IV SBP >160; Start 06/22/18 at 19:00 [facility] This patient villela... PRN PRN XX WOUND CARE; Start 06/23/18 at 00:30 Docusate Sodium (Colace) 100 mg BID PO Last administered on 07/08/18at 09:11; Admin Dose 100 MG; Start 06/23/18 at 21:00 Tamsulosin HCl (Flomax) 0.4 mg DAILY PO Last administered on 07/18/18at 08:56; Admin Dose 0.4 MG; Start 06/24/18 at 09:00 Labetalol HCl (Labetalol) 10 mg Q4 PRN IV sbp>160; Start 06/24/18 at 13:30 Lisinopril (Zestril) 5 mg DAILY PO Last administered on 07/18/18at 08:56; Admin Dose 5 MG; Start 06/29/18 at 09:00 Magnesium Hydroxide (Milk Of Mag) 30 ml DAILY PRN PO CONSTIPATION; Start 06/28/18 at 21:00 Pantoprazole (Protonix Tab) 40 mg DAILY@06 PO Last administered on 07/18/18at 06:47; Admin Dose 40 MG; Start 07/04/18 at 06:00 Carisoprodol (Soma) 350 mg Q6 PO Last administered on 07/18/18 12:03; Admin Dose 350 MG; Start 07/06/18 at 12:00 Polyethylene Glycol (Miralax) 17 gm BID PO ; Start 07/08/18 at 11:00 Ciprofloxacin (Cipro) 500 mg BID@06,18 PO Last administered on 07/18/18 06:47; Admin Dose 500 MG; Start 07/08/18 at 18:00; Stop 08/03/18 at 23:00 Ampicillin 50 ml @ 100 mls/hr Q8 IVPB Last administered on 07/18/18 05:55; Admin Dose 100 MLS/HR; Start 07/08/18 at 14:00; Stop 08/03/18 at 23:00 Magnesium Hydroxide (Milk Of Mag) 30 ml DAILY PO ; Start 07/08/18 at 19:30 Oxycodone/ Acetaminophen (Endocet (10/ 325)) 2 tab Q6H PRN PO MODERATE PAIN LEVEL 4-6 Last administered on 07/18/18 12:21; Admin Dose 2 TAB; Start 07/09/18 at 16:00 Hydromorphone HCl (Dilaudid) 1 mg Q4H PRN IV SEVERE PAIN LEVEL 7-10 Last administered on 07/18/18 10:13; Admin Dose 1 MG; Start 07/12/18 at 19:00 Docusate Sodium/ Ferrous Fumarate (Harry-Sequels) 1 tab BID PO Last adm inistered on 07/18/18 08:55; Admin Dose 1 TAB; Start 07/13/18 at 21:00; Stop 08/12/18 at 20:59 Ascorbic Acid (Vitamin C) 500 mg DAILY PO Last administered on 07/18/18 08:56; Admin Dose 500 MG; Start 07/15/18 at 12:00 Zinc Sulfate (Zinc Sulfate) 220 mg DAILY PO Last administered on 07/18/18 08:5 6; Admin Dose 220 MG; Start 07/15/18 at 11:00 Multivitamins Therapeutic (Theragran) 1 tab DAILY PO Last administered on 07/18/18 08:56; Admin Dose 1 TAB; Start 07/15/18 at 11:00 IV Flush (NS 10 ml) 10 ml PRN PRN IV IV PROTOCOL; Start 07/15/18 at 17:00 KINGA WILLETT MD Jul 18, 2018 13:32
--- NOTE | 2018-07-18 14:47 | CONS ---
Assessment/Plan Assessment/Plan Hospital Course (Demo Recall) ID PROGRESS NOTE CURRENT ABX: DAY #10.5 => CIPRO + AMPICILLIN S/P => Vanco IV + Cefepime + Flagyl s/p Zosyn 24H INTERVAL SUMMARY * NO new issues -- patient is resting comfortably, no c/o, no fevers, mood is calm MICRO/OTHER * 07/02/18 STRAIGHT CATH URINE CX(+) URINE CULTURE Final Organism 1 ENTEROCOCCUS SPECIES COLONY COUNT <10,000 CFU/ml ENT SPS M.I.C. RX --------- --- AMPICILLIN <=2 S CIPROFLOXACIN <=0.5 S LEVOFLOXACIN 0.5 S NITROFURANTOIN <=16 S PENICILLIN-G 4 S VANCOMYCIN 1 S * Repeat BCX 06/25/18 (-) * 06/25/18 Sacral Wound Cx: WOUND CULTURE Final Organism 1 ESCHERICHIA COLI QUANTITY SCANT GROWTH Organism 2 STAPHYLOCOCCUS AUREUS QUANTITY SCANT GROWTH Organism 3 ENTEROCOCCUS SPECIES QUANTITY SCANT GROWTH E COLI S AUREUS ENT SPS M.I.C. RX M.I.C. RX M.I.C. RX --------- --- --------- --- --------- --- AMPICILLIN <=2 S <=2 S CEFAZOLIN R S CEFOTAXIME S CIPROFLOXACIN <=0.25 S 1 S CLINDAMYCIN R DOXYCYCLINE S ERYTHROMYCIN >=8 R GENTAMICIN <=1 S LEVOFLOXACIN <=0.12 S 0.25 S OXACILLIN 0.5 S PENICILLIN-G >=0.5 R 8 S RIFAMPIN <=0.5 S VANCOMYCIN <=0.5 S 1 S TOBRAMYCIN <=1 S TRIMETHOPRIM/SULFAMETHOXAZOLE <=20 S <=10 S * 06/25/18 (+)MRSA --> Repeat (-)MRSA * 06/22/18 BCX (+) GNR Proteus Mirabilis * 06/22/18 Urine Cx (+) URINE CULTURE Final Organism 1 PROTEUS MIRABILIS COLONY COUNT >100,000 CFU/ml Organism 2 STAPHYLOCOCCUS AUREUS COLONY COUNT 50,000 - 60,000 CFU/ml P. MIRAB S AUREUS M.I.C. RX M.I.C. RX --------- --- --------- --- AMIKACIN <=2 S AMPICILLIN >=32 R CEFAZOLIN S CEFOTAXIME S CIPROFLOXACIN >=4 R 1 S DOXYCYCLINE S GENTAMICIN >=16 R LEVOFLOXACIN 4 I 0.5 S NITROFURANTOIN 128 R OXACILLIN 0.5 S PENICILLIN-G >=0.5 R RIFAMPIN <=0.5 S VANCOMYCIN <=0.5 S TOBRAMYCIN 8 I TRIMETHOPRIM/SULFAMETHOXAZOLE >=320 R <=10 S PHYSICAL EXAMINATION: GENERAL: Afebrile, VSS HEENT: AT, NC, anicteric NECK: Supple, trach midline CHEST: Equal chest rise bilaterally, without dyspnea on observation HEART: Pulse RRR ABDOMEN: Soft / NT EXTREMITIES: Warm, dry SKIN: No rash, no diaphoresis ID ASSESSMENT 63 yo M admit with: 1. Sepsis, present on admission=> RESOLVED 2. Proteus mirabilis bacteremia secondary to UTI => RESOLVED 3. Complicated UTI =Multidrug-resistant Proteus mirabilis pyelonephritis * 07/02/18 STRAIGHT CATH URINE CX(+) URINE CULTURE Final Organism 1 ENTEROCOCCUS SPECIES COLONY COUNT <10,000 CFU/ml 4. OBSTRUCTIVE UROPATHY W/ Bilateral hydronephrosis * Partially obstructive 10 mm stone in distal right ureter. * Urinary retention -- chronic FC in place 5. Neurogenic bladder 6. Multiple decubitus with questionable osteomyelitis of right atrium and right iliac bone 7. Obstructive uropathy 8. Homelessness 9. 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 ABX ALLERGIES: KNDA INVASIVES: PIV CURRENT ABX: DAY DAY #7.5 => CIPRO + AMPICILLIN S/P => Vanco IV + Cefepime + Flagyl s/p Zosyn ID RECOMMENDATIONS/PLAN: 1. Continue current ABX - to complete 6 weeks for Osteomyelitis == Last day 08/03/2018 2. DC Planning in process pending accepting facility . Consultation Date/Type/Reason Admit Date/Time Jun 22, 2018 at 18:09 Initial Consult Date 06/26/18 Requesting Provider: TRACE REBOLLEDO Date/Time of Note DATE: 07/18/18 TIME: 14:45 Exam/Review of Systems Exam Vitals Vital Signs Date Temp Pulse Resp B/P (MAP) Pulse Ox O2 O2 Flow FiO2 Time Delivery Rate 07/18/18 98.0 86 18 141/86 98 08:00 (104) 07/17/18 Room Air 08:00 Intake and Output 07/17/18 07/17/18 07/18/18 1515:00 23:00 07:00 IntakeIntake Total 970 ml 470 ml 530 ml OutputOutput Total 1600 ml BalanceBalance 970 ml 470 ml -1070 ml Results Result Diagram: 07/17/18 0554 07/16/18 0433 Medications Medication Current Medications IV Flush (NS 3 ml) 3 ml PER PROTOCOL IV ; Start 06/22/18 at 18:30 Ondansetron HCl (Zofran Inj) 4 mg Q6H PRN IV NAUSEA/VOMITING Last administered on 06/26/18at 15:57; Admin Dose 4 MG; Start 06/22/18 at 18:30 Acetaminophen (Tylenol Tab) 650 mg Q6H PRN PO .PAIN 1-3 OR TEMP; Start 06/22/18 at 18:30 Enoxaparin Sodium (Lovenox) 30 mg DAILY SC Last administered on 07/18/18at 08:57; Admin Dose 30 MG; Start 06/23/18 at 09:00 Phenazopyridine HCl (Pyridium) 200 mg TID PRN PO dysuria Last administered on 06/29/18at 13:21; Admin Dose 200 MG; Start 06/22/18 at 18:30 Hydralazine HCl (Apresoline) 10 mg Q4H PRN IV SBP >160; Start 06/22/18 at 19:00 Miscellaneous Information (Pending Santyl Order For Wound Care) This patient villela... PRN PRN XX WOUND CARE; Start 06/23/18 at 00:30 Docusate Sodium (Colace) 100 mg BID PO Last administered on 07/08/18at 09:11; Admin Dose 100 MG; Start 06/23/18 at 21:00 Tamsulosin HCl (Flomax) 0.4 mg DAILY PO Last administered on 07/18/18at 08:56; Admin Dose 0.4 MG; Start 06/24/18 at 09:00 Labetalol HCl (Labetalol) 10 mg Q4 PRN IV sbp>160; Start 06/24/18 at 13:30 Lisinopril (Zestril) 5 mg DAILY PO Last administered on 07/18/18 08:56; Admin Dose 5 MG; Start 06/29/18 at 09:00 Magnesium Hydroxide (Milk Of Mag) 30 ml DAILY PRN PO CONSTIPATION; Start 06/28/18 at 21:00 Pantoprazole (Protonix Tab) 40 mg DAILY@06 PO Last administered on 07/18/18 06:47; Admin Dose 40 MG; Start 07/04/18 at 06:00 Carisoprodol (Soma) 350 mg Q6 PO Last administered on 07/18/18 12:03; Admin Dose 350 MG; Start 07/06/18 at 12:00 Polyethylene Glycol (Miralax) 17 gm BID PO ; Start 07/08/18 at 11:00 Ciprofloxacin (Cipro) 500 mg BID@06,18 PO Last administered on 07/18/18 06:47; Admin Dose 500 MG; Start 07/08/18 at 18:00; Stop 08/03/18 at 23:00 Ampicillin 50 ml @ 100 mls/hr Q8 IVPB Last administered on 07/18/18 14:20; Admin Dose 100 MLS/HR; Start 07/08/18 at 14:00; Stop 08/03/18 at 23:00 Magnesium Hydroxide (Milk Of Mag) 30 ml DAILY PO ; Start 07/08/18 at 19:30 Oxycodone/ Acetaminophen (Endocet (10/ 325)) 2 tab Q6H PRN PO MODERATE PAIN LEVEL 4-6 Last administered on 07/18/18 12:21; Admin Dose 2 TAB; Start 07/09/18 at 16:00 Hydromorphone HCl (Dilaudid) 1 mg Q4H PRN IV SEVERE PAIN LEVEL 7-10 Last administered on 07/18/18 14:21; Admin Dose 1 MG; Start 07/12/18 at 19:00 Docusate Sodium/ Ferrous Fumarate (Harry-Sequels) 1 tab BID PO Last administered on 07/18/18 08:55; Admin Dose 1 TAB; Start 07/13/18 at 21:00; Stop 08/12/18 at 20:59 Ascorbic Acid (Vitamin C) 500 mg DAILY PO Last administered on 07/18/18 08:56; Admin Dose 500 MG; Start 07/15/18 at 12:00 Zinc Sulfate (Zinc Sulfate) 220 mg DAILY PO Last administered on 07/18/18 08:56; Admin Dose 220 MG; Start 07/15/18 at 11:00 Multivitamins Therapeutic (Theragran) 1 tab DAILY PO Last administered on 07/18/18 08:56; Admin Dose 1 TAB; Start 07/15/18 at 11:00 IV Flush (NS 10 ml) 10 ml PRN PRN IV IV PROTOCOL; Start 07/15/18 at 17:00 CAMDEN COOPER NP Jul 18, 2018 14:47
[2018-07-18 20:10] VITALS: BP 117/73; PULSE 96; RESP 16
[2018-07-19] MEDS: OXYCODONE/ACETAMINOPHEN (10/325) TAB PO PRN ×2 (01:05→21:43)
[2018-07-19] MEDS: HYDROmorphONE 1 MG/ML SYG IV PRN ×6 (02:30→23:30)
[2018-07-19 02:48] VITALS: BP 123/82; PULSE 94; RESP 18
[2018-07-19] MEDS: AMPICILLIN 1 GM/NS (PMX) 50 ML IVPB SCH ×3 (05:33→21:37)
[2018-07-19] MEDS: CIPROFLOXACIN 500 MG TAB PO SCH ×2 (05:33→18:07)
[2018-07-19] MEDS: CARISOPRODOL 350 MG TAB PO SCH ×4 (05:33→23:30)
[2018-07-19] MEDS: PANTOPRAZOLE (EC) 40 MG TAB PO SCH (05:33)
[2018-07-19 07:53] VITALS: BP 124/70; RESP 20
[2018-07-19] MEDS: POLYETHYLENE GLYCOL 17 GM PACKET PO SCH ×2 (09:00→20:45)
[2018-07-19] MEDS: MAGNESIUM HYDROXIDE 30ML CUP PO SCH (09:00)
[2018-07-19] MEDS: DOCUSATE SODIUM 100 MG CAP PO SCH ×2 (09:00→20:45)
[2018-07-19] MEDS: LISINOPRIL 5 MG TAB PO SCH (09:04)
[2018-07-19] MEDS: MULTIVITAMINS THERAPEUTIC TAB PO SCH (09:04)
[2018-07-19] MEDS: ENOXAPARIN 30 MG/0.3 ML SYG SC SCH (09:05)
[2018-07-19] MEDS: FERROUS FUMARATE (SR) TAB PO SCH ×2 (09:05→21:38)
[2018-07-19] MEDS: TAMSULOSIN (SR) 0.4 MG CAP PO SCH (09:05)
[2018-07-19] MEDS: ASCORBIC ACID 500 MG TAB PO SCH (09:05)
[2018-07-19] MEDS: ZINC SULFATE 220 MG CAP PO SCH (09:05)
--- NOTE | 2018-07-19 09:18 | PN ---
Date/Time of Note Date/Time of Note DATE: 07/19/18 TIME: 09:18 Assessment/Plan VTE Prophylaxis Risk score (from Ns)>0 risk: 7 SCD applied (from Nsg): Yes Pharmacological prophylaxis: LMWH Lines/Catheters IV Catheter Type (from Nrsg): PICC Line Central line still needed: Yes Urinary Cath still in place: Yes Reason Cath still needed: pres ulcer contaminated by urine Assessment/Plan Assessment/Plan 1. Sepsis secondary to UTI, decubitus ulcers, and OM- resolved - Continue all care - Remains stable and plans for IV antibiotics until 08/03/18. PICC line in place - ID on board and appreciate recommendations 2. UTI- resolved - Urology on board and appreciate consultation. Cortez remains in place given presence of decub ulcers. 3. Sacral decubitus ulcer with abscess- stable - Surgery consultation appreciated and continue current medical management and wound care. Debridement as needed - Start zinc sulf/Vit c/Theragen sup - Julius protein w/diet 4. Osteomyelitis of ischium - Will need to complete 6 weeks of IV antibiotics, with last dose on 08/03/18 5. Chronic back pain - continue pain control 6. Hypertension - stable 7. Neurogenic bladder - cortez in place - Urology on board 8. Disposition - Patient remains medically stable for discharge once find accepting facility. Result Diagram: 07/19/18 0546 07/19/18 0546 Results 24hrs Laboratory Tests Test 07/19/18 05:46 White Blood Count 6.9 Red Blood Count 3.72 L Hemoglobin 8.3 L Hematocrit 28.5 L Mean Corpuscular Volume 76.6 L Mean Corpuscular Hemoglobin 22.3 L Mean Corpuscular Hemoglobin Concent 29.1 L Red Cell Distribution Width 19.1 H Platelet Count 399 Mean Platelet Volume 8.5 Immature Granulocytes % 0.600 H Neutrophils % 64.4 Lymphocytes % 16.9 Monocytes % 11.6 H Eosinophils % 5.9 Basophils % 0.6 Nucleated Red Blood Cells % 0.0 Immature Granulocytes # 0.040 H Neutrophils # 4.5 Lymphocytes # 1.2 Monocytes # 0.8 Eosinophils # 0.4 Basophils # 0.0 Nucleated Red Blood Cells # 0.0 Sodium Level 137 Potassium Level 4.6 Chloride Level 104 Carbon Dioxide Level 27 Anion Gap 6 Blood Urea Nitrogen 28 H Creatinine 1.02 Glucose Level 98 Calcium Level 8.6 Phosphorus Level 4.2 Magnesium Level 1.9 Albumin 3.2 L Subjective 24 Hr Interval Summary Free Text/Dictation Patient denies any acute issues and remains calm today. No acute overnight events. Exam/Review of Systems Exam Vitals Vital Signs Date Temp Pulse Resp B/P (MAP) Pulse Ox O2 O2 Flow FiO2 Time Delivery Rate 07/19/18 98.2 20 124/70 94 Room Air 07:53 (88) 07/19/18 94 02:48 Intake and Output 07/18/18 07/18/18 07/19/18 1515:00 23:00 07:00 IntakeIntake Total 480 ml 1060 ml 630 ml OutputOutput Total 1500 ml BalanceBalance 480 ml -440 ml 630 ml Exam General: No acute distress. answering questions appropriately. lower extremity spasms noted Neck: Supple Chest: Nontender Lungs: Clear to auscultation bilaterally no crackles rales or wheezing Heart: Normal S1-S2, Regular rate and rhythm. no murmurs Abdomen: Soft , nontender, nondistended , bowel sounds are present. No guarding no rebound tenderness Skin: no new rashes Results Results 24hrs Laboratory Tests Test 07/19/18 05:46 White Blood Count 6.9 Red Blood Count 3.72 L Hemoglobin 8.3 L Hematocrit 28.5 L Mean Corpuscular Volume 76.6 L Mean Corpuscular Hemoglobin 22.3 L Mean Corpuscular Hemoglobin Concent 29.1 L Red Cell Distribution Width 19.1 H Platelet Count 399 Mean Platelet Volume 8.5 Immature Granulocytes % 0.600 H Neutrophils % 64.4 Lymphocytes % 16.9 Monocytes % 11.6 H Eosinophils % 5.9 Basophils % 0.6 Nucleated Red Blood Cells % 0.0 Immature Granulocytes # 0.040 H Neutrophils # 4.5 Lymphocytes # 1.2 Monocytes # 0.8 Eosinophils # 0.4 Basophils # 0.0 Nucleated Red Blood Cells # 0.0 Sodium Level 137 Potassium Level 4.6 Chloride Level 104 Carbon Dioxide Level 27 Anion Gap 6 Blood Urea Nitrogen 28 H Creatinine 1.02 Glucose Level 98 Calcium Level 8.6 Phosphorus Level 4.2 Magnesium Level 1.9 Albumin 3.2 L Medications Medication Current Medications IV Flush (NS 3 ml) 3 ml PER PROTOCOL IV ; Start 06/22/18 at 18:30 Ondansetron HCl (Zofran Inj) 4 mg Q6H PRN IV NAUSEA/VOMITING Last administered on 06/26/18 15:57; Admin Dose 4 MG; Start 06/22/18 at 18:30 Acetaminophen (Tylenol Tab) 650 mg Q6H PRN PO .PAIN 1-3 OR TEMP; Start 06/22/18 at 18:30 Enoxaparin Sodium (Lovenox) 30 mg DAILY SC Last administered on 07/19/18 09:05; Admin Dose 30 MG; Start 06/23/18 at 09:00 Phenazopyridine HCl (Pyridium) 200 mg TID PRN PO dysuria Last administered on 06/29/18 13:21; Admin Dose 200 MG; Start 06/22/18 at 18:30 Hydralazine HCl (Apresoline) 10 mg Q4H PRN IV SBP >160; Start 06/22/18 at 19:00 Miscellaneous Information (Pending Santyl Order For Wound Care) This patient villela... PRN PRN XX WOUND CARE; Start 06/23/18 at 00:30 Docusate Sodium (Colace) 100 mg BID PO Last administered on 07/08/18 09:11; A dmin Dose 100 MG; Start 06/23/18 at 21:00 Tamsulosin HCl (Flomax) 0.4 mg DAILY PO Last administered on 07/19/18 09:05; Admin Dose 0.4 MG; Start 06/24/18 at 09:00 Labetalol HCl (Labetalol) 10 mg Q4 PRN IV sbp>160; Start 06/24/18 at 13:30 Lisinopril (Zestril) 5 mg DAILY PO Last administered on 07/19/18 09:04; Admin Dose 5 MG; Start 06/29/18 at 09:00 Magnesium Hydroxide (Milk Of Mag) 30 ml DAILY PRN PO CONSTIPATION; Start 06/28/18 at 21:00 Pantoprazole (Protonix Tab) 40 mg DAILY@06 PO Last administered on 07/19/18 05:33; Admin Dose 40 MG; Start 07/04/18 at 06:00 Carisoprodol (Soma) 350 mg Q6 PO Last administered on 07/19/18 05:33; Admin Dose 350 MG; Start 07/06/18 at 12:00 Polyethylene Glycol (Miralax) 17 gm BID PO ; Start 07/08/18 at 11:00 Ciprofloxacin (Cipro) 500 mg BID@06,18 PO Last administered on 07/19/18 05:33; Admin Dose 500 MG; Start 07/08/18 at 18:00; Stop 08/03/18 at 23:00 Ampicillin 50 ml @ 100 mls/hr Q8 IVPB Last administered on 07/19/18 05:33; Admin Dose 100 MLS/HR; Start 07/08/18 at 14:00; Stop 08/03/18 at 23:00 Magnesium Hydroxide (Milk Of Mag) 30 ml DAILY PO ; Start 07/08/18 at 19:30 Oxycodone/ Acetaminophen (Endocet (10/ 325)) 2 tab Q6H PRN PO MODERATE PAIN LEVEL 4-6 Last administered on 07/19/18 01:05; Admin Dose 2 TAB; Start 07/09/18 at 16:00 Hydromorphone HCl (Dilaudid) 1 mg Q4H PRN IV SEVERE PAIN LEVEL 7-10 Last administered on 07/19/18 06:25; Admin Dose 1 MG; Start 07/12/18 at 19:00 Docusate Sodium/ Ferrous Fumarate (Harry-Sequels) 1 tab BID PO Last administered on 07/19/18 09:05; Admin Dose 1 TAB; Start 07/13/18 at 21:00; Stop 08/12/18 at 20:59 Ascorbic Acid (Vitamin C) 500 mg DAILY PO Last administered on 07/19/18 09:05; Admin Dose 500 MG; Start 07/15/18 at 12:00 Zinc Sulfate (Zinc Sulfate) 220 mg DAILY PO Last administered on 07/19/18 09:05; Admin Dose 220 MG; Start 07/15/18 at 11:00 Multivitamins Therapeutic (Theragran) 1 tab DAILY PO Last administered on 07/19/18 09:04; Admin Dose 1 TAB; Start 07/15/18 at 11:00 IV Flush (NS 10 ml) 10 ml PRN PRN IV IV PROTOCOL Last administered on 07/19/18 02:30; Admin Dose 10 ML; Start 07/15/18 at 17:00 KINGA WILLETT MD Jul 19, 2018 09:18
[2018-07-19 14:46] VITALS: BP 155/65; PULSE 101; RESP 19
--- NOTE | 2018-07-19 18:14 | PN ---
Date/Time of Note Date/Time of Note DATE: 07/19/18 TIME: 18:11 Assessment/Plan Lines/Catheters IV Catheter Type (from [facility]): PICC Line Cortez in Place (from [facility]): Yes Assessment/Plan Chief Complaint/Hosp Course 1. Multiple decubitus pressure ulcers; healing -Continue offloading -Continue nutritional optimization -Continue wound care > medihoney -Debridement as needed -Vitamin C -Continue osteomyelitis treatment> per id -SNF placement still pending 2. Decompressed bladder with significant thickening concerning for bladder neoplasm versus cystitis: Urethritis, possible pyelonephritis; leaking between self caths, indwelling cortez placed -per Urology 3. Labile mood with intermittent bursts of anger -Consider psych eval 4. Hypoalbuminemia -Encourage nutritional optimization 5. Hypertension history -Nutrition and medication optimization 6. Anemia without evidence of acute blood loss -Monitor 7. Acute on chronic back pain, nephrolithiasis -Medical optimization -Judicious fluid management 8. Constipation: Now with daily bowel movements -bowel optimization 9. Elevated CEA however patient refusing colonoscopy and further workup Thank you. Patient seen and examined in collaboration with Dr. Micah Hobbs. Subjective 24 Hr Interval Summary Cooperative with nursing treatments today. No fevers, chills, sob, congested cough, cp, palpitations, villela, dizziness, nausea, vomiting, diarrhea, dysuria, wound drainage or odor. Exam/Review of Systems Vital Signs Vitals Vital Signs Date Temp Pulse Resp B/P (MAP) Pulse Ox O2 O2 Flow FiO2 Time Delivery Rate 07/19/18 98.4 101 19 155/65 98 14:46 (95) 07/19/18 Room Air 07:53 Intake and Output 07/18/18 07/18/18 07/19/18 1515:00 23:00 07:00 IntakeIntake Total 480 ml 1060 ml 630 ml OutputOutput Total 1500 ml BalanceBalance 480 ml -440 ml 630 ml Exam Free Text/Dictation Constitutional: alert, oriented No distress Psych: No anxiety, labile Head: normocephalic, atraumatic Eyes: nl conjunctiva, EOMI, PERRL; No icteric ENMT: nl external ears & nose, nl lips & teeth, mucosa pink and moist Neck: supple, non-tender; No jvd Respiratory: normal air movement; No congested cough, No labored breathing, No wheezing Cardiovascular: regular rate and rhythm; No edema Gastrointestinal: soft, non-tender; No distended, No rebound or guarding Genitourinary - Male: nl penis, nl scrotum Musculoskeletal: No nl gait and stance, No joint tenderness Extremities: normal pulses; No calf tenderness, No edema, No tenderness Neurological: nl mental status, nl speech; No nl strength Skin: rash or lesions (Decubitus pressure ulcers: packed, no odor/ no drainage. Right ischium : no odor/small drainage); No ecchymosis Lymph: nl lymph nodes Results Result Diagram: 07/19/18 0546 07/19/18 0546 TIFFANIE KLEIN NP Jul 19, 2018 18:14
--- NOTE | 2018-07-19 23:01 | CONS ---
Assessment/Plan Assessment/Plan Hospital Course (Demo Recall) ID PROGRESS NOTE CURRENT ABX: DAY #11.5 => CIPRO + AMPICILLIN S/P => Vanco IV + Cefepime + Flagyl s/p Zosyn 24H INTERVAL SUMMARY * Patient is sleeping, VSS, no fevers, without distress on observation -- not disturbed * DC planning pending placement MICRO/OTHER * 07/02/18 STRAIGHT CATH URINE CX(+) URINE CULTURE Final Organism 1 ENTEROCOCCUS SPECIES COLONY COUNT <10,000 CFU/ml ENT SPS M.I.C. RX --------- --- AMPICILLIN <=2 S CIPROFLOXACIN <=0.5 S LEVOFLOXACIN 0.5 S NITROFURANTOIN <=16 S PENICILLIN-G 4 S VANCOMYCIN 1 S * Repeat BCX 06/25/18 (-) * 06/25/18 Sacral Wound Cx: WOUND CULTURE Final Organism 1 ESCHERICHIA COLI QUANTITY SCANT GROWTH Organism 2 STAPHYLOCOCCUS AUREUS QUANTITY SCANT GROWTH Organism 3 ENTEROCOCCUS SPECIES QUANTITY SCANT GROWTH E COLI S AUREUS ENT SPS M.I.C. RX M.I.C. RX M.I.C. RX --------- --- --------- --- --------- --- AMPICILLIN <=2 S <=2 S CEFAZOLIN R S CEFOTAXIME S CIPROFLOXACIN <=0.25 S 1 S CLINDAMYCIN R DOXYCYCLINE S ERYTHROMYCIN >=8 R GENTAMICIN <=1 S LEVOFLOXACIN <=0.12 S 0.25 S OXACILLIN 0.5 S PENICILLIN-G >=0.5 R 8 S RIFAMPIN <=0.5 S VANCOMYCIN <=0.5 S 1 S TOBRAMYCIN <=1 S TRIMETHOPRIM/SULFAMETHOXAZOLE <=20 S <=10 S * 06/25/18 (+)MRSA --> Repeat (-)MRSA * 06/22/18 BCX (+) GNR Proteus Mirabilis * 06/22/18 Urine Cx (+) URINE CULTURE Final Organism 1 PROTEUS MIRABILIS COLONY COUNT >100,000 CFU/ml Organism 2 STAPHYLOCOCCUS AUREUS COLONY COUNT 50,000 - 60,000 CFU/ml P. MIRAB S AUREUS M.I.C. RX M.I.C. RX --------- --- --------- --- AMIKACIN <=2 S AMPICILLIN >=32 R CEFAZOLIN S CEFOTAXIME S CIPROFLOXACIN >=4 R 1 S DOXYCYCLINE S GENTAMICIN >=16 R LEVOFLOXACIN 4 I 0.5 S NITROFURANTOIN 128 R OXACILLIN 0.5 S PENICILLIN-G >=0.5 R RIFAMPIN <=0.5 S VANCOMYCIN <=0.5 S TOBRAMYCIN 8 I TRIMETHOPRIM/SULFAMETHOXAZOLE >=320 R <=10 S PHYSICAL EXAMINATION: GENERAL: Afebrile, VSS HEENT: AT, NC, anicteric NECK: Supple, trach midline CHEST: Equal chest rise bilaterally, without dyspnea on observation HEART: Pulse RRR ABDOMEN: Soft / NT EXTREMITIES: Warm, dry SKIN: No rash, no diaphoresis ID ASSESSMENT 63 yo M admit with: 1. Sepsis, present on admission=> RESOLVED 2. Proteus mirabilis bacteremia secondary to UTI => RESOLVED 3. Complicated UTI =Multidrug-resistant Proteus mirabilis pyelonephritis * 07/02/18 STRAIGHT CATH URINE CX(+) URINE CULTURE Final Organism 1 ENTEROCOCCUS SPECIES COLONY COUNT <10,000 CFU/ml 4. OBSTRUCTIVE UROPATHY W/ Bilateral hydronephrosis * Partially obstructive 10 mm stone in distal right ureter. * Urinary retention -- chronic FC in place 5. Neurogenic bladder 6. Multiple decubitus with questionable osteomyelitis of right atrium and right iliac bone 7. Obstructive uropathy 8. Homelessness 9. 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 ABX ALLERGIES: KNDA INVASIVES: PIV CURRENT ABX: DAY DAY #11.5 => CIPRO + AMPICILLIN S/P => Vanco IV + Cefepime + Flagyl s/p Zosyn ID RECOMMENDATIONS/PLAN: 1. Continue current ABX - to complete 6 weeks for Osteomyelitis == Last day 08/03/2018 2. DC Planning in process pending accepting facility . Consultation Date/Type/Reason Admit Date/Time Jun 22, 2018 at 18:09 Initial Consult Date 1/31/19 Requesting Provider: TRACE REBOLLEDO Date/Time of Note DATE: 07/19/18 TIME: 22:59 Exam/Review of Systems Exam Vitals Vital Signs Date Temp Pulse Resp B/P (MAP) Pulse Ox O2 O2 Flow FiO2 Time Delivery Rate 07/19/18 98.4 101 19 155/65 98 14:46 (95) 07/19/18 Room Air 07:53 Intake and Output 07/18/18 07/18/18 07/19/18 1515:00 23:00 07:00 IntakeIntake Total 480 ml 1060 ml 630 ml OutputOutput Total 1500 ml BalanceBalance 480 ml -440 ml 630 ml Results Result Diagram: 07/19/18 0546 07/19/18 0546 Results 24hrs Laboratory Tests Test 07/19/18 05:46 White Blood Count 6.9 Red Blood Count 3.72 L Hemoglobin 8.3 L Hematocrit 28.5 L Mean Corpuscular Volume 76.6 L Mean Corpuscular Hemoglobin 22.3 L Mean Corpuscular Hemoglobin Concent 29.1 L Red Cell Distribution Width 19.1 H Platelet Count 399 Mean Platelet Volume 8.5 Immature Granulocytes % 0.600 H Neutrophils % 64.4 Lymphocytes % 16.9 Monocytes % 11.6 H Eosinophils % 5.9 Basophils % 0.6 Nucleated Red Blood Cells % 0.0 Immature Granulocytes # 0.040 H Neutrophils # 4.5 Lymphocytes # 1.2 Monocytes # 0.8 Eosinophils # 0.4 Basophils # 0.0 Nucleated Red Blood Cells # 0.0 Sodium Level 137 Potassium Level 4.6 Chloride Level 104 Carbon Dioxide Level 27 Anion Gap 6 Blood Urea Nitrogen 28 H Creatinine 1.02 Glucose Level 98 Calcium Level 8.6 Phosphorus Level 4.2 Magnesium Level 1.9 Albumin 3.2 L Medications Medication Current Medications IV Flush (NS 3 ml) 3 ml PER PROTOCOL IV ; Start 06/22/18 at 18:30 Ondansetron HCl (Zofran Inj) 4 mg Q6H PRN IV NAUSEA/VOMITING Last administered on 06/26/18at 15:57; Admin Dose 4 MG; Start 06/22/18 at 18:30 Acetaminophen (Tylenol Tab) 650 mg Q6H PRN PO .PAIN 1-3 OR TEMP; Start 06/22/18 at 18:30 Enoxaparin Sodium (Lovenox) 30 mg DAILY SC Last administered on 07/19/18 09:05; Admin Dose 30 MG; Start 06/23/18 at 09:00 Phenazopyridine HCl (Pyridium) 200 mg TID PRN PO dysuria Last administered on 06/29/18 13:21; Admin Dose 200 MG; Start 06/22/18 at 18:30 Hydralazine HCl (Apresoline) 10 mg Q4H PRN IV SBP >160; Start 06/22/18 at 19:00 Miscellaneous Information (Pending Santyl Order For Wound Care) This patient villela... PRN PRN XX WOUND CARE; Start 06/23/18 at 00:30 Docusate Sodium (Colace) 100 mg BID PO Last administered on 07/08/18 09:11; Admin Dose 100 MG; Start 06/23/18 at 21:00 Tamsulosin HCl (Flomax) 0.4 mg DAILY PO Last administered on 07/19/18 09:05; Admin Dose 0.4 MG; Start 06/24/18 at 09:00 Labetalol HCl (Labetalol) 10 mg Q4 PRN IV sbp>160; Start 06/24/18 at 13:30 Lisinopril (Zestril) 5 mg DAILY PO Last administered on 07/19/18 09:04; Admin Dose 5 MG; Start 06/29/18 at 09:00 Magnesium Hydroxide (Milk Of Mag) 30 ml DAILY PRN PO CONSTIPATION; Start 06/28/18 at 21:00 Pantoprazole (Protonix Tab) 40 mg DAILY@06 PO Last administered on 07/19/18 05:33; Admin Dose 40 MG; Start 07/04/18 at 06:00 Carisoprodol (Soma) 350 mg Q6 PO Last administered on 07/19/18 18:07; Admin Dose 350 MG; Start 07/06/18 at 12:00 Polyethylene Glycol (Miralax) 17 gm BID PO ; Start 07/08/18 at 11:00 Ciprofloxacin (Cipro) 500 mg BID@06,18 PO Last administered on 07/19/18 18:07; Admin Dose 500 MG; Start 07/08/18 at 18:00; Stop 08/03/18 at 23:00 Ampicillin 50 ml @ 100 mls/hr Q8 IVPB Last administered on 07/19/18 21:37; Ad min Dose 100 MLS/HR; Start 07/08/18 at 14:00; Stop 08/03/18 at 23:00 Magnesium Hydroxide (Milk Of Mag) 30 ml DAILY PO ; Start 07/08/18 at 19:30 Oxycodone/ Acetaminophen (Endocet (10/ 325)) 2 tab Q6H PRN PO MODERATE PAIN LEVEL 4-6 Last administered on 07/19/18 21:43; Admin Dose 2 TAB; Start 07/09/18 at 16:00 Hydromorphone HCl (Dilaudid) 1 mg Q4H PRN IV SEVERE PAIN LEVEL 7-10 Last administered on 07/19/18 19:27; Admin Dose 1 MG; Start 07/12/18 at 19:00 Docusate Sodium/ Ferrous Fumarate (Harry-Sequels) 1 tab BID PO Last administered on 07/19/18 21:38; Admin Dose 1 TAB; Start 07/13/18 at 21:00; Stop 08/12/18 at 20:59 Ascorbic Acid (Vitamin C) 500 mg DAILY PO Last administered on 07/19/18 09:05; Admin Dose 500 MG; Start 07/15/18 at 12:00 Zinc Sulfate (Zinc Sulfate) 220 mg DAILY PO Last administered on 07/19/18 09:05; Admin Dose 220 MG; Start 07/15/18 at 11:00 Multivitamins Therapeutic (Theragran) 1 tab DAILY PO Last administered on 07/19/18 09:04; Admin Dose 1 TAB; Start 07/15/18 at 11:00 IV Flush (NS 10 ml) 10 ml PRN PRN IV IV PROTOCOL Last administered on 07/19/18 02:30; Admin Dose 10 ML; Start 07/15/18 at 17:00 CAMDEN COOPER NP Jul 19, 2018 23:01
[2018-07-20 01:50] VITALS: BP 141/84; PULSE 91; RESP 20
[2018-07-20] MEDS: HYDROmorphONE 1 MG/ML SYG IV PRN ×5 (03:32→20:48)
[2018-07-20] MEDS: PANTOPRAZOLE (EC) 40 MG TAB PO SCH (06:15)
[2018-07-20] MEDS: CARISOPRODOL 350 MG TAB PO SCH ×4 (06:15→23:57)
[2018-07-20] MEDS: AMPICILLIN 1 GM/NS (PMX) 50 ML IVPB SCH ×3 (06:16→21:07)
[2018-07-20] MEDS: CIPROFLOXACIN 500 MG TAB PO SCH ×2 (06:16→16:49)
[2018-07-20 07:30] VITALS: BP 127/85; PULSE 92; RESP 20
[2018-07-20] MEDS: ASCORBIC ACID 500 MG TAB PO SCH (08:15)
[2018-07-20] MEDS: ZINC SULFATE 220 MG CAP PO SCH (08:15)
[2018-07-20] MEDS: FERROUS FUMARATE (SR) TAB PO SCH ×2 (08:15→20:48)
[2018-07-20] MEDS: MULTIVITAMINS THERAPEUTIC TAB PO SCH (08:15)
[2018-07-20] MEDS: TAMSULOSIN (SR) 0.4 MG CAP PO SCH (08:15)
[2018-07-20] MEDS: LISINOPRIL 5 MG TAB PO SCH (08:17)
[2018-07-20] MEDS: ENOXAPARIN 30 MG/0.3 ML SYG SC SCH (08:18)
--- NOTE | 2018-07-20 08:23 | PN ---
Date/Time of Note Date/Time of Note DATE: 07/20/18 TIME: 08:23 Assessment/Plan VTE Prophylaxis Risk score (from Nsg)>0 risk: 6 SCD applied (from Nsg): Yes Pharmacological prophylaxis: LMWH Lines/Catheters IV Catheter Type (from Nrsg): PICC Line Central line still needed: Yes Urinary Cath still in place: Yes Reason Cath still needed: pres ulcer contaminated by urine Assessment/Plan Assessment/Plan 1. Sepsis secondary to UTI, decubitus ulcers, and OM- resolved - Continue all care - Remains stable and plans for IV antibiotics until 08/03/18. PICC line in place - ID on board and appreciate recommendations 2. UTI- resolved - Urology on board and appreciate consultation. Cortez remains in place given presence of decub ulcers. 3. Sacral decubitus ulcer with abscess- stable - Surgery consultation appreciated and continue current medical management and wound care. Debridement as needed - Start zinc sulf/Vit c/Theragen sup - Julius protein w/diet 4. Osteomyelitis of ischium - Will need to complete 6 weeks of IV antibiotics, with last dose on 08/03/18 5. Chronic back pain - continue pain control 6. Hypertension - stable 7. Neurogenic bladder - cortez in place - Urology on board 8. Disposition - Patient remains medically stable for discharge once find accepting facility. Result Diagram: 07/19/18 0546 07/19/18 0546 Subjective 24 Hr Interval Summary Free Text/Dictation Patient is complaining of pain and muscle spasms. No acute overnight events. Exam/Review of Systems Exam Vitals Vital Signs Date Temp Pulse Resp B/P (MAP) Pulse Ox O2 O2 Flow FiO2 Time Delivery Rate 07/20/18 98.1 92 20 127/85 98 Room Air 07:30 (99) Intake and Output 07/19/18 07/19/18 07/20/18 1414:59 22:59 06:59 IntakeIntake Total 720 ml 1300 ml 450 ml OutputOutput Total 1400 ml 950 ml 1250 ml BalanceBalance -680 ml 350 ml -800 ml Exam General: No acute distress. answering questions appropriately. lower extremity spasms noted Neck: Supple Chest: Nontender Lungs: Clear to auscultation bilaterally no crackles rales or wheezing Heart: Normal S1-S2, Regular rate and rhythm. no murmurs Abdomen: Soft , nontender, nondistended , bowel sounds are present. No guarding no rebound tenderness Skin: no new rashes Medications Medication Current Medications IV Flush (NS 3 ml) 3 ml PER PROTOCOL IV ; Start 06/22/18 at 18:30 Ondansetron HCl (Zofran Inj) 4 mg Q6H PRN IV NAUSEA/VOMITING Last administered on 06/26/18at 15:57; Admin Dose 4 MG; Start 06/22/18 at 18:30 Acetaminophen (Tylenol Tab) 650 mg Q6H PRN PO .PAIN 1-3 OR TEMP; Start 06/22/18 at 18:30 Enoxaparin Sodium (Lovenox) 30 mg DAILY SC Last administered on 07/20/18 08:18; Admin Dose 30 MG; Start 06/23/18 at 09:00 Phenazopyridine HCl (Pyridium) 200 mg TID PRN PO dysuria Last administered on 06/29/18 13:21; Admin Dose 200 MG; Start 06/22/18 at 18:30 Hydralazine HCl (Apresoline) 10 mg Q4H PRN IV SBP >160; Start 06/22/18 at 19:00 Miscellaneous Information (Pending Santyl Order For Wound Care) This patient villela... PRN PRN XX WOUND CARE; Start 06/23/18 at 00:30 Docusate Sodium (Colace) 100 mg BID PO Last administered on 07/08/18at 09:11; Admin Dose 100 MG; Start 06/23/18 at 21:00 Tamsulosin HCl (Flomax) 0.4 mg DAILY PO Last administered on 07/20/18at 08:15; Admin Dose 0.4 MG; Start 06/24/18 at 09:00 Labetalol HCl (Labetalol) 10 mg Q4 PRN IV sbp>160; Start 06/24/18 at 13:30 Lisinopril (Zestril) 5 mg DAILY PO Last administered on 07/20/18 08:17; Admin Dose 5 MG; Start 06/29/18 at 09:00 Magnesium Hydroxide (Milk Of Mag) 30 ml DAILY PRN PO CONSTIPATION; Start 06/28/18 at 21:00 Pantoprazole (Protonix Tab) 40 mg DAILY@06 PO Last administered on 07/20/18at 06:15; Admin Dose 40 MG; Start 07/04/18 at 06:00 Carisoprodol (Soma) 350 mg Q6 PO Last administered on 07/20/18 06:15; Admin Dose 350 MG; Start 07/06/18 at 12:00 Polyethylene Glycol (Miralax) 17 gm BID PO ; Start 07/08/18 at 11:00 Ciprofloxacin (Cipro) 500 mg BID@06,18 PO Last administered on 07/20/18 06:16; Admin Dose 500 MG; Start 07/08/18 at 18:00; Stop 08/03/18 at 23:00 Ampicillin 50 ml @ 100 mls/hr Q8 IVPB Last administered on 07/20/18 06:16; Admin Dose 100 MLS/HR; Start 07/08/18 at 14:00; Stop 08/03/18 at 23:00 Magnesium Hydroxide (Milk Of Mag) 30 ml DAILY PO ; Start 07/08/18 at 19:30 Oxycodone/ Acetaminophen (Endocet (10/ 325)) 2 tab Q6H PRN PO MODERATE PAIN LEVEL 4-6 Last administered on 07/19/18at 21:43; Admin Dose 2 TAB; Start 07/09/18 at 16:00 Hydromorphone HCl (Dilaudid) 1 mg Q4H PRN IV SEVERE PAIN LEVEL 7-10 Last administered on 07/20/18 08:11; Admin Dose 1 MG; Start 07/12/18 at 19:00 Docusate Sodium/ Ferrous Fumarate (Harry-Sequels) 1 tab BID PO Last administered on 07/20/18 08:15; Admin Dose 1 TAB; Start 07/13/18 at 21:00; St op 08/12/18 at 20:59 Ascorbic Acid (Vitamin C) 500 mg DAILY PO Last administered on 07/20/18 08:15; Admin Dose 500 MG; Start 07/15/18 at 12:00 Zinc Sulfate (Zinc Sulfate) 220 mg DAILY PO Last administered on 07/20/18 08:15; Admin Dose 220 MG; Start 07/15/18 at 11:00 Multivitamins Therapeutic (Theragran) 1 tab DAILY PO Last administered on 07/20/18 08:15; Admin Dose 1 TAB; Start 07/15/18 at 11:00 IV Flush (NS 10 ml) 10 ml PRN PRN IV IV PROTOCOL Last administered on 07/19/18at 02:30; Admin Dose 10 ML; Start 07/15/18 at 17:00 KINGA WILLETT MD Jul 20, 2018 08:23
[2018-07-20] MEDS: DOCUSATE SODIUM 100 MG CAP PO SCH ×2 (09:00→20:48)
[2018-07-20] MEDS: MAGNESIUM HYDROXIDE 30ML CUP PO SCH (09:00)
[2018-07-20] MEDS: POLYETHYLENE GLYCOL 17 GM PACKET PO SCH ×2 (09:00→20:48)
--- NOTE | 2018-07-20 11:28 | PN ---
Date/Time of Note Date/Time of Note DATE: 07/20/18 TIME: 11:27 Assessment/Plan Lines/Catheters IV Catheter Type (from [facility]): PICC Line Cortez in Place (from [facility]): Yes Assessment/Plan Chief Complaint/Hosp Course 1. Multiple decubitus pressure ulcers; healing -Continue offloading & nutritional optimization -Continue same wound care > medihoney -Debridement as needed -Vitamin C -Continue osteomyelitis treatment> per id -SNF placement still pending 2. Decompressed bladder with significant thickening concerning for bladder neoplasm versus cystitis: Urethritis, possible pyelonephritis; leaking between self caths, indwelling cortez placed -per Urology 3. Labile mood with intermittent bursts of anger -psych eval noted, refusing meds 4. Hypoalbuminemia -Encourage nutritional optimization 5. Hypertension history -Nutrition and medication optimization 6. Anemia without evidence of acute blood loss -Monitor 7. Acute on chronic back pain, nephrolithiasis -Medical optimization -Judicious fluid management 8. Constipation: Now with daily bowel movements -bowel optimization 9. Elevated CEA however patient refusing colonoscopy and further workup Thank you. Patient seen and examined in collaboration with Dr. Micah Hobbs. Subjective 24 Hr Interval Summary No acute complaints. No fevers, chills, sob, congested cough, cp, palpitations, villela, dizziness, n/v/d/dysuria. Exam/Review of Systems Vital Signs Vitals Vital Signs Date Temp Pulse Resp B/P (MAP) Pulse Ox O2 O2 Flow FiO2 Time Delivery Rate 07/20/18 98.1 92 20 127/85 98 Room Air 07:30 (99) Intake and Output 07/19/18 07/19/18 07/20/18 1515:00 23:00 07:00 IntakeIntake Total 720 ml 1300 ml 450 ml OutputOutput Total 1400 ml 950 ml 1250 ml BalanceBalance -680 ml 350 ml -800 ml Exam Free Text/Dictation Constitutional: alert, oriented No distress Psych: No anxiety, labile Head: normocephalic, atraumatic Eyes: nl conjunctiva, EOMI, PERRL; No icteric ENMT: nl external ears & nose, nl lips & teeth, mucosa pink and moist Neck: supple, non-tender; No jvd Respiratory: normal air movement; No congested cough, No labored breathing, No wheezing Cardiovascular: regular rate and rhythm; No edema Gastrointestinal: soft, non-tender; No distended, No rebound or guarding Genitourinary - Male: nl penis, nl scrotum Musculoskeletal: No nl gait and stance, No joint tenderness Extremities: normal pulses; No calf tenderness, No edema, No tenderness Neurological: nl mental status, nl speech; No nl strength Skin: rash or lesions (Decubitus pressure ulcers: min slough, no odor/ no drainage. Right ischium : no odor/small drainage); No ecchymosis Lymph: nl lymph nodes Results Result Diagram: 07/19/18 0546 07/19/18 0546 TIFFANIE KLEIN NP Jul 20, 2018 11:28
--- NOTE | 2018-07-20 13:30 | CONS ---
Assessment/Plan Assessment/Plan Hospital Course (Demo Recall) ID PROGRESS NOTE CURRENT ABX: DAY #12.5 => CIPRO + AMPICILLIN S/P => Vanco IV + Cefepime + Flagyl s/p Zosyn 24H INTERVAL SUMMARY * CLINICALLY STATUS QUO -- NO NEW ISSUES, NO F/C/N/V/D * DC planning pending placement -- patient w/mood disorder --chronic anger and irritability MICRO/OTHER * 07/02/18 STRAIGHT CATH URINE CX(+) URINE CULTURE Final Organism 1 ENTEROCOCCUS SPECIES COLONY COUNT <10,000 CFU/ml ENT SPS M.I.C. RX --------- --- AMPICILLIN <=2 S CIPROFLOXACIN <=0.5 S LEVOFLOXACIN 0.5 S NITROFURANTOIN <=16 S PENICILLIN-G 4 S VANCOMYCIN 1 S * Repeat BCX 06/25/18 (-) * 06/25/18 Sacral Wound Cx: WOUND CULTURE Final Organism 1 ESCHERICHIA COLI QUANTITY SCANT GROWTH Organism 2 STAPHYLOCOCCUS AUREUS QUANTITY SCANT GROWTH Organism 3 ENTEROCOCCUS SPECIES QUANTITY SCANT GROWTH E COLI S AUREUS ENT SPS M.I.C. RX M.I.C. RX M.I.C. RX --------- --- --------- --- --------- --- AMPICILLIN <=2 S <=2 S CEFAZOLIN R S CEFOTAXIME S CIPROFLOXACIN <=0.25 S 1 S CLINDAMYCIN R DOXYCYCLINE S ERYTHROMYCIN >=8 R GENTAMICIN <=1 S LEVOFLOXACIN <=0.12 S 0.25 S OXACILLIN 0.5 S PENICILLIN-G >=0.5 R 8 S RIFAMPIN <=0.5 S VANCOMYCIN <=0.5 S 1 S TOBRAMYCIN <=1 S TRIMETHOPRIM/SULFAMETHOXAZOLE <=20 S <=10 S * 06/25/18 (+)MRSA --> Repeat (-)MRSA * 06/22/18 BCX (+) GNR Proteus Mirabilis * 06/22/18 Urine Cx (+) URINE CULTURE Final Organism 1 PROTEUS MIRABILIS COLONY COUNT >100,000 CFU/ml Organism 2 STAPHYLOCOCCUS AUREUS COLONY COUNT 50,000 - 60,000 CFU/ml P. MIRAB S AUREUS M.I.C. RX M.I.C. RX --------- --- --------- --- AMIKACIN <=2 S AMPICILLIN >=32 R CEFAZOLIN S CEFOTAXIME S CIPROFLOXACIN >=4 R 1 S DOXYCYCLINE S GENTAMICIN >=16 R LEVOFLOXACIN 4 I 0.5 S NITROFURANTOIN 128 R OXACILLIN 0.5 S PENICILLIN-G >=0.5 R RIFAMPIN <=0.5 S VANCOMYCIN <=0.5 S TOBRAMYCIN 8 I TRIMETHOPRIM/SULFAMETHOXAZOLE >=320 R <=10 S PHYSICAL EXAMINATION: GENERAL: Afebrile, VSS HEENT: AT, NC, anicteric NECK: Supple, trach midline CHEST: Equal chest rise bilaterally, without dyspnea on observation HEART: Pulse RRR ABDOMEN: Soft / NT EXTREMITIES: Warm, dry SKIN: No rash, no diaphoresis ID ASSESSMENT 63 yo M admit with: 1. Sepsis, present on admission=> RESOLVED 2. Proteus mirabilis bacteremia secondary to UTI => RESOLVED 3. Complicated UTI =Multidrug-resistant Proteus mirabilis pyelonephritis * 07/02/18 STRAIGHT CATH URINE CX(+) URINE CULTURE Final Organism 1 ENTEROCOCCUS SPECIES COLONY COUNT <10,000 CFU/ml 4. OBSTRUCTIVE UROPATHY W/ Bilateral hydronephrosis * Partially obstructive 10 mm stone in distal right ureter. * Urinary retention -- chronic FC in place 5. Neurogenic bladder 6. Multiple decubitus with questionable osteomyelitis of right atrium and right iliac bone 7. Obstructive uropathy 8. Homelessness 9. Incomplete paraplegia (-)MRSA Nares ABX ALLERGIES: KNDA INVASIVES: PIV CURRENT ABX: DAY DAY #12.5 => CIPRO + AMPICILLIN S/P => Vanco IV + Cefepime + Flagyl s/p Zosyn ID RECOMMENDATIONS/PLAN: 1. Continue current ABX - to complete 6 weeks for Osteomyelitis == Last day 08/03/2018 2. DC Planning in process pending accepting facility . Consultation Date/Type/Reason Admit Date/Time Jun 22, 2018 at 18:09 Initial Consult Date 06/26/18 Requesting Provider: TRACE REBOLLEDO Date/Time of Note DATE: 07/20/18 TIME: 13:28 Exam/Review of Systems Exam Vitals Vital Signs Date Temp Pulse Resp B/P (MAP) Pulse Ox O2 O2 Flow FiO2 Time Delivery Rate 07/20/18 98.1 92 20 127/85 98 Room Air 07:30 (99) Intake and Output 07/19/18 07/19/18 07/20/18 1515:00 23:00 07:00 IntakeIntake Total 720 ml 1300 ml 450 ml OutputOutput Total 1400 ml 950 ml 1250 ml BalanceBalance -680 ml 350 ml -800 ml Results Result Diagram: 07/19/18 0546 07/19/18 0546 Medications Medication Current Medications IV Flush (NS 3 ml) 3 ml PER PROTOCOL IV ; Start 06/22/18 at 18:30 Ondansetron HCl (Zofran Inj) 4 mg Q6H PRN IV NAUSEA/VOMITING Last administered on 06/26/18at 15:57; Admin Dose 4 MG; Start 06/22/18 at 18:30 Acetaminophen (Tylenol Tab) 650 mg Q6H PRN PO .PAIN 1-3 OR TEMP; Start 06/22/18 at 18:30 Enoxaparin Sodium (Lovenox) 30 mg DAILY SC Last administered on 07/20/18at 08:18; Admin Dose 30 MG; Start 06/23/18 at 09:00 Hydralazine HCl (Apresoline) 10 mg Q4H PRN IV SBP >160; Start 06/22/18 at 19:00 Miscellaneous Information (Pending Santyl Order For Wound Care) This patient villela... PRN PRN XX WOUND CARE; Start 06/23/18 at 00:30 Docusate Sodium (Colace) 100 mg BID PO Last administered on 07/08/18at 09:11; Admin Dose 100 MG; Start 06/23/18 at 21:00 Tamsulosin HCl (Flomax) 0.4 mg DAILY PO Last administered on 07/20/18at 08:15; Admin Dose 0.4 MG; Start 06/24/18 at 09:00 Labetalol HCl (Labetalol) 10 mg Q4 PRN IV sbp>160; Start 06/24/18 at 13:30 Lisinopril (Zestril) 5 mg DAILY PO Last administered on 07/20/18 08:17; Admin Dose 5 MG; Start 06/29/18 at 09:00 Magnesium Hydroxide (Milk Of Mag) 30 ml DAILY PRN PO CONSTIPATION; Start 06/28/18 at 21:00 Pantoprazole (Protonix Tab) 40 mg DAILY@06 PO Last administered on 07/20/18 06:15; Admin Dose 40 MG; Start 07/04/18 at 06:00 Carisoprodol (Soma) 350 mg Q6 PO Last administered on 07/20/18 12:43; Admin Dose 350 MG; Start 07/06/18 at 12:00 Polyethylene Glycol (Miralax) 17 gm BID PO ; Start 07/08/18 at 11:00 Ciprofloxacin (Cipro) 500 mg BID@,18 PO Last administered on 07/20/18 06:16; Admin Dose 500 MG; Start 07/08/18 at 18:00; Stop 08/03/18 at 23:00 Ampicillin 50 ml @ 100 mls/hr Q8 IVPB Last administered on 07/20/18 06:16; Admin Dose 100 MLS/HR; Start 07/08/18 at 14:00; Stop 08/03/18 at 23:00 Magnesium Hydroxide (Milk Of Mag) 30 ml DAILY PO ; Start 07/08/18 at 19:30 Oxycodone/ Acetaminophen (Endocet (10/ 325)) 2 tab Q6H PRN PO MODERATE PAIN LEVEL 4-6 Last administered on 07/19/18 21:43; Admin Dose 2 TAB; Start 07/09/18 at 16:00 Hydromorphone HCl (Dilaudid) 1 mg Q4H PRN IV SEVERE PAIN LEVEL 7-10 Last administered on 07/20/18 12:44; Admin Dose 1 MG; Start 07/12/18 at 19:00 Docusate Sodium/ Ferrous Fumarate (Harry-Sequels) 1 tab BID PO Last administered on 07/20/18 08:15; Admin Dose 1 TAB; Start 07/13/18 at 21:00; Stop 08/12/18 at 20:59 Ascorbic Acid (Vitamin C) 500 mg DAILY PO Last administered on 07/20/18 08:15; Admin Dose 500 MG; Start 07/15/18 at 12:00 Zinc Sulfate (Zinc Sulfate) 220 mg DAILY PO Last administered on 07/20/18 08:15; Admin Dose 220 MG; Start 07/15/18 at 11:00 Multivitamins Therapeutic (Theragran) 1 tab DAILY PO Last administered on 07/20/18 08:15; Admin Dose 1 TAB; Start 07/15/18 at 11:00 IV Flush (NS 10 ml) 10 ml PRN PRN IV IV PROTOCOL Last administered on 07/19/18 02:30; Admin Dose 10 ML; Start 07/15/18 at 17:00 CAMDEN COOPER NP Jul 20, 2018 13:30
[2018-07-20 14:49] VITALS: BP 135/74; PULSE 96; RESP 18
[2018-07-20] MEDS: OXYCODONE/ACETAMINOPHEN (10/325) TAB PO PRN (18:38)
[2018-07-20 20:00] VITALS: BP 111/61; PULSE 90; RESP 17
[2018-07-21] MEDS: HYDROmorphONE 1 MG/ML SYG IV PRN ×6 (00:47→22:32)
[2018-07-21 02:19] VITALS: BP 129/67; PULSE 84; RESP 18
[2018-07-21] MEDS: PANTOPRAZOLE (EC) 40 MG TAB PO SCH (05:00)
[2018-07-21] MEDS: CARISOPRODOL 350 MG TAB PO SCH ×4 (05:00→22:33)
[2018-07-21] MEDS: AMPICILLIN 1 GM/NS (PMX) 50 ML IVPB SCH ×3 (05:00→22:32)
[2018-07-21] MEDS: CIPROFLOXACIN 500 MG TAB PO SCH ×2 (05:00→17:43)
[2018-07-21 07:34] VITALS: BP 119/77; PULSE 70; RESP 18
[2018-07-21] MEDS: DOCUSATE SODIUM 100 MG CAP PO SCH ×2 (08:26→20:11)
[2018-07-21] MEDS: FERROUS FUMARATE (SR) TAB PO SCH ×2 (08:26→20:11)
[2018-07-21] MEDS: MAGNESIUM HYDROXIDE 30ML CUP PO SCH (08:26)
[2018-07-21] MEDS: TAMSULOSIN (SR) 0.4 MG CAP PO SCH (08:26)
[2018-07-21] MEDS: LISINOPRIL 5 MG TAB PO SCH (08:26)
[2018-07-21] MEDS: ASCORBIC ACID 500 MG TAB PO SCH (08:26)
[2018-07-21] MEDS: POLYETHYLENE GLYCOL 17 GM PACKET PO SCH ×2 (08:26→20:11)
[2018-07-21] MEDS: MULTIVITAMINS THERAPEUTIC TAB PO SCH (08:26)
[2018-07-21] MEDS: ZINC SULFATE 220 MG CAP PO SCH (08:26)
[2018-07-21] MEDS: ENOXAPARIN 30 MG/0.3 ML SYG SC SCH (08:27)
--- NOTE | 2018-07-21 10:26 | PN ---
Date/Time of Note Date/Time of Note DATE: 07/21/18 TIME: 10:25 Objective Vitals Vital Signs Date Temp Pulse Resp B/P (MAP) Pulse Ox O2 O2 Flow FiO2 Time Delivery Rate 07/21/18 98.1 70 18 119/77 92 Room Air 07:34 (91) Intake and Output 07/20/18 07/20/18 07/21/18 1515:00 23:00 07:00 IntakeIntake Total 1300 ml 450 ml OutputOutput Total 1400 ml 1700 ml BalanceBalance -100 ml -1250 ml Results Result Diagram: 07/21/18 0603 07/21/18 0603 Medications Medications Current Medications IV Flush (NS 3 ml) 3 ml PER PROTOCOL IV ; Start 06/22/18 at 18:30 Ondansetron HCl (Zofran Inj) 4 mg Q6H PRN IV NAUSEA/VOMITING Last administered on 06/26/18at 15:57; Admin Dose 4 MG; Start 06/22/18 at 18:30 Acetaminophen (Tylenol Tab) 650 mg Q6H PRN PO .PAIN 1-3 OR TEMP; Start 06/22/18 at 18:30 Enoxaparin Sodium (Lovenox) 30 mg DAILY SC Last administered on 07/21/18at 08:27; Admin Dose 30 MG; Start 06/23/18 at 09:00 Hydralazine HCl (Apresoline) 10 mg Q4H PRN IV SBP >160; Start 06/22/18 at 19:00 [facility]isc[facility] This patient villela... PRN PRN XX WOUND CARE; Start 06/23/18 at 00:30 Docusate Sodium (Colace) 100 mg BID PO Last administered on 07/21/18at 08:26; Admin Dose 100 MG; Start 06/23/18 at 21:00 Tamsulosin HCl (Flomax) 0.4 mg DAILY PO Last administered on 07/21/18at 08:26; Admin Dose 0.4 MG; Start 06/24/18 at 09:00 Labetalol HCl (Labetalol) 10 mg Q4 PRN IV sbp>160; Start 06/24/18 at 13:30 Lisinopril (Zestril) 5 mg DAILY PO Last administered on 07/21/18at 08:26; Admin Dose 5 MG; Start 06/29/18 at 09:00 Magnesium Hydroxide (Milk Of Mag) 30 ml DAILY PRN PO CONSTIPATION; Start 06/28/18 at 21:00 Pantoprazole (Protonix Tab) 40 mg DAILY@06 PO Last administered on 07/21/18 05:00; Admin Dose 40 MG; Start 07/04/18 at 06:00 Carisoprodol (Soma) 350 mg Q6 PO Last administered on 07/21/18 05:00; Admin Dose 350 MG; Start 07/06/18 at 12:00 Polyethylene Glycol (Miralax) 17 gm BID PO Last administered on 07/21/18 08:26; Admin Dose 17 GM; Start 07/08/18 at 11:00 Ciprofloxacin (Cipro) 500 mg BID@,18 PO Last administered on 07/21/18 05:00; Admin Dose 500 MG; Start 07/08/18 at 18:00; Stop 08/03/18 at 23:00 Ampicillin 50 ml @ 100 mls/hr Q8 IVPB Last administered on 07/21/18 05:00; Admin Dose 100 MLS/HR; Start 07/08/18 at 14:00; Stop 08/03/18 at 23:00 Magnesium Hydroxide (Milk Of Mag) 30 ml DAILY PO Last administered on 07/21/18 08:26; Admin Dose 30 ML; Start 07/08/18 at 19:30 Oxycodone/ Acetaminophen (Endocet (10/ 325)) 2 tab Q6H PRN PO MODERATE PAIN L EVEL 4-6 Last administered on 07/20/18 18:38; Admin Dose 2 TAB; Start 07/09/18 at 16:00 Hydromorphone HCl (Dilaudid) 1 mg Q4H PRN IV SEVERE PAIN LEVEL 7-10 Last administered on 07/21/18 09:32; Admin Dose 1 MG; Start 07/12/18 at 19:00 Docusate Sodium/ Ferrous Fumarate (Harry-Sequels) 1 tab BID PO Last administered on 07/21/18 08:26; Admin Dose 1 TAB; Start 07/13/18 at 21:00; Stop 08/12/18 at 20:59 Ascorbic Acid (Vitamin C) 500 mg DAILY PO Last administered on 2/25/19at 08:26; Admin Dose 500 MG; Start 07/15/18 at 12:00 Zinc Sulfate (Zinc Sulfate) 220 mg DAILY PO Last administered on 07/21/18at 08:26; Admin Dose 220 MG; Start 07/15/18 at 11:00 Multivitamins Therapeutic (Theragran) 1 tab DAILY PO Last administered on 07/21/18at 08:26; Admin Dose 1 TAB; Start 07/15/18 at 11:00 IV Flush (NS 10 ml) 10 ml PRN PRN IV IV PROTOCOL Last administered on 07/19/18at 02:30; Admin Dose 10 ML; Start 07/15/18 at 17:00 VTE [place] [facility] [place]: 2 [place] [facility] [place] Lines/Catheters IV Catheter Type: Cortez in Place: No Assessment/Plan Hospital Course Subjective No acute changes, patient still refusing physical therapy Objective Physical exam General: Patient is laying in bed and answers questions appropriately Mentation: Patient is alert and oriented 4, Head: Normocephalic atraumatic Eyes: EOMI, pupils reactive to light Neck: Supple, nontender, midline Respiratory: Clear to auscultation bilaterally Cardiovascular: regular rate, no obvious murmurs Gastrointestinal: non-tender to palpation, bowel sounds heard. Neurological: Moves all extremities spontaneously Skin: Multiple ulcers on patient's sacral decubitus area and buttock area, bandaged Assessment/Plan 1. Sepsis secondary to UTI, decubitus ulcers, and OM- resolved - Continue all care - Remains stable and plans for IV antibiotics until 08/03/18. PICC line in place - ID on board and appreciate recommendations 2. UTI- resolved - Urology on board and appreciate consultation. Cortez remains in place given presence of decub ulcers. 3. Sacral decubitus ulcer with abscess- stable - Surgery consultation appreciated and continue current medical management and wound care. Debridement as needed - Start zinc sulf/Vit c/Theragen sup - Julius protein w/diet 4. Osteomyelitis of ischium - Will need to complete 6 weeks of IV antibiotics, with last dose on 08/03/18 5. Chronic back pain - continue pain control 6. Hypertension - stable 7. Neurogenic bladder - cortez in place - Urology on board 8. Disposition - Patient remains medically stable for discharge once find accepting facility. TRACE REBOLLEDO Jul 21, 2018 10:26
--- NOTE | 2018-07-21 12:22 | PN ---
Date/Time of Note Date/Time of Note DATE: 07/21/18 TIME: 12:21 Assessment/Plan Lines/Catheters IV Catheter Type (from [facility]): Cortez in Place (from [facility]): No Assessment/Plan Chief Complaint/Hosp Course 1. Multiple decubitus pressure ulcers; healing -Continue offloading & nutritional optimization -Continue same wound care > medihoney -Debridement as needed -Vitamin C -Continue osteomyelitis treatment> per id -SNF placement still pending 2. Decompressed bladder with significant thickening concerning for bladder neoplasm versus cystitis: Urethritis, possible pyelonephritis; leaking between self caths, indwelling cortez placed -per Urology 3. Labile mood with intermittent bursts of anger -psych eval noted, refusing meds 4. Hypoalbuminemia -Encourage nutritional optimization 5. Hypertension history -Nutrition and medication optimization 6. Anemia without evidence of acute blood loss -Monitor 7. Acute on chronic back pain, nephrolithiasis -Medical optimization -Judicious fluid management 8. Constipation: Now with daily bowel movements -bowel optimization 9. Elevated CEA however patient refusing colonoscopy and further workup Thank you. Patient seen and examined in collaboration with Dr. Micah Hobbs. Subjective 24 Hr Interval Summary No acute complaints. No fevers, chills, sob, congested cough, cp, palpitations, villela, dizziness, nausea, vomiting, diarrhea, dysuria, excessive wound drainage or odor. Exam/Review of Systems Vital Signs Vitals Vital Signs Date Temp Pulse Resp B/P (MAP) Pulse Ox O2 O2 Flow FiO2 Time Delivery Rate 07/21/18 98.1 70 18 119/77 92 Room Air 07:34 (91) Intake and Output 07/20/18 07/20/18 07/21/18 1515:00 23:00 07:00 IntakeIntake Total 1300 ml 450 ml OutputOutput Total 1400 ml 1700 ml BalanceBalance -100 ml -1250 ml Exam Free Text/Dictation Constitutional: alert, oriented No distress Psych: No anxiety, labile Head: normocephalic, atraumatic Eyes: nl conjunctiva, EOMI, PERRL; No icteric ENMT: nl external ears & nose, nl lips & teeth, mucosa pink and moist Neck: supple, non-tender; No jvd Respiratory: normal air movement; No congested cough, No labored breathing, No wheezing Cardiovascular: regular rate and rhythm; No edema Gastrointestinal: soft, non-tender; No distended, No rebound or guarding Genitourinary - Male: nl penis, nl scrotum Musculoskeletal: No nl gait and stance, No joint tenderness Extremities: normal pulses; No calf tenderness, No edema, No tenderness Neurological: nl mental status, nl speech; No nl strength Skin: rash or lesions (Decubitus pressure ulcers: min slough, no odor/ no drainage. Right ischium : no odor/small drainage); No ecchymosis Lymph: nl lymph nodes Results Result Diagram: 07/21/1803 07/21/18 0603 TIFFANIE KLEIN NP Jul 21, 2018 12:22
[2018-07-21 13:37] VITALS: BP 144/74; PULSE 98; RESP 16
--- NOTE | 2018-07-21 14:11 | CONS ---
Assessment/Plan Assessment/Plan Hospital Course (Demo Recall) No acute events. No fevers overnight. Patient is awake has visitors at bedside, no fevers overnight Microbiology: Blood culture growing Proteus mirabilis, urine culture grew Proteus mirabilis and oxacillin sensitive staph aureus. Sacral wound culture growing E. coli, staph aureus and enterococcus species Chest x-ray on admission revealed no definite abnormalities. Indwelling: Baxter Antimicrobials: Cipro, ampicillin Physical examination: Well-developed chronically ill-appearing elderly man in no distress. Head atraumatic normocephalic sclera nonicteric neck is supple chest rise symmetrical breath sounds diminished bases heart S1-S2 abdomen soft bowel sounds present extremities wasted bilateral lower extremities Assessment: 1. S/p sepsis, present on admission 2. Proteus mirabilis bacteremia secondary to UTI, repeat bld cx neg 3. Multidrug-resistant Proteus mirabilis pyelonephritis 4. Bilateral hydronephrosis 5. Neurogenic bladder 6. Multiple decubitus with questionable osteomyelitis of right atrium and right iliac bone 7. Obstructive uropathy 8. Homelessness 9. Incomplete paraplegia Plan: Remains stable, continue antibiotics to complete 6 weeks for treatment of OM==> last day August 03 Consultation Date/Type/Reason Admit Date/Time Jun 22, 2018 at 18:09 Initial Consult Date 06/23/18 Type of Consult id Requesting Provider: TRACE REBOLLEDO Date/Time of Note DATE: 07/21/18 TIME: 14:09 Exam/Review of Systems Exam Vitals Vital Signs Date Temp Pulse Resp B/P (MAP) Pulse Ox O2 O2 Flow FiO2 Time Delivery Rate 07/21/18 98.8 98 16 144/74 96 Room Air 13:37 (97) Intake and Output 07/20/18 07/20/18 07/21/18 1515:00 23:00 07:00 IntakeIntake Total 1300 ml 450 ml OutputOutput Total 1400 ml 1700 ml BalanceBalance -100 ml -1250 ml Results Result Diagram: 07/21/18 0603 07/21/18 0603 Results 24hrs Laboratory Tests Test 07/21/18 06:03 White Blood Count 7.8 Red Blood Count 3.75 L Hemoglobin 8.2 L Hematocrit 28.1 L Mean Corpuscular Volume 74.9 L Mean Corpuscular Hemoglobin 21.9 L Mean Corpuscular Hemoglobin Concent 29.2 L Red Cell Distribution Width 19.3 H Platelet Count 318 # Mean Platelet Volume 8.3 Immature Granulocytes % 0.400 Neutrophils % 70.9 Lymphocytes % 13.5 L Monocytes % 10.6 Eosinophils % 4.1 Basophils % 0.5 Nucleated Red Blood Cells % 0.0 Immature Granulocytes # 0.030 Neutrophils # 5.6 Lymphocytes # 1.1 Monocytes # 0.8 Eosinophils # 0.3 Basophils # 0.0 Nucleated Red Blood Cells # 0.0 Sodium Level 139 Potassium Level 4.3 Chloride Level 107 Carbon Dioxide Level 27 Anion Gap 5 Blood Urea Nitrogen 26 H Creatinine 0.81 Glucose Level 95 Calcium Level 8.3 L Phosphorus Level 4.0 Magnesium Level 1.9 Albumin 3.1 L Medications Medication Current Medications IV Flush (NS 3 ml) 3 ml PER PROTOCOL IV ; Start 06/22/18 at 18:30 Ondansetron HCl (Zofran Inj) 4 mg Q6H PRN IV NAUSEA/VOMITING Last administered on 06/26/18at 15:57; Admin Dose 4 MG; Start 06/22/18 at 18:30 Acetaminophen (Tylenol Tab) 650 mg Q6H PRN PO .PAIN 1-3 OR TEMP; Start 06/22/18 at 18:30 Enoxaparin Sodium (Lovenox) 30 mg DAILY SC Last administered on 07/21/18at 08:27; Admin Dose 30 MG; Start 06/23/18 at 09:00 Hydralazine HCl (Apresoline) 10 mg Q4H PRN IV SBP >160; Start 06/22/18 at 19:00 Miscellaneous Information [facility] This patient villela... PRN PRN XX WOUND CARE; Start 06/23/18 at 00:30 Docusate Sodium (Colace) 100 mg BID PO Last administered on 07/21/18at 08:26; Admin Dose 100 MG; Start 06/23/18 at 21:00 Tamsulosin HCl (Flomax) 0.4 mg DAILY PO Last administered on 07/21/18at 08:26; Admin Dose 0.4 MG; Start 06/24/18 at 09:00 Labetalol HCl (Labetalol) 10 mg Q4 PRN IV sbp>160; Start 06/24/18 at 13:30 Lisinopril (Zestril) 5 mg DAILY PO Last administered on 07/21/18 08:26; Admin Dose 5 MG; Start 06/29/18 at 09:00 Magnesium Hydroxide (Milk Of Mag) 30 ml DAILY PRN PO CONSTIPATION; Start 06/28/18 at 21:00 Pantoprazole (Protonix Tab) 40 mg DAILY@06 PO Last administered on 07/21/18 05:00; Admin Dose 40 MG; Start 07/04/18 at 06:00 Carisoprodol (Soma) 350 mg Q6 PO Last administered on 07/21/18 11:52; Admin Dose 350 MG; Start 07/06/18 at 12:00 Polyethylene Glycol (Miralax) 17 gm BID PO Last administered on 07/21/18 08:26; Admin Dose 17 GM; Start 07/08/18 at 11:00 Ciprofloxacin (Cipro) 500 mg BID@06,18 PO Last administered on 07/21/18 05:00; Admin Dose 500 MG; Start 07/08/18 at 18:00; Stop 08/03/18 at 23:00 Ampicillin 50 ml @ 100 mls/hr Q8 IVPB Last administered on 07/21/18 13:37; Admin Dose 100 MLS/HR; Start 07/08/18 at 14:00; Stop 08/03/18 at 23:00 Magnesium Hydroxide (Milk Of Mag) 30 ml DAILY PO Last administered on 07/21/18 08:26; Admin Dose 30 ML; Start 07/08/18 at 19:30 Oxycodone/ Acetaminophen (Endocet (10/ 325)) 2 tab Q6H PRN PO MODERATE PAIN LEVEL 4-6 Last administered on 07/20/18 18:38; Admin Dose 2 TAB; Start 07/09/18 at 16:00 Hydromorphone HCl (Dilaudid) 1 mg Q4H PRN IV SEVERE PAIN LEVEL 7-10 Last administered on 07/21/18 13:37; Admin Dose 1 MG; Start 07/12/18 at 19:00 Docusate Sodium/ Ferrous Fumarate (Harry-Sequels) 1 tab BID PO Last administered on 07/21/18 08:26; Admin Dose 1 TAB; Start 07/13/18 at 21:00; Stop 08/12/18 at 20:59 Ascorbic Acid (Vitamin C) 500 mg DAILY PO Last administered on 07/21/18 08:26; Admin Dose 500 MG; Start 07/15/18 at 12:00 Zinc Sulfate (Zinc Sulfate) 220 mg DAILY PO Last administered on 07/21/18 08:26; Admin Dose 220 MG; Start 07/15/18 at 11:00 Multivitamins Therapeutic (Theragran) 1 tab DAILY PO Last administered on 07/21/18 08:26; Admin Dose 1 TAB; Start 07/15/18 at 11:00 IV Flush (NS 10 ml) 10 ml PRN PRN IV IV PROTOCOL Last administered on 07/19/18 02:30; Admin Dose 10 ML; Start 07/15/18 at 17:00 [employer] Jul 21, 2018 14:11
[2018-07-21 20:02] VITALS: BP 127/72; PULSE 96; RESP 18
[2018-07-21] MEDS: OXYCODONE/ACETAMINOPHEN (10/325) TAB PO PRN (20:46)
[2018-07-22 02:48] VITALS: BP 137/88; PULSE 81; RESP 18
[2018-07-22] MEDS: HYDROmorphONE 1 MG/ML SYG IV PRN ×5 (04:02→20:49)
[2018-07-22] MEDS: PANTOPRAZOLE (EC) 40 MG TAB PO SCH (05:19)
[2018-07-22] MEDS: AMPICILLIN 1 GM/NS (PMX) 50 ML IVPB SCH ×3 (05:19→23:05)
[2018-07-22] MEDS: CIPROFLOXACIN 500 MG TAB PO SCH ×2 (05:19→17:40)
[2018-07-22] MEDS: CARISOPRODOL 350 MG TAB PO SCH ×3 (05:19→17:40)
[2018-07-22 08:00] VITALS: BP 135/67; PULSE 80; RESP 18
[2018-07-22] MEDS: DOCUSATE SODIUM 100 MG CAP PO SCH ×3 (08:35→20:52)
[2018-07-22] MEDS: POLYETHYLENE GLYCOL 17 GM PACKET PO SCH ×3 (08:36→20:52)
[2018-07-22] MEDS: LISINOPRIL 5 MG TAB PO SCH (08:36)
[2018-07-22] MEDS: ASCORBIC ACID 500 MG TAB PO SCH (08:36)
[2018-07-22] MEDS: ZINC SULFATE 220 MG CAP PO SCH (08:36)
[2018-07-22] MEDS: FERROUS FUMARATE (SR) TAB PO SCH ×2 (08:36→20:49)
[2018-07-22] MEDS: MAGNESIUM HYDROXIDE 30ML CUP PO SCH (08:36)
[2018-07-22] MEDS: TAMSULOSIN (SR) 0.4 MG CAP PO SCH (08:36)
[2018-07-22] MEDS: ENOXAPARIN 30 MG/0.3 ML SYG SC SCH (08:38)
[2018-07-22] MEDS: MULTIVITAMINS THERAPEUTIC TAB PO SCH (08:41)
--- NOTE | 2018-07-22 12:45 | PN ---
Date/Time of Note Date/Time of Note DATE: 07/22/18 TIME: 12:41 Assessment/Plan Lines/Catheters IV Catheter Type (from [facility]): PICC Line Cortez in Place (from [facility]): Yes Assessment/Plan Chief Complaint/Hosp Course 1. Multiple decubitus pressure ulcers; healing -Continue offloading & nutritional optimization -Continue same wound care > medihoney -Debridement as needed -Vitamin C -Continue osteomyelitis treatment> per id -SNF placement still pending 2. Decompressed bladder with significant thickening concerning for bladder neoplasm versus cystitis: Urethritis, possible pyelonephritis; leaking between self caths, indwelling cortez placed -per Urology 3. Labile mood with intermittent bursts of anger -psych eval noted, refusing meds 4. Hypoalbuminemia -Encourage nutritional optimization 5. Hypertension history -Nutrition and medication optimization 6. Anemia without evidence of acute blood loss -Monitor 7. Acute on chronic back pain, nephrolithiasis -Medical optimization -Judicious fluid management 8. Constipation: Now with daily bowel movements -bowel optimization 9. Elevated CEA however patient refusing colonoscopy and further workup Thank you. Patient seen and examined in collaboration with Dr. Micah Hobbs. Subjective 24 Hr Interval Summary Irritable. No fevers, chills, sob, congested cough, cp, palpitations, villela, dizziness, n/v/d/dysuria, excessive wound drainage/odor. Exam/Review of Systems Vital Signs Vitals Vital Signs Date Temp Pulse Resp B/P (MAP) Pulse Ox O2 O2 Flow FiO2 Time Delivery Rate 07/22/18 98.0 80 18 135/67 97 Room Air 08:00 (89) Intake and Output 07/21/18 07/21/18 07/22/18 1515:00 23:00 07:00 IntakeIntake Total 100 ml 900 ml 1000 ml OutputOutput Total 1600 ml 1600 ml BalanceBalance 100 ml -700 ml -600 ml Exam Free Text/Dictation Constitutional: alert, oriented No distress Psych: irritable Head: normocephalic, atraumatic Eyes: nl conjunctiva, EOMI, PERRL; No icteric ENMT: nl external ears & nose, nl lips & teeth, mucosa pink and moist Neck: supple, non-tender; No jvd Respiratory: normal air movement; No congested cough, No labored breathing, No wheezing Cardiovascular: regular rate and rhythm; No edema Gastrointestinal: soft, non-tender; No distended, No rebound or guarding Genitourinary - Male: nl penis, nl scrotum Musculoskeletal: No nl gait and stance, No joint tenderness Extremities: normal pulses; No calf tenderness, No edema, No tenderness Neurological: nl mental status, nl speech; No nl strength Skin: rash or lesions (Decubitus pressure ulcers: min slough, no odor/ no drainage. Right ischium : no odor/small drainage); No ecchymosis Lymph: nl lymph nodes Results Result Diagram: 07/22/1833 07/22/18 0533 TIFFANIE KLEIN NP Jul 22, 2018 12:45
[2018-07-22 14:00] VITALS: BP 144/77; PULSE 78; RESP 18
--- NOTE | 2018-07-22 14:21 | PN ---
Date/Time of Note Date/Time of Note DATE: 07/22/18 TIME: 14:21 Objective Vitals Vital Signs Date Temp Pulse Resp B/P (MAP) Pulse Ox O2 O2 Flow FiO2 Time Delivery Rate 07/22/18 98.0 80 18 135/67 97 Room Air 08:00 (89) Intake and Output 07/21/18 07/21/18 07/22/18 1515:00 23:00 07:00 IntakeIntake Total 100 ml 900 ml 1000 ml OutputOutput Total 1600 ml 1600 ml BalanceBalance 100 ml -700 ml -600 ml Results Result Diagram: 07/22/1833 07/22/18532 Medications Medications Current Medications IV Flush (NS 3 ml) 3 ml PER PROTOCOL IV ; Start 06/22/18 at 18:30 Ondansetron HCl (Zofran Inj) 4 mg Q6H PRN IV NAUSEA/VOMITING Last administered on 06/26/18at 15:57; Admin Dose 4 MG; Start 06/22/18 at 18:30 Acetaminophen (Tylenol Tab) 650 mg Q6H PRN PO .PAIN 1-3 OR TEMP; Start 06/22/18 at 18:30 Enoxaparin Sodium (Lovenox) 30 mg DAILY SC Last administered on 07/22/18at 08:38; Admin Dose 30 MG; Start 06/23/18 at 09:00 Hydralazine HCl (Apresoline) 10 mg Q4H PRN IV SBP >160; Start 06/22/18 at 19:00 Miscellaneous Information (Pending [facility] Order For Wound Care) This patient villela... PRN PRN XX WOUND CARE; Start 06/23/18 at 00:30 Docusate Sodium (Colace) 100 mg BID PO Last administered on 07/21/18at 08:26; Admin Dose 100 MG; Start 06/23/18 at 21:00 Tamsulosin HCl (Flomax) 0.4 mg DAILY PO Last administered on 07/22/18at 08:36; Admin Dose 0.4 MG; Start 06/24/18 at 09:00 Labetalol HCl (Labetalol) 10 mg Q4 PRN IV sbp>160; Start 06/24/18 at 13:30 Lisinopril (Zestril) 5 mg DAILY PO Last administered on 07/22/18at 08:36; Admin Dose 5 MG; Start 06/29/18 at 09:00 Magnesium Hydroxide (Milk Of Mag) 30 ml DAILY PRN PO CONSTIPATION; Start 06/28/18 at 21:00 Pantoprazole (Protonix Tab) 40 mg DAILY@06 PO Last administered on 07/22/18 05:19; Admin Dose 40 MG; Start 07/04/18 at 06:00 Carisoprodol (Soma) 350 mg Q6 PO Last administered on 07/22/18 12:36; Admin Dose 350 MG; Start 07/06/18 at 12:00 Polyethylene Glycol (Miralax) 17 gm BID PO Last administered on 07/21/18 08:26; Admin Dose 17 GM; Start 07/08/18 at 11:00 Ciprofloxacin (Cipro) 500 mg BID@06,18 PO Last administered on 07/22/18 05:19; Admin Dose 500 MG; Start 07/08/18 at 18:00; Stop 08/03/18 at 23:00 Ampicillin 50 ml @ 100 mls/hr Q8 IVPB Last administered on 07/22/18 05:19; Admin Dose 100 MLS/HR; Start 07/08/18 at 14:00; Stop 08/03/18 at 23:00 Magnesium Hydroxide (Milk Of Mag) 30 ml DAILY PO Last administered on 07/21/18 08:26; Admin Dose 30 ML; Start 07/08/18 at 19:30 Oxycodone/ Acetaminophen (Endocet (10/ 325)) 2 tab Q6H PRN PO MODERATE PAIN LEVEL 4-6 Last administered on 07/21/18 20:46; Admin Dose 2 TAB; Start 07/09/18 at 16:00 Hydromorphone HCl (Dilaudid) 1 mg Q4H PRN IV SEVERE PAIN LEVEL 7-10 Last administered on 07/22/18 12:36; Admin Dose 1 MG; Start 07/12/18 at 19:00 Docusate Sodium/ Ferrous Fumarate (Harry-Sequels) 1 tab BID PO Last administered on 07/22/18 08:36; Admin Dose 1 TAB; Start 07/13/18 at 21:00; Stop 08/12/18 at 20:59 Ascorbic Acid (Vitamin C) 500 mg DAILY PO Last administered on 2/26/19at 08:36; Admin Dose 500 MG; Start 07/15/18 at 12:00 Zinc Sulfate (Zinc Sulfate) 220 mg DAILY PO Last administered on 07/22/18at 08:36; Admin Dose 220 MG; Start 07/15/18 at 11:00 Multivitamins Therapeutic (Theragran) 1 tab DAILY PO Last administered on 07/21/18at 08:26; Admin Dose 1 TAB; Start 07/15/18 at 11:00 IV Flush (NS 10 ml) 10 ml PRN PRN IV IV PROTOCOL Last administered on 07/19/18at 02:30; Admin Dose 10 ML; Start 07/15/18 at 17:00 VTE Prophylaxis [place] [facility] [place]: 2 [place]CD applied [place] [facility] [place] Yes Lines/Catheters IV Catheter Type: Cortez in Place: Yes Cont'd cortez catheter reason: urinary retention Assessment/Plan Hospital Course Subjective No acute changes, patient still refusing physical therapy Objective Physical exam General: Patient is laying in bed and answers questions appropriately Mentation: Patient is alert and oriented 4, Head: Normocephalic atraumatic Eyes: EOMI, pupils reactive to light Neck: Supple, nontender, midline Respiratory: Clear to auscultation bilaterally Cardiovascular: regular rate, no obvious murmurs Gastrointestinal: non-tender to palpation, bowel sounds heard. Neurological: Moves all extremities spontaneously Skin: Multiple ulcers on patient's sacral decubitus area and buttock area, bandaged Assessment/Plan 1. Sepsis secondary to UTI, decubitus ulcers, and OM- resolved - Continue all care - Remains stable and plans for IV antibiotics until 08/03/18. PICC line in place - ID on board and appreciate recommendations 2. UTI- resolved - Urology on board and appreciate consultation. Cortez remains in place given presence of decub ulcers. 3. Sacral decubitus ulcer with abscess- stable - Surgery consultation appreciated and continue current medical management and wound care. Debridement as needed - Start zinc sulf/Vit c/Theragen sup - Julius protein w/diet 4. Osteomyelitis of ischium - Will need to complete 6 weeks of IV antibiotics, with last dose on 08/03/18 5. Chronic back pain - continue pain control 6. Hypertension - stable 7. Neurogenic bladder - cortez in place - Urology on board 8. Disposition - Patient remains medically stable for discharge once find accepting facility. TRACE REBOLLEDO Jul 22, 2018 14:21
--- NOTE | 2018-07-22 14:49 | CONS ---
Assessment/Plan Assessment/Plan Hospital Course (Demo Recall) No acute events. Patient is awake and looks comfortable, no fevers Microbiology: Blood culture growing Proteus mirabilis, urine culture grew Proteus mirabilis and oxacillin sensitive staph aureus. Sacral wound culture growing E. coli, staph aureus and enterococcus species Chest x-ray on admission revealed no definite abnormalities. Indwelling: Baxter Antimicrobials: Cipro, ampicillin Physical examination: Well-developed chronically ill-appearing elderly man in no distress. Head atraumatic normocephalic sclera nonicteric neck is supple chest rise symmetrical breath sounds diminished bases heart S1-S2 abdomen soft bowel sounds present extremities wasted bilateral lower extremities Assessment: 1. S/p sepsis, present on admission 2. Proteus mirabilis bacteremia secondary to UTI, repeat bld cx neg 3. Multidrug-resistant Proteus mirabilis pyelonephritis 4. Bilateral hydronephrosis 5. Neurogenic bladder 6. Multiple decubitus with questionable osteomyelitis of right atrium and right iliac bone 7. Obstructive uropathy 8. Homelessness 9. Incomplete paraplegia Plan: Remains stable, completing antibiotics for treatment of OM==> last day August 03 Consultation Date/Type/Reason Admit Date/Time Jun 22, 2018 at 18:09 Initial Consult Date 06/23/18 Type of Consult id Requesting Provider: TRACE REBOLLEDO Date/Time of Note DATE: 07/22/18 TIME: 14:49 Exam/Review of Systems Exam Vitals Vital Signs Date Temp Pulse Resp B/P (MAP) Pulse Ox O2 O2 Flow FiO2 Time Delivery Rate 07/22/18 98.0 80 18 135/67 97 Room Air 08:00 (89) Intake and Output 07/21/18 07/21/18 07/22/18 1515:00 23:00 07:00 IntakeIntake Total 100 ml 900 ml 1000 ml OutputOutput Total 1600 ml 1600 ml BalanceBalance 100 ml -700 ml -600 ml Results Result Diagram: 07/22/18 0533 07/22/18 0533 Results 24hrs Laboratory Tests Test 07/22/18 05:33 White Blood Count 7.4 Red Blood Count 3.74 L Hemoglobin 8.3 L Hematocrit 28.3 L Mean Corpuscular Volume 75.7 L Mean Corpuscular Hemoglobin 22.2 L Mean Corpuscular Hemoglobin Concent 29.3 L Red Cell Distribution Width 19.3 H Platelet Count 313 Mean Platelet Volume 8.4 Immature Granulocytes % 0.500 H Neutrophils % 70.3 Lymphocytes % 14.2 L Monocytes % 10.7 Eosinophils % 3.8 Basophils % 0.5 Nucleated Red Blood Cells % 0.0 Immature Granulocytes # 0.040 H Neutrophils # 5.2 Lymphocytes # 1.1 Monocytes # 0.8 Eosinophils # 0.3 Basophils # 0.0 Nucleated Red Blood Cells # 0.0 Sodium Level 139 Potassium Level 4.0 Chloride Level 106 Carbon Dioxide Level 26 Anion Gap 7 Blood Urea Nitrogen 25 H Creatinine 0.84 Est Glomerular Filtrat Rate mL/min > 60 Glucose Level 126 Calcium Level 8.3 L Phosphorus Level 3.9 Magnesium Level 1.9 Medications Medication Current Medications IV Flush (NS 3 ml) 3 ml PER PROTOCOL IV ; Start 06/22/18 at 18:30 Ondansetron HCl (Zofran Inj) 4 mg Q6H PRN IV NAUSEA/VOMITING Last administered on 06/26/18at 15:57; Admin Dose 4 MG; Start 06/22/18 at 18:30 Acetaminophen (Tylenol Tab) 650 mg Q6H PRN PO .PAIN 1-3 OR TEMP; Start 06/22/18 at 18:30 Enoxaparin Sodium (Lovenox) 30 mg DAILY SC Last administered on 07/22/18at 08:38; Admin Dose 30 MG; Start 06/23/18 at 09:00 Hydralazine HCl (Apresoline) 10 mg Q4H PRN IV SBP >160; Start 06/22/18 at 19:00 [facility] This patient villela... PRN PRN XX WOUND CARE; Start 06/23/18 at 00:30 Docusate Sodium (Colace) 100 mg BID PO Last administered on 07/21/18at 08:26; Admin Dose 100 MG; Start 06/23/18 at 21:00 Tamsulosin HCl (Flomax) 0.4 mg DAILY PO Last administered on 07/22/18at 08:36; Admin Dose 0.4 MG; Start 06/24/18 at 09:00 Labetalol HCl (Labetalol) 10 mg Q4 PRN IV sbp>160; Start 06/24/18 at 13:30 Lisinopril (Zestril) 5 mg DAILY PO Last administered on 07/22/18 08:36; Admin Dose 5 MG; Start 06/29/18 at 09:00 Magnesium Hydroxide (Milk Of Mag) 30 ml DAILY PRN PO CONSTIPATION; Start 06/28/18 at 21:00 Pantoprazole (Protonix Tab) 40 mg DAILY@06 PO Last administered on 07/22/18 05:19; Admin Dose 40 MG; Start 07/04/18 at 06:00 Carisoprodol (Soma) 350 mg Q6 PO Last administered on 07/22/18 12:36; Admin Dose 350 MG; Start 07/06/18 at 12:00 Polyethylene Glycol (Miralax) 17 gm BID PO Last administered on 07/21/18 08:26; Admin Dose 17 GM; Start 07/08/18 at 11:00 Ciprofloxacin (Cipro) 500 mg BID@06,18 PO Last administered on 07/22/18 05:19; Admin Dose 500 MG; Start 07/08/18 at 18:00; Stop 08/03/18 at 23:00 Ampicillin 50 ml @ 100 mls/hr Q8 IVPB Last administered on 07/22/18 14:21; Admin Dose 100 MLS/HR; Start 07/08/18 at 14:00; Stop 08/03/18 at 23:00 Magnesium Hydroxide (Milk Of Mag) 30 ml DAILY PO Last administered on 07/21/18 08:26; Admin Dose 30 ML; Start 07/08/18 at 19:30 Oxycodone/ Acetaminophen (Endocet (10/ 325)) 2 tab Q6H PRN PO MODERATE PAIN LEVEL 4-6 Last administered on 07/21/18at 20:46; Admin Dose 2 TAB; Start 07/09/18 at 16:00 Hydromorphone HCl (Dilaudid) 1 mg Q4H PRN IV SEVERE PAIN LEVEL 7-10 Last administered on 07/22/18 12:36; Admin Dose 1 MG; Start 07/12/18 at 19:00 Docusate Sodium/ Ferrous Fumarate (Harry-Sequels) 1 tab BID PO Last administered on 07/22/18 08:36; Admin Dose 1 TAB; Start 07/13/18 at 21:00; Stop 08/12/18 at 20:59 Ascorbic Acid (Vitamin C) 500 mg DAILY PO Last administered on 07/22/18 08:36; Admin Dose 500 MG; Start 07/15/18 at 12:00 Zinc Sulfate (Zinc Sulfate) 220 mg DAILY PO Last administered on 07/22/18 08:36; Admin Dose 220 MG; Start 07/15/18 at 11:00 Multivitamins Therapeutic (Theragran) 1 tab DAILY PO Last administered on 07/21/18 08:26; Admin Dose 1 TAB; Start 07/15/18 at 11:00 IV Flush (NS 10 ml) 10 ml PRN PRN IV IV PROTOCOL Last administered on 07/19/18 02:30; Admin Dose 10 ML; Start 07/15/18 at 17:00 JOHNSON PENDLETON HEEL ATT[employer]ER Jul 22, 2018 14:49
[2018-07-22 20:00] VITALS: BP 125/86; PULSE 107; RESP 20
[2018-07-23] MEDS: HYDROmorphONE 1 MG/ML SYG IV PRN ×6 (01:02→21:30)
[2018-07-23 01:32] VITALS: BP 147/84; PULSE 94; RESP 20
[2018-07-23] MEDS: PANTOPRAZOLE (EC) 40 MG TAB PO SCH (05:00)
[2018-07-23] MEDS: AMPICILLIN 1 GM/NS (PMX) 50 ML IVPB SCH ×3 (05:00→21:32)
[2018-07-23] MEDS: CIPROFLOXACIN 500 MG TAB PO SCH ×2 (05:00→17:24)
[2018-07-23] MEDS: CARISOPRODOL 350 MG TAB PO SCH ×4 (05:06→17:24)
[2018-07-23 08:00] VITALS: BP 153/87; PULSE 87; RESP 18
[2018-07-23] MEDS: DOCUSATE SODIUM 100 MG CAP PO SCH ×2 (09:00→21:00)
[2018-07-23] MEDS: POLYETHYLENE GLYCOL 17 GM PACKET PO SCH ×2 (09:00→21:00)
[2018-07-23] MEDS: MAGNESIUM HYDROXIDE 30ML CUP PO SCH (09:00)
[2018-07-23] MEDS: TAMSULOSIN (SR) 0.4 MG CAP PO SCH (09:02)
[2018-07-23] MEDS: ASCORBIC ACID 500 MG TAB PO SCH (09:03)
[2018-07-23] MEDS: LISINOPRIL 5 MG TAB PO SCH (09:03)
[2018-07-23] MEDS: ZINC SULFATE 220 MG CAP PO SCH (09:03)
[2018-07-23] MEDS: MULTIVITAMINS THERAPEUTIC TAB PO SCH (09:03)
[2018-07-23] MEDS: FERROUS FUMARATE (SR) TAB PO SCH ×2 (09:03→20:20)
[2018-07-23] MEDS: ENOXAPARIN 30 MG/0.3 ML SYG SC SCH (09:05)
--- NOTE | 2018-07-23 10:12 | PN ---
Date/Time of Note Date/Time of Note DATE: 07/23/18 TIME: 10:12 Objective Vitals Vital Signs Date Temp Pulse Resp B/P (MAP) Pulse Ox O2 O2 Flow FiO2 Time Delivery Rate 07/23/18 98.1 87 18 153/87 97 Room Air 08:00 (109) Intake and Output 07/22/18 07/22/18 07/23/18 1515:00 23:00 07:00 IntakeIntake Total 380 ml 430 ml 100 ml OutputOutput Total 1200 ml BalanceBalance 380 ml 430 ml -1100 ml Results Result Diagram: 07/22/1833 07/22/18532 Medications Medications Current Medications IV Flush (NS 3 ml) 3 ml PER PROTOCOL IV ; Start 06/22/18 at 18:30 Ondansetron HCl (Zofran Inj) 4 mg Q6H PRN IV NAUSEA/VOMITING Last administered on 06/26/18at 15:57; Admin Dose 4 MG; Start 06/22/18 at 18:30 Acetaminophen (Tylenol Tab) 650 mg Q6H PRN PO .PAIN 1-3 OR TEMP; Start 06/22/18 at 18:30 Enoxaparin Sodium (Lovenox) 30 mg DAILY SC Last administered on 07/23/18at 09:05; Admin Dose 30 MG; Start 06/23/18 at 09:00 Hydralazine HCl (Apresoline) 10 mg Q4H PRN IV SBP >160; Start 06/22/18 at 19:00 [facility] This patient ville[place]... PRN PRN XX WOUND CARE; Start 06/23/18 at 00:30 Docusate Sodium (Colace) 100 mg BID PO Last administered on 07/21/18at 08:26; Admin Dose 100 MG; Start 06/23/18 at 21:00 Tamsulosin HCl (Flomax) 0.4 mg DAILY PO Last administered on 07/23/18at 09:02; Admin Dose 0.4 MG; Start 06/24/18 at 09:00 Labetalol HCl (Labetalol) 10 mg Q4 PRN IV sbp>160; Start 06/24/18 at 13:30 Lisinopril (Zestril) 5 mg DAILY PO Last administered on 07/23/18at 09:03; Admin Dose 5 MG; Start 06/29/18 at 09:00 Magnesium Hydroxide (Milk Of Mag) 30 ml DAILY PRN PO CONSTIPATION; Start 06/28/18 at 21:00 Pantoprazole (Protonix Tab) 40 mg DAILY@06 PO Last administered on 07/23/18 05:00; Admin Dose 40 MG; Start 07/04/18 at 06:00 Carisoprodol (Soma) 350 mg Q6 PO Last administered on 07/23/18 05:06; Admin Dose 350 MG; Start 07/06/18 at 12:00 Polyethylene Glycol (Miralax) 17 gm BID PO Last administered on 07/21/18 08:26; Admin Dose 17 GM; Start 07/08/18 at 11:00 Ciprofloxacin (Cipro) 500 mg BID@,18 PO Last administered on 07/23/18 05:00; Admin Dose 500 MG; Start 07/08/18 at 18:00; Stop 08/03/18 at 23:00 Ampicillin 50 ml @ 100 mls/hr Q8 IVPB Last administered on 07/23/18 05:00; Admin Dose 100 MLS/HR; Start 07/08/18 at 14:00; Stop 08/03/18 at 23:00 Magnesium Hydroxide (Milk Of Mag) 30 ml DAILY PO Last administered on 07/21/18 08:26; Admin Dose 30 ML; Start 07/08/18 at 19:30 Oxycodone/ Acetaminophen (Endocet (10/ 325)) 2 tab Q6H PRN PO MODERATE PAIN LEVEL 4-6 Last administered on 07/21/18 20:46; Admin Dose 2 TAB; Start 07/09/18 at 16:00 Hydromorphone HCl (Dilaudid) 1 mg Q4H PRN IV SEVERE PAIN LEVEL 7-10 Last administered on 07/23/18 09:02; Admin Dose 1 MG; Start 07/12/18 at 19:00 Docusate Sodium/ Ferrous Fumarate (Harry-Sequels) 1 tab BID PO Last administered on 07/23/18 09:03; Admin Dose 1 TAB; Start 07/13/18 at 21:00; Stop 08/12/18 at 20:59 Ascorbic Acid (Vitamin C) 500 mg DAILY PO Last administered on 07/23/18 09:03; Admin Dose 500 MG; Start 07/15/18 at 12:00 Zinc Sulfate (Zinc Sulfate) 220 mg DAILY PO Last administered on 07/23/18at 09:03; Admin Dose 220 MG; Start 07/15/18 at 11:00 Multivitamins Therapeutic (Theragran) 1 tab DAILY PO Last administered on 07/23/18at 09:03; Admin Dose 1 TAB; Start 07/15/18 at 11:00 IV Flush (NS 10 ml) 10 ml PRN PRN IV IV PROTOCOL Last administered on 07/19/18at 02:30; Admin Dose 10 ML; Start 07/15/18 at 17:00 VTE Prophylaxis Risk score (from [facility])>0 risk: 6 SCD applied (from [facility]): No SCD contraindication: other Lines/Catheters IV Catheter Type: Cortez in Place: Yes Cont'd cortez catheter reason: urinary retention Assessment/Plan Hospital Course Subjective No acute changes, patient still refusing physical therapy Objective Physical exam General: Patient is laying in bed and answers questions appropriately Mentation: Patient is alert and oriented 4, Head: Normocephalic atraumatic Eyes: EOMI, pupils reactive to light Neck: Supple, nontender, midline Respiratory: Clear to auscultation bilaterally Cardiovascular: regular rate, no obvious murmurs Gastrointestinal: non-tender to palpation, bowel sounds heard. Neurological: Moves all extremities spontaneously Skin: Multiple ulcers on patient's sacral decubitus area and buttock area, bandaged Assessment/Plan 1. Sepsis secondary to UTI, decubitus ulcers, and OM- resolved - Continue all care - Remains stable and plans for IV antibiotics until 08/03/18. PICC line in place - ID on board and appreciate recommendations 2. UTI- resolved - Urology on board and appreciate consultation. Cortez remains in place given presence of decub ulcers. 3. Sacral decubitus ulcer with abscess- stable - Surgery consultation appreciated and continue current medical management and wound care. Debridement as needed - Start zinc sulf/Vit c/Theragen sup - Julius protein w/diet 4. Osteomyelitis of ischium - Will need to complete 6 weeks of IV antibiotics, with last dose on 08/03/18 5. Chronic back pain - continue pain control 6. Hypertension - stable 7. Neurogenic bladder - cortez in place - Urology on board 8. Disposition - Patient remains medically stable for discharge once find accepting facility. TRACE REBOLLEDOb 27, 2019 10:12
--- NOTE | 2018-07-23 11:15 | CONS ---
Assessment/Plan Assessment/Plan Hospital Course (Demo Recall) No acute events. Microbiology: Blood culture growing Proteus mirabilis, urine culture grew Proteus mirabilis and oxacillin sensitive staph aureus. Sacral wound culture growing E. coli, staph aureus and enterococcus species Chest x-ray on admission revealed no definite abnormalities. Indwelling: Baxter Antimicrobials: Cipro, ampicillin Physical examination: Well-developed chronically ill-appearing elderly man in no distress. Head atraumatic normocephalic sclera nonicteric neck is supple chest rise symmetrical breath sounds diminished bases heart S1-S2 abdomen soft bowel sounds present extremities wasted bilateral lower extremities Assessment: 1. S/p sepsis, present on admission 2. Proteus mirabilis bacteremia secondary to UTI, repeat bld cx neg 3. Multidrug-resistant Proteus mirabilis pyelonephritis 4. Bilateral hydronephrosis 5. Neurogenic bladder 6. Multiple decubitus with questionable osteomyelitis of right atrium and right iliac bone 7. Obstructive uropathy 8. Homelessness 9. Incomplete paraplegia Plan: Remains stable, completing antibiotics for treatment of OM==> last day August 03, pending dc arrangements Consultation Date/Type/Reason Admit Date/Time Jun 22, 2018 at 18:09 Initial Consult Date 06/23/18 Type of Consult id Requesting Provider: TRACE REBOLLEDO Date/Time of Note DATE: 07/23/18 TIME: 11:15 Exam/Review of Systems Exam Vitals Vital Signs Date Temp Pulse Resp B/P (MAP) Pulse Ox O2 O2 Flow FiO2 Time Delivery Rate 07/23/18 98.1 87 18 153/87 97 Room Air 08:00 (109) Intake and Output 07/22/18 07/22/18 07/23/18 1515:00 23:00 07:00 IntakeIntake Total 380 ml 430 ml 100 ml OutputOutput Total 1200 ml BalanceBalance 380 ml 430 ml -1100 ml Results Result Diagram: 07/22/18 0533 07/22/18 0533 Medications Medication Current Medications IV Flush (NS 3 ml) 3 ml PER PROTOCOL IV ; Start 06/22/18 at 18:30 Ondansetron HCl (Zofran Inj) 4 mg Q6H PRN IV NAUSEA/VOMITING Last administered on 06/26/18at 15:57; Admin Dose 4 MG; Start 06/22/18 at 18:30 Acetaminophen (Tylenol Tab) 650 mg Q6H PRN PO .PAIN 1-3 OR TEMP; Start 06/22/18 at 18:30 Enoxaparin Sodium (Lovenox) 30 mg DAILY SC Last administered on 07/23/18 09:05; Admin Dose 30 MG; Start 06/23/18 at 09:00 Hydralazine HCl (Apresoline) 10 mg Q4H PRN IV SBP >160; Start 06/22/18 at 19:00 Miscellaneous Information (Pending [facility] Order For Wound Care) This patient villela... PRN PRN XX WOUND CARE; Start 06/23/18 at 00:30 Docusate Sodium (Colace) 100 mg BID PO Last administered on 07/21/18 08:26; Admin Dose 100 MG; Start 06/23/18 at 21:00 Tamsulosin HCl (Flomax) 0.4 mg DAILY PO Last administered on 07/23/18at 09:02; Admin Dose 0.4 MG; Start 06/24/18 at 09:00 Labetalol HCl (Labetalol) 10 mg Q4 PRN IV sbp>160; Start 06/24/18 at 13:30 Lisinopril (Zestril) 5 mg DAILY PO Last administered on 07/23/18 09:03; Admin Dose 5 MG; Start 06/29/18 at 09:00 Magnesium Hydroxide (Milk Of Mag) 30 ml DAILY PRN PO CONSTIPATION; Start 06/28/18 at 21:00 Pantoprazole (Protonix Tab) 40 mg DAILY@06 PO Last administered on 07/23/18 05:00; Admin Dose 40 MG; Start 07/04/18 at 06:00 Carisoprodol (Soma) 350 mg Q6 PO Last administered on 07/23/18 05:06; Admin Dose 350 MG; Start 07/06/18 at 12:00 Polyethylene Glycol (Miralax) 17 gm BID PO Last administered on 07/21/18 08:26; Admin Dose 17 GM; Start 07/08/18 at 11:00 Ciprofloxacin (Cipro) 500 mg BID@,18 PO Last administered on 07/23/18 05:00; Admin Dose 500 MG; Start 07/08/18 at 18:00; Stop 08/03/18 at 23:00 Ampicillin 50 ml @ 100 mls/hr Q8 IVPB Last administered on 07/23/18 05:00; Admin Dose 100 MLS/HR; Start 07/08/18 at 14:00; Stop 08/03/18 at 23:00 Magnesium Hydroxide (Milk Of Mag) 30 ml DAILY PO Last administered on 07/21/18 08:26; Admin Dose 30 ML; Start 07/08/18 at 19:30 Oxycodone/ Acetaminophen (Endocet (10/ 325)) 2 tab Q6H PRN PO MODERATE PAIN LEVEL 4-6 Last administered on 07/21/18 20:46; Admin Dose 2 TAB; Start 07/09/18 at 16:00 Hydromorphone HCl (Dilaudid) 1 mg Q4H PRN IV SEVERE PAIN LEVEL 7-10 Last administered on 07/23/18 09:02; Admin Dose 1 MG; Start 07/12/18 at 19:00 Docusate Sodium/ Ferrous Fumarate (Harry-Sequels) 1 tab BID PO Last administered on 07/23/18 09:03; Admin Dose 1 TAB; Start 07/13/18 at 21:00; Stop 08/12/18 at 20:59 Ascorbic Acid (Vitamin C) 500 mg DAILY PO Last administered on 07/23/18 09:03; Admin Dose 500 MG; Start 07/15/18 at 12:00 Zinc Sulfate (Zinc Sulfate) 220 mg DAILY PO Last administered on 07/23/18 09:03; Admin Dose 220 MG; Start 07/15/18 at 11:00 Multivitamins Therapeutic (Theragran) 1 tab DAILY PO Last administered on 07/23/18 09:03; Admin Dose 1 TAB; Start 07/15/18 at 11:00 IV Flush (NS 10 ml) 10 ml PRN PRN IV IV PROTOCOL Last administered on 07/19/18 02:30; Admin Dose 10 ML; Start 07/15/18 at 17:00 JOHNSON PENDLETON NP Jul 23, 2018 11:15
--- NOTE | 2018-07-23 13:55 | PN ---
Date/Time of Note Date/Time of Note DATE: 07/23/18 TIME: 13:53 Assessment/Plan Lines/Catheters IV Catheter Type (from [facility]): PICC Line Cortez in Place (from [facility]): Yes Assessment/Plan Chief Complaint/Hosp Course 1. Multiple decubitus pressure ulcers; healing -Continue offloading & nutritional optimization -Continue same wound care > medihoney -Debridement as needed -Vitamin C -Continue osteomyelitis treatment> per id -placement still pending 2. Decompressed bladder with significant thickening concerning for bladder neoplasm versus cystitis: Urethritis, possible pyelonephritis; leaking between self caths, indwelling cortez placed -per Urology 3. Labile mood with intermittent bursts of anger -psych eval noted, refusing meds 4. Hypoalbuminemia -Encourage nutritional optimization 5. Hypertension history -Nutrition and medication optimization 6. Anemia without evidence of acute blood loss -Monitor 7. Acute on chronic back pain, nephrolithiasis -Medical optimization -Judicious fluid management 8. Constipation: Now with daily bowel movements -bowel optimization 9. Elevated CEA however patient refusing colonoscopy and further workup Thank you. Patient seen and examined in collaboration with Dr. Micah Hobbs. Subjective 24 Hr Interval Summary Refusing physical therapy. Continues to complain of generalized body aches. No fevers, chills, sob, congested cough, cp, palpitations, villela, dizziness, nausea, vomiting, diarrhea, dysuria, excessive wound drainage or odor. Exam/Review of Systems Vital Signs Vitals Vital Signs Date Temp Pulse Resp B/P (MAP) Pulse Ox O2 O2 Flow FiO2 Time Delivery Rate 07/23/18 98.1 87 18 153/87 97 Room Air 08:00 (109) Intake and Output 07/22/18 07/22/18 07/23/18 1515:00 23:00 07:00 IntakeIntake Total 380 ml 430 ml 100 ml OutputOutput Total 1200 ml BalanceBalance 380 ml 430 ml -1100 ml Exam Free Text/Dictation Constitutional: alert, oriented No distress Psych: irritable Head: normocephalic, atraumatic Eyes: nl conjunctiva, EOMI, PERRL; No icteric ENMT: nl external ears & nose, nl lips & teeth, mucosa pink and moist Neck: supple, non-tender; No jvd Respiratory: normal air movement; No congested cough, No labored breathing, No wheezing Cardiovascular: regular rate and rhythm; No edema Gastrointestinal: soft, non-tender; No distended, No rebound or guarding Genitourinary - Male: nl penis, nl scrotum Musculoskeletal: No nl gait and stance, No joint tenderness Extremities: normal pulses; No calf tenderness, No edema, No tenderness Neurological: nl mental status, nl speech; No nl strength Skin: rash or lesions (Decubitus pressure ulcers: no odor/ no drainage. Right ischium : no odor/small drainage); No ecchymosis Lymph: nl lymph nodes Results Result Diagram: 07/22/1833 07/22/1833 TIFFANIE KLEIN NP Jul 23, 2018 13:55
[2018-07-23 14:00] VITALS: BP 126/74; PULSE 94; RESP 18
[2018-07-23 20:00] VITALS: BP 133/80; PULSE 93; RESP 19
[2018-07-23] MEDS: OXYCODONE/ACETAMINOPHEN (10/325) TAB PO PRN (20:20)
[2018-07-24] MEDS: CARISOPRODOL 350 MG TAB PO SCH ×5 (00:47→23:19)
[2018-07-24] MEDS: HYDROmorphONE 1 MG/ML SYG IV PRN ×6 (01:30→22:04)
[2018-07-24 02:24] VITALS: BP 132/69; PULSE 83; RESP 17
[2018-07-24] MEDS: CIPROFLOXACIN 500 MG TAB PO SCH ×2 (05:28→17:28)
[2018-07-24] MEDS: PANTOPRAZOLE (EC) 40 MG TAB PO SCH (05:28)
[2018-07-24] MEDS: AMPICILLIN 1 GM/NS (PMX) 50 ML IVPB SCH ×3 (05:29→21:58)
[2018-07-24 08:00] VITALS: BP 130/74; PULSE 85; RESP 18
[2018-07-24] MEDS: POLYETHYLENE GLYCOL 17 GM PACKET PO SCH ×2 (08:56→21:00)
[2018-07-24] MEDS: DOCUSATE SODIUM 100 MG CAP PO SCH ×2 (08:56→21:00)
[2018-07-24] MEDS: MAGNESIUM HYDROXIDE 30ML CUP PO SCH (08:56)
[2018-07-24] MEDS: TAMSULOSIN (SR) 0.4 MG CAP PO SCH (08:58)
[2018-07-24] MEDS: ASCORBIC ACID 500 MG TAB PO SCH (08:58)
[2018-07-24] MEDS: ZINC SULFATE 220 MG CAP PO SCH (08:58)
[2018-07-24] MEDS: FERROUS FUMARATE (SR) TAB PO SCH ×2 (08:58→21:57)
[2018-07-24] MEDS: LISINOPRIL 5 MG TAB PO SCH (08:58)
[2018-07-24] MEDS: MULTIVITAMINS THERAPEUTIC TAB PO SCH (08:58)
[2018-07-24] MEDS: ENOXAPARIN 30 MG/0.3 ML SYG SC SCH (09:00)
--- NOTE | 2018-07-24 11:34 | PN ---
Date/Time of Note Date/Time of Note DATE: 07/24/18 TIME: 11:32 Assessment/Plan Lines/Catheters IV Catheter Type (from [facility]): PICC Line Cortez in Place (from [facility]): Yes Assessment/Plan Chief Complaint/Hosp Course 1. Multiple decubitus pressure ulcers; healing; continue with same recommendations -Continue offloading & nutritional optimization -Continue same wound care > medihoney -Debridement as needed -Vitamin C -Continue osteomyelitis treatment> per id -placement still pending 2. Decompressed bladder with significant thickening concerning for bladder neoplasm versus cystitis: Urethritis, possible pyelonephritis; leaking between self caths, indwelling cortez placed -per Urology 3. Labile mood with intermittent bursts of anger -psych eval noted, refusing meds 4. Hypoalbuminemia -Encourage nutritional optimization 5. Hypertension history -Nutrition and medication optimization 6. Anemia without evidence of acute blood loss -Monitor 7. Acute on chronic back pain, nephrolithiasis -Medical optimization -Judicious fluid management 8. Constipation history -bowel optimization 9. Elevated CEA however patient refusing colonoscopy and further workup Thank you. Patient seen and examined in collaboration with Dr. Micah Hobbs. Subjective 24 Hr Interval Summary No acute events. No fevers, chills, sob, congested cough, cp, palpitations, villela, dizziness, nausea, vomiting, diarrhea, dysuria, wound drainage or odor. Pending discharge placement. Exam/Review of Systems Vital Signs Vitals Vital Signs Date Temp Pulse Resp B/P (MAP) Pulse Ox O2 O2 Flow FiO2 Time Delivery Rate 07/24/18 97.8 85 18 130/74 96 Room Air 08:00 (92) Intake and Output 07/23/18 07/23/18 07/24/18 1414:59 22:59 06:59 IntakeIntake Total 320 ml 380 ml 100 ml OutputOutput Total 750 ml BalanceBalance -430 ml 380 ml 100 ml Exam Free Text/Dictation Constitutional: alert, oriented No distress Psych: irritable Head: normocephalic, atraumatic Eyes: nl conjunctiva, EOMI, PERRL; No icteric ENMT: nl external ears & nose, nl lips & teeth, mucosa pink and moist Neck: supple, non-tender; No jvd Respiratory: normal air movement; No congested cough, No labored breathing, No wheezing Cardiovascular: regular rate and rhythm; No edema Gastrointestinal: soft, non-tender; No distended, No rebound or guarding Genitourinary - Male: nl penis, nl scrotum Musculoskeletal: No nl gait and stance, No joint tenderness Extremities: normal pulses; No calf tenderness, No edema, No tenderness Neurological: nl mental status, nl speech; No nl strength Skin: rash or lesions (Decubitus pressure ulcers: Improving, no odor/ no ankur inage. Right ischium : Improving, no odor/small drainage); No ecchymosis Lymph: nl lymph nodes Results Result Diagram: 07/22/1833 07/22/18 0533 TIFFANIE KLEIN NP Jul 24, 2018 11:34
--- NOTE | 2018-07-24 12:01 | PN ---
Date/Time of Note Date/Time of Note DATE: 07/24/18 TIME: 12:00 Objective Vitals Vital Signs Date Temp Pulse Resp B/P (MAP) Pulse Ox O2 O2 Flow FiO2 Time Delivery Rate 07/24/18 97.8 85 18 130/74 96 Room Air 08:00 (92) Intake and Output 07/23/18 07/23/18 07/24/18 1515:00 23:00 07:00 IntakeIntake Total 320 ml 380 ml 100 ml OutputOutput Total 750 ml BalanceBalance -430 ml 380 ml 100 ml Results Result Diagram: 07/22/1853207/22/18532 Medications Medications Current Medications IV Flush (NS 3 ml) 3 ml PER PROTOCOL IV ; Start 06/22/18 at 18:30 Ondansetron HCl (Zofran Inj) 4 mg Q6H PRN IV NAUSEA/VOMITING Last administered on 06/26/18at 15:57; Admin Dose 4 MG; Start 06/22/18 at 18:30 Acetaminophen (Tylenol Tab) 650 mg Q6H PRN PO .PAIN 1-3 OR TEMP; Start 06/22/18 at 18:30 Enoxaparin Sodium (Lovenox) 30 mg DAILY SC Last administered on 07/24/18at 09:00; Admin Dose 30 MG; Start 06/23/18 at 09:00 Hydralazine HCl (Apresoline) 10 mg Q4H PRN IV SBP >160; Start 06/22/18 at 19:00 [facility] This patient villela... PRN PRN XX WOUND CARE; Start 06/23/18 at 00:30 Docusate Sodium (Colace) 100 mg BID PO Last administered on 07/21/18at 08:26; Admin Dose 100 MG; Start 06/23/18 at 21:00 Tamsulosin HCl (Flomax) 0.4 mg DAILY PO Last administered on 07/24/18at 08:58; Admin Dose 0.4 MG; Start 06/24/18 at 09:00 Labetalol HCl (Labetalol) 10 mg Q4 PRN IV sbp>160; Start 06/24/18 at 13:30 Lisinopril (Zestril) 5 mg DAILY PO Last administered on 07/24/18at 08:58; Admin Dose 5 MG; Start 06/29/18 at 09:00 Magnesium Hydroxide (Milk Of Mag) 30 ml DAILY PRN PO CONSTIPATION; Start 06/28/18 at 21:00 Pantoprazole (Protonix Tab) 40 mg DAILY@06 PO Last administered on 07/24/18 05:28; Admin Dose 40 MG; Start 07/04/18 at 06:00 Carisoprodol (Soma) 350 mg Q6 PO Last administered on 07/24/18 05:28; Admin Dose 350 MG; Start 07/06/18 at 12:00 Polyethylene Glycol (Miralax) 17 gm BID PO Last administered on 07/21/18 08:26; Admin Dose 17 GM; Start 07/08/18 at 11:00 Ciprofloxacin (Cipro) 500 mg BID@06,18 PO Last administered on 07/24/18 05:28; Admin Dose 500 MG; Start 07/08/18 at 18:00; Stop 08/03/18 at 23:00 Ampicillin 50 ml @ 100 mls/hr Q8 IVPB Last administered on 07/24/18 05:29; Admin Dose 100 MLS/HR; Start 07/08/18 at 14:00; Stop 08/03/18 at 23:00 Magnesium Hydroxide (Milk Of Mag) 30 ml DAILY PO Last administered on 07/21/18 08:26; Admin Dose 30 ML; Start 07/08/18 at 19:30 Oxycodone/ Acetaminophen (Endocet (10/ 325)) 2 tab Q6H PRN PO MODERATE PAIN LEVEL 4-6 Last administered on 07/23/18 20:20; Admin Dose 2 TAB; Start 07/09/18 at 16:00 Hydromorphone HCl (Dilaudid) 1 mg Q4H PRN IV SEVERE PAIN LEVEL 7-10 Last administered on 07/24/18 09:42; Admin Dose 1 MG; Start 07/12/18 at 19:00 Docusate Sodium/ Ferrous Fumarate (Harry-Sequels) 1 tab BID PO Last administered on 07/24/18 08:58; Admin Dose 1 TAB; Start 07/13/18 at 21:00; Stop 08/12/18 at 20:59 Ascorbic Acid (Vitamin C) 500 mg DAILY PO Last administered on 07/24/18 08:58; Admin Dose 500 MG; Start 07/15/18 at 12:00 Zinc Sulfate (Zinc Sulfate) 220 mg DAILY PO Last administered on 07/24/18at 08:58; Admin Dose 220 MG; Start 07/15/18 at 11:00 Multivitamins Therapeutic (Theragran) 1 tab DAILY PO Last administered on 07/24/18at 08:58; Admin Dose 1 TAB; Start 07/15/18 at 11:00 IV Flush (NS 10 ml) 10 ml PRN PRN IV IV PROTOCOL Last administered on 07/19/18at 02:30; Admin Dose 10 ML; Start 07/15/18 at 17:00 VTE Prophylaxis Risk score (from [facility])>0 risk: 6 SCD applied (from [facility]): Yes Lines/Catheters IV Catheter Type: Cortez in Place: Yes Cont'd coretz catheter reason: urinary retention Assessment/Plan Hospital Course Subjective No acute changes, very difficult to speak with as always angry about one thing or another. Objective Physical exam General: Patient is laying in bed and answers questions appropriately Mentation: Patient is alert and oriented 4, Head: Normocephalic atraumatic Eyes: EOMI, pupils reactive to light Neck: Supple, nontender, midline Respiratory: Clear to auscultation bilaterally Cardiovascular: regular rate, no obvious murmurs Gastrointestinal: non-tender to palpation, bowel sounds heard. Neurological: Moves all extremities spontaneously Skin: Multiple ulcers on patient's sacral decubitus area and buttock area, bandaged Assessment/Plan 1. Sepsis secondary to UTI, decubitus ulcers, and OM- resolved - Continue all care - Remains stable and plans for IV antibiotics until 08/03/18. PICC line in place - ID on board and appreciate recommendations 2. UTI- resolved - Urology on board and appreciate consultation. Cortez remains in place given presence of decub ulcers. 3. Sacral decubitus ulcer with abscess- stable - Surgery consultation appreciated and continue current medical management and wound care. Debridement as needed - Start zinc sulf/Vit c/Theragen sup - Julius protein w/diet 4. Osteomyelitis of ischium - Will need to complete 6 weeks of IV antibiotics, with last dose on 08/03/18 5. Chronic back pain - continue pain control 6. Hypertension - stable 7. Neurogenic bladder - cortez in place - Urology on board 8. Disposition - Patient remains medically stable for discharge once find accepting facility. TRACE REBOLLEDO Jul 24, 2018 12:01
[2018-07-24 14:00] VITALS: BP 115/71; PULSE 98; RESP 18
--- NOTE | 2018-07-24 14:48 | CONS ---
Assessment/Plan Assessment/Plan Hospital Course (Demo Recall) Awake, looks comfortable, no fevers Microbiology: Blood culture growing Proteus mirabilis, urine culture grew Proteus mirabilis and oxacillin sensitive staph aureus. Sacral wound culture growing E. coli, staph aureus and enterococcus species Chest x-ray on admission revealed no definite abnormalities. Indwelling: Baxter Antimicrobials: Cipro, ampicillin Physical examination: Well-developed chronically ill-appearing elderly man in no distress. Head atraumatic normocephalic sclera nonicteric neck is supple chest rise symmetrical breath sounds diminished bases heart S1-S2 abdomen soft bowel sounds present extremities wasted bilateral lower extremities Assessment: 1. S/p sepsis, present on admission 2. Proteus mirabilis bacteremia secondary to UTI, repeat bld cx neg 3. Multidrug-resistant Proteus mirabilis pyelonephritis 4. Bilateral hydronephrosis 5. Neurogenic bladder 6. Multiple decubitus with questionable osteomyelitis of right atrium and right iliac bone 7. Obstructive uropathy 8. Homelessness 9. Incomplete paraplegia Plan: Remains stable, completing antibiotics for treatment of OM==> last day August 03, pending dc arrangements Consultation Date/Type/Reason Admit Date/Time Jun 22, 2018 at 18:09 Initial Consult Date 06/23/18 Type of Consult id Requesting Provider: TRACE REBOLLEDO Date/Time of Note DATE: 07/24/18 TIME: 14:47 Exam/Review of Systems Exam Vitals Vital Signs Date Temp Pulse Resp B/P (MAP) Pulse Ox O2 O2 Flow FiO2 Time Delivery Rate 07/24/18 97.8 85 18 130/74 96 Room Air 08:00 (92) Intake and Output 07/23/18 07/23/18 07/24/18 1515:00 23:00 07:00 IntakeIntake Total 320 ml 380 ml 100 ml OutputOutput Total 750 ml BalanceBalance -430 ml 380 ml 100 ml Results Result Diagram: 07/22/1833 07/22/18532 Medications Medication Current Medications IV Flush (NS 3 ml) 3 ml PER PROTOCOL IV ; Start 06/22/18 at 18:30 Ondansetron HCl (Zofran Inj) 4 mg Q6H PRN IV NAUSEA/VOMITING Last administered on 06/26/18at 15:57; Admin Dose 4 MG; Start 06/22/18 at 18:30 Acetaminophen (Tylenol Tab) 650 mg Q6H PRN PO .PAIN 1-3 OR TEMP; Start 06/22/18 at 18:30 Enoxaparin Sodium (Lovenox) 30 mg DAILY SC Last administered on 07/24/18at 09:00; Admin Dose 30 MG; Start 06/23/18 at 09:00 Hydralazine HCl (Apresoline) 10 mg Q4H PRN IV SBP >160; Start 06/22/18 at 19:00 Miscellaneous Information (Pending [facility] Order For Wound Care) This patient villela... PRN PRN XX WOUND CARE; Start 06/23/18 at 00:30 Docusate Sodium (Colace) 100 mg BID PO Last administered on 07/21/18at 08:26; Admin Dose 100 MG; Start 06/23/18 at 21:00 Tamsulosin HCl (Flomax) 0.4 mg DAILY PO Last administered on 07/24/18at 08:58; Admin Dose 0.4 MG; Start 06/24/18 at 09:00 Labetalol HCl (Labetalol) 10 mg Q4 PRN IV sbp>160; Start 06/24/18 at 13:30 Lisinopril (Zestril) 5 mg DAILY PO Last administered on 07/24/18at 08:58; Admin Dose 5 MG; Start 06/29/18 at 09:00 Magnesium Hydroxide (Milk Of Mag) 30 ml DAILY PRN PO CONSTIPATION; Start 06/28/18 at 21:00 Pantoprazole (Protonix Tab) 40 mg DAILY@06 PO Last administered on 07/24/18at 05:28; Admin Dose 40 MG; Start 07/04/18 at 06:00 Carisoprodol (Soma) 350 mg Q6 PO Last administered on 07/24/18at 12:01; Admin Dose 350 MG; Start 07/06/18 at 12:00 Polyethylene Glycol (Miralax) 17 gm BID PO Last administered on 07/21/18 08:26; Admin Dose 17 GM; Start 07/08/18 at 11:00 Ciprofloxacin (Cipro) 500 mg BID@06,18 PO Last administered on 07/24/18 05:28; Admin Dose 500 MG; Start 07/08/18 at 18:00; Stop 08/03/18 at 23:00 Ampicillin 50 ml @ 100 mls/hr Q8 IVPB Last administered on 07/24/18 05:29; Admin Dose 100 MLS/HR; Start 07/08/18 at 14:00; Stop 08/03/18 at 23:00 Magnesium Hydroxide (Milk Of Mag) 30 ml DAILY PO Last administered on 07/21/18 08:26; Admin Dose 30 ML; Start 07/08/18 at 19:30 Oxycodone/ Acetaminophen (Endocet (10/ 325)) 2 tab Q6H PRN PO MODERATE PAIN LEVEL 4-6 Last administered on 07/23/18 20:20; Admin Dose 2 TAB; Start 07/09/18 at 16:00 Hydromorphone HCl (Dilaudid) 1 mg Q4H PRN IV SEVERE PAIN LEVEL 7-10 Last administered on 07/24/18 13:49; Admin Dose 1 MG; Start 07/12/18 at 19:00 Docusate Sodium/ Ferrous Fumarate (Harry-Sequels) 1 tab BID PO Last administered on 07/24/18 08:58; Admin Dose 1 TAB; Start 07/13/18 at 21:00; Stop 08/12/18 at 20:59 Ascorbic Acid (Vitamin C) 500 mg DAILY PO Last administered on 07/24/18 08:58; Admin Dose 500 MG; Start 07/15/18 at 12:00 Zinc Sulfate (Zinc Sulfate) 220 mg DAILY PO Last administered on 07/24/18 08:58; Admin Dose 220 MG; Start 07/15/18 at 11:00 Multivitamins Therapeutic (Theragran) 1 tab DAILY PO Last administered on 07/24/18 08:58; Admin Dose 1 TAB; Start 07/15/18 at 11:00 IV Flush (NS 10 ml) 10 ml PRN PRN IV IV PROTOCOL Last administered on 07/19/18 02:30; Admin Dose 10 ML; Start 07/15/18 at 17:00 JOHNSON PENDLETON NP Jul 24, 2018 14:47
[2018-07-24 20:20] VITALS: BP 131/83; PULSE 98; RESP 18
[2018-07-24] MEDS: OXYCODONE/ACETAMINOPHEN (10/325) TAB PO PRN (23:22)
[2018-07-25 02:00] VITALS: BP 133/68; PULSE 85; RESP 18
[2018-07-25] MEDS: HYDROmorphONE 1 MG/ML SYG IV PRN ×6 (02:06→22:22)
[2018-07-25] MEDS: CARISOPRODOL 350 MG TAB PO SCH ×3 (05:39→18:13)
[2018-07-25] MEDS: CIPROFLOXACIN 500 MG TAB PO SCH ×2 (05:39→18:13)
[2018-07-25] MEDS: PANTOPRAZOLE (EC) 40 MG TAB PO SCH (05:39)
[2018-07-25] MEDS: AMPICILLIN 1 GM/NS (PMX) 50 ML IVPB SCH ×3 (05:40→22:21)
[2018-07-25 08:00] VITALS: BP 124/68; PULSE 82; RESP 17
[2018-07-25] MEDS: MAGNESIUM HYDROXIDE 30ML CUP PO SCH (09:00)
[2018-07-25] MEDS: DOCUSATE SODIUM 100 MG CAP PO SCH ×2 (09:00→20:38)
[2018-07-25] MEDS: POLYETHYLENE GLYCOL 17 GM PACKET PO SCH ×2 (09:00→20:39)
[2018-07-25] MEDS: ZINC SULFATE 220 MG CAP PO SCH (09:37)
[2018-07-25] MEDS: FERROUS FUMARATE (SR) TAB PO SCH ×2 (09:37→20:33)
[2018-07-25] MEDS: MULTIVITAMINS THERAPEUTIC TAB PO SCH (09:37)
[2018-07-25] MEDS: TAMSULOSIN (SR) 0.4 MG CAP PO SCH (09:37)
[2018-07-25] MEDS: LISINOPRIL 5 MG TAB PO SCH (09:38)
[2018-07-25] MEDS: ENOXAPARIN 30 MG/0.3 ML SYG SC SCH (09:40)
[2018-07-25] MEDS: ASCORBIC ACID 500 MG TAB PO SCH (09:41)
[2018-07-25 13:50] VITALS: BP 134/85; PULSE 94; RESP 18
--- NOTE | 2018-07-25 15:41 | PN ---
Date/Time of Note Date/Time of Note DATE: 07/25/18 TIME: 15:39 Assessment/Plan Lines/Catheters IV Catheter Type (from [facility]): PICC Line Cortez in Place (from [facility]): Yes Assessment/Plan Chief Complaint/Hosp Course 1. Multiple decubitus pressure ulcers; healing; continue with same recommendations -Continue offloading & nutritional optimization -Continue same wound care > medihoney -Debridement as needed -Vitamin C -Continue osteomyelitis treatment> per id (IV antibiotics with end date August 03) -placement still pending 2. Decompressed bladder with significant thickening concerning for bladder neoplasm versus cystitis: Urethritis, possible pyelonephritis; leaking between self caths, indwelling cortez placed -per Urology 3. Labile mood with intermittent bursts of anger -psych eval noted, refusing meds -Supportive 4. Hypoalbuminemia -Encourage nutritional optimization 5. Hypertension history -Nutrition and medication optimization 6. Anemia without evidence of acute blood loss -Monitor 7. Acute on chronic back pain, nephrolithiasis -Medical optimization -Judicious fluid management 8. Constipation history -bowel optimization 9. Elevated CEA however patient refusing colonoscopy and further workup Thank you. Patient seen and examined in collaboration with Dr. Micah Hobbs. Subjective 24 Hr Interval Summary Intermittent agitation. No acute discomfort. No fevers, chills, sob, congested cough, cp, palpitations, villela, dizziness, nausea, vomiting, diarrhea, dysuria. Exam/Review of Systems Vital Signs Vitals Vital Signs Date Temp Pulse Resp B/P (MAP) Pulse Ox O2 O2 Flow FiO2 Time Delivery Rate 07/25/18 97.6 94 18 134/85 97 13:50 (101) 07/24/18 Room Air 08:00 Intake and Output 07/24/18 07/24/18 07/25/18 1515:00 23:00 07:00 IntakeIntake Total 1340 ml 530 ml 700 ml OutputOutput Total 800 ml 850 ml 1350 ml BalanceBalance 540 ml -320 ml -650 ml Exam Free Text/Dictation Constitutional: alert, oriented No distress Psych: Labile Head: normocephalic, atraumatic Eyes: nl conjunctiva, EOMI, PERRL; No icteric ENMT: nl external ears & nose, nl lips & teeth, mucosa pink and moist Neck: supple, non-tender; No jvd Respiratory: normal air movement; No congested cough, No labored breathing, No wheezing Cardiovascular: regular rate and rhythm; No edema Gastrointestinal: soft, non-tender; No distended, No rebound or guarding Genitourinary - Male: nl penis, nl scrotum Musculoskeletal: No nl gait and stance, No joint tenderness Extremities: normal pulses; No calf tenderness, No edema, No tenderness Neurological: nl mental status, nl speech; No nl strength Skin: rash or lesions (Decubitus pressure ulcers: Clean, no odor/ no drainage. Right ischium : Improving, no odor/small drainage); No ecchymosis Lymph: nl lymph nodes Results Result Diagram: 07/25/18 0448 07/25/18 0448 TIFFANIE KLEIN NP Jul 25, 2018 15:41
[2018-07-25] MEDS ORDERED: OXYCODONE/ACETAMINOPHEN (10/325) TAB PO PRN (16:00)
--- NOTE | 2018-07-25 19:47 | CONS ---
Assessment/Plan Assessment/Plan Hospital Course (Demo Recall) 1312 No events, no fevers, all noted Microbiology: Blood culture growing Proteus mirabilis, urine culture grew Proteus mirabilis and oxacillin sensitive staph aureus. Sacral wound culture growing E. coli, staph aureus and enterococcus species Chest x-ray on admission revealed no definite abnormalities. Indwelling: Baxter Antimicrobials: Cipro, ampicillin Physical examination: Well-developed chronically ill-appearing elderly man in no distress. Head atraumatic normocephalic sclera nonicteric neck is supple chest rise symmetrical breath sounds diminished bases heart S1-S2 abdomen soft bowel sounds present extremities wasted bilateral lower extremities Assessment: 1. S/p sepsis, present on admission 2. Proteus mirabilis bacteremia secondary to UTI, repeat bld cx neg 3. Multidrug-resistant Proteus mirabilis pyelonephritis 4. Bilateral hydronephrosis 5. Neurogenic bladder 6. Multiple decubitus with questionable osteomyelitis of right atrium and right iliac bone 7. Obstructive uropathy 8. Homelessness 9. Incomplete paraplegia Plan: Remains stable, completing antibiotics for treatment of OM==> last day August 03, pending dc arrangements Consultation Date/Type/Reason Admit Date/Time Jun 22, 2018 at 18:09 Initial Consult Date 06/23/18 Type of Consult id Requesting Provider: TRACE REBOLLEDO Date/Time of Note DATE: 07/25/18 TIME: 19:46 Exam/Review of Systems Exam Vitals Vital Signs Date Temp Pulse Resp B/P (MAP) Pulse Ox O2 O2 Flow FiO2 Time Delivery Rate 07/25/18 97.6 94 18 134/85 97 13:50 (101) 07/24/18 Room Air 08:00 Intake and Output 07/24/18 07/24/18 07/25/18 1515:00 23:00 07:00 IntakeIntake Total 1340 ml 530 ml 700 ml OutputOutput Total 800 ml 850 ml 1350 ml BalanceBalance 540 ml -320 ml -650 ml Results Result Diagram: 07/25/18 0448 07/25/18 0448 Results 24hrs Laboratory Tests Test 07/25/18 04:48 White Blood Count 7.3 Red Blood Count 3.70 L Hemoglobin 8.2 L Hematocrit 27.6 L Mean Corpuscular Volume 74.6 L Mean Corpuscular Hemoglobin 22.2 L Mean Corpuscular Hemoglobin Concent 29.7 L Red Cell Distribution Width 19.2 H Platelet Count 267 Mean Platelet Volume 8.5 Immature Granulocytes % 0.300 Neutrophils % 62.8 Lymphocytes % 17.2 Monocytes % 12.7 H Eosinophils % 6.3 Basophils % 0.7 Nucleated Red Blood Cells % 0.0 Immature Granulocytes # 0.020 Neutrophils # 4.6 Lymphocytes # 1.3 Monocytes # 0.9 Eosinophils # 0.5 Basophils # 0.1 Nucleated Red Blood Cells # 0.0 Sodium Level 137 Potassium Level 4.2 Chloride Level 104 Carbon Dioxide Level 26 Anion Gap 7 Blood Urea Nitrogen 30 H Creatinine 0.90 Est Glomerular Filtrat Rate mL/min > 60 Glucose Level 92 Calcium Level 8.3 L Phosphorus Level 4.5 Magnesium Level 2.0 Medications Medication Current Medications IV Flush (NS 3 ml) 3 ml PER PROTOCOL IV ; Start 06/22/18 at 18:30 Ondansetron HCl (Zofran Inj) 4 mg Q6H PRN IV NAUSEA/VOMITING Last administered on 06/26/18at 15:57; Admin Dose 4 MG; Start 06/22/18 at 18:30 Acetaminophen (Tylenol Tab) 650 mg Q6H PRN PO .PAIN 1-3 OR TEMP; Start 06/22/18 at 18:30 Enoxaparin Sodium (Lovenox) 30 mg DAILY SC Last administered on 07/25/18at 09:40; Admin Dose 30 MG; Start 06/23/18 at 09:00 Hydralazine HCl (Apresoline) 10 mg Q4H PRN IV SBP >160; Start 06/22/18 at 19:00 Miscellaneous Information (Pending [facility] Order For Wound Care) This patient villela... PRN PRN XX WOUND CARE; Start 06/23/18 at 00:30 Docusate Sodium (Colace) 100 mg BID PO Last administered on 07/21/18at 08:26; Admin Dose 100 MG; Start 06/23/18 at 21:00 Tamsulosin HCl (Flomax) 0.4 mg DAILY PO Last administered on 07/25/18at 09:37; Admin Dose 0.4 MG; Start 06/24/18 at 09:00 Labetalol HCl (Labetalol) 10 mg Q4 PRN IV sbp>160; Start 06/24/18 at 13:30 Lisinopril (Zestril) 5 mg DAILY PO Last administered on 07/25/18 09:38; Admin Dose 5 MG; Start 06/29/18 at 09:00 Magnesium Hydroxide (Milk Of Mag) 30 ml DAILY PRN PO CONSTIPATION; Start 06/28/18 at 21:00 Pantoprazole (Protonix Tab) 40 mg DAILY@06 PO Last administered on 07/25/18 05:39; Admin Dose 40 MG; Start 07/04/18 at 06:00 Carisoprodol (Soma) 350 mg Q6 PO Last administered on 07/25/18 18:13; Admin Dose 350 MG; Start 07/06/18 at 12:00 Polyethylene Glycol (Miralax) 17 gm BID PO Last administered on 07/21/18 08:26; Admin Dose 17 GM; Start 07/08/18 at 11:00 Ciprofloxacin (Cipro) 500 mg BID@06,18 PO Last administered on 07/25/18 18:13; Admin Dose 500 MG; Start 07/08/18 at 18:00; Stop 08/03/18 at 23:00 Ampicillin 50 ml @ 100 mls/hr Q8 IVPB Last administered on 07/25/18 13:23; Admin Dose 100 MLS/HR; Start 07/08/18 at 14:00; Stop 08/03/18 at 23:00 Magnesium Hydroxide (Milk Of Mag) 30 ml DAILY PO Last administered on 07/21/18 08:26; Admin Dose 30 ML; Start 07/08/18 at 19:30 Hydromorphone HCl (Dilaudid) 1 mg Q4H PRN IV SEVERE PAIN LEVEL 7-10 Last administered on 07/25/18 18:18; Admin Dose 1 MG; Start 07/12/18 at 19:00 Docusate Sodium/ Ferrous Fumarate (Harry-Sequels) 1 tab BID PO Last administered on 07/25/18 09:37; Admin Dose 1 TAB; Start 07/13/18 at 21:00; Stop 08/12/18 at 20:59 Ascorbic Acid (Vitamin C) 500 mg DAILY PO Last administered on 07/25/18 09:41; Admin Dose 500 MG; Start 07/15/18 at 12:00 Zinc Sulfate (Zinc Sulfate) 220 mg DAILY PO Last administered on 3/1/19at 09:37; Admin Dose 220 MG; Start 07/15/18 at 11:00 Multivitamins Therapeutic (Theragran) 1 tab DAILY PO Last administered on 07/25/18at 09:37; Admin Dose 1 TAB; Start 07/15/18 at 11:00 IV Flush (NS 10 ml) 10 ml PRN PRN IV IV PROTOCOL Last administered on 07/19/18at 02:30; Admin Dose 10 ML; Start 07/15/18 at 17:00 Oxycodone/ Acetaminophen (Endocet (10/ 325)) 2 tab Q6H PRN PO MODERATE PAIN LEVEL 4-6; Start 07/25/18 at 12:00 JOHNSON PENDLETON NP Jul 25, 2018 19:46
[2018-07-25 20:06] VITALS: BP 122/70; PULSE 98; RESP 18
[2018-07-25] MEDS: OXYCODONE/ACETAMINOPHEN (10/325) TAB PO PRN (20:34)
[2018-07-26] MEDS: CARISOPRODOL 350 MG TAB PO SCH ×4 (01:08→17:50)
[2018-07-26 01:55] VITALS: BP 120/72; PULSE 91; RESP 18
[2018-07-26] MEDS: HYDROmorphONE 1 MG/ML SYG IV PRN ×6 (02:24→22:30)
[2018-07-26] MEDS: AMPICILLIN 1 GM/NS (PMX) 50 ML IVPB SCH ×3 (06:20→21:20)
[2018-07-26] MEDS: PANTOPRAZOLE (EC) 40 MG TAB PO SCH (06:21)
[2018-07-26] MEDS: CIPROFLOXACIN 500 MG TAB PO SCH ×2 (06:21→17:50)
[2018-07-26 07:52] VITALS: BP 138/69; PULSE 90; RESP 18
[2018-07-26] MEDS: MAGNESIUM HYDROXIDE 30ML CUP PO SCH (09:00)
[2018-07-26] MEDS: DOCUSATE SODIUM 100 MG CAP PO SCH ×2 (09:00→20:12)
[2018-07-26] MEDS: POLYETHYLENE GLYCOL 17 GM PACKET PO SCH ×2 (09:00→20:12)
[2018-07-26] MEDS: TAMSULOSIN (SR) 0.4 MG CAP PO SCH (09:17)
[2018-07-26] MEDS: ZINC SULFATE 220 MG CAP PO SCH (09:17)
[2018-07-26] MEDS: FERROUS FUMARATE (SR) TAB PO SCH ×2 (09:17→20:15)
[2018-07-26] MEDS: MULTIVITAMINS THERAPEUTIC TAB PO SCH (09:17)
[2018-07-26] MEDS: ASCORBIC ACID 500 MG TAB PO SCH (09:17)
[2018-07-26] MEDS: LISINOPRIL 5 MG TAB PO SCH (09:18)
[2018-07-26] MEDS: ENOXAPARIN 30 MG/0.3 ML SYG SC SCH (09:20)
--- NOTE | 2018-07-26 12:05 | PN ---
Date/Time of Note Date/Time of Note DATE: 07/26/18 TIME: 12:05 Objective Vitals Vital Signs Date Temp Pulse Resp B/P (MAP) Pulse Ox O2 O2 Flow FiO2 Time Delivery Rate 07/26/18 98.8 90 18 138/69 100 Room Air 07:52 (92) Intake and Output 07/25/18 07/25/18 07/26/18 1515:00 23:00 07:00 IntakeIntake Total 600 ml 100 ml OutputOutput Total 150 ml BalanceBalance 450 ml 100 ml Results Result Diagram: 07/25/18 0448 07/25/18 0448 Medications Medications Current Medications IV Flush (NS 3 ml) 3 ml PER PROTOCOL IV ; Start 06/22/18 at 18:30 Ondansetron HCl (Zofran Inj) 4 mg Q6H PRN IV NAUSEA/VOMITING Last administered on 06/26/18at 15:57; Admin Dose 4 MG; Start 06/22/18 at 18:30 Acetaminophen (Tylenol Tab) 650 mg Q6H PRN PO .PAIN 1-3 OR TEMP; Start 06/22/18 at 18:30 Enoxaparin Sodium (Lovenox) 30 mg DAILY SC Last administered on 07/26/18at 09:20; Admin Dose 30 MG; Start 06/23/18 at 09:00 Hydralazine HCl (Apresoline) 10 mg Q4H PRN IV SBP >160; Start 06/22/18 at 19:00 Miscellaneous Information (Pending [facility] Order For Wound Care) This patient villela... PRN PRN XX WOUND CARE; Start 06/23/18 at 00:30 Docusate Sodium (Colace) 100 mg BID PO Last administered on 07/21/18at 08:26; Admin Dose 100 MG; Start 06/23/18 at 21:00 Tamsulosin HCl (Flomax) 0.4 mg DAILY PO Last administered on 07/26/18at 09:17; Admin Dose 0.4 MG; Start 06/24/18 at 09:00 Labetalol HCl (Labetalol) 10 mg Q4 PRN IV sbp>160; Start 06/24/18 at 13:30 Lisinopril (Zestril) 5 mg DAILY PO Last administered on 07/26/18at 09:18; Admin Dose 5 MG; Start 06/29/18 at 09:00 Magnesium Hydroxide (Milk Of Mag) 30 ml DAILY PRN PO CONSTIPATION; Start 06/28/18 at 21:00 Pantoprazole (Protonix Tab) 40 mg DAILY@06 PO Last administered on 07/26/18 06:21; Admin Dose 40 MG; Start 07/04/18 at 06:00 Carisoprodol (Soma) 350 mg Q6 PO Last administered on 07/26/18 06:21; Admin Dose 350 MG; Start 07/06/18 at 12:00 Polyethylene Glycol (Miralax) 17 gm BID PO Last administered on 07/21/18 08:26; Admin Dose 17 GM; Start 07/08/18 at 11:00 Ciprofloxacin (Cipro) 500 mg BID@,18 PO Last administered on 07/26/18 06:21; Admin Dose 500 MG; Start 07/08/18 at 18:00; Stop 08/03/18 at 23:00 Ampicillin 50 ml @ 100 mls/hr Q8 IVPB Last administered on 07/26/18 06:20; Admin Dose 100 MLS/HR; Start 07/08/18 at 14:00; Stop 08/03/18 at 23:00 Magnesium Hydroxide (Milk Of Mag) 30 ml DAILY PO Last administered on 07/21/18 08:26; Admin Dose 30 ML; Start 07/08/18 at 19:30 Hydromorphone HCl (Dilaudid) 1 mg Q4H PRN IV SEVERE PAIN LEVEL 7-10 Last administered on 07/26/18 10:29; Admin Dose 1 MG; Start 07/12/18 at 19:00 Docusate Sodium/ Ferrous Fumarate (Harry-Sequels) 1 tab BID PO Last administered on 07/26/18 09:17; Admin Dose 1 TAB; Start 07/13/18 at 21:00; Stop 08/12/18 at 20:59 Ascorbic Acid (Vitamin C) 500 mg DAILY PO Last administered on 07/26/18 09:17; Admin Dose 500 MG; Start 07/15/18 at 12:00 Zinc Sulfate (Zinc Sulfate) 220 mg DAILY PO Last administered on 07/26/18 09:17; Admin Dose 220 MG; Start 07/15/18 at 11:00 Multivitamins Therapeutic (Theragran) 1 tab DAILY PO Last administered on 07/26/18at 09:17; Admin Dose 1 TAB; Start 07/15/18 at 11:00 IV Flush (NS 10 ml) 10 ml PRN PRN IV IV PROTOCOL Last administered on 07/19/18at 02:30; Admin Dose 10 ML; Start 07/15/18 at 17:00 Oxycodone/ Acetaminophen (Endocet (10/ 325)) 2 tab Q6H PRN PO MODERATE PAIN L EVEL 4-6 Last administered on 07/25/18at 20:34; Admin Dose 2 TAB; Start 07/25/18 at 12:00 VTE Prophylaxis Risk [place]from [facility] risk: 7 [place]CD applied [place] [facility] No SCD contraindication: other Lines/Catheters IV Catheter Type: Cortez in Place: No Assessment/Plan Hospital Course Subjective No acute changes, very difficult to speak with as always angry about one thing or another. Objective Physical exam General: Patient is laying in bed and answers questions appropriately Mentation: Patient is alert and oriented 4, Head: Normocephalic atraumatic Eyes: EOMI, pupils reactive to light Neck: Supple, nontender, midline Respiratory: Clear to auscultation bilaterally Cardiovascular: regular rate, no obvious murmurs Gastrointestinal: non-tender to palpation, bowel sounds heard. Neurological: Moves all extremities spontaneously Skin: Multiple ulcers on patient's sacral decubitus area and buttock area, bandaged Assessment/Plan 1. Sepsis secondary to UTI, decubitus ulcers, and OM- resolved - Continue all care - Remains stable and plans for IV antibiotics until 08/03/18. PICC line in place - ID on board and appreciate recommendations 2. UTI- resolved - Urology on board and appreciate consultation. Cortez remains in place given presence of decub ulcers. 3. Sacral decubitus ulcer with abscess- stable - Surgery consultation appreciated and continue current medical management and wound care. Debridement as needed - Start zinc sulf/Vit c/Theragen sup - Julius protein w/diet 4. Osteomyelitis of ischium - Will need to complete 6 weeks of IV antibiotics, with last dose on 08/03/18 5. Chronic back pain - continue pain control 6. Hypertension - stable 7. Neurogenic bladder - cortez in place - Urology on board 8. Disposition - Patient remains medically stable for discharge once find accepting facility. TRACE REBOLLEDO Jul 26, 2018 12:05
[2018-07-26 14:27] VITALS: BP 130/75; PULSE 96; RESP 18
--- NOTE | 2018-07-26 14:39 | CONS ---
Assessment/Plan Assessment/Plan Hospital Course (Demo Recall) ID PROGRESS NOTE CURRENT ABX: DAY #18.5 => CIPRO + AMPICILLIN S/P => Vanco IV + Cefepime + Flagyl s/p Zosyn 07/25/188 07/25/188 24H INTERVAL SUMMARY * No fevers, VSS, NAD, without dyspnea, no complaints today MICRO/OTHER * 07/02/18 STRAIGHT CATH URINE CX(+) URINE CULTURE Final Organism 1 ENTEROCOCCUS SPECIES COLONY COUNT <10,000 CFU/ml ENT SPS M.I.C. RX --------- --- AMPICILLIN <=2 S CIPROFLOXACIN <=0.5 S LEVOFLOXACIN 0.5 S NITROFURANTOIN <=16 S PENICILLIN-G 4 S VANCOMYCIN 1 S * Repeat BCX 06/25/18 (-) * 06/25/18 Sacral Wound Cx: WOUND CULTURE Final Organism 1 ESCHERICHIA COLI QUANTITY SCANT GROWTH Organism 2 STAPHYLOCOCCUS AUREUS QUANTITY SCANT GROWTH Organism 3 ENTEROCOCCUS SPECIES QUANTITY SCANT GROWTH E COLI S AUREUS ENT SPS M.I.C. RX M.I.C. RX M.I.C. RX --------- --- --------- --- --------- --- AMPICILLIN <=2 S <=2 S CEFAZOLIN R S CEFOTAXIME S CIPROFLOXACIN <=0.25 S 1 S CLINDAMYCIN R DOXYCYCLINE S ERYTHROMYCIN >=8 R GENTAMICIN <=1 S LEVOFLOXACIN <=0.12 S 0.25 S OXACILLIN 0.5 S PENICILLIN-G >=0.5 R 8 S RIFAMPIN <=0.5 S VANCOMYCIN <=0.5 S 1 S TOBRAMYCIN <=1 S TRIMETHOPRIM/SULFAMETHOXAZOLE <=20 S <=10 S * 06/25/18 (+)MRSA --> Repeat (-)MRSA * 06/22/18 BCX (+) GNR Proteus Mirabilis * 06/22/18 Urine Cx (+) URINE CULTURE Final Organism 1 PROTEUS MIRABILIS COLONY COUNT >100,000 CFU/ml Organism 2 STAPHYLOCOCCUS AUREUS COLONY COUNT 50,000 - 60,000 CFU/ml P. MIRAB S AUREUS M.I.C. RX M.I.C. RX --------- --- --------- --- AMIKACIN <=2 S AMPICILLIN >=32 R CEFAZOLIN S CEFOTAXIME S CIPROFLOXACIN >=4 R 1 S DOXYCYCLINE S GENTAMICIN >=16 R LEVOFLOXACIN 4 I 0.5 S NITROFURANTOIN 128 R OXACILLIN 0.5 S PENICILLIN-G >=0.5 R RIFAMPIN <=0.5 S VANCOMYCIN <=0.5 S TOBRAMYCIN 8 I TRIMETHOPRIM/SULFAMETHOXAZOLE >=320 R <=10 S PHYSICAL EXAMINATION: GENERAL: Afebrile, VSS HEENT: AT, NC, anicteric NECK: Supple, trach midline CHEST: Equal chest rise bilaterally, without dyspnea on observation HEART: Pulse RRR ABDOMEN: Soft / NT EXTREMITIES: Warm, dry SKIN: No rash, no diaphoresis ID ASSESSMENT 63 yo M admit with: 1. Sepsis, present on admission=> RESOLVED 2. Proteus mirabilis bacteremia secondary to UTI => RESOLVED 3. Complicated UTI =Multidrug-resistant Proteus mirabilis pyelonephritis * 07/02/18 STRAIGHT CATH URINE CX(+) URINE CULTURE Final Organism 1 ENTEROCOCCUS SPECIES COLONY COUNT <10,000 CFU/ml 4. OBSTRUCTIVE UROPATHY W/ Bilateral hydronephrosis * Partially obstructive 10 mm stone in distal right ureter. * Urinary retention -- chronic FC in place 5. Neurogenic bladder 6. Multiple decubitus with questionable osteomyelitis of right atrium and right iliac bone 7. Obstructive uropathy 8. Homelessness 9. Incomplete paraplegia (-)MRSA Nares ABX ALLERGIES: KNDA INVASIVES: PIV CURRENT ABX: DAY DAY #18.5 => CIPRO + AMPICILLIN S/P => Vanco IV + Cefepime + Flagyl s/p Zosyn ID RECOMMENDATIONS/PLAN: 1. Continue current ABX - to complete 6 weeks for Osteomyelitis == Last day 08/03/2018 2. DC Planning in process pending accepting facility . Consultation Date/Type/Reason Admit Date/Time Jun 22, 2018 at 18:09 Initial Consult Date 06/26/18 Requesting Provider: TRACE REBOLLEDO Date/Time of Note DATE: 07/26/18 TIME: 14:38 Exam/Review of Systems Exam Vitals Vital Signs Date Temp Pulse Resp B/P (MAP) Pulse Ox O2 O2 Flow FiO2 Time Delivery Rate 07/26/18 98.5 96 18 130/75 96 Room Air 14:27 (93) Intake and Output 07/25/18 07/25/18 07/26/18 1414:59 22:59 06:59 IntakeIntake Total 600 ml 100 ml OutputOutput Total 150 ml BalanceBalance 450 ml 100 ml Results Result Diagram: 07/25/188 07/25/18447 Medications Medication Current Medications IV Flush (NS 3 ml) 3 ml PER PROTOCOL IV ; Start 06/22/18 at 18:30 Ondansetron HCl (Zofran Inj) 4 mg Q6H PRN IV NAUSEA/VOMITING Last administered on 06/26/18at 15:57; Admin Dose 4 MG; Start 06/22/18 at 18:30 Acetaminophen (Tylenol Tab) 650 mg Q6H PRN PO .PAIN 1-3 OR TEMP; Start 06/22/18 at 18:30 Enoxaparin Sodium (Lovenox) 30 mg DAILY SC Last administered on 07/26/18at 09:20; Admin Dose 30 MG; Start 06/23/18 at 09:00 Hydralazine HCl (Apresoline) 10 mg Q4H PRN IV SBP >160; Start 06/22/18 at 19:00 Miscellaneous Information (Pending [facility] Order For Wound Care) This patient villela... PRN PRN XX WOUND CARE; Start 06/23/18 at 00:30 Docusate Sodium (Colace) 100 mg BID PO Last administered on 07/21/18at 08:26; Admin Dose 100 MG; Start 06/23/18 at 21:00 Tamsulosin HCl (Flomax) 0.4 mg DAILY PO Last administered on 07/26/18at 09:17; Admin Dose 0.4 MG; Start 06/24/18 at 09:00 Labetalol HCl (Labetalol) 10 mg Q4 PRN IV sbp>160; Start 06/24/18 at 13:30 Lisinopril (Zestril) 5 mg DAILY PO Last administered on 07/26/18 09:18; Admin Dose 5 MG; Start 06/29/18 at 09:00 Magnesium Hydroxide (Milk Of Mag) 30 ml DAILY PRN PO CONSTIPATION; Start 06/28/18 at 21:00 Pantoprazole (Protonix Tab) 40 mg DAILY@06 PO Last administered on 07/26/18 06:21; Admin Dose 40 MG; Start 07/04/18 at 06:00 Carisoprodol (Soma) 350 mg Q6 PO Last administered on 07/26/18 12:08; Admin Dose 350 MG; Start 07/06/18 at 12:00 Polyethylene Glycol (Miralax) 17 gm BID PO Last administered on 07/21/18 08:26; Admin Dose 17 GM; Start 07/08/18 at 11:00 Ciprofloxacin (Cipro) 500 mg BID@06,18 PO Last administered on 07/26/18 06:21; Admin Dose 500 MG; Start 07/08/18 at 18:00; Stop 08/03/18 at 23:00 Ampicillin 50 ml @ 100 mls/hr Q8 IVPB Last administered on 07/26/18 14:34; Admin Dose 100 MLS/HR; Start 07/08/18 at 14:00; Stop 08/03/18 at 23:00 Magnesium Hydroxide (Milk Of Mag) 30 ml DAILY PO Last administered on 07/21/18 08:26; Admin Dose 30 ML; Start 07/08/18 at 19:30 Hydromorphone HCl (Dilaudid) 1 mg Q4H PRN IV SEVERE PAIN LEVEL 7-10 Last administered on 07/26/18 14:32; Admin Dose 1 MG; Start 07/12/18 at 19:00 Docusate Sodium/ Ferrous Fumarate (Harry-Sequels) 1 tab BID PO Last administer ed on 07/26/18 09:17; Admin Dose 1 TAB; Start 07/13/18 at 21:00; Stop 08/12/18 at 20:59 Ascorbic Acid (Vitamin C) 500 mg DAILY PO Last administered on 07/26/18 09:17; Admin Dose 500 MG; Start 07/15/18 at 12:00 Zinc Sulfate (Zinc Sulfate) 220 mg DAILY PO Last administered on 07/26/18 09:17; Admin Dose 220 MG; Start 07/15/18 at 11:00 Multivitamins Therapeutic (Theragran) 1 tab DAILY PO Last administered on 07/26/18at 09:17; Admin Dose 1 TAB; Start 07/15/18 at 11:00 IV Flush (NS 10 ml) 10 ml PRN PRN IV IV PROTOCOL Last administered on 07/19/18at 02:30; Admin Dose 10 ML; Start 07/15/18 at 17:00 Oxycodone/ Acetaminophen (Endocet (10/ 325)) 2 tab Q6H PRN PO MODERATE PAIN LEVEL 4-6 Last administered on 07/25/18at 20:34; Admin Dose 2 TAB; Start 07/25/18 at 12:00 CAMDEN COOPER NP Jul 26, 2018 14:39
--- NOTE | 2018-07-26 18:08 | PN ---
Date/Time of Note Date/Time of Note DATE: 07/26/18 TIME: 18:06 Assessment/Plan Lines/Catheters IV Catheter Type (from [facility]): PICC Line Cortez in Place (from [facility]): No Assessment/Plan Chief Complaint/Hosp Course 1. Multiple decubitus pressure ulcers; healing; -Continue offloading & nutritional optimization as able -Continue same wound care > medihoney -Debridement as needed -Vitamin C -Continue osteomyelitis treatment> per id (IV antibiotics with end date August 03) -placement pending 2. Decompressed bladder with significant thickening concerning for bladder n eoplasm versus cystitis: Urethritis, possible pyelonephritis; leaking between self caths, indwelling cortez placed -per Urology 3. Labile mood with intermittent bursts of anger -psych eval noted, refusing meds -Supportive 4. Hypoalbuminemia -Encourage nutritional optimization 5. Hypertension history -Nutrition and medication optimization 6. Anemia without evidence of acute blood loss -Monitor 7. Acute on chronic back pain, nephrolithiasis -Medical optimization -Judicious fluid management 8. Constipation history -bowel optimization 9. Elevated CEA however patient refusing colonoscopy and further workup Thank you. Patient seen and examined in collaboration with Dr. Micah Hobbs. Subjective 24 Hr Interval Summary Intermittently angry. No new or acute complaints. No fevers, chills, sob, congested cough, cp, palpitations, villela, dizziness, nausea, vomiting, diarrhea, dysuria. Exam/Review of Systems Vital Signs Vitals Vital Signs Date Temp Pulse Resp B/P (MAP) Pulse Ox O2 O2 Flow FiO2 Time Delivery Rate 07/26/18 98.5 96 18 130/75 96 Room Air 14:27 (93) Intake and Output 07/25/18 07/25/18 07/26/18 1515:00 23:00 07:00 IntakeIntake Total 600 ml 100 ml OutputOutput Total 150 ml BalanceBalance 450 ml 100 ml Exam Free Text/Dictation Constitutional: alert, oriented No distress Psych: Labile Head: normocephalic, atraumatic Eyes: nl conjunctiva, EOMI, PERRL; No icteric ENMT: nl external ears & nose, nl lips & teeth, mucosa pink and moist Neck: supple, non-tender; No jvd Respiratory: normal air movement; No congested cough, No labored breathing, No wheezing Cardiovascular: regular rate and rhythm; No edema Gastrointestinal: soft, non-tender; No distended, No rebound or guarding Genitourinary - Male: nl penis, nl scrotum Musculoskeletal: No nl gait and stance, No joint tenderness Extremities: normal pulses; No calf tenderness, No edema, No tenderness Neurological: nl mental status, nl speech; No nl strength Skin: rash or lesions (Decubitus pressure ulcers: Clean, no odor/ no drainage. Right ischium : Improving, no odor/small drainage); No ecchymosis Lymph: nl lymph nodes Results Result Diagram: 07/25/18 0448 07/25/18 0448 TIFFANIE KLEIN NP Jul 26, 2018 18:08
[2018-07-26 19:55] VITALS: BP 128/79; PULSE 95; RESP 18
[2018-07-26] MEDS: OXYCODONE/ACETAMINOPHEN (10/325) TAB PO PRN (21:19)
[2018-07-27] MEDS: CARISOPRODOL 350 MG TAB PO SCH ×4 (00:14→17:12)
[2018-07-27 01:30] VITALS: BP 118/74; PULSE 100; RESP 18
[2018-07-27] MEDS: HYDROmorphONE 1 MG/ML SYG IV PRN ×5 (02:32→21:28)
[2018-07-27] MEDS: PANTOPRAZOLE (EC) 40 MG TAB PO SCH (05:23)
[2018-07-27] MEDS: CIPROFLOXACIN 500 MG TAB PO SCH ×2 (05:23→17:09)
[2018-07-27] MEDS: AMPICILLIN 1 GM/NS (PMX) 50 ML IVPB SCH ×3 (05:23→22:12)
[2018-07-27 07:25] VITALS: BP 131/82; PULSE 94; RESP 16
[2018-07-27] MEDS: MAGNESIUM HYDROXIDE 30ML CUP PO SCH (09:00)
[2018-07-27] MEDS: DOCUSATE SODIUM 100 MG CAP PO SCH ×2 (09:00→21:00)
[2018-07-27] MEDS: POLYETHYLENE GLYCOL 17 GM PACKET PO SCH ×2 (09:00→21:00)
[2018-07-27] MEDS: ASCORBIC ACID 500 MG TAB PO SCH (09:11)
[2018-07-27] MEDS: LISINOPRIL 5 MG TAB PO SCH (09:11)
[2018-07-27] MEDS: FERROUS FUMARATE (SR) TAB PO SCH ×2 (09:11→21:28)
[2018-07-27] MEDS: TAMSULOSIN (SR) 0.4 MG CAP PO SCH (09:11)
[2018-07-27] MEDS: MULTIVITAMINS THERAPEUTIC TAB PO SCH (09:11)
[2018-07-27] MEDS: ZINC SULFATE 220 MG CAP PO SCH (09:11)
[2018-07-27] MEDS: ENOXAPARIN 30 MG/0.3 ML SYG SC SCH (09:27)
--- NOTE | 2018-07-27 13:02 | PN ---
Date/Time of Note Date/Time of Note DATE: 07/27/18 TIME: 13:02 Objective Vitals Vital Signs Date Temp Pulse Resp B/P (MAP) Pulse Ox O2 O2 Flow FiO2 Time Delivery Rate 07/27/18 97.8 94 16 131/82 97 Room Air 07:25 (98) Intake and Output 07/26/18 07/26/18 07/27/18 1515:00 23:00 07:00 IntakeIntake Total 700 ml 50 ml OutputOutput Total 801 ml 850 ml BalanceBalance -101 ml -800 ml Results Result Diagram: 07/25/188 07/25/188 Medications Medications Current Medications IV Flush (NS 3 ml) 3 ml PER PROTOCOL IV ; Start 06/22/18 at 18:30 Ondansetron HCl (Zofran Inj) 4 mg Q6H PRN IV NAUSEA/VOMITING Last administered on 06/26/18at 15:57; Admin Dose 4 MG; Start 06/22/18 at 18:30 Acetaminophen (Tylenol Tab) 650 mg Q6H PRN PO .PAIN 1-3 OR TEMP; Start 06/22/18 at 18:30 Enoxaparin Sodium (Lovenox) 30 mg DAILY SC Last administered on 07/27/18at 09:27; Admin Dose 30 MG; Start 06/23/18 at 09:00 Hydralazine HCl (Apresoline) 10 mg Q4H PRN IV SBP >160; Start 06/22/18 at 19:00 [facility] This patient villela... PRN PRN XX WOUND CARE; Start 06/23/18 at 00:30 Docusate Sodium (Colace) 100 mg BID PO Last administered on 07/21/18at 08:26; Admin Dose 100 MG; Start 06/23/18 at 21:00 Tamsulosin HCl (Flomax) 0.4 mg DAILY PO Last administered on 07/27/18at 09:11; Admin Dose 0.4 MG; Start 06/24/18 at 09:00 Labetalol HCl (Labetalol) 10 mg Q4 PRN IV sbp>160; Start 06/24/18 at 13:30 Lisinopril (Zestril) 5 mg DAILY PO Last administered on 07/27/18at 09:11; Admin Dose 5 MG; Start 06/29/18 at 09:00 Magnesium Hydroxide (Milk Of Mag) 30 ml DAILY PRN PO CONSTIPATION; Start at 21:00 Pantoprazole (Protonix Tab) 40 mg DAILY@06 PO Last administered on 07/27/18 05:23; Admin Dose 40 MG; Start 07/04/18 at 06:00 Carisoprodol (Soma) 350 mg Q6 PO Last administered on 07/27/18 12:15; Admin Dose 350 MG; Start 07/06/18 at 12:00 Polyethylene Glycol (Miralax) 17 gm BID PO Last administered on 07/21/18 08:26; Admin Dose 17 GM; Start 07/08/18 at 11:00 Ciprofloxacin (Cipro) 500 mg BID@06,18 PO Last administered on 07/27/18 05:23; Admin Dose 500 MG; Start 07/08/18 at 18:00; Stop 08/03/18 at 23:00 Ampicillin 50 ml @ 100 mls/hr Q8 IVPB Last administered on 07/27/18 05:23; Admin Dose 100 MLS/HR; Start 07/08/18 at 14:00; Stop 08/03/18 at 23:00 Magnesium Hydroxide (Milk Of Mag) 30 ml DAILY PO Last administered on 07/21/18 08:26; Admin Dose 30 ML; Start 07/08/18 at 19:30 Hydromorphone HCl (Dilaudid) 1 mg Q4H PRN IV SEVERE PAIN LEVEL 7-10 Last administered on 07/27/18 10:34; Admin Dose 1 MG; Start 07/12/18 at 19:00 Docusate Sodium/ Ferrous Fumarate (Harry-Sequels) 1 tab BID PO Last administered on 07/27/18 09:11; Admin Dose 1 TAB; Start 07/13/18 at 21:00; Stop 08/12/18 at 20:59 Ascorbic Acid (Vitamin C) 500 mg DAILY PO Last administered on 07/27/18 09:11; Admin Dose 500 MG; Start 07/15/18 at 12:00 Zinc Sulfate (Zinc Sulfate) 220 mg DAILY PO Last administered on 07/27/18 09:11; Admin Dose 220 MG; Start 07/15/18 at 11:00 Multivitamins Therapeutic (Theragran) 1 tab DAILY PO Last administered on 07/27/18at 09:11; Admin Dose 1 TAB; Start 07/15/18 at 11:00 IV Flush (NS 10 ml) 10 ml PRN PRN IV IV PROTOCOL Last administered on 07/19/18at 02:30; Admin Dose 10 ML; Start 07/15/18 at 17:00 Oxycodone/ Acetaminophen (Endocet (10/ 325)) 2 tab Q6H PRN PO MODERATE PAIN LEVEL 4-6 Last administered on 07/26/18at 21:19; Admin Dose 2 TAB; Start 07/25/18 at 12:00 VTE Prophylaxis Risk score (from [facility]0 risk: 5 SCD applied (from [facility]): No SCD contraindication: other Lines/Catheters IV Catheter Type: Cortez in Place: No Assessment/Plan Hospital Course Subjective No acute changes, very difficult to speak with as always angry about one thing or another. Objective Physical exam General: Patient is laying in bed and answers questions appropriately Mentation: Patient is alert and oriented 4, Head: Normocephalic atraumatic Eyes: EOMI, pupils reactive to light Neck: Supple, nontender, midline Respiratory: Clear to auscultation bilaterally Cardiovascular: regular rate, no obvious murmurs Gastrointestinal: non-tender to palpation, bowel sounds heard. Neurological: Moves all extremities spontaneously Skin: Multiple ulcers on patient's sacral decubitus area and buttock area, bandaged Assessment/Plan 1. Sepsis secondary to UTI, decubitus ulcers, and OM- resolved - Continue all care - Remains stable and plans for IV antibiotics until 08/03/18. PICC line in place - ID on board and appreciate recommendations 2. UTI- resolved - Urology on board and appreciate consultation. Cortez remains in place given presence of decub ulcers. 3. Sacral decubitus ulcer with abscess- stable - Surgery consultation appreciated and continue current medical management and wound care. Debridement as needed - Start zinc sulf/Vit c/Theragen sup - Julius protein w/diet 4. Osteomyelitis of ischium - Will need to complete 6 weeks of IV antibiotics, with last dose on 08/03/18 5. Chronic back pain - continue pain control 6. Hypertension - stable 7. Neurogenic bladder - cortez in place - Urology on board 8. Disposition - Patient remains medically stable for discharge once find accepting facility. TRACE REBOLLEDO Jul 27, 2018 13:02
--- NOTE | 2018-07-27 14:09 | PN ---
Date/Time of Note Date/Time of Note DATE: 07/27/18 TIME: 14:09 Assessment/Plan Lines/Catheters IV Catheter Type (from [facility]): Cortez in Place (from [facility]): No Assessment/Plan Chief Complaint/Hosp Course 1. Multiple decubitus pressure ulcers; healing; -Continue offloading & nutritional optimization as able -Continue same wound care treatment -Debridement as needed -Vitamin C -Continue osteomyelitis treatment> per id (IV antibiotics with end date August 03) -placement pending 2. Decompressed bladder with significant thickening concerning for bladder neoplasm versus cystitis: Urethritis, possible pyelonephritis; leaking between self caths, indwelling cortez placed -per Urology 3. Labile mood with intermittent bursts of anger -psych eval noted, refusing meds -Supportive 4. Hypoalbuminemia -Encourage nutritional optimization 5. Hypertension history -Nutrition and medication optimization 6. Anemia without evidence of acute blood loss -Monitor 7. Acute on chronic back pain, nephrolithiasis -Medical optimization -Judicious fluid management 8. Constipation history -bowel optimization 9. Elevated CEA however patient refusing colonoscopy and further workup Thank you. Patient seen and examined in collaboration with Dr. Micah Hobbs. Subjective 24 Hr Interval Summary No fevers, chills, sob, congested cough, cp, palpitations, villela, dizziness, n/v/d/dysuria. +bowel function. labile mood. Exam/Review of Systems Vital Signs Vitals Vital Signs Date Temp Pulse Resp B/P (MAP) Pulse Ox O2 O2 Flow FiO2 Time Delivery Rate 07/27/18 98.0 116 18 128/75 96 19:45 (92) 07/27/18 Room Air 14:10 Intake and Output 07/26/18 07/26/18 07/27/18 1515:00 23:00 07:00 IntakeIntake Total 700 ml 50 ml OutputOutput Total 801 ml 850 ml BalanceBalance -101 ml -800 ml Exam Free Text/Dictation Constitutional: alert, oriented No distress Psych: Labile Head: normocephalic, atraumatic Eyes: nl conjunctiva, EOMI, PERRL; No icteric ENMT: nl external ears & nose, nl lips & teeth, mucosa pink and moist Neck: supple, non-tender; No jvd Respiratory: normal air movement; No congested cough, No labored breathing, No wheezing Cardiovascular: regular rate and rhythm; No edema Gastrointestinal: soft, non-tender; No distended, No rebound or guarding Genitourinary - Male: nl penis, nl scrotum Musculoskeletal: No nl gait and stance, No joint tenderness Extremities: normal pulses; No calf tenderness, No edema, No tenderness Neurological: nl mental status, nl speech; No nl strength Skin: rash or lesions (Decubitus pressure ulcers: Clean, no odor/ no drainage. Right ischium : Improving, no odor/small drainage); No ecchymosis Lymph: nl lymph nodes Results Result Diagram: 07/25/18 0448 07/25/18 0448 TIFFANIE KLEIN NP Jul 27, 2018 14:09
[2018-07-27 14:10] VITALS: BP 130/78; PULSE 103; RESP 18
--- NOTE | 2018-07-27 16:52 | CONS ---
Assessment/Plan Assessment/Plan Hospital Course (Demo Recall) Awake, looks comfortable, no fevers overnight Microbiology: Blood culture growing Proteus mirabilis, urine culture grew Proteus mirabilis and oxacillin sensitive staph aureus. Sacral wound culture growing E. coli, staph aureus and enterococcus species Chest x-ray on admission revealed no definite abnormalities. Antimicrobials: Cipro, ampicillin Physical examination: Well-developed chronically ill-appearing elderly man in no distress. Head atraumatic normocephalic sclera nonicteric neck is supple chest rise symmetrical breath sounds diminished bases heart S1-S2 abdomen soft bowel sounds present extremities wasted bilateral lower extremities Assessment: 1. S/p sepsis, present on admission 2. Proteus mirabilis bacteremia secondary to UTI, repeat bld cx neg 3. Multidrug-resistant Proteus mirabilis pyelonephritis 4. Bilateral hydronephrosis 5. Neurogenic bladder 6. Multiple decubitus with questionable osteomyelitis of right atrium and right iliac bone 7. Obstructive uropathy 8. Homelessness 9. Incomplete paraplegia Plan: Remains stable, completing antibiotics for treatment of OM==> last day August 03, pending dc arrangements Consultation Date/Type/Reason Admit Date/Time Jun 22, 2018 at 18:09 Initial Consult Date 06/23/18 Type of Consult id Requesting Provider: TRACE REBOLLEDO Date/Time of Note DATE: 07/27/18 TIME: 16:52 Exam/Review of Systems Exam Vitals Vital Signs Date Temp Pulse Resp B/P (MAP) Pulse Ox O2 O2 Flow FiO2 Time Delivery Rate 07/27/18 98.6 103 18 130/78 98 Room Air 14:10 (95) Intake and Output 07/26/18 07/26/18 07/27/18 1515:00 23:00 07:00 IntakeIntake Total 700 ml 50 ml OutputOutput Total 801 ml 850 ml BalanceBalance -101 ml -800 ml Results Result Diagram: 07/25/18 0448 07/25/18 0448 Medications Medication Current Medications IV Flush (NS 3 ml) 3 ml PER PROTOCOL IV ; Start 06/22/18 at 18:30 Ondansetron HCl (Zofran Inj) 4 mg Q6H PRN IV NAUSEA/VOMITING Last administered on 06/26/18at 15:57; Admin Dose 4 MG; Start 06/22/18 at 18:30 Acetaminophen (Tylenol Tab) 650 mg Q6H PRN PO .PAIN 1-3 OR TEMP; Start 06/22/18 at 18:30 Enoxaparin Sodium (Lovenox) 30 mg DAILY SC Last administered on 07/27/18 09:27; Admin Dose 30 MG; Start 06/23/18 at 09:00 Hydralazine HCl (Apresoline) 10 mg Q4H PRN IV SBP >160; Start 06/22/18 at 19:00 Miscellaneous Information (Pending [facility] Order For Wound Care) This patient villela... PRN PRN XX WOUND CARE; Start 06/23/18 at 00:30 Docusate Sodium (Colace) 100 mg BID PO Last administered on 07/21/18 08:26; Admin Dose 100 MG; Start 06/23/18 at 21:00 Tamsulosin HCl (Flomax) 0.4 mg DAILY PO Last administered on 07/27/18 09:11; Admin Dose 0.4 MG; Start 06/24/18 at 09:00 Labetalol HCl (Labetalol) 10 mg Q4 PRN IV sbp>160; Start 06/24/18 at 13:30 Lisinopril (Zestril) 5 mg DAILY PO Last administered on 07/27/18 09:11; Admin Dose 5 MG; Start 06/29/18 at 09:00 Magnesium Hydroxide (Milk Of Mag) 30 ml DAILY PRN PO CONSTIPATION; Start 06/28/18 at 21:00 Pantoprazole (Protonix Tab) 40 mg DAILY@06 PO Last administered on 07/27/18 05:23; Admin Dose 40 MG; Start 07/04/18 at 06:00 Carisoprodol (Soma) 350 mg Q6 PO Last administered on 07/27/18 12:15; Admin Dose 350 MG; Start 07/06/18 at 12:00 Polyethylene Glycol (Miralax) 17 gm BID PO Last administered on 07/21/18 08:26; Admin Dose 17 GM; Start 07/08/18 at 11:00 Ciprofloxacin (Cipro) 500 mg BID@06,18 PO Last administered on 07/27/18 05:23; Admin Dose 500 MG; Start 07/08/18 at 18:00; Stop 08/03/18 at 23:00 Ampicillin 50 ml @ 100 mls/hr Q8 IVPB Last administered on 07/27/18 13:07; Admin Dose 100 MLS/HR; Start 07/08/18 at 14:00; Stop 08/03/18 at 23:00 Magnesium Hydroxide (Milk Of Mag) 30 ml DAILY PO Last administered on 07/21/18 08:26; Admin Dose 30 ML; Start 07/08/18 at 19:30 Hydromorphone HCl (Dilaudid) 1 mg Q4H PRN IV SEVERE PAIN LEVEL 7-10 Last administered on 07/27/18 16:29; Admin Dose 1 MG; Start 07/12/18 at 19:00 Docusate Sodium/ Ferrous Fumarate (Harry-Sequels) 1 tab BID PO Last administered on 07/27/18 09:11; Admin Dose 1 TAB; Start 07/13/18 at 21:00; Stop 08/12/18 at 20:59 Ascorbic Acid (Vitamin C) 500 mg DAILY PO Last administered on 07/27/18 09:11; Admin Dose 500 MG; Start 07/15/18 at 12:00 Zinc Sulfate (Zinc Sulfate) 220 mg DAILY PO Last administered on 07/27/18 09:11; Admin Dose 220 MG; Start 07/15/18 at 11:00 Multivitamins Therapeutic (Theragran) 1 tab DAILY PO Last administered on 07/27/18 09:11; Admin Dose 1 TAB; Start 07/15/18 at 11:00 IV Flush (NS 10 ml) 10 ml PRN PRN IV IV PROTOCOL Last administered on 07/19/18 02:30; Admin Dose 10 ML; Start 07/15/18 at 17:00 Oxycodone/ Acetaminophen (Endocet (10/ 325)) 2 tab Q6H PRN PO MODERATE PAIN LEVEL 4-6 Last administered on 07/26/18 21:19; Admin Dose 2 TAB; Start 07/25/18 at 12:00 JOHNSON PENDLETON NP Jul 27, 2018 16:52
[2018-07-27] MEDS: OXYCODONE/ACETAMINOPHEN (10/325) TAB PO PRN (19:33)
[2018-07-27 19:45] VITALS: BP 128/75; PULSE 116; RESP 18
[2018-07-28] MEDS: CARISOPRODOL 350 MG TAB PO SCH ×5 (00:12→23:00)
[2018-07-28] MEDS: HYDROmorphONE 1 MG/ML SYG IV PRN ×6 (01:43→22:16)
[2018-07-28 01:58] VITALS: BP 126/77; PULSE 106; RESP 18
[2018-07-28] MEDS: OXYCODONE/ACETAMINOPHEN (10/325) TAB PO PRN ×2 (03:27→12:21)
[2018-07-28] MEDS: PANTOPRAZOLE (EC) 40 MG TAB PO SCH (06:15)
[2018-07-28] MEDS: CIPROFLOXACIN 500 MG TAB PO SCH ×2 (06:53→17:00)
[2018-07-28] MEDS: AMPICILLIN 1 GM/NS (PMX) 50 ML IVPB SCH ×3 (06:53→22:58)
[2018-07-28 07:54] VITALS: BP 135/65; PULSE 83; RESP 18
[2018-07-28] MEDS: TAMSULOSIN (SR) 0.4 MG CAP PO SCH (08:01)
[2018-07-28] MEDS: ASCORBIC ACID 500 MG TAB PO SCH (08:01)
[2018-07-28] MEDS: FERROUS FUMARATE (SR) TAB PO SCH ×2 (08:01→22:16)
[2018-07-28] MEDS: MULTIVITAMINS THERAPEUTIC TAB PO SCH (08:02)
[2018-07-28] MEDS: LISINOPRIL 5 MG TAB PO SCH (08:02)
[2018-07-28] MEDS: ZINC SULFATE 220 MG CAP PO SCH (08:02)
[2018-07-28] MEDS: ENOXAPARIN 30 MG/0.3 ML SYG SC SCH (08:03)
[2018-07-28] MEDS: POLYETHYLENE GLYCOL 17 GM PACKET PO SCH ×2 (09:00→21:00)
[2018-07-28] MEDS: DOCUSATE SODIUM 100 MG CAP PO SCH ×2 (09:00→21:00)
[2018-07-28] MEDS: MAGNESIUM HYDROXIDE 30ML CUP PO SCH (09:00)
--- NOTE | 2018-07-28 09:55 | PN ---
Date/Time of Note Date/Time of Note DATE: 07/28/18 TIME: 09:55 Assessment/Plan VTE Prophylaxis Risk score (from Ns)>0 risk: 8 SCD applied (from [facility] [place] No SCD contraindicated: patient refusal Pharmacological prophylaxis: heparin Lines/Catheters IV Catheter Type (from [facility]): PICC Line Central line still needed: Yes Urinary Cath still in place: No Assessment/Plan Assessment/Plan 1. Sepsis secondary to UTI, decubitus ulcers, and OM- resolved - Remains afebrile and nl WBC - Continue antibiotics until 08/03/18. PICC line in place - ID on board and appreciate recommendations 2. UTI- resolved - Urology on board and appreciate consultation. Cortez remains in place given presence of decub ulcers. 3. Sacral decubitus ulcer with abscess- stable - Surgery consultation appreciated and continue current medical management and wound care. Debridement as needed - Start zinc sulf/Vit c/Theragen sup - Julius protein w/diet 4. Osteomyelitis of ischium - Will need to complete total of 6 weeks of IV antibiotics, with last dose on 08/03/18 5. Chronic back pain - continue pain control 6. Hypertension - stable 7. Neurogenic bladder - cortez in place - Urology on board 8. Disposition - Continue antibiotics until 08/03/18. Pending SNF placement for continued wound care for sacral OM Result Diagram: 07/25/18 0448 07/25/18 0448 Subjective 24 Hr Interval Summary Free Text/Dictation Patient doing well and denies any issues. Discussed not knowing him refusing PT was a barrier for his discharge. He is willing to do whatever is needed to assist with discharge planning. He explained he has been wheelchair bound since 1987 and has not upper body issues, which is the reason he refuse PT. Exam/Review of Systems Exam Vitals Vital Signs Date Temp Pulse Resp B/P (MAP) Pulse Ox O2 O2 Flow FiO2 Time Delivery Rate 07/28/18 97.9 83 18 135/65 99 07:54 (88) 07/27/18 Room Air 14:10 Intake and Output 07/27/18 07/27/18 07/28/18 1515:00 23:00 07:00 IntakeIntake Total 50 ml 550 ml OutputOutput Total 1201 ml 850 ml BalanceBalance 50 ml -651 ml -850 ml Exam General: Patient is laying in bed and answers questions appropriately Neck: Supple Respiratory: Clear to auscultation bilaterally. no wheezing or rhonchi Cardiovascular: regular rate and rhythm, no obvious murmurs Gastrointestinal: soft, non-tender to palpation, bowel sounds heard. Neurological: LE muscle wasting with muscle spasms, full ROM upper extremities Skin: Multiple ulcers on patient's sacral decubitus area and buttock area, bandaged Medications Medication Current Medications IV Flush (NS 3 ml) 3 ml PER PROTOCOL IV ; Start 06/22/18 at 18:30 Ondansetron HCl (Zofran Inj) 4 mg Q6H PRN IV NAUSEA/VOMITING Last administered on 06/26/18at 15:57; Admin Dose 4 MG; Start 06/22/18 at 18:30 Acetaminophen (Tylenol Tab) 650 mg Q6H PRN PO .PAIN 1-3 OR TEMP; Start 06/22/18 at 18:30 Enoxaparin Sodium (Lovenox) 30 mg DAILY SC Last administered on 07/28/18at 08:03; Admin Dose 30 MG; Start 06/23/18 at 09:00 Hydralazine HCl (Apresoline) 10 mg Q4H PRN IV SBP >160; Start 06/22/18 at 19:00 Miscellaneous Information (Pending [facility] Order For Wound Care) This patient villela... PRN PRN XX WOUND CARE; Start 06/23/18 at 00:30 Docusate Sodium (Colace) 100 mg BID PO Last administered on 07/21/18at 08:26; Admin Dose 100 MG; Start 06/23/18 at 21:00 Tamsulosin HCl (Flomax) 0.4 mg DAILY PO Last administered on 07/28/18at 08:01; Admin Dose 0.4 MG; Start 06/24/18 at 09:00 Labetalol HCl (Labetalol) 10 mg Q4 PRN IV sbp>160; Start 06/24/18 at 13:30 Lisinopril (Zestril) 5 mg DAILY PO Last administered on 07/28/18at 08:02; Admin Dose 5 MG; Start 06/29/18 at 09:00 Magnesium Hydroxide (Milk Of Mag) 30 ml DAILY PRN PO CONSTIPATION; Start 06/28/18 at 21:00 Pantoprazole (Protonix Tab) 40 mg DAILY@06 PO Last administered on 07/28/18 06:15; Admin Dose 40 MG; Start 07/04/18 at 06:00 Carisoprodol (Soma) 350 mg Q6 PO Last administered on 07/28/18 06:15; Admin Dose 350 MG; Start 07/06/18 at 12:00 Polyethylene Glycol (Miralax) 17 gm BID PO Last administered on 07/21/18 08:26; Admin Dose 17 GM; Start 07/08/18 at 11:00 Ciprofloxacin (Cipro) 500 mg BID@06,18 PO Last administered on 07/28/18 06:53; Admin Dose 500 MG; Start 07/08/18 at 18:00; Stop 08/03/18 at 23:00 Ampicillin 50 ml @ 100 mls/hr Q8 IVPB Last administered on 07/28/18 06:53; Admin Dose 100 MLS/HR; Start 07/08/18 at 14:00; Stop 08/03/18 at 23:00 Magnesium Hydroxide (Milk Of Mag) 30 ml DAILY PO Last administered on 07/21/18 08:26; Admin Dose 30 ML; Start 07/08/18 at 19:30 Hydromorphone HCl (Dilaudid) 1 mg Q4H PRN IV SEVERE PAIN LEVEL 7-10 Last administered on 07/28/18 06:16; Admin Dose 1 MG; Start 07/12/18 at 19:00 Docusate Sodium/ Ferrous Fumarate (Harry-Sequels) 1 tab BID PO Last administered on 07/28/18 08:01; Admin Dose 1 TAB; Start 07/13/18 at 21:00; Stop 08/12/18 at 20:59 Ascorbic Acid (Vitamin C) 500 mg DAILY PO Last administered on 07/28/18 08:01; Admin Dose 500 MG; Start 07/15/18 at 12:00 Zinc Sulfate (Zinc Sulfate) 220 mg DAILY PO Last administered on 07/28/18 08 :02; Admin Dose 220 MG; Start 07/15/18 at 11:00 Multivitamins Therapeutic (Theragran) 1 tab DAILY PO Last administered on 07/28/18 08:02; Admin Dose 1 TAB; Start 07/15/18 at 11:00 IV Flush (NS 10 ml) 10 ml PRN PRN IV IV PROTOCOL Last administered on 07/19/18at 02:30; Admin Dose 10 ML; Start 07/15/18 at 17:00 Oxycodone/ Acetaminophen (Endocet ()) 2 tab Q6H PRN PO MODERATE PAIN LEVEL 4-6 Last administered on 07/28/18at 03:27; Admin Dose 2 TAB; Start 07/25/18 at 12:00 KINGA WILLETT MD Jul 28, 2018 09:55
--- NOTE | 2018-07-28 10:49 | PN ---
Date/Time of Note Date/Time of Note DATE: 07/28/18 TIME: 10:44 Assessment/Plan Lines/Catheters IV Catheter Type (from [facility]): PICC Line Cortez in Place (from [facility]): No Assessment/Plan Chief Complaint/Hosp Course 1. Multiple decubitus pressure ulcers; healing; -Continue offloading & nutritional optimization as able -Continue same wound care treatment -Debridement as needed -Vitamin C -Continue osteomyelitis treatment> per id (IV antibiotics with end date July 25) -placement pending 2. Decompressed bladder with significant thickening concerning for bladder dylan plasm versus cystitis: Urethritis, possible pyelonephritis; leaking between self caths, indwelling cortez placed -per Urology 3. Labile mood with intermittent bursts of anger -psych eval noted, refusing meds -Supportive 4. Hypoalbuminemia -Encourage nutritional optimization 5. Hypertension history -Nutrition and medication optimization 6. Anemia without evidence of acute blood loss -Monitor 7. Acute on chronic back pain, nephrolithiasis -Medical optimization -Judicious fluid management 8. Constipation history -bowel optimization 9. Elevated CEA however patient refusing colonoscopy and further workup Thank you, Subjective 24 Hr Interval Summary No fevers, chills, sob, congested cough, cp, palpitations, villela, dizziness, n/v/d/dysuria. Bowel function. Labile mood. Exam/Review of Systems Vital Signs Vitals Vital Signs Date Temp Pulse Resp B/P (MAP) Pulse Ox O2 O2 Flow FiO2 Time Delivery Rate 07/28/18 97.9 83 18 135/65 99 07:54 (88) 07/27/18 Room Air 14:10 Intake and Output 07/27/18 07/27/18 07/28/18 1515:00 23:00 07:00 IntakeIntake Total 50 ml 550 ml OutputOutput Total 1201 ml 850 ml BalanceBalance 50 ml -651 ml -850 ml Exam Free Text/Dictation Constitutional: alert, oriented No distress Psych: Labile Head: normocephalic, atraumatic Eyes: nl conjunctiva, EOMI, PERRL; No icteric ENMT: nl external ears & nose, nl lips & teeth, mucosa pink and moist Neck: supple, non-tender; No jvd Respiratory: normal air movement; No congested cough, No labored breathing, No wheezing Cardiovascular: regular rate and rhythm; No edema Gastrointestinal: soft, non-tender; No distended, No rebound or guarding Genitourinary - Male: nl penis, nl scrotum Musculoskeletal: No nl gait and stance, No joint tenderness Extremities: normal pulses; No calf tenderness, No edema, No tenderness Neurological: nl mental status, nl speech; No nl strength Skin: rash or lesions (Decubitus pressure ulcers: Clean, no odor/ no drainage. Right ischium : Improving, no odor/small drainage); No ecchymosis Lymph: nl lymph nodes Results Result Diagram: 07/25/18 0448 07/25/18 0448 GUSTABO GARCIA MD Jul 28, 2018 10:49
--- NOTE | 2018-07-28 11:03 | CONS ---
Assessment/Plan Assessment/Plan Hospital Course (Demo Recall) No events, all noted, no fevers, nad Microbiology: Blood culture growing Proteus mirabilis, urine culture grew Proteus mirabilis and oxacillin sensitive staph aureus. Sacral wound culture growing E. coli, staph aureus and enterococcus species Chest x-ray on admission revealed no definite abnormalities. Antimicrobials: Cipro, ampicillin Physical examination: Well-developed chronically ill-appearing elderly man in no distress. Head atraumatic normocephalic sclera nonicteric neck is supple chest rise symmetrical breath sounds diminished bases heart S1-S2 abdomen soft bowel sounds present extremities wasted bilateral lower extremities Assessment: 1. S/p sepsis, present on admission 2. Proteus mirabilis bacteremia secondary to UTI, repeat bld cx neg 3. Multidrug-resistant Proteus mirabilis pyelonephritis 4. Bilateral hydronephrosis 5. Neurogenic bladder 6. Multiple decubitus with questionable osteomyelitis of right atrium and right iliac bone 7. Obstructive uropathy 8. Homelessness 9. Incomplete paraplegia Plan: Remains stable, completing antibiotics for treatment of OM==> last day August 03, pending dc arrangements Consultation Date/Type/Reason Admit Date/Time Jun 22, 2018 at 18:09 Initial Consult Date 06/23/18 Type of Consult id Requesting Provider: TRACE REBOLLEDO Date/Time of Note DATE: 07/28/18 TIME: 11:03 Exam/Review of Systems Exam Vitals Vital Signs Date Temp Pulse Resp B/P (MAP) Pulse Ox O2 O2 Flow FiO2 Time Delivery Rate 07/28/18 97.9 83 18 135/65 99 07:54 (88) 07/27/18 Room Air 14:10 Intake and Output 07/27/18 07/27/18 07/28/18 1414:59 22:59 06:59 IntakeIntake Total 50 ml 550 ml OutputOutput Total 1201 ml 850 ml BalanceBalance 50 ml -651 ml -850 ml Results Result Diagram: 07/25/188 07/25/188 Medications Medication Current Medications IV Flush (NS 3 ml) 3 ml PER PROTOCOL IV ; Start 06/22/18 at 18:30 Ondansetron HCl (Zofran Inj) 4 mg Q6H PRN IV NAUSEA/VOMITING Last administered on 06/26/18at 15:57; Admin Dose 4 MG; Start 06/22/18 at 18:30 Acetaminophen (Tylenol Tab) 650 mg Q6H PRN PO .PAIN 1-3 OR TEMP; Start 06/22/18 at 18:30 Enoxaparin Sodium (Lovenox) 30 mg DAILY SC Last administered on 07/28/18 08:03; Admin Dose 30 MG; Start 06/23/18 at 09:00 Hydralazine HCl (Apresoline) 10 mg Q4H PRN IV SBP >160; Start 06/22/18 at 19:00 Miscellaneous Information (Pending [facility] Order For Wound Care) This patient villela... PRN PRN XX WOUND CARE; Start 06/23/18 at 00:30 Docusate Sodium (Colace) 100 mg BID PO Last administered on 07/21/18 08:26; Admin Dose 100 MG; Start 06/23/18 at 21:00 Tamsulosin HCl (Flomax) 0.4 mg DAILY PO Last administered on 07/28/18 08:01; Admin Dose 0.4 MG; Start 06/24/18 at 09:00 Labetalol HCl (Labetalol) 10 mg Q4 PRN IV sbp>160; Start 06/24/18 at 13:30 Lisinopril (Zestril) 5 mg DAILY PO Last administered on 07/28/18 08:02; Admin Dose 5 MG; Start 06/29/18 at 09:00 Magnesium Hydroxide (Milk Of Mag) 30 ml DAILY PRN PO CONSTIPATION; Start 06/28/18 at 21:00 Pantoprazole (Protonix Tab) 40 mg DAILY@06 PO Last administered on 07/28/18 06:15; Admin Dose 40 MG; Start 07/04/18 at 06:00 Carisoprodol (Soma) 350 mg Q6 PO Last administered on 07/28/18 06:15; Admin Dose 350 MG; Start 07/06/18 at 12:00 Polyethylene Glycol (Miralax) 17 gm BID PO Last administered on 07/21/18 08:26; Admin Dose 17 GM; Start 07/08/18 at 11:00 Ciprofloxacin (Cipro) 500 mg BID@,18 PO Last administered on 07/28/18 06:53; Admin Dose 500 MG; Start 07/08/18 at 18:00; Stop 08/03/18 at 23:00 Ampicillin 50 ml @ 100 mls/hr Q8 IVPB Last administered on 07/28/18 06:53; Admin Dose 100 MLS/HR; Start 07/08/18 at 14:00; Stop 08/03/18 at 23:00 Magnesium Hydroxide (Milk Of Mag) 30 ml DAILY PO Last administered on 07/21/18 08:26; Admin Dose 30 ML; Start 07/08/18 at 19:30 Hydromorphone HCl (Dilaudid) 1 mg Q4H PRN IV SEVERE PAIN LEVEL 7-10 Last administered on 07/28/18 10:08; Admin Dose 1 MG; Start 07/12/18 at 19:00 Docusate Sodium/ Ferrous Fumarate (Harry-Sequels) 1 tab BID PO Last administered on 07/28/18 08:01; Admin Dose 1 TAB; Start 07/13/18 at 21:00; Stop 08/12/18 at 20:59 Ascorbic Acid (Vitamin C) 500 mg DAILY PO Last administered on 07/28/18 08:01; Admin Dose 500 MG; Start 07/15/18 at 12:00 Zinc Sulfate (Zinc Sulfate) 220 mg DAILY PO Last administered on 07/28/18 08:02; Admin Dose 220 MG; Start 07/15/18 at 11:00 Multivitamins Therapeutic (Theragran) 1 tab DAILY PO Last administered on 07/28/18 08:02; Admin Dose 1 TAB; Start 07/15/18 at 11:00 IV Flush (NS 10 ml) 10 ml PRN PRN IV IV PROTOCOL Last administered on 07/19/18 02:30; Admin Dose 10 ML; Start 07/15/18 at 17:00 Oxycodone/ Acetaminophen (Endocet (10/ 325)) 2 tab Q6H PRN PO MODERATE PAIN LEVEL 4-6 Last administered on 07/28/18 03:27; Admin Dose 2 TAB; Start 07/25/18 at 12:00 JOHNSON PENDLETON NP Jul 28, 2018 11:03
[2018-07-28 14:09] VITALS: BP 122/63; PULSE 97; RESP 20
[2018-07-28 19:58] VITALS: BP 124/69; PULSE 90; RESP 20
[2018-07-29] MEDS: HYDROmorphONE 1 MG/ML SYG IV PRN ×5 (02:18→20:14)
[2018-07-29 02:37] VITALS: BP 130/71; PULSE 92; RESP 20
[2018-07-29] MEDS: PANTOPRAZOLE (EC) 40 MG TAB PO SCH (05:23)
[2018-07-29] MEDS: AMPICILLIN 1 GM/NS (PMX) 50 ML IVPB SCH ×3 (05:23→21:21)
[2018-07-29] MEDS: CARISOPRODOL 350 MG TAB PO SCH ×4 (05:23→23:18)
[2018-07-29] MEDS: CIPROFLOXACIN 500 MG TAB PO SCH ×2 (05:23→17:38)
[2018-07-29 08:00] VITALS: BP 139/79; PULSE 85; RESP 18
--- NOTE | 2018-07-29 08:53 | PN ---
Date/Time of Note Date/Time of Note DATE: 07/29/18 TIME: 08:53 Assessment/Plan VTE Prophylaxis Risk score (from Ns)>0 risk: 5 SCD applied (from [facility]): No SCD contraindicated: other Pharmacological prophylaxis: heparin Lines/Catheters IV Catheter Type (from Nrs): PICC Line Central line still needed: Yes Urinary Cath still in place: Yes Reason Cath still needed: pres ulcer contaminated by urine Assessment/Plan Assessment/Plan 1. Sepsis secondary to UTI, decubitus ulcers, and OM- resolved - Remains afebrile and nl WBC - Continue antibiotics until 08/03/18. PICC line in place - ID on board and appreciate recommendations 2. UTI- resolved - Urology on board and appreciate consultation. Cortez remains in place given presence of decub ulcers. 3. Sacral decubitus ulcer with abscess- stable - Surgery consultation appreciated and continue current medical management and wound care. Debridement as needed - Start zinc sulf/Vit c/Theragen sup - Julius protein w/diet 4. Osteomyelitis of ischium - Will need to complete total of 6 weeks of IV antibiotics, with last dose on 08/03/18 5. Chronic back pain - continue pain control 6. Hypertension - stable 7. Neurogenic bladder - cortez in place - Urology on board 8. Disposition - Continue antibiotics until 08/03/18 - Discussed with CM patient would like to be update on status of SNF placement and upset that facility is being told hes noncompliant when he was not aware. Open to doing whatever is needed to help with placement. PT consultation ordered for assistance with transfer therapy Result Diagram: 07/25/18 0448 07/25/18 0448 Subjective 24 Hr Interval Summary Free Text/Dictation Patient very upset since does not understand why SNF is being told he is noncompliant and he is not aware of why he is being called noncompliant. Patient requesting to speak with CM and SW. Discussed working with PT for transfer to to assist with SNF placement. Exam/Review of Systems Exam Vitals Vital Signs Date Temp Pulse Resp B/P (MAP) Pulse Ox O2 O2 Flow FiO2 Time Delivery Rate 07/29/18 98.0 85 18 139/79 98 Room Air 08:00 (99) Intake and Output 07/28/18 07/28/18 07/29/18 1515:00 23:00 07:00 IntakeIntake Total 50 ml 50 ml 100 ml OutputOutput Total 950 ml BalanceBalance 50 ml -900 ml 100 ml Exam General: Patient is laying in bed and answers questions appropriately Neck: Supple Respiratory: Clear to auscultation bilaterally. no wheezing or rhonchi Cardiovascular: regular rate and rhythm, no obvious murmurs Gastrointestinal: soft, non-tender to palpation, bowel sounds heard. Neurological: LE muscle wasting with muscle spasms, full ROM upper extremities Skin: Multiple ulcers on patient's sacral decubitus area and buttock area, bandaged Medications Medication Current Medications IV Flush (NS 3 ml) 3 ml PER PROTOCOL IV ; Start 06/22/18 at 18:30 Ondansetron HCl (Zofran Inj) 4 mg Q6H PRN IV NAUSEA/VOMITING Last administered on 06/26/18at 15:57; Admin Dose 4 MG; Start 06/22/18 at 18:30 Acetaminophen (Tylenol Tab) 650 mg Q6H PRN PO .PAIN 1-3 OR TEMP; Start 06/22/18 at 18:30 Enoxaparin Sodium (Lovenox) 30 mg DAILY SC Last administered on 07/28/18at 08:03; Admin Dose 30 MG; Start 06/23/18 at 09:00 Hydralazine HCl (Apresoline) 10 mg Q4H PRN IV SBP >160; Start 06/22/18 at 19:00 Miscellaneous Information (Pending [facility] Order For Wound Care) This patient villela... PRN PRN XX WOUND CARE; Start 06/23/18 at 00:30 Docusate Sodium (Colace) 100 mg BID PO Last administered on 07/21/18at 08:26; Admin Dose 100 MG; Start 06/23/18 at 21:00 Tamsulosin HCl (Flomax) 0.4 mg DAILY PO Last administered on 07/28/18at 08:01; Admin Dose 0.4 MG; Start 06/24/18 at 09:00 Labetalol HCl (Labetalol) 10 mg Q4 PRN IV sbp>160; Start 06/24/18 at 13:30 Lisinopril (Zestril) 5 mg DAILY PO Last administered on 07/28/18at 08:02; Admin Dose 5 MG; Start 06/29/18 at 09:00 Magnesium Hydroxide (Milk Of Mag) 30 ml DAILY PRN PO CONSTIPATION; Start 06/28/18 at 21:00 Pantoprazole (Protonix Tab) 40 mg DAILY@06 PO Last administered on 07/29/18 05: 23; Admin Dose 40 MG; Start 07/04/18 at 06:00 Carisoprodol (Soma) 350 mg Q6 PO Last administered on 07/29/18 05:23; Admin Dose 350 MG; Start 07/06/18 at 12:00 Polyethylene Glycol (Miralax) 17 gm BID PO Last administered on 07/21/18 08:26; Admin Dose 17 GM; Start 07/08/18 at 11:00 Ciprofloxacin (Cipro) 500 mg BID@,18 PO Last administered on 07/29/18 05:23; Admin Dose 500 MG; Start 07/08/18 at 18:00; Stop 08/03/18 at 23:00 Ampicillin 50 ml @ 100 mls/hr Q8 IVPB Last administered on 07/29/18 05:23; Admin Dose 100 MLS/HR; Start 07/08/18 at 14:00; Stop 08/03/18 at 23:00 Magnesium Hydroxide (Milk Of Mag) 30 ml DAILY PO Last administered on 07/21/18 08:26; Admin Dose 30 ML; Start 07/08/18 at 19:30 Hydromorphone HCl (Dilaudid) 1 mg Q4H PRN IV SEVERE PAIN LEVEL 7-10 Last administered on 07/29/18 06:42; Admin Dose 1 MG; Start 07/12/18 at 19:00 Docusate Sodium/ Ferrous Fumarate (Harry-Sequels) 1 tab BID PO Last administered on 07/28/18 22:16; Admin Dose 1 TAB; Start 07/13/18 at 21:00; Stop 08/12/18 at 20:59 Ascorbic Acid (Vitamin C) 500 mg DAILY PO Last administered on 07/28/18 08:01; Admin Dose 500 MG; Start 07/15/18 at 12:00 Zinc Sulfate (Zinc Sulfate) 220 mg DAILY PO Last administered on 07/28/18 08:02; Admin Dose 220 MG; Start 07/15/18 at 11:00 Multivitamins Therapeutic (Theragran) 1 tab DAILY PO Last administered on 07/28/18 08:02; Admin Dose 1 TAB; Start 07/15/18 at 11:00 IV Flush (NS 10 ml) 10 ml PRN PRN IV IV PROTOCOL Last administered on 07/19/18at 02:30; Admin Dose 10 ML; Start 07/15/18 at 17:00 Oxycodone/ Acetaminophen (Endocet (10/ 325)) 2 tab Q6H PRN PO MODERATE PAIN LEVEL 4-6 Last administered on 07/28/18at 12:21; Admin Dose 2 TAB; Start 07/25/18 at 12:00 Miscellaneous Information (*Order Clarification Bulletin) MEDICATION REQUIRES CLARIFICATI... Q8H XX ; Start 07/28/18 at 22:00; Stop 07/30/18 at 21:59 KINGA WILLETT MD Jul 29, 2018 08:53
[2018-07-29] MEDS: MULTIVITAMINS THERAPEUTIC TAB PO SCH (09:16)
[2018-07-29] MEDS: TAMSULOSIN (SR) 0.4 MG CAP PO SCH (09:16)
[2018-07-29] MEDS: MAGNESIUM HYDROXIDE 30ML CUP PO SCH (09:16)
[2018-07-29] MEDS: DOCUSATE SODIUM 100 MG CAP PO SCH ×2 (09:16→20:17)
[2018-07-29] MEDS: ZINC SULFATE 220 MG CAP PO SCH (09:16)
[2018-07-29] MEDS: ASCORBIC ACID 500 MG TAB PO SCH (09:16)
[2018-07-29] MEDS: POLYETHYLENE GLYCOL 17 GM PACKET PO SCH ×2 (09:17→20:17)
[2018-07-29] MEDS: LISINOPRIL 5 MG TAB PO SCH (09:17)
[2018-07-29] MEDS: ENOXAPARIN 30 MG/0.3 ML SYG SC SCH (09:26)
[2018-07-29] MEDS: FERROUS FUMARATE (SR) TAB PO SCH ×2 (10:46→20:14)
--- NOTE | 2018-07-29 11:57 | PN ---
Date/Time of Note Date/Time of Note DATE: 07/29/18 TIME: 11:55 Assessment/Plan Lines/Catheters IV Catheter Type (from [facility]): PICC Line Cortez in Place (from Nrs): Yes Assessment/Plan Chief Complaint/Hosp Course 1. Multiple decubitus pressure ulcers; healing; -Continue offloading & nutritional optimization as able -Continue same wound care treatment -Debridement as needed -Vitamin C -Continue osteomyelitis treatment> per id (IV antibiotics with end date August 03) -placement pending 2. Decompressed bladder with significant thickening concerning for bladder ne oplasm versus cystitis: Urethritis, possible pyelonephritis; leaking between self caths, indwelling cortez placed -per Urology 3. Labile mood with intermittent bursts of anger -psych eval noted, refusing meds -Supportive 4. Hypoalbuminemia -Encourage nutritional optimization 5. Hypertension history -Nutrition and medication optimization 6. Anemia without evidence of acute blood loss -Monitor 7. Acute on chronic back pain, nephrolithiasis -Medical optimization -Judicious fluid management 8. Constipation history -bowel optimization 9. Elevated CEA however patient refusing colonoscopy and further workup Thank you. Patient seen and examined in collaboration with Dr. Micah Hobbs. Subjective 24 Hr Interval Summary Intermittent pain/discomfort generalized. Intermittently uncooperative with nursing/treatments. No fevers, chills, sob, congested cough, cp, palpitations, villela, dizziness, n/v/d/dysuria. Exam/Review of Systems Vital Signs Vitals Vital Signs Date Temp Pulse Resp B/P (MAP) Pulse Ox O2 O2 Flow FiO2 Time Delivery Rate 07/29/18 98.0 85 18 139/79 98 Room Air 08:00 (99) Intake and Output 07/28/18 07/28/18 07/29/18 1515:00 23:00 07:00 IntakeIntake Total 50 ml 50 ml 100 ml OutputOutput Total 950 ml BalanceBalance 50 ml -900 ml 100 ml Exam Free Text/Dictation Constitutional: alert, oriented No distress Psych: calm Head: normocephalic, atraumatic Eyes: nl conjunctiva, EOMI, PERRL; No icteric ENMT: nl external ears & nose, nl lips & teeth, mucosa pink and moist Neck: supple, non-tender; No jvd Respiratory: normal air movement; No congested cough, No labored breathing, No wheezing Cardiovascular: regular rate and rhythm; No edema Gastrointestinal: soft, non-tender; No distended, No rebound or guarding Genitourinary - Male: nl penis, nl scrotum Musculoskeletal: No nl gait and stance, No joint tenderness Extremities: normal pulses; No calf tenderness, No edema, No tenderness Neurological: nl mental status, nl speech; No nl strength Skin: rash or lesions (Decubitus pressure ulcers: Clean, no odor/ no drainage. Right ischium : Improving, scant drainage); No ecchymosis Lymph: nl lymph nodes Results Result Diagram: 07/25/1844707/25/188 TIFFANIE KLEIN NP Jul 29, 2018 11:57
--- NOTE | 2018-07-29 12:18 | CONS ---
Assessment/Plan Assessment/Plan Hospital Course (Demo Recall) No events, awake, nad Microbiology: Blood culture growing Proteus mirabilis, urine culture grew Proteus mirabilis and oxacillin sensitive staph aureus. Sacral wound culture growing E. coli, staph aureus and enterococcus species Chest x-ray on admission revealed no definite abnormalities. Antimicrobials: Cipro, ampicillin Physical examination: Well-developed chronically ill-appearing elderly man in no distress. Head atraumatic normocephalic sclera nonicteric neck is supple chest rise symmetrical breath sounds diminished bases heart S1-S2 abdomen soft bowel sounds present extremities wasted bilateral lower extremities Assessment: 1. S/p sepsis, present on admission 2. Proteus mirabilis bacteremia secondary to UTI, repeat bld cx neg 3. Multidrug-resistant Proteus mirabilis pyelonephritis 4. Bilateral hydronephrosis 5. Neurogenic bladder 6. Multiple decubitus with questionable osteomyelitis of right atrium and right iliac bone 7. Obstructive uropathy 8. Homelessness 9. Incomplete paraplegia Plan: Remains stable, completing antibiotics for treatment of OM==> last day August 03, pending dc arrangements Consultation Date/Type/Reason Admit Date/Time Jun 22, 2018 at 18:09 Initial Consult Date 06/23/18 Type of Consult id Requesting Provider: TRACE REBOLLEDO Date/Time of Note DATE: 07/29/18 TIME: 12:18 Exam/Review of Systems Exam Vitals Vital Signs Date Temp Pulse Resp B/P (MAP) Pulse Ox O2 O2 Flow FiO2 Time Delivery Rate 07/29/18 98.0 85 18 139/79 98 Room Air 08:00 (99) Intake and Output 07/28/18 07/28/18 07/29/18 1515:00 23:00 07:00 IntakeIntake Total 50 ml 50 ml 100 ml OutputOutput Total 950 ml BalanceBalance 50 ml -900 ml 100 ml Results Result Diagram: 07/25/188 07/25/188 Medications Medication Current Medications IV Flush (NS 3 ml) 3 ml PER PROTOCOL IV ; Start 06/22/18 at 18:30 Ondansetron HCl (Zofran Inj) 4 mg Q6H PRN IV NAUSEA/VOMITING Last administered on 06/26/18at 15:57; Admin Dose 4 MG; Start 06/22/18 at 18:30 Acetaminophen (Tylenol Tab) 650 mg Q6H PRN PO .PAIN 1-3 OR TEMP; Start 06/22/18 at 18:30 Enoxaparin Sodium (Lovenox) 30 mg DAILY SC Last administered on 07/29/18 09:26; Admin Dose 30 MG; Start 06/23/18 at 09:00 Hydralazine HCl (Apresoline) 10 mg Q4H PRN IV SBP >160; Start 06/22/18 at 19:00 Miscellaneous Information (Pending [facility] Order For Wound Care) This patient villela... PRN PRN XX WOUND CARE; Start 06/23/18 at 00:30 Docusate Sodium (Colace) 100 mg BID PO Last administered on 07/29/18 09:16; Admin Dose 100 MG; Start 06/23/18 at 21:00 Tamsulosin HCl (Flomax) 0.4 mg DAILY PO Last administered on 07/29/18 09:16; Admin Dose 0.4 MG; Start 06/24/18 at 09:00 Labetalol HCl (Labetalol) 10 mg Q4 PRN IV sbp>160; Start 06/24/18 at 13:30 Lisinopril (Zestril) 5 mg DAILY PO Last administered on 07/29/18 09:17; Admin Dose 5 MG; Start 06/29/18 at 09:00 Magnesium Hydroxide (Milk Of Mag) 30 ml DAILY PRN PO CONSTIPATION; Start 06/28/18 at 21:00 Pantoprazole (Protonix Tab) 40 mg DAILY@06 PO Last administered on 07/29/18 05:23; Admin Dose 40 MG; Start 07/04/18 at 06:00 Carisoprodol (Soma) 350 mg Q6 PO Last administered on 07/29/18 05:23; Admin Dose 350 MG; Start 07/06/18 at 12:00 Polyethylene Glycol (Miralax) 17 gm BID PO Last administered on 07/29/18 09:17; Admin Dose 17 GM; Start 07/08/18 at 11:00 Ciprofloxacin (Cipro) 500 mg BID@,18 PO Last administered on 07/29/18 05:23; Admin Dose 500 MG; Start 07/08/18 at 18:00; Stop 08/03/18 at 23:00 Ampicillin 50 ml @ 100 mls/hr Q8 IVPB Last administered on 07/29/18 05:23; Admin Dose 100 MLS/HR; Start 07/08/18 at 14:00; Stop 08/03/18 at 23:00 Magnesium Hydroxide (Milk Of Mag) 30 ml DAILY PO Last administered on 07/29/18 09:16; Admin Dose 30 ML; Start 07/08/18 at 19:30 Hydromorphone HCl (Dilaudid) 1 mg Q4H PRN IV SEVERE PAIN LEVEL 7-10 Last administered on 07/29/18 10:47; Admin Dose 1 MG; Start 07/12/18 at 19:00 Docusate Sodium/ Ferrous Fumarate (Harry-Sequels) 1 tab BID PO Last administered on 07/29/18 10:46; Admin Dose 1 TAB; Start 07/13/18 at 21:00; Stop 08/12/18 at 20:59 Ascorbic Acid (Vitamin C) 500 mg DAILY PO Last administered on 07/29/18 09:16; Admin Dose 500 MG; Start 07/15/18 at 12:00 Zinc Sulfate (Zinc Sulfate) 220 mg DAILY PO Last administered on 07/29/18 09:16; Admin Dose 220 MG; Start 07/15/18 at 11:00 Multivitamins Therapeutic (Theragran) 1 tab DAILY PO Last administered on 07/29/18 09:16; Admin Dose 1 TAB; Start 07/15/18 at 11:00 IV Flush (NS 10 ml) 10 ml PRN PRN IV IV PROTOCOL Last administered on 07/19/18 02:30; Admin Dose 10 ML; Start 07/15/18 at 17:00 Oxycodone/ Acetaminophen (Endocet (10/ 325)) 2 tab Q6H PRN PO MODERATE PAIN LEVEL 4-6 Last administered on 07/28/18 12:21; Admin Dose 2 TAB; Start 07/25/18 at 12:00 Miscellaneous Information (*Order Clarification Bulletin) MEDICATION REQUIRES CLARIFICATI... Q8H XX ; Start 07/28/18 at 22:00; Stop 07/30/18 at 21:59 JOHNSON PENDLETON NP Jul 29, 2018 12:18
[2018-07-29] MEDS: OXYCODONE/ACETAMINOPHEN (10/325) TAB PO PRN (13:37)
[2018-07-29 14:00] VITALS: BP 142/66; PULSE 88; RESP 18
[2018-07-29 19:55] VITALS: BP 144/75; PULSE 95; RESP 20
[2018-07-30] MEDS: HYDROmorphONE 1 MG/ML SYG IV PRN ×6 (00:23→21:19)
[2018-07-30 01:41] VITALS: BP 143/76; PULSE 92; RESP 20
[2018-07-30] MEDS: AMPICILLIN 1 GM/NS (PMX) 50 ML IVPB SCH ×3 (05:17→22:44)
[2018-07-30] MEDS: CARISOPRODOL 350 MG TAB PO SCH ×3 (05:17→17:04)
[2018-07-30] MEDS: CIPROFLOXACIN 500 MG TAB PO SCH ×2 (05:17→17:04)
[2018-07-30] MEDS: PANTOPRAZOLE (EC) 40 MG TAB PO SCH (05:17)
[2018-07-30 08:05] VITALS: BP 117/72; PULSE 91; RESP 18
--- NOTE | 2018-07-30 08:52 | PN ---
Date/Time of Note Date/Time of Note DATE: 07/30/18 TIME: 08:52 Assessment/Plan VTE Prophylaxis Risk score (from Ns)>0 risk: 5 SCD applied (from [facility] [place] No SCD contraindicated: other Pharmacological prophylaxis: LMWH Lines/Catheters IV [facility] ([facility] PICC Line Central line still needed: Yes Urinary Cath still in place: Yes Reason Cath still needed: pres ulcer contaminated by urine Assessment/Plan Assessment/Plan 1. Sepsis secondary to UTI, decubitus ulcers, and OM- resolved - Remains afebrile and nl WBC - Continue antibiotics until 08/03/18 - ID on board and appreciate recommendations 2. UTI- resolved - Urology on board and appreciate consultation. Cortez remains in place given presence of decub ulcers. 3. Sacral decubitus ulcer with abscess- stable - Surgery consultation appreciated and continue current medical management and wound care. Debridement as needed - Start zinc sulf/Vit c/Theragen sup - Julius protein w/diet 4. Osteomyelitis of ischium - Will need to complete total of 6 weeks of IV antibiotics, with last dose on 08/03/18 5. Chronic back pain - continue pain control 6. Hypertension - stable 7. Neurogenic bladder - cortez in place - Urology on board 8. Disposition - Continue antibiotics until 08/03/18 - PT evaluated patient this am. Pending SNF placement for continued wound care of decubitus ulcers and IV antibiotics Subjective 24 Hr Interval Summary Free Text/Dictation Patient is doing well and denies any acute issues. Worked with PT this am and states transfers went well. He is at his baseline per PT noted and not needing any further therapy. Exam/Review of Systems Exam Vitals Vital Signs Date Temp Pulse Resp B/P (MAP) Pulse Ox O2 O2 Flow FiO2 Time Delivery Rate 07/30/18 98.1 91 18 117/72 95 Room Air 08:05 (87) Intake and Output 07/29/18 07/29/18 07/30/18 1414:59 22:59 06:59 IntakeIntake Total 530 ml 730 ml 50 ml OutputOutput Total 200 ml 1800 ml BalanceBalance 530 ml 530 ml -1750 ml Exam General: Patient is laying in bed and answers questions appropriately Neck: Supple Respiratory: Clear to auscultation bilaterally. no wheezing or rhonchi Cardiovascular: regular rate and rhythm, no obvious murmurs Gastrointestinal: soft, non-tender to palpation, bowel sounds heard. no rebound or guarding Neurological: LE muscle wasting with muscle spasms, full ROM upper extremities Skin: Multiple ulcers on patient's sacral decubitus area and buttock area, bandaged Medications Medication Current Medications IV Flush (NS 3 ml) 3 ml PER PROTOCOL IV ; Start 06/22/18 at 18:30 Ondansetron HCl (Zofran Inj) 4 mg Q6H PRN IV NAUSEA/VOMITING Last administered on 06/26/18at 15:57; Admin Dose 4 MG; Start 06/22/18 at 18:30 Acetaminophen (Tylenol Tab) 650 mg Q6H PRN PO .PAIN 1-3 OR TEMP; Start 06/22/18 at 18:30 Enoxaparin Sodium (Lovenox) 30 mg DAILY SC Last administered on 07/29/18 09:26; Admin Dose 30 MG; Start 06/23/18 at 09:00 Hydralazine HCl (Apresoline) 10 mg Q4H PRN IV SBP >160; Start 06/22/18 at 19:00 Misc[facility] This patient villela... PRN PRN XX WOUND CARE; Start 06/23/18 at 00:30 Docusate Sodium (Colace) 100 mg BID PO Last administered on 07/29/18at 09:16; Admin Dose 100 MG; Start 06/23/18 at 21:00 Tamsulosin HCl (Flomax) 0.4 mg DAILY PO Last administered on 07/29/18 09:16; Admin Dose 0.4 MG; Start 06/24/18 at 09:00 Labetalol HCl (Labetalol) 10 mg Q4 PRN IV sbp>160; Start 06/24/18 at 13:30 Lisinopril (Zestril) 5 mg DAILY PO Last administered on 07/29/18 09:17; Admin Dose 5 MG; Start 06/29/18 at 09:00 Magnesium Hydroxide (Milk Of Mag) 30 ml DAILY PRN PO CONSTIPATION; Start 06/28/18 at 21:00 Pantoprazole (Protonix Tab) 40 mg DAILY@06 PO Last administered on 07/30/18 05:17; Admin Dose 40 MG; Start 07/04/18 at 06:00 Carisoprodol (Soma) 350 mg Q6 PO Last administered on 07/30/18 05:17; Admin Dose 350 MG; Start 07/06/18 at 12:00 Polyethylene Glycol (Miralax) 17 gm BID PO Last administered on 07/29/18 09:17; Admin Dose 17 GM; Start 07/08/18 at 11:00 Ciprofloxacin (Cipro) 500 mg BID@06,18 PO Last administered on 07/30/18 05:17; Admin Dose 500 MG; Start 07/08/18 at 18:00; Stop 08/03/18 at 23:00 Ampicillin 50 ml @ 100 mls/hr Q8 IVPB Last administered on 07/30/18 05:17; Admin Dose 100 MLS/HR; Start 07/08/18 at 14:00; Stop 08/03/18 at 23:00 Magnesium Hydroxide (Milk Of Mag) 30 ml DAILY PO Last administered on 07/29/18 09:16; Admin Dose 30 ML; Start 07/08/18 at 19:30 Hydromorphone HCl (Dilaudid) 1 mg Q4H PRN IV SEVERE PAIN LEVEL 7-10 Last administered on 07/30/18 04:49; Admin Dose 1 MG; Start 07/12/18 at 19:00 Docusate Sodium/ Ferrous Fumarate (Harry-Sequels) 1 tab BID PO Last administered on 07/29/18 20:14; Admin Dose 1 TAB; Start 07/13/18 at 21:00; Stop 08/12/18 at 20:59 Ascorbic Acid (Vitamin C) 500 mg DAILY PO Last administered on 07/29/18 09:16; Admin Dose 500 MG; Start 07/15/18 at 12:00 Zinc Sulfate (Zinc Sulfate) 220 mg DAILY PO Last administered on 07/29/18 09:16; Admin Dose 220 MG; Start 07/15/18 at 11:00 Multivitamins Therapeutic (Theragran) 1 tab DAILY PO Last administered on 07/29/18 09:16; Admin Dose 1 TAB; Start 07/15/18 at 11:00 IV Flush (NS 10 ml) 10 ml PRN PRN IV IV PROTOCOL Last administered on 07/19/18 02:30; Admin Dose 10 ML; Start 07/15/18 at 17:00 Oxycodone/ Acetaminophen (Endocet ()) 2 tab Q6H PRN PO MODERATE PAIN LEVEL 4-6 Last administered on 07/29/18at 13:37; Admin Dose 2 TAB; Start 07/25/18 at 12:00 Miscellaneous Information (*Order Clarification Bulletin) MEDICATION REQUIRES CLARIFICATI... Q8H XX ; Start 07/28/18 at 22:00; Stop 07/30/18 at 21:59 KINGA WILLETT MD Jul 30, 2018 08:52
[2018-07-30] MEDS: MAGNESIUM HYDROXIDE 30ML CUP PO SCH (09:00)
[2018-07-30] MEDS: POLYETHYLENE GLYCOL 17 GM PACKET PO SCH ×2 (09:00→21:00)
[2018-07-30] MEDS: DOCUSATE SODIUM 100 MG CAP PO SCH ×2 (09:00→21:00)
[2018-07-30] MEDS: ZINC SULFATE 220 MG CAP PO SCH (09:08)
[2018-07-30] MEDS: MULTIVITAMINS THERAPEUTIC TAB PO SCH (09:08)
[2018-07-30] MEDS: LISINOPRIL 5 MG TAB PO SCH (09:09)
[2018-07-30] MEDS: ASCORBIC ACID 500 MG TAB PO SCH (09:09)
[2018-07-30] MEDS: TAMSULOSIN (SR) 0.4 MG CAP PO SCH (09:09)
[2018-07-30] MEDS: FERROUS FUMARATE (SR) TAB PO SCH ×2 (09:09→21:17)
[2018-07-30] MEDS: ENOXAPARIN 30 MG/0.3 ML SYG SC SCH (09:11)
--- NOTE | 2018-07-30 12:31 | PN ---
Date/Time of Note Date/Time of Note DATE: 07/30/18 TIME: 12:26 Assessment/Plan Lines/Catheters IV Catheter Type (from Nrs): PICC Line Cortez in Place (from Nrs): Yes Assessment/Plan Chief Complaint/Hosp Course 1. Multiple decubitus pressure ulcers; healing; -Continue offloading & nutritional optimization as able -Continue same wound care treatment -Debridement as needed -Vitamin C -Continue osteomyelitis treatment> per id (IV antibiotics with end date August 03) -placement pending 2. Decompressed bladder with significant thickening concerning for bladder neoplasm versus cystitis: Urethritis, possible pyelonephritis; leaking between self caths, indwelling cortez placed -per Urology 3. Labile mood with intermittent bursts of anger -psych eval noted, refusing meds -Supportive 4. Hypoalbuminemia -Encourage nutritional optimization 5. Hypertension history -Nutrition and medication optimization 6. Anemia without evidence of acute blood loss -Monitor 7. Acute on chronic back pain, nephrolithiasis -Medical optimization -Judicious fluid management 8. Constipation history -bowel optimization 9. Elevated CEA however patient refusing colonoscopy and further workup Thank you. Patient seen and examined in collaboration with Dr. Micah Hobbs. Subjective 24 Hr Interval Summary Continues on abx therapy. No fevers, chills, sob, congested cough, cp, pal pitations, villela, dizziness, n/v/d/dysuria, excessive wound drainage/odor. +bowel function. Exam/Review of Systems Vital Signs Vitals Vital Signs Date Temp Pulse Resp B/P (MAP) Pulse Ox O2 O2 Flow FiO2 Time Delivery Rate 07/30/18 98.1 91 18 117/72 95 Room Air 08:05 (87) Intake and Output 07/29/18 07/29/18 07/30/18 1515:00 23:00 07:00 IntakeIntake Total 530 ml 730 ml 50 ml OutputOutput Total 200 ml 1800 ml BalanceBalance 530 ml 530 ml -1750 ml Exam Free Text/Dictation Constitutional: alert, oriented No distress Psych: calm Head: normocephalic, atraumatic Eyes: nl conjunctiva, EOMI, PERRL; No icteric ENMT: nl external ears & nose, nl lips & teeth, mucosa pink and moist Neck: supple, non-tender; No jvd Respiratory: normal air movement; No congested cough, No labored breathing, No wheezing Cardiovascular: regular rate and rhythm; No edema Gastrointestinal: soft, non-tender; No distended, No rebound or guarding Genitourinary - Male: nl penis, nl scrotum Musculoskeletal: No nl gait and stance, No joint tenderness Extremities: normal pulses; No calf tenderness, No edema, No tenderness Neurological: nl mental status, nl speech; No nl strength Skin: rash or lesions (Decubitus pressure ulcers: Clean, no odor, no drainage, scant drainage); No ecchymosis Lymph: nl lymph nodes TIFFANIE KLEIN NP Jul 30, 2018 12:31
[2018-07-30 14:17] VITALS: BP 135/69; PULSE 104; RESP 18
[2018-07-30] MEDS: OXYCODONE/ACETAMINOPHEN (10/325) TAB PO PRN (19:50)
[2018-07-30 20:00] VITALS: BP 119/62; PULSE 108; RESP 19
[2018-07-31] MEDS: CARISOPRODOL 350 MG TAB PO SCH ×4 (00:52→17:41)
[2018-07-31] MEDS: HYDROmorphONE 1 MG/ML SYG IV PRN ×6 (01:25→17:42)
[2018-07-31 02:00] VITALS: BP 119/74; PULSE 79; RESP 17
[2018-07-31] MEDS: PANTOPRAZOLE (EC) 40 MG TAB PO SCH (05:41)
[2018-07-31] MEDS: CIPROFLOXACIN 500 MG TAB PO SCH ×2 (06:23→17:41)
[2018-07-31] MEDS: AMPICILLIN 1 GM/NS (PMX) 50 ML IVPB SCH ×3 (07:23→21:14)
[2018-07-31 07:58] VITALS: BP 102/59; PULSE 93; RESP 16
[2018-07-31] MEDS: DOCUSATE SODIUM 100 MG CAP PO SCH ×2 (09:00→21:14)
[2018-07-31] MEDS: POLYETHYLENE GLYCOL 17 GM PACKET PO SCH ×2 (09:00→21:00)
--- NOTE | 2018-07-31 09:04 | PN ---
Date/Time of Note Date/Time of Note DATE: 07/31/18 TIME: 09:04 Assessment/Plan VTE Prophylaxis Risk score (from Ns)>0 risk: 8 SCD applied (from Ns): No SCD contraindicated: patient refusal Pharmacological prophylaxis: LMWH Lines/Catheters IV Catheter Type (from Nrsg): PICC Line Central line still needed: Yes Urinary Cath still in place: Yes Reason Cath still needed: pres ulcer contaminated by urine Assessment/Plan Assessment/Plan 1. Sepsis secondary to UTI, decubitus ulcers, and OM- resolved - Remains afebrile and nl WBC - Continue antibiotics until 08/03/18 - ID on board and appreciate recommendations 2. UTI- resolved - Urology on board and appreciate consultation. 3. Sacral decubitus ulcer with abscess- stable - Surgery consultation appreciated and continue current medical management and wound care. Debridement as needed - Cortez changed this am 07/31/[address] given decub ulcers 4. Osteomyelitis of ischium - Will need to complete total of 6 weeks of IV antibiotics, with last dose on 08/03/18 5. Chronic back pain - continue pain control 6. Hypertension - stable 7. Neurogenic bladder - cortez in place - Urology on board 8. Disposition - Continue antibiotics until 08/03/18 - Pending SNF placement - Will touch base with Pain management regarding transitioning to long acting pain control Subjective 24 Hr Interval Summary Free Text/Dictation Patient remains calm this am and denies any acute issues. Discussed transitioning to long acting pain control and agreeable. Will discuss with pain management. No acute overnight events. Exam/Review of Systems Exam Vitals Vital Signs Date Temp Pulse Resp B/P (MAP) Pulse Ox O2 O2 Flow FiO2 Time Delivery Rate 07/31/18 97.9 79 17 119/74 98 02:00 (89) 07/30/18 Room Air 14:17 Intake and Output 07/30/18 07/30/18 07/31/18 1515:00 23:00 07:00 IntakeIntake Total 850 ml 50 ml OutputOutput Total 800 ml 1400 ml BalanceBalance 50 ml -1350 ml Exam General: Patient is laying in bed and answers questions appropriately Neck: Supple Respiratory: Clear to auscultation bilaterally. no wheezing or rhonchi Cardiovascular: regular rate and rhythm, no obvious murmurs Gastrointestinal: soft, non-tender to palpation, bowel sounds heard. no rebound or guarding Neurological: LE muscle wasting with muscle spasms, full ROM upper extremities Skin: Multiple ulcers on patient's sacral decubitus area and buttock area Medications Medication Current Medications IV Flush (NS 3 ml) 3 ml PER PROTOCOL IV ; Start 06/22/18 at 18:30 Ondansetron HCl (Zofran Inj) 4 mg Q6H PRN IV NAUSEA/VOMITING Last administered on 06/26/18at 15:57; Admin Dose 4 MG; Start 06/22/18 at 18:30 Acetaminophen (Tylenol Tab) 650 mg Q6H PRN PO .PAIN 1-3 OR TEMP; Start 06/22/18 at 18:30 Enoxaparin Sodium (Lovenox) 30 mg DAILY SC Last administered on 07/30/18at 09:11; Admin Dose 30 MG; Start 06/23/18 at 09:00 Hydralazine HCl (Apresoline) 10 mg Q4H PRN IV SBP >160; Start 06/22/18 at 19:00 Miscellaneous Information (Pending [facility] Order For Wound Care) This patient villela... PRN PRN XX WOUND CARE; Start 06/23/18 at 00:30 Docusate Sodium (Colace) 100 mg BID PO Last administered on 07/29/18at 09:16; Admin Dose 100 MG; Start 06/23/18 at 21:00 Tamsulosin HCl (Flomax) 0.4 mg DAILY PO Last administered on 07/30/18 09:09; Admin Dose 0.4 MG; Start 06/24/18 at 09:00 Labetalol HCl (Labetalol) 10 mg Q4 PRN IV sbp>160; Start 06/24/18 at 13:30 Pantoprazole (Protonix Tab) 40 mg DAILY@06 PO Last administered on 07/31/18 05:41; Admin Dose 40 MG; Start 07/04/18 at 06:00 Carisoprodol (Soma) 350 mg Q6 PO Last administered on 07/31/18 05:37; Admin Dose 350 MG; Start 07/06/18 at 12:00 Polyethylene Glycol (Miralax) 17 gm BID PO Last administered on 07/29/18 09:17; Admin Dose 17 GM; Start 07/08/18 at 11:00 Ciprofloxacin (Cipro) 500 mg BID@06,18 PO Last administered on 07/31/18 06:23; Admin Dose 500 MG; Start 07/08/18 at 18:00; Stop 08/03/18 at 23:00 Ampicillin 50 ml @ 100 mls/hr Q8 IVPB Last administered on 07/31/18 07:23; Admin Dose 100 MLS/HR; Start 07/08/18 at 14:00; Stop 08/03/18 at 23:00 Magnesium Hydroxide (Milk Of Mag) 30 ml DAILY PO Last administered on 07/29/18 09:16; Admin Dose 30 ML; Start 07/08/18 at 19:30 Hydromorphone HCl (Dilaudid) 1 mg Q4H PRN IV SEVERE PAIN LEVEL 7-10 Last administered on 07/31/18 05:36; Admin Dose 1 MG; Start 07/12/18 at 19:00 Docusate Sodium/ Ferrous Fumarate (Harry-Sequels) 1 tab BID PO Last administered on 07/30/18 21:17; Admin Dose 1 TAB; Start 07/13/18 at 21:00; Stop 08/12/18 at 20:59 Ascorbic Acid (Vitamin C) 500 mg DAILY PO Last administered on 07/30/18 09:09; Admin Dose 500 MG; Start 07/15/18 at 12:00 Zinc Sulfate (Zinc Sulfate) 220 mg DAILY PO Last administered on 07/30/18 09:08; Admin Dose 220 MG; Start 07/15/18 at 11:00 Multivitamins Therapeutic (Theragran) 1 tab DAILY PO Last administered on 07/30/18 09:08; Admin Dose 1 TAB; Start 07/15/18 at 11:00 IV Flush (NS 10 ml) 10 ml PRN PRN IV IV PROTOCOL Last administered on 07/19/18 02:30; Admin Dose 10 ML; Start 07/15/18 at 17:00 Oxycodone/ Acetaminophen (Endocet (10/ 325)) 2 tab Q6H PRN PO MODERATE PAIN LEVEL 4-6 Last administered on 07/30/18 19:50; Admin Dose 2 TAB; Start 07/25/18 at 12:00 KINGA WILLETT MD Jul 31, 2018 09:04
[2018-07-31] MEDS: FERROUS FUMARATE (SR) TAB PO SCH ×2 (09:15→21:00)
[2018-07-31] MEDS: ASCORBIC ACID 500 MG TAB PO SCH (09:15)
[2018-07-31] MEDS: MAGNESIUM HYDROXIDE 30ML CUP PO SCH (09:15)
[2018-07-31] MEDS: MULTIVITAMINS THERAPEUTIC TAB PO SCH (09:16)
[2018-07-31] MEDS: TAMSULOSIN (SR) 0.4 MG CAP PO SCH (09:16)
[2018-07-31] MEDS: ENOXAPARIN 30 MG/0.3 ML SYG SC SCH (09:16)
[2018-07-31] MEDS: ZINC SULFATE 220 MG CAP PO SCH (09:16)
--- NOTE | 2018-07-31 11:20 | CONS ---
Assessment/Plan Assessment/Plan Hospital Course (Demo Recall) No events, awake, looks comfortable, no fevers Microbiology: Blood culture growing Proteus mirabilis, urine culture grew Proteus mirabilis and oxacillin sensitive staph aureus. Sacral wound culture growing E. coli, staph aureus and enterococcus species Chest x-ray on admission revealed no definite abnormalities. Antimicrobials: Cipro, ampicillin Physical examination: Well-developed chronically ill-appearing elderly man in no distress. Head atraumatic normocephalic sclera nonicteric neck is supple chest rise symmetrical breath sounds diminished bases heart S1-S2 abdomen soft bowel sounds present extremities wasted bilateral lower extremities Assessment: 1. S/p sepsis, present on admission 2. Proteus mirabilis bacteremia secondary to UTI, repeat bld cx neg 3. Multidrug-resistant Proteus mirabilis pyelonephritis 4. Bilateral hydronephrosis 5. Neurogenic bladder 6. Multiple decubitus with questionable osteomyelitis of right atrium and right iliac bone 7. Obstructive uropathy 8. Homelessness 9. Incomplete paraplegia Plan: Remains stable, completing antibiotics for treatment of OM==> last day August 03, pending dc arrangements Consultation Date/Type/Reason Admit Date/Time Jun 22, 2018 at 18:09 Initial Consult Date 06/23/18 Type of Consult id Requesting Provider: TRACE REBOLLEDO Date/Time of Note DATE: 07/31/18 TIME: 11:20 Exam/Review of Systems Exam Vitals Vital Signs Date Temp Pulse Resp B/P (MAP) Pulse Ox O2 O2 Flow FiO2 Time Delivery Rate 07/31/18 97.9 79 17 119/74 98 02:00 (89) 07/30/18 Room Air 14:17 Intake and Output 07/30/18 07/30/18 07/31/18 1515:00 23:00 07:00 IntakeIntake Total 850 ml 50 ml OutputOutput Total 800 ml 1400 ml BalanceBalance 50 ml -1350 ml Medications Medication Current Medications IV Flush (NS 3 ml) 3 ml PER PROTOCOL IV ; Start 06/22/18 at 18:30 Ondansetron HCl (Zofran Inj) 4 mg Q6H PRN IV NAUSEA/VOMITING Last administered on 06/26/18at 15:57; Admin Dose 4 MG; Start 06/22/18 at 18:30 Acetaminophen (Tylenol Tab) 650 mg Q6H PRN PO .PAIN 1-3 OR TEMP; Start 06/22/18 at 18:30 Enoxaparin Sodium (Lovenox) 30 mg DAILY SC Last administered on 07/31/18 09:16; Admin Dose 30 MG; Start 06/23/18 at 09:00 Hydralazine HCl (Apresoline) 10 mg Q4H PRN IV SBP >160; Start 06/22/18 at 19:00 [facility] This patient villela... PRN PRN XX WOUND CARE; Start 06/23/18 at 00:30 Docusate Sodium (Colace) 100 mg BID PO Last administered on 07/29/18 09:16; Admin Dose 100 MG; Start 06/23/18 at 21:00 Tamsulosin HCl (Flomax) 0.4 mg DAILY PO Last administered on 07/31/18 09:16; Admin Dose 0.4 MG; Start 06/24/18 at 09:00 Labetalol HCl (Labetalol) 10 mg Q4 PRN IV sbp>160; Start 06/24/18 at 13:30 Pantoprazole (Protonix Tab) 40 mg DAILY@06 PO Last administered on 07/31/18 05:41; Admin Dose 40 MG; Start 07/04/18 at 06:00 Carisoprodol (Soma) 350 mg Q6 PO Last administered on 07/31/18 05:37; Admin Dose 350 MG; Start 07/06/18 at 12:00 Polyethylene Glycol (Miralax) 17 gm BID PO Last administered on 07/29/18 09:17; Admin Dose 17 GM; Start 07/08/18 at 11:00 Ciprofloxacin (Cipro) 500 mg BID@06,18 PO Last administered on 07/31/18 06:23; Admin Dose 500 MG; Start 07/08/18 at 18:00; Stop 08/03/18 at 23:00 Ampicillin 50 ml @ 100 mls/hr Q8 IVPB Last administered on 07/31/18 07:23; Admin Dose 100 MLS/HR; Start 07/08/18 at 14:00; Stop 08/03/18 at 23:00 Magnesium Hydroxide (Milk Of Mag) 30 ml DAILY PO Last administered on 07/31/18 09:15; Admin Dose 30 ML; Start 07/08/18 at 19:30 Hydromorphone HCl (Dilaudid) 1 mg Q4H PRN IV SEVERE PAIN LEVEL 7-10 Last administered on 07/31/18 10:04; Admin Dose 1 MG; Start 07/12/18 at 19:00 Docusate Sodium/ Ferrous Fumarate (Harry-Sequels) 1 tab BID PO Last administered on 07/31/18 09:15; Admin Dose 1 TAB; Start 07/13/18 at 21:00; Stop 08/12/18 at 20:59 Ascorbic Acid (Vitamin C) 500 mg DAILY PO Last administered on 07/31/18 09:15; Admin Dose 500 MG; Start 07/15/18 at 12:00 Zinc Sulfate (Zinc Sulfate) 220 mg DAILY PO Last administered on 07/31/18 09:16; Admin Dose 220 MG; Start 07/15/18 at 11:00 Multivitamins Therapeutic (Theragran) 1 tab DAILY PO Last administered on 07/31/18 09:16; Admin Dose 1 TAB; Start 07/15/18 at 11:00 IV Flush (NS 10 ml) 10 ml PRN PRN IV IV PROTOCOL Last administered on 07/19/18 02:30; Admin Dose 10 ML; Start 07/15/18 at 17:00 Oxycodone/ Acetaminophen (Endocet (10/ 325)) 2 tab Q6H PRN PO MODERATE PAIN LEVEL 4-6 Last administered on 07/30/18 19:50; Admin Dose 2 TAB; Start 07/25/18 at 12:00 JOHNSON PENDLETON NP Jul 31, 2018 11:20
--- NOTE | 2018-07-31 11:52 | PN ---
Date/Time of Note Date/Time of Note DATE: 07/31/18 TIME: 11:50 Assessment/Plan Lines/Catheters IV Catheter Type (from [facility]): PICC Line Cortez in Place (from [facility]): Yes Assessment/Plan Chief Complaint/Hosp Course 1. Multiple decubitus pressure ulcers; healing; -Continue offloading & nutritional optimization as able -Continue same wound care treatment -Debridement as needed -Vitamin C -Continue osteomyelitis treatment> per id (IV antibiotics with end date August 03) -placement still pending 2. Decompressed bladder with significant thickening concerning for bladder neoplasm versus cystitis: Urethritis, possible pyelonephritis; leaking between self caths, indwelling cortez placed -per Urology 3. Labile mood with intermittent bursts of anger and intermittent refusal of treatments -psych eval noted, refusing meds -Supportive 4. Hypoalbuminemia -Encourage nutritional optimization 5. Hypertension history -Nutrition and medication optimization 6. Anemia without evidence of acute blood loss -Monitor 7. Acute on chronic back pain, nephrolithiasis -Medical optimization -Judicious fluid management 8. Constipation history -bowel optimization 9. Elevated CEA however patient refusing colonoscopy and further workup Thank you. Patient seen and examined in collaboration with Dr. Micah Hobbs. Subjective 24 Hr Interval Summary Placement pending. No fevers, chills, sob, congested cough, cp, palpitations, villela, dizziness, n/v/d/dysuria, wound drainage/odor. Exam/Review of Systems Vital Signs Vitals Vital Signs Date Temp Pulse Resp B/P (MAP) Pulse Ox O2 O2 Flow FiO2 Time Delivery Rate 07/31/18 97.9 79 17 119/74 98 02:00 (89) 07/30/18 Room Air 14:17 Intake and Output 07/30/18 07/30/18 07/31/18 1515:00 23:00 07:00 IntakeIntake Total 850 ml 50 ml OutputOutput Total 800 ml 1400 ml BalanceBalance 50 ml -1350 ml Exam Free Text/Dictation Constitutional: alert, oriented No distress Psych: calm Head: normocephalic, atraumatic Eyes: nl conjunctiva, EOMI, PERRL; No icteric ENMT: nl external ears & nose, nl lips & teeth, mucosa pink and moist Neck: supple, non-tender; No jvd Respiratory: normal air movement; No congested cough, No labored breathing, No wheezing Cardiovascular: regular rate and rhythm; No edema Gastrointestinal: soft, non-tender; No distended, No rebound or guarding Genitourinary - Male: nl penis, nl scrotum Musculoskeletal: No nl gait and stance, No joint tenderness Extremities: normal pulses; No calf tenderness, No edema, No tenderness Neurological: nl mental status, nl speech; No nl strength Skin: rash or lesions (Decubitus pressure ulcers: Clean, no odor, no drainage, scant drainage); No ecchymosis Lymph: nl lymph nodes TIFFANIE KLEIN NP Jul 31, 2018 11:52
[2018-07-31 14:00] VITALS: BP 131/63; PULSE 89; RESP 18
[2018-07-31 17:00] VITALS: Ht 182.9 cm; Wt 61.2 kg
[2018-07-31 20:00] VITALS: BP 135/72; PULSE 95; RESP 19
[2018-08-01] MEDS: CARISOPRODOL 350 MG TAB PO SCH ×5 (00:08→23:03)
[2018-08-01] MEDS: HYDROmorphONE 1 MG/ML SYG IV PRN ×6 (00:11→20:32)
[2018-08-01 02:00] VITALS: BP 129/71; PULSE 94; RESP 19
[2018-08-01] MEDS: AMPICILLIN 1 GM/NS (PMX) 50 ML IVPB SCH ×3 (05:11→22:32)
[2018-08-01] MEDS: PANTOPRAZOLE (EC) 40 MG TAB PO SCH (05:12)
[2018-08-01] MEDS: CIPROFLOXACIN 500 MG TAB PO SCH ×2 (05:12→17:22)
[2018-08-01] MEDS: DOCUSATE SODIUM 100 MG CAP PO SCH ×2 (07:29→20:38)
[2018-08-01] MEDS: POLYETHYLENE GLYCOL 17 GM PACKET PO SCH ×2 (07:30→20:39)
[2018-08-01] MEDS: MAGNESIUM HYDROXIDE 30ML CUP PO SCH (07:30)
[2018-08-01 07:49] VITALS: BP 149/91; PULSE 87; RESP 19
[2018-08-01] MEDS: FERROUS FUMARATE (SR) TAB PO SCH ×2 (08:09→20:31)
[2018-08-01] MEDS: TAMSULOSIN (SR) 0.4 MG CAP PO SCH (08:11)
[2018-08-01] MEDS: MULTIVITAMINS THERAPEUTIC TAB PO SCH (08:11)
[2018-08-01] MEDS: ASCORBIC ACID 500 MG TAB PO SCH (08:11)
[2018-08-01] MEDS: ZINC SULFATE 220 MG CAP PO SCH (08:11)
[2018-08-01] MEDS: ENOXAPARIN 30 MG/0.3 ML SYG SC SCH (08:12)
--- NOTE | 2018-08-01 08:48 | PN ---
Date/Time of Note Date/Time of Note DATE: 08/01/18 TIME: 08:48 Assessment/Plan VTE Prophylaxis Risk score (from Nsg)>0 risk: 3 SCD applied (from Nsg): Yes Pharmacological prophylaxis: LMWH Lines/Catheters IV Catheter Type (from Nrsg): PICC Line Central line still needed: Yes Urinary Cath still in place: Yes Reason Cath still needed: pres ulcer contaminated by urine Assessment/Plan Assessment/Plan 1. Sepsis secondary to UTI, decubitus ulcers, and OM- resolved - Remains afebrile and nl WBC - Continue antibiotics until 08/03/18 - ID on board and appreciate recommendations 2. UTI- resolved - Urology on board and appreciate consultation. 3. Sacral decubitus ulcer with abscess- stable - Surgery consultation appreciated and continue current medical management and wound care. Debridement as needed - Cortez changed and having issues with leakage. Remains in place given decub ulcers 4. Osteomyelitis of ischium - Will need to complete total of 6 weeks of IV antibiotics, with last dose on 08/03/18 - Will start on MS contin and titrate up as needed. Discussed need to transition off IV opioids prior to discharge 5. Chronic back pain - continue pain control 6. Hypertension - stable 7. Neurogenic bladder - cortez in place - Urology on board 8. Disposition - Continue antibiotics until 08/03/18 - Pending SNF placement Subjective 24 Hr Interval Summary Free Text/Dictation Patient concerned that his cortez may need to inflated more since has been leaking from catheter for the past day. Exam/Review of Systems Exam Vitals Vital Signs Date Temp Pulse Resp B/P (MAP) Pulse Ox O2 O2 Flow FiO2 Time Delivery Rate 08/01/18 98.3 87 19 149/91 98 07:49 (110) 07/31/18 Room Air 14:00 Intake and Output 07/31/18 07/31/18 08/01/18 1515:00 23:00 07:00 IntakeIntake Total 960 ml 480 ml 770 ml BalanceBalance 960 ml 480 ml 770 ml Exam General: Patient is laying in bed and answers questions appropriately Neck: Supple Respiratory: Clear to auscultation bilaterally. no wheezing or rhonchi Cardiovascular: regular rate and rhythm, no obvious murmurs Gastrointestinal: soft, non-tender to palpation, bowel sounds heard. no rebound or guarding Neurological: LE muscle wasting with muscle spasms, full ROM upper extremities Skin: Multiple ulcers on patient's sacral decubitus area and buttock area Medications Medication Current Medications IV Flush (NS 3 ml) 3 ml PER PROTOCOL IV ; Start 06/22/18 at 18:30 Ondansetron HCl (Zofran Inj) 4 mg Q6H PRN IV NAUSEA/VOMITING Last administered on 06/26/18at 15:57; Admin Dose 4 MG; Start 06/22/18 at 18:30 Acetaminophen (Tylenol Tab) 650 mg Q6H PRN PO .PAIN 1-3 OR TEMP; Start 06/22/18 at 18:30 Enoxaparin Sodium (Lovenox) 30 mg DAILY SC Last administered on 08/01/18 08:12; Admin Dose 30 MG; Start 06/23/18 at 09:00 Hydralazine HCl (Apresoline) 10 mg Q4H PRN IV SBP >160; Start 06/22/18 at 19:00 Miscellaneous Information (Pending [facility] Order For Wound Care) This patient villela... PRN PRN XX WOUND CARE; Start 06/23/18 at 00:30 Docusate Sodium (Colace) 100 mg BID PO Last administered on 07/31/18at 21:14; Admin Dose 100 MG; Start 06/23/18 at 21:00 Tamsulosin HCl (Flomax) 0.4 mg DAILY PO Last administered on 08/01/18 08:11; Admin Dose 0.4 MG; Start 06/24/18 at 09:00 Labetalol HCl (Labetalol) 10 mg Q4 PRN IV sbp>160; Start 06/24/18 at 13:30 Pantoprazole (Protonix Tab) 40 mg DAILY@06 PO Last administered on 08/01/18 05:12; Admin Dose 40 MG; Start 07/04/18 at 06:00 Carisoprodol (Soma) 350 mg Q6 PO Last administered on 08/01/18 05:12; Admin Dose 350 MG; Start 07/06/18 at 12:00 Polyethylene Glycol (Miralax) 17 gm BID PO Last administered on 07/29/18 09:17; Admin Dose 17 GM; Start 07/08/18 at 11:00 Ciprofloxacin (Cipro) 500 mg BID@,18 PO Last administered on 08/01/18 05:12; Admin Dose 500 MG; Start 07/08/18 at 18:00; Stop 08/03/18 at 23:00 Ampicillin 50 ml @ 100 mls/hr Q8 IVPB Last administered on 08/01/18 05:11; Admin Dose 100 MLS/HR; Start 07/08/18 at 14:00; Stop 08/03/18 at 23:00 Magnesium Hydroxide (Milk Of Mag) 30 ml DAILY PO Last administered on 07/31/18 09:15; Admin Dose 30 ML; Start 07/08/18 at 19:30 Hydromorphone HCl (Dilaudid) 1 mg Q4H PRN IV SEVERE PAIN LEVEL 7-10 Last administered on 08/01/18 08:12; Admin Dose 1 MG; Start 07/12/18 at 19:00 Docusate Sodium/ Ferrous Fumarate (Harry-Sequels) 1 tab BID PO Last administered on 07/31/18 09:15; Admin Dose 1 TAB; Start 07/13/18 at 21:00; Stop 08/12/18 at 20:59 Ascorbic Acid (Vitamin C) 500 mg DAILY PO Last administered on 08/01/18 08:11; Admin Dose 500 MG; Start 07/15/18 at 12:00 Zinc Sulfate (Zinc Sulfate) 220 mg DAILY PO Last administered on 08/01/18 08:11; Admin Dose 220 MG; Start 07/15/18 at 11:00 Multivitamins Therapeutic (Theragran) 1 tab DAILY PO Last administered on 08/01/18 08:11; Admin Dose 1 TAB; Start 07/15/18 at 11:00 IV Flush (NS 10 ml) 10 ml PRN PRN IV IV PROTOCOL Last administered on 07/19/18 02:30; Admin Dose 10 ML; Start 07/15/18 at 17:00 Oxycodone/ Acetaminophen (Endocet (10/ 325)) 2 tab Q6H PRN PO MODERATE PAIN LEVEL 4-6 Last administered on 07/30/18 19:50; Admin Dose 2 TAB; Start 07/25/18 at 12:00 KINGA WILLETT MD Aug 01, 2018 08:48
--- NOTE | 2018-08-01 11:30 | CONS ---
Assessment/Plan Assessment/Plan Hospital Course (Demo Recall) No events per report Microbiology: Blood culture growing Proteus mirabilis, urine culture grew Proteus mirabilis and oxacillin sensitive staph aureus. Sacral wound culture growing E. coli, staph aureus and enterococcus species Chest x-ray on admission revealed no definite abnormalities. Antimicrobials: Cipro, ampicillin Physical examination: Well-developed chronically ill-appearing elderly man in no distress. Head atraumatic normocephalic sclera nonicteric neck is supple chest rise symmetrical breath sounds diminished bases heart S1-S2 abdomen soft bowel sounds present extremities wasted bilateral lower extremities Assessment: 1. S/p sepsis, present on admission 2. Proteus mirabilis bacteremia secondary to UTI, repeat bld cx neg 3. Multidrug-resistant Proteus mirabilis pyelonephritis 4. Bilateral hydronephrosis 5. Neurogenic bladder 6. Multiple decubitus with questionable osteomyelitis of right atrium and right iliac bone 7. Obstructive uropathy 8. Homelessness 9. Incomplete paraplegia Plan: Remains stable, completing antibiotics for treatment of OM==> last day August 03, pending dc arrangements Consultation Date/Type/Reason Admit Date/Time Jun 22, 2018 at 18:09 Initial Consult Date 06/23/18 Type of Consult id Requesting Provider: TRACE REBOLLEDO Date/Time of Note DATE: 08/01/18 TIME: 11:30 Exam/Review of Systems Exam Vitals Vital Signs Date Temp Pulse Resp B/P (MAP) Pulse Ox O2 O2 Flow FiO2 Time Delivery Rate 08/01/18 98.3 87 19 149/91 98 07:49 (110) 07/31/18 Room Air 14:00 Intake and Output 07/31/18 07/31/18 08/01/18 1515:00 23:00 07:00 IntakeIntake Total 960 ml 480 ml 770 ml BalanceBalance 960 ml 480 ml 770 ml Medications Medication Current Medications IV Flush (NS 3 ml) 3 ml PER PROTOCOL IV ; Start 06/22/18 at 18:30 Ondansetron HCl (Zofran Inj) 4 mg Q6H PRN IV NAUSEA/VOMITING Last administered on 06/26/18at 15:57; Admin Dose 4 MG; Start 06/22/18 at 18:30 Acetaminophen (Tylenol Tab) 650 mg Q6H PRN PO .PAIN 1-3 OR TEMP; Start 06/22/18 at 18:30 Enoxaparin Sodium (Lovenox) 30 mg DAILY SC Last administered on 08/01/18 08:12; Admin Dose 30 MG; Start 06/23/18 at 09:00 Hydralazine HCl (Apresoline) 10 mg Q4H PRN IV SBP >160; Start 06/22/18 at 19:00 Miscellaneous Information [facility] This patient villela... PRN PRN XX WOUND CARE; Start 06/23/18 at 00:30 Docusate Sodium (Colace) 100 mg BID PO Last administered on 07/31/18 21:14; Admin Dose 100 MG; Start 06/23/18 at 21:00 Tamsulosin HCl (Flomax) 0.4 mg DAILY PO Last administered on 08/01/18 08:11; Admin Dose 0.4 MG; Start 06/24/18 at 09:00 Labetalol HCl (Labetalol) 10 mg Q4 PRN IV sbp>160; Start 06/24/18 at 13:30 Pantoprazole (Protonix Tab) 40 mg DAILY@06 PO Last administered on 08/01/18 05:12; Admin Dose 40 MG; Start 07/04/18 at 06:00 Carisoprodol (Soma) 350 mg Q6 PO Last administered on 08/01/18 05:12; Admin Dose 350 MG; Start 07/06/18 at 12:00 Polyethylene Glycol (Miralax) 17 gm BID PO Last administered on 07/29/18 09:17; Admin Dose 17 GM; Start 07/08/18 at 11:00 Ciprofloxacin (Cipro) 500 mg BID@06,18 PO Last administered on 08/01/18 05:12; Admin Dose 500 MG; Start 07/08/18 at 18:00; Stop 08/03/18 at 23:00 Ampicillin 50 ml @ 100 mls/hr Q8 IVPB Last administered on 08/01/18 05:11; Admin Dose 100 MLS/HR; Start 07/08/18 at 14:00; Stop 08/03/18 at 23:00 Magnesium Hydroxide (Milk Of Mag) 30 ml DAILY PO Last administered on 07/31/18 09:15; Admin Dose 30 ML; Start 07/08/18 at 19:30 Hydromorphone HCl (Dilaudid) 1 mg Q4H PRN IV SEVERE PAIN LEVEL 7-10 Last administered on 08/01/18 08:12; Admin Dose 1 MG; Start 07/12/18 at 19:00 Docusate Sodium/ Ferrous Fumarate (Harry-Sequels) 1 tab BID PO Last administered on 07/31/18 09:15; Admin Dose 1 TAB; Start 07/13/18 at 21:00; Stop 08/12/18 at 20:59 Ascorbic Acid (Vitamin C) 500 mg DAILY PO Last administered on 08/01/18 08:11; Admin Dose 500 MG; Start 07/15/18 at 12:00 Zinc Sulfate (Zinc Sulfate) 220 mg DAILY PO Last administered on 08/01/18 08:11; Admin Dose 220 MG; Start 07/15/18 at 11:00 Multivitamins Therapeutic (Theragran) 1 tab DAILY PO Last administered on 08/01/18 08:11; Admin Dose 1 TAB; Start 07/15/18 at 11:00 IV Flush (NS 10 ml) 10 ml PRN PRN IV IV PROTOCOL Last administered on 07/19/18 02:30; Admin Dose 10 ML; Start 07/15/18 at 17:00 Oxycodone/ Acetaminophen (Endocet (10/ 325)) 2 tab Q6H PRN PO MODERATE PAIN LEVEL 4-6 Last administered on 07/30/18 19:50; Admin Dose 2 TAB; Start 07/25/18 at 12:00 JOHNSON PENDLETON NP Aug 01, 2018 11:30
[2018-08-01 14:17] VITALS: BP 124/72; PULSE 92; RESP 18
--- NOTE | 2018-08-01 14:30 | PN ---
Date/Time of Note Date/Time of Note DATE: 08/01/18 TIME: 14:27 Assessment/Plan Lines/Catheters IV Catheter Type (from [facility]): PICC Line Cortez in Place (from [facility]): Yes Assessment/Plan Chief Complaint/Hosp Course 1. Multiple decubitus pressure ulcers: -Continue offloading & nutritional optimization as able -Continue same wound care treatment -Debridement as needed -Vitamin C -Continue osteomyelitis treatment> per id (IV antibiotics with end date August 03) -snf placement 2. Decompressed bladder with significant thickening concerning for bladder neoplasm versus cystitis: Urethritis, possible pyelonephritis; leaking between self caths, indwelling cortez placed -per Urology 3. Labile mood with intermittent bursts of anger and intermittent refusal of treatments -psych eval noted, refusing meds -Supportive 4. Hypoalbuminemia -Encourage nutritional optimization 5. Hypertension history -Nutrition and medication optimization 6. Anemia without evidence of acute blood loss -Monitor 7. Acute on chronic back pain, nephrolithiasis -Medical optimization -Judicious fluid management 8. Constipation history -bowel optimization 9. Elevated CEA however patient refusing colonoscopy and further workup Thank you. Patient seen and examined in collaboration with Dr. Micah Hobbs. Subjective 24 Hr Interval Summary No fevers, chills, sob, congested cough, cp, palpitations, villela, dizziness, n/v/d/dysuria, wound odor or increased drainage. Exam/Review of Systems Vital Signs Vitals Vital Signs Date Temp Pulse Resp B/P (MAP) Pulse Ox O2 O2 Flow FiO2 Time Delivery Rate 08/01/18 98.7 92 18 124/72 97 14:17 (89) 07/31/18 Room Air 14:00 Intake and Output 07/31/18 07/31/18 08/01/18 1414:59 22:59 06:59 IntakeIntake Total 960 ml 480 ml 770 ml BalanceBalance 960 ml 480 ml 770 ml Exam Free Text/Dictation Constitutional: alert, oriented No distress Psych: calm Head: normocephalic, atraumatic Eyes: nl conjunctiva, EOMI, PERRL; No icteric ENMT: nl external ears & nose, nl lips & teeth, mucosa pink and moist Neck: supple, non-tender; No jvd Respiratory: normal air movement; No congested cough, No labored breathing, No wheezing Cardiovascular: regular rate and rhythm; No edema Gastrointestinal: soft, non-tender; No distended, No rebound or guarding Genitourinary - Male: nl penis, nl scrotum Musculoskeletal: No nl gait and stance, No joint tenderness Extremities: normal pulses; No calf tenderness, No edema, No tenderness Neurological: nl mental status, nl speech; No nl strength Skin: rash or lesions (Decubitus pressure ulcers: Clean, no odor, no drainage, scant drainage); No ecchymosis Lymph: nl lymph nodes TIFFANIE KLEIN NP Aug 01, 2018 14:30
[2018-08-01] MEDS: morphine (ER) 30 MG TAB PO SCH ×2 (15:33→22:16)
[2018-08-01 20:10] VITALS: BP 131/75; PULSE 87; RESP 18
[2018-08-02] MEDS: HYDROmorphONE 1 MG/ML SYG IV PRN ×5 (02:35→21:15)
[2018-08-02 02:44] VITALS: BP 128/76; PULSE 90; RESP 18
[2018-08-02] MEDS: CARISOPRODOL 350 MG TAB PO SCH ×4 (05:52→23:34)
[2018-08-02] MEDS: AMPICILLIN 1 GM/NS (PMX) 50 ML IVPB SCH ×3 (05:52→23:34)
[2018-08-02] MEDS: CIPROFLOXACIN 500 MG TAB PO SCH ×2 (05:52→17:17)
[2018-08-02] MEDS: PANTOPRAZOLE (EC) 40 MG TAB PO SCH (05:52)
[2018-08-02] MEDS: DOCUSATE SODIUM 100 MG CAP PO SCH (07:55)
[2018-08-02] MEDS: MAGNESIUM HYDROXIDE 30ML CUP PO SCH (07:55)
[2018-08-02] MEDS: POLYETHYLENE GLYCOL 17 GM PACKET PO SCH (07:55)
[2018-08-02 08:00] VITALS: BP 125/64; PULSE 84; RESP 18
[2018-08-02] MEDS: ASCORBIC ACID 500 MG TAB PO SCH (08:11)
[2018-08-02] MEDS: FERROUS FUMARATE (SR) TAB PO SCH ×2 (08:11→20:43)
[2018-08-02] MEDS: morphine (ER) 30 MG TAB PO SCH ×2 (08:11→20:43)
[2018-08-02] MEDS: ZINC SULFATE 220 MG CAP PO SCH (08:11)
[2018-08-02] MEDS: ENOXAPARIN 30 MG/0.3 ML SYG SC SCH (08:13)
[2018-08-02] MEDS: TAMSULOSIN (SR) 0.4 MG CAP PO SCH (08:17)
[2018-08-02] MEDS: MULTIVITAMINS THERAPEUTIC TAB PO SCH (08:18)
--- NOTE | 2018-08-02 08:31 | PN ---
Date/Time of Note Date/Time of Note DATE: 08/02/18 TIME: 08:31 Assessment/Plan VTE Prophylaxis Risk score (from Ns)>0 risk: 8 SCD applied (from Ns): No SCD contraindicated: other Pharmacological prophylaxis: LMWH Lines/Catheters IV Catheter Type (from Nrsg): PICC Line Central line still needed: Yes Urinary Cath still in place: Yes Reason Cath still needed: pres ulcer contaminated by urine Assessment/Plan Assessment/Plan 1. Sepsis secondary to UTI, decubitus ulcers, and OM- resolved - Remains afebrile and nl WBC - Continue antibiotics until tomorrow - ID on board and appreciate recommendations. continue current course of treatment 2. UTI- resolved 3. Sacral decubitus ulcer with abscess- stable - Surgery consultation appreciated and continue current medical management and wound care. Debridement as needed - Cortez in placed to protect decub ulcers 4. Osteomyelitis of ischium - Will need to complete total of 6 weeks of IV antibiotics, with last dose tomorrow - Tolerating MS Contin and will increase to 45 mg tomorrow. Goal is to wean off IV Dilaudid 5. Chronic back pain - continue pain control 6. Hypertension - stable 7. Neurogenic bladder - cortez in place - Urology on board 8. Disposition - Continue antibiotics until tomorrow - Pending SNF placement Subjective 24 Hr Interval Summary Free Text/Dictation Patient states the MS contin has been helping but still requiring break through pain control. No acute overnight events. Leakage from cortez has improved. Exam/Review of Systems Exam Vitals Vital Signs Date Temp Pulse Resp B/P (MAP) Pulse Ox O2 O2 Flow FiO2 Time Delivery Rate 08/02/18 98.0 84 18 125/64 99 08:00 (84) 07/31/18 Room Air 14:00 Intake and Output 08/01/18 08/01/18 08/02/18 1515:00 23:00 07:00 IntakeIntake Total 1100 ml 500 ml 150 ml OutputOutput Total 1200 ml 600 ml 950 ml BalanceBalance -100 ml -100 ml -800 ml Exam General: Patient is laying in bed and answers questions appropriately Neck: Supple Respiratory: Clear to auscultation bilaterally. no wheezing or rhonchi Cardiovascular: regular rate and rhythm, no obvious murmurs Gastrointestinal: soft, non-tender to palpation, bowel sounds heard. no rebound or guarding Neurological: LE muscle wasting with muscle spasms, full ROM upper extremities Skin: Multiple ulcers on patient's sacral decubitus area and buttock area Medications Medication Current Medications IV Flush (NS 3 ml) 3 ml PER PROTOCOL IV ; Start 06/22/18 at 18:30 Ondansetron HCl (Zofran Inj) 4 mg Q6H PRN IV NAUSEA/VOMITING Last administered on 06/26/18at 15:57; Admin Dose 4 MG; Start 06/22/18 at 18:30 Acetaminophen (Tylenol Tab) 650 mg Q6H PRN PO .PAIN 1-3 OR TEMP; Start 06/22/18 at 18:30 Enoxaparin Sodium (Lovenox) 30 mg DAILY SC Last administered on 08/02/18at 08:13; Admin Dose 30 MG; Start 06/23/18 at 09:00 Hydralazine HCl (Apresoline) 10 mg Q4H PRN IV SBP >160; Start 06/22/18 at 19:00 Miscellaneous Information (Pending [facility] Order For Wound Care) This patient villela... PRN PRN XX WOUND CARE; Start 06/23/18 at 00:30 Docusate Sodium (Colace) 100 mg BID PO Last administered on 07/31/18at 21:14; Admin Dose 100 MG; Start 06/23/18 at 21:00 Tamsulosin HCl (Flomax) 0.4 mg DAILY PO Last administered on 08/02/18at 08:17; Admin Dose 0.4 MG; Start 06/24/18 at 09:00 Labetalol HCl (Labetalol) 10 mg Q4 PRN IV sbp>160; Start 06/24/18 at 13:30 Pantoprazole (Protonix Tab) 40 mg DAILY@06 PO Last administered on 08/02/18 05:52; Admin Dose 40 MG; Start 07/04/18 at 06:00 Carisoprodol (Soma) 350 mg Q6 PO Last administered on 08/02/18at 05:52; Admin Dose 350 MG; Start 07/06/18 at 12:00 Polyethylene Glycol (Miralax) 17 gm BID PO Last administered on 07/29/18at 09:17; Admin Dose 17 GM; Start 07/08/18 at 11:00 Ciprofloxacin (Cipro) 500 mg BID@06,18 PO Last administered on 08/02/18 05:52; Admin Dose 500 MG; Start 07/08/18 at 18:00; Stop 08/03/18 at 06:00 Ampicillin 50 ml @ 100 mls/hr Q8 IVPB Last administered on 08/02/18 05:52; Admin Dose 100 MLS/HR; Start 07/08/18 at 14:00; Stop 08/03/18 at 06:00 Magnesium Hydroxide (Milk Of Mag) 30 ml DAILY PO Last administered on 07/31/18 09:15; Admin Dose 30 ML; Start 07/08/18 at 19:30 Hydromorphone HCl (Dilaudid) 1 mg Q4H PRN IV SEVERE PAIN LEVEL 7-10 Last administered on 08/02/18 07:39; Admin Dose 1 MG; Start 07/12/18 at 19:00 Docusate Sodium/ Ferrous Fumarate (Harry-Sequels) 1 tab BID PO Last administered on 08/02/18 08:11; Admin Dose 1 TAB; Start 07/13/18 at 21:00; Stop 08/12/18 at 20:59 Ascorbic Acid (Vitamin C) 500 mg DAILY PO Last administered on 08/02/18 08:11; Admin Dose 500 MG; Start 07/15/18 at 12:00 Zinc Sulfate (Zinc Sulfate) 220 mg DAILY PO Last administered on 08/02/18 08:11; Admin Dose 220 MG; Start 07/15/18 at 11:00 Multivitamins Therapeutic (Theragran) 1 tab DAILY PO Last administered on 08/02/18 08:18; Admin Dose 1 TAB; Start 07/15/18 at 11:00 IV Flush (NS 10 ml) 10 ml PRN PRN IV IV PROTOCOL Last administered on 07/19/18 02:30; Admin Dose 10 ML; Start 07/15/18 at 17:00 Oxycodone/ Acetaminophen (Endocet (10/ 325)) 2 tab Q6H PRN PO MODERATE PAIN LEVEL 4-6 Last administered on 07/30/18 19:50; Admin Dose 2 TAB; Start 07/25/18 at 12:00 Morphine Sulfate (Ms Contin (Er)) 30 mg BID PO Last administered on 08/02/18 08:11; Admin Dose 30 MG; Start 3/8/19 at 14:30 KINGA WILLETT MD Aug 02, 2018 08:31
[2018-08-02] MEDS ORDERED: DOCUSATE SODIUM 100 MG CAP PO PRN (12:30)
[2018-08-02] MEDS ORDERED: MAGNESIUM HYDROXIDE 30ML CUP PO PRN (12:30)
[2018-08-02 14:00] VITALS: BP 117/69; PULSE 60; RESP 18
[2018-08-02 19:21] VITALS: BP 136/79; PULSE 82; RESP 18
--- NOTE | 2018-08-02 23:26 | PN ---
Date/Time of Note Date/Time of Note DATE: 08/02/18 TIME: 23:25 Assessment/Plan Lines/Catheters IV Catheter Type (from [facility]): PICC Line Cortez in Place (from Nrs): Yes Assessment/Plan Chief Complaint/Hosp Course 1. Multiple decubitus pressure ulcers: -Continue offloading & nutritional optimization as able -Continue same wound care treatment -Debridement as needed -Vitamin C -Continue osteomyelitis treatment> per id (IV antibiotics with end date August 03) -snf placement 2. Decompressed bladder with significant thickening concerning for bladder neoplasm versus cystitis: Urethritis, possible pyelonephritis; leaking between self caths, indwelling cortez placed -per Urology 3. Labile mood with intermittent bursts of anger and intermittent refusal of treatments -psych eval noted, refusing meds -Supportive 4. Hypoalbuminemia -Encourage nutritional optimization 5. Hypertension history -Nutrition and medication optimization 6. Anemia without evidence of acute blood loss -Monitor 7. Acute on chronic back pain, nephrolithiasis -Medical optimization -Judicious fluid management 8. Constipation history -bowel optimization 9. Elevated CEA however patient refusing colonoscopy and further workup Thank you Subjective 24 Hr Interval Summary No fevers, chills, sob, congested cough, cp, palpitations, villela, dizziness, n/v/d/dysuria, wound odor or increased drainage. Exam/Review of Systems Vital Signs Vitals Vital Signs Date Temp Pulse Resp B/P (MAP) Pulse Ox O2 O2 Flow FiO2 Time Delivery Rate 08/02/18 97.9 82 18 136/79 96 19:21 (98) 07/31/18 Room Air 14:00 Intake and Output 08/01/18 08/01/18 08/02/18 1515:00 23:00 07:00 IntakeIntake Total 1100 ml 500 ml 150 ml OutputOutput Total 1200 ml 600 ml 950 ml BalanceBalance -100 ml -100 ml -800 ml Exam Free Text/Dictation Constitutional: alert, oriented No distress Psych: calm Head: normocephalic, atraumatic Eyes: nl conjunctiva, EOMI, PERRL; No icteric ENMT: nl external ears & nose, nl lips & teeth, mucosa pink and moist Neck: supple, non-tender; No jvd Respiratory: normal air movement; No congested cough, No labored breathing, No wheezing Cardiovascular: regular rate and rhythm; No edema Gastrointestinal: soft, non-tender; No distended, No rebound or guarding Genitourinary - Male: nl penis, nl scrotum Musculoskeletal: No nl gait and stance, No joint tenderness Extremities: normal pulses; No calf tenderness, No edema, No tenderness Neurological: nl mental status, nl speech; No nl strength Skin: rash or lesions (Decubitus pressure ulcers: Clean, no odor, no drainage, scant drainage); No ecchymosis Lymph: nl lymph nodes GUSTABO GARCIA MD Aug 02, 2018 23:26
--- NOTE | 2018-08-03 00:51 | PN ---
Date/Time of Note Date/Time of Note DATE: 08/03/18 TIME: 00:51 Assessment/Plan Lines/Catheters IV Catheter Type (from [facility]): PICC Line Cortez in Place (from Nrs): Yes Assessment/Plan Chief Complaint/Hosp Course 1. Multiple decubitus pressure ulcers: -Continue offloading & nutritional optimization as able -Continue same wound care treatment -Debridement as needed -Vitamin C -Continue osteomyelitis treatment> per id (IV antibiotics with end date August 03) -snf placement 2. Decompressed bladder with significant thickening concerning for bladder neoplasm versus cystitis: Urethritis, possible pyelonephritis; leaking between self caths, indwelling cortez placed -per Urology 3. Labile mood with intermittent bursts of anger and intermittent refusal of treatments -psych eval noted, refusing meds -Supportive 4. Hypoalbuminemia -Encourage nutritional optimization 5. Hypertension history -Nutrition and medication optimization 6. Anemia without evidence of acute blood loss -Monitor 7. Acute on chronic back pain, nephrolithiasis -Medical optimization -Judicious fluid management 8. Constipation history -bowel optimization 9. Elevated CEA however patient refusing colonoscopy and further workup Thank you Subjective 24 Hr Interval Summary No fevers, chills, sob, congested cough, cp, palpitations, villela, dizziness, n/v/d/dysuria, wound odor or increased drainage. Exam/Review of Systems Vital Signs Vitals Vital Signs Date Temp Pulse Resp B/P (MAP) Pulse Ox O2 O2 Flow FiO2 Time Delivery Rate 08/02/18 97.9 82 18 136/79 96 19:21 (98) 07/31/18 Room Air 14:00 Intake and Output 08/02/18 08/02/18 08/03/18 1414:59 22:59 06:59 IntakeIntake Total 720 ml 850 ml OutputOutput Total 700 ml 600 ml BalanceBalance 20 ml 250 ml Exam Free Text/Dictation Constitutional: alert, oriented No distress Psych: calm Head: normocephalic, atraumatic Eyes: nl conjunctiva, EOMI, PERRL; No icteric ENMT: nl external ears & nose, nl lips & teeth, mucosa pink and moist Neck: supple, non-tender; No jvd Respiratory: normal air movement; No congested cough, No labored breathing, No wheezing Cardiovascular: regular rate and rhythm; No edema Gastrointestinal: soft, non-tender; No distended, No rebound or guarding Genitourinary - Male: nl penis, nl scrotum Musculoskeletal: No nl gait and stance, No joint tenderness Extremities: normal pulses; No calf tenderness, No edema, No tenderness Neurological: nl mental status, nl speech; No nl strength Skin: rash or lesions (Decubitus pressure ulcers: Clean, no odor, no drainage, scant drainage); No ecchymosis Lymph: nl lymph nodes GUSTABO GARCIA MD Aug 03, 2018 00:51
[2018-08-03] MEDS: HYDROmorphONE 1 MG/ML SYG IV PRN ×6 (01:17→23:01)
[2018-08-03 01:28] VITALS: BP 119/68; PULSE 87; RESP 18
[2018-08-03 01:34] VITALS: BP 110/63; PULSE 79; RESP 18
[2018-08-03 01:57] VITALS: BP 141/86; PULSE 102; RESP 18
[2018-08-03] MEDS: CIPROFLOXACIN 500 MG TAB PO SCH (05:58)
[2018-08-03] MEDS: CARISOPRODOL 350 MG TAB PO SCH ×4 (05:58→23:48)
[2018-08-03] MEDS: AMPICILLIN 1 GM/NS (PMX) 50 ML IVPB SCH (05:58)
[2018-08-03] MEDS: PANTOPRAZOLE (EC) 40 MG TAB PO SCH (05:58)
[2018-08-03 08:00] VITALS: BP 134/71; PULSE 87; RESP 18
[2018-08-03] MEDS: morphine (ER) 15 MG TAB PO SCH ×2 (08:23→20:46)
[2018-08-03] MEDS: MULTIVITAMINS THERAPEUTIC TAB PO SCH (08:23)
[2018-08-03] MEDS: ASCORBIC ACID 500 MG TAB PO SCH (08:23)
[2018-08-03] MEDS: TAMSULOSIN (SR) 0.4 MG CAP PO SCH (08:23)
[2018-08-03] MEDS: ZINC SULFATE 220 MG CAP PO SCH (08:23)
[2018-08-03] MEDS: FERROUS FUMARATE (SR) TAB PO SCH ×2 (08:23→20:46)
[2018-08-03] MEDS: ENOXAPARIN 30 MG/0.3 ML SYG SC SCH (08:27)
--- NOTE | 2018-08-03 08:32 | PN ---
Date/Time of Note Date/Time of Note DATE: 08/03/18 TIME: 08:32 Assessment/Plan VTE Prophylaxis Risk score (from Nsg)>0 risk: 3 SCD applied (from Ns): No SCD contraindicated: patient refusal Pharmacological prophylaxis: LMWH Lines/Catheters IV Catheter Type (from Nrsg): PICC Line Central line still needed: Yes Urinary Cath still in place: Yes Reason Cath still needed: pres ulcer contaminated by urine Assessment/Plan Assessment/Plan 1. Sepsis secondary to UTI, decubitus ulcers, and OM- resolved - Completed course of antibiotics and will monitor off antibiotics at this time - Remains afebrile and nl WBC - ID on board and appreciate recommendations 2. UTI- resolved 3. Sacral decubitus ulcer with abscess- stable - Surgery consultation appreciated and continue current medical management and wound care. Debridement as needed - Cortez in placed to protect decub ulcers 4. Osteomyelitis of ischium - Completed course of antibiotics - Increased MS Contin to 45mg today but still requiring IV breakthrough. Discussed increasing to 60 in the next few days to see if able to d/c Dilaudid with proper pain control - Pain management on board 5. Chronic back pain - continue pain control 6. Hypertension - stable 7. Neurogenic bladder - cortez in place - Urology on board 8. Disposition - Medically stable for discharge once accepted to [facility] Subjective 24 Hr Interval Summary Free Text/Dictation Patient is doing well and denies any acute issues. Requesting for CM to send an inquiry to [facility]. He talked to Celine there and told patient they will have an open male bed next week if accepted. Exam/Review of Systems Exam Vitals Vital Signs Date Temp Pulse Resp B/P (MAP) Pulse Ox O2 O2 Flow FiO2 Time Delivery Rate 08/03/18 97.9 87 18 134/71 97 08:00 (92) 07/31/18 Room Air 14:00 Intake and Output 08/02/18 08/02/18 08/03/18 1515:00 23:00 07:00 IntakeIntake Total 720 ml 850 ml 350 ml OutputOutput Total 700 ml 600 ml 900 ml BalanceBalance 20 ml 250 ml -550 ml Exam General: Patient is laying in bed and answers questions appropriately Neck: Supple Respiratory: Clear to auscultation bilaterally. no wheezing or rhonchi Cardiovascular: regular rate and rhythm, no obvious murmurs Gastrointestinal: soft, non-tender to palpation, bowel sounds heard. no rebound or guarding Neurological: LE muscle wasting, full ROM upper extremities Skin: Multiple ulcers on patient's sacral decubitus area and buttock area Medications Medication Current Medications IV Flush (NS 3 ml) 3 ml PER PROTOCOL IV ; Start 06/22/18 at 18:30 Ondansetron HCl (Zofran Inj) 4 mg Q6H PRN IV NAUSEA/VOMITING Last administered on 06/26/18at 15:57; Admin Dose 4 MG; Start 06/22/18 at 18:30 Acetaminophen (Tylenol Tab) 650 mg Q6H PRN PO .PAIN 1-3 OR TEMP; Start 06/22/18 at 18:30 Enoxaparin Sodium (Lovenox) 30 mg DAILY SC Last administered on 08/03/18at 08:27; Admin Dose 30 MG; Start 06/23/18 at 09:00 Hydralazine HCl (Apresoline) 10 mg Q4H PRN IV SBP >160; Start 06/22/18 at 19:00 [facility] This patient villela... PRN PRN XX WOUND CARE; Start 06/23/18 at 00:30 Tamsulosin HCl (Flomax) 0.4 mg DAILY PO Last administered on 08/03/18at 08:23; Admin Dose 0.4 MG; Start 06/24/18 at 09:00 Labetalol HCl (Labetalol) 10 mg Q4 PRN IV sbp>160; Start 06/24/18 at 13:30 Pantoprazole (Protonix Tab) 40 mg DAILY@06 PO Last administered on 08/03/18 05:58; Admin Dose 40 MG; Start 07/04/18 at 06:00 Carisoprodol (Soma) 350 mg Q6 PO Last administered on 08/03/18 05:58; Admin Dose 350 MG; Start 07/06/18 at 12:00 Hydromorphone HCl (Dilaudid) 1 mg Q4H PRN IV SEVERE PAIN LEVEL 7-10 Last administered on 08/03/18 05:58; Admin Dose 1 MG; Start 07/12/18 at 19:00 Docusate Sodium/ Ferrous Fumarate (Harry-Sequels) 1 tab BID PO Last administered on 08/03/18 08:23; Admin Dose 1 TAB; Start 07/13/18 at 21:00; Stop 08/12/18 at 20:59 Ascorbic Acid (Vitamin C) 500 mg DAILY PO Last administered on 08/03/18 08:23; Admin Dose 500 MG; Start 07/15/18 at 12:00 Zinc Sulfate (Zinc Sulfate) 220 mg DAILY PO Last administered on 08/03/18 08:23; Admin Dose 220 MG; Start 07/15/18 at 11:00 Multivitamins Therapeutic (Theragran) 1 tab DAILY PO Last administered on 08/03/18 08:23; Admin Dose 1 TAB; Start 07/15/18 at 11:00 IV Flush (NS 10 ml) 10 ml PRN PRN IV IV PROTOCOL Last administered on 07/19/18 02:30; Admin Dose 10 ML; Start 07/15/18 at 17:00 Oxycodone/ Acetaminophen (Endocet (10/ 325)) 2 tab Q6H PRN PO MODERATE PAIN LEVEL 4-6 Last administered on 07/30/18 19:50; Admin Dose 2 TAB; Start 07/25/18 at 12:00 Docusate Sodium (Colace) 100 mg BID PRN PO constipation; Start 08/02/18 at 12:30 Magnesium Hydroxide (Milk Of Mag) 30 ml DAILY PRN PO constipation; Start 08/02/18 at 12:30 Morphine Sulfate (Ms Contin (Er)) 45 mg BID PO Last administered on 08/03/18 08:23; Admin Dose 45 MG; Start 08/03/18 at 09:00 KINGA WILLETT MD Aug 03, 2018 08:32
[2018-08-03 14:00] VITALS: BP 130/73; PULSE 81; RESP 18
[2018-08-03 19:16] VITALS: BP 137/76; PULSE 88; RESP 18
[2018-08-04 02:00] VITALS: BP 141/77; PULSE 103; RESP 18
[2018-08-04] MEDS: HYDROmorphONE 1 MG/ML SYG IV PRN ×6 (03:02→23:22)
[2018-08-04] MEDS: CARISOPRODOL 350 MG TAB PO SCH ×3 (05:52→17:18)
[2018-08-04] MEDS: PANTOPRAZOLE (EC) 40 MG TAB PO SCH (05:52)
[2018-08-04 08:02] VITALS: BP 121/72; PULSE 93; RESP 18
[2018-08-04] MEDS: ASCORBIC ACID 500 MG TAB PO SCH (08:49)
[2018-08-04] MEDS: MULTIVITAMINS THERAPEUTIC TAB PO SCH (08:49)
[2018-08-04] MEDS: ZINC SULFATE 220 MG CAP PO SCH (08:49)
[2018-08-04] MEDS: TAMSULOSIN (SR) 0.4 MG CAP PO SCH (08:49)
[2018-08-04] MEDS: FERROUS FUMARATE (SR) TAB PO SCH ×2 (08:49→20:22)
[2018-08-04] MEDS: morphine (ER) 15 MG TAB PO SCH ×2 (08:50→20:23)
[2018-08-04] MEDS: ENOXAPARIN 30 MG/0.3 ML SYG SC SCH (08:55)
--- NOTE | 2018-08-04 11:33 | PN ---
Date/Time of Note Date/Time of Note DATE: 08/04/18 TIME: 11:32 Assessment/Plan Lines/Catheters IV Catheter Type (from [facility]): PICC Line Cortez in Place (from [facility]): Yes Assessment/Plan Chief Complaint/Hosp Course 1. Multiple decubitus pressure ulcers: -Continue offloading & nutritional optimization as able -Continue same wound care treatment -Debridement as needed -Vitamin C -Continue osteomyelitis treatment> per id (IV antibiotics with end date August 03) -snf placement 2. Decompressed bladder with significant thickening concerning for bladder neoplasm versus cystitis: Urethritis, possible pyelonephritis; leaking between self caths, indwelling cortez placed -per Urology 3. Labile mood with intermittent bursts of anger and intermittent refusal of treatments -psych eval noted, refusing meds -Supportive 4. Hypoalbuminemia -Encourage nutritional optimization 5. Hypertension history -Nutrition and medication optimization 6. Anemia without evidence of acute blood loss -Monitor 7. Acute on chronic back pain, nephrolithiasis -Medical optimization -Judicious fluid management 8. Constipation history -bowel optimization 9. Elevated CEA however patient refusing colonoscopy and further workup Thank you Subjective 24 Hr Interval Summary No fevers, chills, sob, congested cough, cp, palpitations, villela, dizziness, n/v/d/dysuria, wound odor or increased drainage. Exam/Review of Systems Vital Signs Vitals Vital Signs Date Temp Pulse Resp B/P (MAP) Pulse Ox O2 O2 Flow FiO2 Time Delivery Rate 08/04/18 98.6 93 18 121/72 94 08:02 (88) 07/31/18 Room Air 14:00 Intake and Output 08/03/18 08/03/18 08/04/18 1414:59 22:59 06:59 IntakeIntake Total 1260 ml 880 ml OutputOutput Total 700 ml 900 ml 950 ml BalanceBalance 560 ml -20 ml -950 ml Exam Free Text/Dictation Constitutional: alert, oriented No distress Psych: calm Head: normocephalic, atraumatic Eyes: nl conjunctiva, EOMI, PERRL; No icteric ENMT: nl external ears & nose, nl lips & teeth, mucosa pink and moist Neck: supple, non-tender; No jvd Respiratory: normal air movement; No congested cough, No labored breathing, No wheezing Cardiovascular: regular rate and rhythm; No edema Gastrointestinal: soft, non-tender; No distended, No rebound or guarding Genitourinary - Male: nl penis, nl scrotum Musculoskeletal: No nl gait and stance, No joint tenderness Extremities: normal pulses; No calf tenderness, No edema, No tenderness Neurological: nl mental status, nl speech; No nl strength Skin: rash or lesions (Decubitus pressure ulcers: Clean, no odor, no drainage, scant drainage); No ecchymosis Lymph: nl lymph nodes Results Result Diagram: 08/04/18 0718 08/04/18 0718 GUSTABO GARCIA MD Aug 04, 2018 11:33
[2018-08-04 14:02] VITALS: BP 133/79; PULSE 95; RESP 18
--- NOTE | 2018-08-04 16:03 | PN ---
Date/Time of Note Date/Time of Note DATE: 08/04/18 TIME: 16:02 Objective Vitals Vital Signs Date Temp Pulse Resp B/P (MAP) Pulse Ox O2 O2 Flow FiO2 Time Delivery Rate 08/04/18 98.8 95 18 133/79 95 14:02 (97) 07/31/18 Room Air 14:00 Intake and Output 08/03/18 08/03/18 08/04/18 1515:00 23:00 07:00 IntakeIntake Total 1260 ml 880 ml OutputOutput Total 700 ml 900 ml 950 ml BalanceBalance 560 ml -20 ml -950 ml Results Result Diagram: 08/04/1871708/04/18717 Medications Medications Current Medications IV Flush (NS 3 ml) 3 ml PER PROTOCOL IV ; Start 06/22/18 at 18:30 Ondansetron HCl (Zofran Inj) 4 mg Q6H PRN IV NAUSEA/VOMITING Last administered on 06/26/18at 15:57; Admin Dose 4 MG; Start 06/22/18 at 18:30 Acetaminophen (Tylenol Tab) 650 mg Q6H PRN PO .PAIN 1-3 OR TEMP; Start 06/22/18 at 18:30 Enoxaparin Sodium (Lovenox) 30 mg DAILY SC Last administered on 08/04/18at 08:55; Admin Dose 30 MG; Start 06/23/18 at 09:00 Hydralazine HCl (Apresoline) 10 mg Q4H PRN IV SBP >160; Start 06/22/18 at 19:00 Miscellaneous Information (Pending [facility] Order For Wound Care) This patient villela... PRN PRN XX WOUND CARE; Start 06/23/18 at 00:30 Tamsulosin HCl (Flomax) 0.4 mg DAILY PO Last administered on 08/04/18at 08:49; Admin Dose 0.4 MG; Start 06/24/18 at 09:00 Labetalol HCl (Labetalol) 10 mg Q4 PRN IV sbp>160; Start 06/24/18 at 13:30 Pantoprazole (Protonix Tab) 40 mg DAILY@06 PO Last administered on 08/04/18at 05:52; Admin Dose 40 MG; Start 07/04/18 at 06:00 Carisoprodol (Soma) 350 mg Q6 PO Last administered on 08/04/18 12:06; Admin Dose 350 MG; Start 07/06/18 at 12:00 Hydromorphone HCl (Dilaudid) 1 mg Q4H PRN IV SEVERE PAIN LEVEL 7-10 Last administered on 08/04/18 15:13; Admin Dose 1 MG; Start 07/12/18 at 19:00 Docusate Sodium/ Ferrous Fumarate (Harry-Sequels) 1 tab BID PO Last adminis tered on 08/04/18 08:49; Admin Dose 1 TAB; Start 07/13/18 at 21:00; Stop 08/12/18 at 20:59 Ascorbic Acid (Vitamin C) 500 mg DAILY PO Last administered on 08/04/18 08:49; Admin Dose 500 MG; Start 07/15/18 at 12:00 Zinc Sulfate (Zinc Sulfate) 220 mg DAILY PO Last administered on 08/04/18 08:49; Admin Dose 220 MG; Start 07/15/18 at 11:00 Multivitamins Therapeutic (Theragran) 1 tab DAILY PO Last administered on 08/04/18 08:49; Admin Dose 1 TAB; Start 07/15/18 at 11:00 IV Flush (NS 10 ml) 10 ml PRN PRN IV IV PROTOCOL Last administered on 07/19/18 02:30; Admin Dose 10 ML; Start 07/15/18 at 17:00 Oxycodone/ Acetaminophen (Endocet (10/ 325)) 2 tab Q6H PRN PO MODERATE PAIN LEVEL 4-6 Last administered on 07/30/18 19:50; Admin Dose 2 TAB; Start 07/25/18 at 12:00 Docusate Sodium (Colace) 100 mg BID PRN PO constipation; Start 08/02/18 at 12:30 Magnesium Hydroxide (Milk Of Mag) 30 ml DAILY PRN PO constipation; Start 08/02/18 at 12:30 Morphine Sulfate (Ms Contin (Er)) 45 mg BID PO Last administered on 08/04/18 08:50; Admin Dose 45 MG; Start 08/03/18 at 09:00 VTE Prophylaxis Risk score (from Ns)>0 risk: 7 SCD applied (from Ns): No SCD contraindication: other Lines/Catheters IV Catheter Type: Cortez in Place: Yes Cont'd cortez catheter reason: urinary retention Assessment/Plan Hospital Course Subjective No acute changes, refusing multiple assessments per nursing staff Objective Physical exam General: Patient is laying in bed and answers questions appropriately Mentation: Patient is alert and oriented 4, Head: Normocephalic atraumatic Eyes: EOMI, pupils reactive to light Neck: Supple, nontender, midline Respiratory: Clear to auscultation bilaterally Cardiovascular: regular rate, no obvious murmurs Gastrointestinal: non-tender to palpation, bowel sounds heard. Neurological: Moves all extremities spontaneously Skin: Multiple ulcers on patient's sacral decubitus area and buttock area, bandaged Assessment/Plan 1. Sepsis secondary to UTI, decubitus ulcers, and OM- resolved - Completed course of antibiotics and will monitor off antibiotics at this time - Remains afebrile and nl WBC - ID on board and appreciate recommendations 2. UTI- resolved 3. Sacral decubitus ulcer with abscess- stable - Surgery consultation appreciated and continue current medical management and wound care. Debridement as needed - Cortez in placed to protect decub ulcers 4. Osteomyelitis of ischium - Completed course of antibiotics - Increased MS Contin to 45mg today but still requiring IV breakthrough. Discussed increasing to 60 in the next few days to see if able to d/c Dilaudid with proper pain control - Pain management on board 5. Chronic back pain - continue pain control 6. Hypertension - stable 7. Neurogenic bladder - cortez in place - Urology on board 8. Disposition - Medically stable for discharge once accepted to [facility] Aug 04, 2018 16:03
[2018-08-04] MEDS ORDERED: OXYCODONE/ACETAMINOPHEN (10/325) TAB PO PRN (18:00)
[2018-08-04] MEDS ORDERED: HYDROmorphONE 1 MG/ML SYG IV PRN (19:00)
[2018-08-04 20:00] VITALS: BP 125/72; PULSE 102; RESP 19
[2018-08-05] MEDS: CARISOPRODOL 350 MG TAB PO SCH ×5 (00:22→23:29)
[2018-08-05 02:00] VITALS: BP 126/74; PULSE 98; RESP 17
[2018-08-05] MEDS: HYDROmorphONE 1 MG/ML SYG IV PRN ×6 (03:22→23:29)
[2018-08-05] MEDS: PANTOPRAZOLE (EC) 40 MG TAB PO SCH (05:58)
--- NOTE | 2018-08-05 07:18 | CONS ---
Assessment/Plan Assessment/Plan Assessment/Plan (Daily) Patient is still negotiating with me for higher doses of pain control medications. He was increased by Dr. Zacarias to higher doses of morphine p.o. which I completely agree with but increasing him to as needed doses of Dilaudid is unnecessary with his degree of pain. However patient requires more hospitalization I would strongly recommend continue with his current dose otherwise this may bar turner to be more of a psychosocial issue and an issue with nursing staff with patient asking for, demanding higher doses of pain control medications. Admittedly I have not seen patient in a while as I suspect that he was rather stable on current dose however he needs to be tapered to p.o. dosing soon and speaking with him there is no definitive plan he will be discharged any time in the very near future. Although this is suspect and we need to confirm this with case management. Her issues Sepsis secondary to urinary tract infection and open decubiti Surgical consultation recommends continue medical management with wound care Osteomyelitis of the ischium Chronic pain syndrome Patient is stable for discharge once he is accepted to a fpc unit Agree with Dr. Barillas to continue him on current IV dose of Dilaudid. I have had a long conversation with patient explained to him that he will not be discharged on IV opioids he will have to be transitioned to orals the dose he is taking at this time will be easy to transition to oral pain medications however I would suggest continuing with the extended release morphine 45 mg twice daily. Further I agree with discontinuing his Endocet instead of using 2 short acting opioids. Patient has psychosocial issues and can be very difficult to work with and reason with Consultation Date/Type/Reason Admit Date/Time Jun 22, 2018 at 18:09 Initial Consult Date 06/26/18 Requesting Provider: TRACE BARILLAS Date/Time of Note DATE: 08/05/18 TIME: 07:17 Exam/Review of Systems Exam Vitals Vital Signs Date Temp Pulse Resp B/P (MAP) Pulse Ox O2 O2 Flow FiO2 Time Delivery Rate 08/05/18 98.5 98 17 126/74 97 02:00 (91) Intake and Output 08/04/18 08/04/18 08/05/18 1515:00 23:00 07:00 IntakeIntake Total 840 ml 600 ml OutputOutput Total 900 ml 650 ml 1500 ml BalanceBalance -60 ml -50 ml -1500 ml Constitutional: alert, oriented, well developed, frail Psych: other (Aggressive behavior) Eyes: No nl conjunctiva, No EOMI, No nl lids, No nl sclera, No PERRL, No icteric, No fundi, disc, No other ENMT: No nl external ears & nose, No nl lips & teeth, No nl nasal mucosa & septum, No mucosa pink and moist, No intubated, No tympanic membranes, No other Respiratory: No clear to auscultation, No normal air movement, No congested cough, No crackles/rales, No diminished breath sounds, No intercostal retraction, No labored breathing, No respirations, No tactile fremitus, No wheezing, No other Cardiovascular: No regular rate and rhythm, No nl pulses, No bruits, No diastolic murmur, No edema, No gallop, No irregular rhythm, No jugular venous distention (JVD), No murmurs/extra sounds, No rub, No systolic murmur, No S3, No S4, No other Genitourinary - Male: No nl penis, No nl scrotum, No CVA tenderness, No discharge, No other Results Result Diagram: 08/04/1818 08/04/18 0718 Results 24hrs Laboratory Tests Test 08/04/18 07:18 White Blood Count 5.1 # Red Blood Count 3.95 L Hemoglobin 8.6 L Hematocrit 29.7 L Mean Corpuscular Volume 75.2 L Mean Corpuscular Hemoglobin 21.8 L Mean Corpuscular Hemoglobin Concent 29.0 L Red Cell Distribution Width 18.0 H Platelet Count 229 Mean Platelet Volume 8.6 Immature Granulocytes % 0.200 Neutrophils % 61.1 Lymphocytes % 17.0 Monocytes % 11.7 H Eosinophils % 9.4 H Basophils % 0.6 Nucleated Red Blood Cells % 0.0 Immature Granulocytes # 0.010 Neutrophils # 3.1 Lymphocytes # 0.9 Monocytes # 0.6 Eosinophils # 0.5 Basophils # 0.0 Nucleated Red Blood Cells # 0.0 Sodium Level 140 Potassium Level 4.1 Chloride Level 104 Carbon Dioxide Level 27 Anion Gap 9 Blood Urea Nitrogen 27 H Creatinine 0.83 Glucose Level 106 Calcium Level 8.8 Phosphorus Level 4.9 Magnesium Level 2.0 Albumin 3.4 Medications Medication Current Medications IV Flush (NS 3 ml) 3 ml PER PROTOCOL IV ; Start 06/22/18 at 18:30 Ondansetron HCl (Zofran Inj) 4 mg Q6H PRN IV NAUSEA/VOMITING Last administered on 06/26/18at 15:57; Admin Dose 4 MG; Start 06/22/18 at 18:30 Acetaminophen (Tylenol Tab) 650 mg Q6H PRN PO .PAIN 1-3 OR TEMP; Start 06/22/18 at 18:30 Enoxaparin Sodium (Lovenox) 30 mg DAILY SC Last administered on 08/04/18at 08:55; Admin Dose 30 MG; Start 06/23/18 at 09:00 Hydralazine HCl (Apresoline) 10 mg Q4H PRN IV SBP >160; Start 06/22/18 at 19:00 Miscellaneous Information (Pending [facility] Order For Wound Care) This patient villela... PRN PRN XX WOUND CARE; Start 06/23/18 at 00:30 Tamsulosin HCl (Flomax) 0.4 mg DAILY PO Last administered on 08/04/18 08:49; Admin Dose 0.4 MG; Start 06/24/18 at 09:00 Labetalol HCl (Labetalol) 10 mg Q4 PRN IV sbp>160; Start 06/24/18 at 13:30 Pantoprazole (Protonix Tab) 40 mg DAILY@06 PO Last administered on 08/05/18 05:58; Admin Dose 40 MG; Start 07/04/18 at 06:00 Carisoprodol (Soma) 350 mg Q6 PO Last administered on 08/05/18 05:58; Admin Dose 350 MG; Start 07/06/18 at 12:00 Docusate Sodium/ Ferrous Fumarate (Harry-Sequels) 1 tab BID PO Last administered on 08/04/18 20:22; Admin Dose 1 TAB; Start 07/13/18 at 21:00; Stop 08/12/18 at 20:59 Ascorbic Acid (Vitamin C) 500 mg DAILY PO Last administered on 08/04/18 08:49; Admin Dose 500 MG; Start 07/15/18 at 12:00 Zinc Sulfate (Zinc Sulfate) 220 mg DAILY PO Last administered on 08/04/18 08:49; Admin Dose 220 MG; Start 07/15/18 at 11:00 Multivitamins Therapeutic (Theragran) 1 tab DAILY PO Last administered on 08/04/18at 08:49; Admin Dose 1 TAB; Start 07/15/18 at 11:00 IV Flush (NS 10 ml) 10 ml PRN PRN IV IV PROTOCOL Last administered on 07/19/18 02:30; Admin Dose 10 ML; Start 07/15/18 at 17:00 Docusate Sodium (Colace) 100 mg BID PRN PO constipation; Start 08/02/18 at 12:30 Magnesium Hydroxide (Milk Of Mag) 30 ml DAILY PRN PO constipation; Start 08/02/18 at 12:30 Morphine Sulfate (Ms Contin (Er)) 45 mg BID PO Last administered on 08/04/18at 20:23; Admin Dose 45 MG; Start 08/03/18 at 09:00 Hydromorphone HCl (Dilaudid) 1 mg Q4H PRN IV SEVERE PAIN LEVEL 7-10 Last administered on 08/05/18 03:22; Admin Dose 1 MG; Start 08/04/18 at 17:03 COLLINS DESAI Aug 05, 2018 07:18
[2018-08-05 07:53] VITALS: BP 100/56; PULSE 97; RESP 18
[2018-08-05] MEDS: TAMSULOSIN (SR) 0.4 MG CAP PO SCH (08:41)
[2018-08-05] MEDS: ZINC SULFATE 220 MG CAP PO SCH (08:41)
[2018-08-05] MEDS: FERROUS FUMARATE (SR) TAB PO SCH ×2 (08:41→21:23)
[2018-08-05] MEDS: morphine (ER) 15 MG TAB PO SCH ×2 (08:41→21:23)
[2018-08-05] MEDS: ASCORBIC ACID 500 MG TAB PO SCH (08:41)
[2018-08-05] MEDS: MULTIVITAMINS THERAPEUTIC TAB PO SCH (08:42)
[2018-08-05] MEDS: ENOXAPARIN 30 MG/0.3 ML SYG SC SCH (08:46)
[2018-08-05 14:00] VITALS: BP 112/60; PULSE 85; RESP 19
--- NOTE | 2018-08-05 15:56 | PN ---
Date/Time of Note Date/Time of Note DATE: 08/05/18 TIME: 15:50 Assessment/Plan VTE Prophylaxis Risk score (from Nsg)>0 risk: 6 SCD applied (from Nsg): Yes Pharmacological prophylaxis: LMWH Lines/Catheters IV Catheter Type (from Nrsg): PICC Line Central line still needed: Yes Urinary Cath still in place: Yes Reason Cath still needed: urinary retention Assessment/Plan Assessment/Plan 1. Sepsis secondary on admission, resolved 2. Proteus mirabilis bacteremia secondary to UTI, repeat bld cx neg, finished treatment 3. Multidrug-resistant Proteus mirabilis pyelonephritis, treated 4. Neurogenic bladder, chronic 5. Multiple decubitus with questionable osteomyelitis of right atrium and right iliac bone, treated 6. Chronic back pain, continue pain control 7. Hypertension, stable 8. DVT prophylaxis: lovenox 9. Disposition - Medically stable for discharge once accepted to [facility] Result Diagram: 08/04/1871708/04/1818 Subjective 24 Hr Interval Summary Free Text/Dictation no fever or chills Exam/Review of Systems Exam Vitals Vital Signs Date Temp Pulse Resp B/P (MAP) Pulse Ox O2 O2 Flow FiO2 Time Delivery Rate 08/05/18 98.1 85 19 112/60 92 Room Air 14:00 (77) Intake and Output 08/04/18 08/04/18 08/05/18 1515:00 23:00 07:00 IntakeIntake Total 840 ml 600 ml OutputOutput Total 900 ml 650 ml 1500 ml BalanceBalance -60 ml -50 ml -1500 ml Constitutional: alert, oriented, well developed Psych: no complaints, nl mood/affect Head: normocephalic, atraumatic Eyes: nl conjunctiva, EOMI, nl lids ENMT: nl external ears & nose, nl lips & teeth, nl nasal mucosa & septum Neck: supple, non-tender Respiratory: clear to auscultation, normal air movement; No congested cough, No crackles/rales, No diminished breath sounds, No intercostal retraction, No labored breathing, No respirations, No tactile fremitus, No wheezing, No other Cardiovascular: regular rate and rhythm, nl pulses; No bruits, No diastolic murmur, No edema, No gallop, No irregular rhythm, No jugular venous distention (JVD), No murmurs/extra sounds, No rub, No systolic murmur, No S3, No S4, No other Gastrointestinal: soft, nl liver, spleen, non-tender Musculoskeletal: nl extremities to inspection Extremities: normal pulses; No calf tenderness, No cyanosis, No clubbing, No edema, No pitting pedal edema, No palpable cord, No tenderness, No other Neurological: PAUNCH TRIMMER II-XII intact, nl mental status, nl speech, nl strength Medications Medication Current Medications IV Flush (NS 3 ml) 3 ml PER PROTOCOL IV ; Start 06/22/18 at 18:30 Ondansetron HCl (Zofran Inj) 4 mg Q6H PRN IV NAUSEA/VOMITING Last administered on 06/26/18at 15:57; Admin Dose 4 MG; Start 06/22/18 at 18:30 Acetaminophen (Tylenol Tab) 650 mg Q6H PRN PO .PAIN 1-3 OR TEMP; Start 06/22/18 at 18:30 Enoxaparin Sodium (Lovenox) 30 mg DAILY SC Last administered on 08/05/18 08:46; Admin Dose 30 MG; Start 06/23/18 at 09:00 Hydralazine HCl (Apresoline) 10 mg Q4H PRN IV SBP >160; Start 06/22/18 at 19:00 Miscellaneous Information (Pending [facility] Order For Wound Care) This patient [place]... PRN PRN XX WOUND CARE; Start 06/23/18 at 00:30 Tamsulosin HCl (Flomax) 0.4 mg DAILY PO Last administered on 08/05/18 08:41; Admin Dose 0.4 MG; Start 06/24/18 at 09:00 Labetalol HCl (Labetalol) 10 mg Q4 PRN IV sbp>160; Start 06/24/18 at 13:30 Pantoprazole (Protonix Tab) 40 mg DAILY@06 PO Last administered on 08/05/18 05:58; Admin Dose 40 MG; Start 07/04/18 at 06:00 Carisoprodol (Soma) 350 mg Q6 PO Last administered on 08/05/18 11:22; Admin Dose 350 MG; Start 07/06/18 at 12:00 Docusate Sodium/ Ferrous Fumarate (Harry-Sequels) 1 tab BID PO Last administered on 08/05/18 08:41; Admin Dose 1 TAB; Start 07/13/18 at 21:00; Stop 08/12/18 at 20:59 Ascorbic Acid (Vitamin C) 500 mg DAILY PO Last administered on 08/05/18 08:41; Admin Dose 500 MG; Start 07/15/18 at 12:00 Zinc Sulfate (Zinc Sulfate) 220 mg DAILY PO Last administered on 08/05/18 08:41; Admin Dose 220 MG; Start 07/15/18 at 11:00 Multivitamins Therapeutic (Theragran) 1 tab DAILY PO Last administered on 08/05/18 08:42; Admin Dose 1 TAB; Start 07/15/18 at 11:00 IV Flush (NS 10 ml) 10 ml PRN PRN IV IV PROTOCOL Last administered on 07/19/18 02:30; Admin Dose 10 ML; Start 07/15/18 at 17:00 Docusate Sodium (Colace) 100 mg BID PRN PO constipation; Start 08/02/18 at 12:30 Magnesium Hydroxide (Milk Of Mag) 30 ml DAILY PRN PO constipation; Start 08/02/18 at 12:30 Morphine Sulfate (Ms Contin (Er)) 45 mg BID PO Last administered on 08/05/18 08:41; Admin Dose 45 MG; Start 08/03/18 at 09:00 Hydromorphone HCl (Dilaudid) 1 mg Q4H PRN IV SEVERE PAIN LEVEL 7-10 Last admi nistered on 08/05/18 15:36; Admin Dose 1 MG; Start 08/04/18 at 17:03 GEOFF AMEZQUITA MD Aug 05, 2018 15:56
--- NOTE | 2018-08-05 16:23 | PN ---
Date/Time of Note Date/Time of Note DATE: 08/05/18 TIME: 16:19 Assessment/Plan Lines/Catheters IV Catheter Type (from Nrs): PICC Line Cortez in Place (from Nrs): Yes Assessment/Plan Chief Complaint/Hosp Course 1. Multiple decubitus pressure ulcers: Status post IV antibiotics, osteomyelitis treatment -Continue offloading & nutritional optimization as able -Continue same wound care treatment -Debridement as needed -Vitamin C -snf placement 2. Decompressed bladder with significant thickening concerning for bladder neoplasm versus cystitis: Urethritis, possible pyelonephritis; leaking between self caths, indwelling cortez placed -per Urology 3. Labile mood with intermittent bursts of anger and intermittent refusal of treatments -psych eval noted, refusing meds -Supportive 4. Hypoalbuminemia -Encourage nutritional optimization 5. Hypertension history -Nutrition and medication optimization 6. Anemia without evidence of acute blood loss -Monitor 7. Acute on chronic back pain, nephrolithiasis -Medical optimization -Judicious fluid management 8. Constipation history -bowel optimization 9. Elevated CEA however patient refusing colonoscopy and further workup 10. Generalized pain: -Per pain specialist Thank you. Patient seen and examined in collaboration with Dr. Micah Hobbs. Subjective 24 Hr Interval Summary Pending discharge to detention facility. No fevers, chills, sob, congested cough, cp, palpitations, [place], dizziness, nausea, vomiting, diarrhea, dysuria. Exam/Review of Systems Vital Signs Vitals Vital Signs Date Temp Pulse Resp B/P (MAP) Pulse Ox O2 O2 Flow FiO2 Time Delivery Rate 08/05/18 98.1 85 19 112/60 92 Room Air 14:00 (77) Intake and Output 08/04/18 08/04/18 08/05/18 1515:00 23:00 07:00 IntakeIntake Total 840 ml 600 ml OutputOutput Total 900 ml 650 ml 1500 ml BalanceBalance -60 ml -50 ml -1500 ml Exam Free Text/Dictation Constitutional: alert, oriented No distress Psych: calm Head: normocephalic, atraumatic Eyes: nl conjunctiva, EOMI, PERRL; No icteric ENMT: nl external ears & nose, nl lips & teeth, mucosa pink and moist Neck: supple, non-tender; No jvd Respiratory: normal air movement; No congested cough, No labored breathing, No wheezing Cardiovascular: regular rate and rhythm; No edema Gastrointestinal: soft, non-tender; No distended, No rebound or guarding Genitourinary - Male: nl penis, nl scrotum Musculoskeletal: No nl gait and stance, No joint tenderness Extremities: normal pulses; No calf tenderness, No edema, No tenderness Neurological: nl mental status, nl speech; No nl strength Skin: rash or lesions (Decubitus pressure ulcers: Clean, no odor, no drainage, scant drainage); No ecchymosis Lymph: nl lymph nodes Results Result Diagram: 08/04/18 0718 08/04/18 0718 TIFFANIE KLEIN NP Aug 05, 2018 16:23
[2018-08-05 19:25] VITALS: BP 126/74; PULSE 96; RESP 18
[2018-08-06 02:15] VITALS: BP 127/70; PULSE 89; RESP 18
[2018-08-06] MEDS: HYDROmorphONE 1 MG/ML SYG IV PRN ×6 (03:37→23:55)
[2018-08-06] MEDS: CARISOPRODOL 350 MG TAB PO SCH ×4 (05:59→23:55)
[2018-08-06] MEDS: PANTOPRAZOLE (EC) 40 MG TAB PO SCH (05:59)
[2018-08-06 08:09] VITALS: BP 133/69; PULSE 83; RESP 18
--- NOTE | 2018-08-06 08:43 | PN ---
Date/Time of Note Date/Time of Note DATE: 08/06/18 TIME: 08:41 Assessment/Plan Lines/Catheters IV Catheter Type (from Nrs): PICC Line Cortez in Place (from Nrs): Yes Assessment/Plan Chief Complaint/Hosp Course 1. Multiple decubitus pressure ulcers: Status post IV antibiotics, s/p osteomyelitis treatment -Continue offloading & nutritional optimization as able -Continue same wound care treatment -Debridement as needed -Vitamin C -snf placement pending 2. Decompressed bladder with significant thickening concerning for bladder neoplasm versus cystitis: Urethritis, possible pyelonephritis; leaking between self caths, indwelling cortez placed -per Urology 3. Labile mood with intermittent bursts of anger and intermittent refusal of treatments -psych eval noted, refusing meds -Supportive 4. Hypoalbuminemia -Encourage nutritional optimization 5. Hypertension history -Nutrition and medication optimization 6. Anemia without evidence of acute blood loss -Monitor 7. Acute on chronic back pain, nephrolithiasis -Medical optimization -Judicious fluid management 8. Constipation history -bowel optimization 9. Elevated CEA however patient refusing colonoscopy and further workup 10. Generalized pain: -Per pain specialist Thank you. Patient seen and examined in collaboration with Dr. Micah Hobbs. Subjective 24 Hr Interval Summary No acute events. Still pending discharge placement. No fevers, chills, sob, congested cough, cp, palpitations, [place], dizziness, n/v/d/dysuria, excessive wound drainage or odor. Exam/Review of Systems Vital Signs Vitals Vital Signs Date Temp Pulse Resp B/P (MAP) Pulse Ox O2 O2 Flow FiO2 Time Delivery Rate 08/06/18 98.0 83 18 133/69 95 Room Air 08:09 (90) Intake and Output 08/05/18 08/05/18 08/06/18 1515:00 23:00 07:00 IntakeIntake Total 1060 ml 480 ml OutputOutput Total 950 ml BalanceBalance 110 ml 480 ml Exam Free Text/Dictation Constitutional: alert, oriented No distress Psych: calm Head: normocephalic, atraumatic Eyes: nl conjunctiva, EOMI, PERRL; No icteric ENMT: nl external ears & nose, nl lips & teeth, mucosa pink and moist Neck: supple, non-tender; No jvd Respiratory: normal air movement; No congested cough, No labored breathing, No wheezing Cardiovascular: regular rate and rhythm; No edema Gastrointestinal: soft, non-tender; No distended, No rebound or guarding Genitourinary - Male: nl penis, nl scrotum Musculoskeletal: No nl gait and stance, No joint tenderness Extremities: normal pulses; No calf tenderness, No edema, No tenderness Neurological: nl mental status, nl speech; No nl strength Skin: rash or lesions (Decubitus pressure ulcers: Clean, no odor, no drainage, scant drainage); No ecchymosis Lymph: nl lymph nodes Results Result Diagram: 08/04/18 0718 08/04/18 0718 TIFFANIE KLEIN NP Aug 06, 2018 08:43
[2018-08-06] MEDS: ZINC SULFATE 220 MG CAP PO SCH (08:53)
[2018-08-06] MEDS: TAMSULOSIN (SR) 0.4 MG CAP PO SCH (08:53)
[2018-08-06] MEDS: FERROUS FUMARATE (SR) TAB PO SCH ×2 (08:53→19:58)
[2018-08-06] MEDS: MULTIVITAMINS THERAPEUTIC TAB PO SCH (08:54)
[2018-08-06] MEDS: morphine (ER) 15 MG TAB PO SCH ×2 (08:54→20:07)
[2018-08-06] MEDS: ASCORBIC ACID 500 MG TAB PO SCH (08:54)
[2018-08-06] MEDS: ENOXAPARIN 30 MG/0.3 ML SYG SC SCH (08:57)
--- NOTE | 2018-08-06 12:24 | PN ---
Date/Time of Note Date/Time of Note DATE: 08/06/18 TIME: 12:23 Assessment/Plan VTE Prophylaxis Risk score (from Nsg)>0 risk: 6 SCD applied (from Nsg): Yes Pharmacological prophylaxis: LMWH Lines/Catheters IV Catheter Type (from Nrsg): PICC Line Central line still needed: Yes Urinary Cath still in place: Yes Reason Cath still needed: urinary retention Assessment/Plan Assessment/Plan 1. Sepsis secondary on admission, resolved 2. Proteus mirabilis bacteremia secondary to UTI, repeat bld cx neg, finished treatment 3. Multidrug-resistant Proteus mirabilis pyelonephritis, treated 4. Neurogenic bladder, chronic 5. Multiple decubitus with questionable osteomyelitis of right atrium and right iliac bone, treated 6. Chronic back pain, continue pain control 7. Hypertension, stable 8. DVT prophylaxis: lovenox 9. Disposition, still awaiting for placement Result Diagram: 08/04/1818 08/04/18 0718 Subjective 24 Hr Interval Summary Free Text/Dictation afebrile, no event Exam/Review of Systems Exam Vitals Vital Signs Date Temp Pulse Resp B/P (MAP) Pulse Ox O2 O2 Flow FiO2 Time Delivery Rate 08/06/18 98.0 83 18 133/69 95 Room Air 08:09 (90) Intake and Output 08/05/18 08/05/18 08/06/18 1515:00 23:00 07:00 IntakeIntake Total 1060 ml 480 ml OutputOutput Total 950 ml BalanceBalance 110 ml 480 ml Constitutional: alert, oriented, well developed Psych: no complaints, nl mood/affect Head: normocephalic, atraumatic Eyes: nl conjunctiva, EOMI, nl lids, PERRL ENMT: nl external ears & nose, nl lips & teeth, nl nasal mucosa & septum Neck: supple, non-tender Respiratory: clear to auscultation, normal air movement; No congested cough, No crackles/rales, No diminished breath sounds, No intercostal retraction, No labored breathing, No respirations, No tactile fremitus, No wheezing, No other Cardiovascular: regular rate and rhythm, nl pulses; No bruits, No diastolic murmur, No edema, No gallop, No irregular rhythm, No jugular venous distention (JVD), No murmurs/extra sounds, No rub, No systolic murmur, No S3, No S4, No other Gastrointestinal: soft, nl liver, spleen, non-tender Musculoskeletal: nl extremities to inspection Extremities: normal pulses; No calf tenderness, No cyanosis, No clubbing, No edema, No pitting pedal edema, No palpable cord, No tenderness, No other Neurological: CONTRACTING MANAGER II-XII intact, nl mental status, nl speech Medications Medication Current Medications IV Flush (NS 3 ml) 3 ml PER PROTOCOL IV ; Start 06/22/18 at 18:30 Ondansetron HCl (Zofran Inj) 4 mg Q6H PRN IV NAUSEA/VOMITING Last administered on 06/26/18at 15:57; Admin Dose 4 MG; Start 06/22/18 at 18:30 Acetaminophen (Tylenol Tab) 650 mg Q6H PRN PO .PAIN 1-3 OR TEMP; Start 06/22/18 at 18:30 Enoxaparin Sodium (Lovenox) 30 mg DAILY SC Last administered on 08/06/18 08:57; Admin Dose 30 MG; Start 06/23/18 at 09:00 Hydralazine HCl (Apresoline) 10 mg Q4H PRN IV SBP >160; Start 06/22/18 at 19:00 Miscellaneous Information (Pending [facility] Order For Wound Care) This patient [place]. .. PRN PRN XX WOUND CARE; Start 06/23/18 at 00:30 Tamsulosin HCl (Flomax) 0.4 mg DAILY PO Last administered on 08/06/18 08:53; Admin Dose 0.4 MG; Start 06/24/18 at 09:00 Labetalol HCl (Labetalol) 10 mg Q4 PRN IV sbp>160; Start 06/24/18 at 13:30 Pantoprazole (Protonix Tab) 40 mg DAILY@06 PO Last administered on 08/06/18 05:59; Admin Dose 40 MG; Start 07/04/18 at 06:00 Carisoprodol (Soma) 350 mg Q6 PO Last administered on 08/06/18 12:09; Admin Dose 350 MG; Start 07/06/18 at 12:00 Docusate Sodium/ Ferrous Fumarate (Harry-Sequels) 1 tab BID PO Last administered on 08/06/18 08:53; Admin Dose 1 TAB; Start 07/13/18 at 21:00; Stop 08/12/18 at 20:59 Ascorbic Acid (Vitamin C) 500 mg DAILY PO Last administered on 08/06/18 08:54; Admin Dose 500 MG; Start 07/15/18 at 12:00 Zinc Sulfate (Zinc Sulfate) 220 mg DAILY PO Last administered on 08/06/18 08:53; Admin Dose 220 MG; Start 07/15/18 at 11:00 Multivitamins Therapeutic (Theragran) 1 tab DAILY PO Last administered on 08/06/18 08:54; Admin Dose 1 TAB; Start 07/15/18 at 11:00 IV Flush (NS 10 ml) 10 ml PRN PRN IV IV PROTOCOL Last administered on 07/19/18 02:30; Admin Dose 10 ML; Start 07/15/18 at 17:00 Docusate Sodium (Colace) 100 mg BID PRN PO constipation; Start 08/02/18 at 12:30 Magnesium Hydroxide (Milk Of Mag) 30 ml DAILY PRN PO constipation; Start 08/02/18 at 12:30 Morphine Sulfate (Ms Contin (Er)) 45 mg BID PO Last administered on 08/06/18 08:54; Admin Dose 45 MG; Start 08/03/18 at 09:00 Hydromorphone HCl (Dilaudid) 1 mg Q4H PRN IV SEVERE PAIN LEVEL 7-10 Last administered on 08/06/18 11:51; Admin Dose 1 MG; Start 08/04/18 at 17:03 GEOFF AMEZQUITA MD Aug 06, 2018 12:24
[2018-08-06 14:00] VITALS: BP 131/63; PULSE 78; RESP 18
[2018-08-06 19:41] VITALS: BP 154/75; PULSE 90; RESP 20
[2018-08-07 01:29] VITALS: BP 138/77; PULSE 94; RESP 20
[2018-08-07] MEDS: CARISOPRODOL 350 MG TAB PO SCH ×4 (05:14→23:46)
[2018-08-07] MEDS: PANTOPRAZOLE (EC) 40 MG TAB PO SCH (05:14)
[2018-08-07] MEDS: HYDROmorphONE 1 MG/ML SYG IV PRN ×5 (05:14→23:07)
[2018-08-07 07:58] VITALS: BP 127/46; PULSE 76; RESP 18
[2018-08-07] MEDS: MULTIVITAMINS THERAPEUTIC TAB PO SCH (09:41)
[2018-08-07] MEDS: FERROUS FUMARATE (SR) TAB PO SCH ×2 (09:41→20:43)
[2018-08-07] MEDS: TAMSULOSIN (SR) 0.4 MG CAP PO SCH (09:41)
[2018-08-07] MEDS: ZINC SULFATE 220 MG CAP PO SCH (09:41)
[2018-08-07] MEDS: ASCORBIC ACID 500 MG TAB PO SCH (09:41)
[2018-08-07] MEDS: morphine (ER) 15 MG TAB PO SCH ×3 (09:41→20:44)
[2018-08-07] MEDS: ENOXAPARIN 30 MG/0.3 ML SYG SC SCH (09:44)
--- NOTE | 2018-08-07 13:10 | PN ---
Date/Time of Note Date/Time of Note DATE: 08/07/18 TIME: 13:07 Assessment/Plan Lines/Catheters IV Catheter Type (from Nrs): PICC Line Cortez in Place (from Nrs): Yes Assessment/Plan Chief Complaint/Hosp Course 1. Multiple decubitus pressure ulcers: Status post IV antibiotics, s/p osteomyelitis treatment -Continue offloading & nutritional optimization as able -Continue same wound care treatment -Debridement as needed -Vitamin C -snf placement still pending 2. Decompressed bladder with significant thickening concerning for bladder neoplasm versus cystitis: Urethritis, possible pyelonephritis; leaking between self caths, indwelling cortez placed -per Urology 3. Labile mood with intermittent bursts of anger and intermittent refusal of treatments -psych eval noted, refusing meds -Supportive 4. Hypoalbuminemia -Encourage nutritional optimization 5. Hypertension history -Nutrition and medication optimization 6. Anemia without evidence of acute blood loss -Monitor 7. Acute on chronic back pain, nephrolithiasis -Medical optimization -Judicious fluid management 8. Constipation history -bowel optimization 9. Elevated CEA however patient refusing colonoscopy and further workup 10. Generalized pain: -Per pain specialist Thank you. Patient seen and examined in collaboration with Dr. Micah Hobbs. Subjective 24 Hr Interval Summary No fevers, chills, sob, congested cough, cp, palpitations, [place], dizziness, nause a, vomiting, diarrhea, dysuria. Pending custodial facility placement. Exam/Review of Systems Vital Signs Vitals Vital Signs Date Temp Pulse Resp B/P (MAP) Pulse Ox O2 O2 Flow FiO2 Time Delivery Rate 08/07/18 98.1 76 18 127/46 96 Room Air 07:58 (73) Intake and Output 08/06/18 08/06/18 08/07/18 1515:00 23:00 07:00 IntakeIntake Total 2595 ml 680 ml OutputOutput Total 3050 ml 1650 ml BalanceBalance -455 ml 680 ml -1650 ml Exam Free Text/Dictation Constitutional: alert, oriented No distress Psych: labile Head: normocephalic, atraumatic Eyes: nl conjunctiva, EOMI, PERRL; No icteric ENMT: nl external ears & nose, nl lips & teeth, mucosa pink and moist Neck: supple, non-tender; No jvd Respiratory: normal air movement; No congested cough, No labored breathing, No wheezing Cardiovascular: regular rate and rhythm; No edema Gastrointestinal: soft, non-tender; No distended, No rebound or guarding Genitourinary - Male: nl penis, nl scrotum Musculoskeletal: No nl gait and stance, No joint tenderness Extremities: normal pulses; No calf tenderness, No edema, No tenderness Neurological: nl mental status, nl speech; No nl strength Skin: rash or lesions (Decubitus pressure ulcers: Clean, no odor, no drainage, scant drainage); No ecchymosis Lymph: nl lymph nodes Results Result Diagram: 08/04/18 0718 08/04/18 0718 TIFFANIE KLEIN NP Aug 07, 2018 13:10
[2018-08-07 14:00] VITALS: BP 153/87; PULSE 83; RESP 18
--- NOTE | 2018-08-07 14:35 | PN ---
Date/Time of Note Date/Time of Note DATE: 08/07/18 TIME: 14:33 Assessment/Plan VTE Prophylaxis Risk score (from Ns)>0 risk: 6 SCD applied (from Ns): Yes Pharmacological prophylaxis: LMWH Lines/Catheters IV Catheter Type (from Nrsg): PICC Line Central line still needed: Yes Urinary Cath still in place: Yes Reason Cath still needed: urinary retention Assessment/Plan Assessment/Plan 1. Sepsis secondary on admission, resolved 2. Proteus mirabilis bacteremia secondary to UTI, repeat bld cx neg, finished treatment 3. Multidrug-resistant Proteus mirabilis pyelonephritis, treated 4. Neurogenic bladder, chronic 5. Multiple decubitus with questionable osteomyelitis of right atrium and right iliac bone, treated 6. Chronic back pain, continue pain control 7. Hypertension, stable 8. DVT prophylaxis: lovenox 9. Disposition, still awaiting for placement Result Diagram: 08/04/1818 08/04/18 0718 Subjective 24 Hr Interval Summary Free Text/Dictation no event Exam/Review of Systems Exam Vitals Vital Signs Date Temp Pulse Resp B/P (MAP) Pulse Ox O2 O2 Flow FiO2 Time Delivery Rate 08/07/18 98.1 76 18 127/46 96 Room Air 07:58 (73) Intake and Output 08/06/18 08/06/18 08/07/18 1515:00 23:00 07:00 IntakeIntake Total 2595 ml 680 ml OutputOutput Total 3050 ml 1650 ml BalanceBalance -455 ml 680 ml -1650 ml Constitutional: alert, oriented, well developed Psych: no complaints, nl mood/affect Head: normocephalic, atraumatic Eyes: nl conjunctiva, EOMI, nl lids, PERRL ENMT: nl external ears & nose, nl lips & teeth, nl nasal mucosa & septum Neck: supple, non-tender Respiratory: clear to auscultation, normal air movement; No congested cough, No crackles/rales, No diminished breath sounds, No intercostal retraction, No labored breathing, No respirations, No tactile fremitus, No wheezing, No other Cardiovascular: regular rate and rhythm, nl pulses; No bruits, No diastolic murmur, No edema, No gallop, No irregular rhythm, No jugular venous distention (JVD), No murmurs/extra sounds, No rub, No systolic murmur, No S3, No S4, No other Gastrointestinal: soft, nl liver, spleen, non-tender Extremities: normal pulses Neurological: PEANUT SHAKER II-XII intact, nl mental status, nl speech Medications Medication Current Medications IV Flush (NS 3 ml) 3 ml PER PROTOCOL IV ; Start 06/22/18 at 18:30 Ondansetron HCl (Zofran Inj) 4 mg Q6H PRN IV NAUSEA/VOMITING Last administered on 06/26/18at 15:57; Admin Dose 4 MG; Start 06/22/18 at 18:30 Acetaminophen (Tylenol Tab) 650 mg Q6H PRN PO .PAIN 1-3 OR TEMP; Start 06/22/18 at 18:30 Enoxaparin Sodium (Lovenox) 30 mg DAILY SC Last administered on 08/07/18at 09:44; Admin Dose 30 MG; Start 06/23/18 at 09:00 Hydralazine HCl (Apresoline) 10 mg Q4H PRN IV SBP >160; Start 06/22/18 at 19:00 Miscellaneous Information (Pending [facility] Order For Wound Care) This patient [place]... PRN PRN XX WOUND CARE; Start 06/23/18 at 00:30 Tamsulosin HCl (Flomax) 0.4 mg DAILY PO Last administered on 08/07/18 09:41; Admin Dose 0.4 MG; Start 06/24/18 at 09:00 Labetalol HCl (Labetalol) 10 mg Q4 PRN IV sbp>160; Start 06/24/18 at 13:30 Pantoprazole (Protonix Tab) 40 mg DAILY@06 PO Last administered on 08/07/18 05:14; Admin Dose 40 MG; Start 07/04/18 at 06:00 Carisoprodol (Soma) 350 mg Q6 PO Last administered on 08/07/18 12:41; Admin Dose 350 MG; Start 07/06/18 at 12:00 Docusate Sodium/ Ferrous Fumarate (Harry-Sequels) 1 tab BID PO Last administered on 08/07/18 09:41; Admin Dose 1 TAB; Start 07/13/18 at 21:00; Stop 08/12/18 at 20:59 Ascorbic Acid (Vitamin C) 500 mg DAILY PO Last administered on 08/07/18 09:41; Admin Dose 500 MG; Start 07/15/18 at 12:00 Zinc Sulfate (Zinc Sulfate) 220 mg DAILY PO Last administered on 08/07/18 09:41; Admin Dose 220 MG; Start 07/15/18 at 11:00 Multivitamins Therapeutic (Theragran) 1 tab DAILY PO Last administered on 07/25 09:41; Admin Dose 1 TAB; Start 07/15/18 at 11:00 IV Flush (NS 10 ml) 10 ml PRN PRN IV IV PROTOCOL Last administered on 07/19/18 02:30; Admin Dose 10 ML; Start 07/15/18 at 17:00 Docusate Sodium (Colace) 100 mg BID PRN PO constipation; Start 08/02/18 at 12:30 Magnesium Hydroxide (Milk Of Mag) 30 ml DAILY PRN PO constipation; Start 08/02/18 at 12:30 Morphine Sulfate (Ms Contin (Er)) 45 mg BID PO Last administered on 08/07/18 10:19; Admin Dose 45 MG; Start 08/03/18 at 09:00 Hydromorphone HCl (Dilaudid) 1 mg Q4H PRN IV SEVERE PAIN LEVEL 7-10 Last administered on 08/07/18 09:55; Admin Dose 1 MG; Start 08/04/18 at 17:03 GEOFF AMEZQUITA MD Aug 07, 2018 14:34
[2018-08-07 20:00] VITALS: BP 117/73; PULSE 80; RESP 19
[2018-08-08 02:00] VITALS: BP 121/75; PULSE 82; RESP 20
[2018-08-08] MEDS: HYDROmorphONE 1 MG/ML SYG IV PRN ×6 (03:06→23:47)
[2018-08-08] MEDS: PANTOPRAZOLE (EC) 40 MG TAB PO SCH (05:45)
[2018-08-08] MEDS: CARISOPRODOL 350 MG TAB PO SCH ×4 (05:45→23:47)
[2018-08-08 07:45] VITALS: BP 117/62; PULSE 80; RESP 17
[2018-08-08] MEDS: ZINC SULFATE 220 MG CAP PO SCH (08:45)
[2018-08-08] MEDS: ASCORBIC ACID 500 MG TAB PO SCH (08:45)
[2018-08-08] MEDS: TAMSULOSIN (SR) 0.4 MG CAP PO SCH (08:45)
[2018-08-08] MEDS: MULTIVITAMINS THERAPEUTIC TAB PO SCH (08:45)
[2018-08-08] MEDS: FERROUS FUMARATE (SR) TAB PO SCH ×2 (08:45→21:39)
[2018-08-08] MEDS: morphine (ER) 15 MG TAB PO SCH ×2 (08:46→21:39)
[2018-08-08] MEDS: ENOXAPARIN 30 MG/0.3 ML SYG SC SCH (08:47)
--- NOTE | 2018-08-08 10:45 | PN ---
Date/Time of Note Date/Time of Note DATE: 08/08/18 TIME: 10:39 Assessment/Plan Lines/Catheters IV Catheter Type (from Nrs): PICC Line Cortez in Place (from Nrs): Yes Assessment/Plan Chief Complaint/Hosp Course 1. Multiple decubitus pressure ulcers: Status post IV antibiotics, s/p osteomyelitis treatment -Continue offloading & nutritional optimization as able -Continue same wound care treatment -Debridement as needed -Vitamin C -snf placement still pending 2. Decompressed bladder with significant thickening concerning for bladder neoplasm versus cystitis: Urethritis, possible pyelonephritis; leaking between self caths, indwelling cortez placed -per Urology 3. Labile mood with intermittent bursts of anger and intermittent refusal of treatments -psych eval noted, refusing meds -Supportive 4. Hypoalbuminemia -Encourage nutritional optimization 5. Hypertension history -Nutrition and medication optimization 6. Anemia without evidence of acute blood loss -Monitor 7. Acute on chronic back pain, nephrolithiasis -Medical optimization -Judicious fluid management 8. Constipation history -bowel optimization 9. Elevated CEA however patient refusing colonoscopy and further workup 10. Generalized pain: -Per pain specialist Thank you. Patient seen and examined in collaboration with Dr. Micah Hobbs. Subjective 24 Hr Interval Summary No acute events. No fevers, chills, sob, congested cough, cp, palpitations, villela, dizziness, n/v/d/dysuria. Exam/Review of Systems Vital Signs Vitals Vital Signs Date Temp Pulse Resp B/P (MAP) Pulse Ox O2 O2 Flow FiO2 Time Delivery Rate 08/08/18 97.7 80 17 117/62 97 07:45 (80) 08/07/18 Room Air 14:00 Intake and Output 08/07/18 08/07/18 08/08/18 1515:00 23:00 07:00 IntakeIntake Total 1160 ml 480 ml OutputOutput Total 950 ml BalanceBalance 210 ml 480 ml Exam Free Text/Dictation Constitutional: alert, oriented No distress Psych: labile Head: normocephalic, atraumatic Eyes: nl conjunctiva, EOMI, PERRL; No icteric ENMT: nl external ears & nose, nl lips & teeth, mucosa pink and moist Neck: supple, non-tender; No jvd Respiratory: normal air movement; No congested cough, No labored breathing, No wheezing Cardiovascular: regular rate and rhythm; No edema Gastrointestinal: soft, non-tender; No distended, No rebound or guarding Genitourinary - Male: nl penis, nl scrotum Musculoskeletal: No nl gait and stance, No joint tenderness Extremities: normal pulses; No calf tenderness, No edema, No tenderness Neurological: nl mental status, nl speech; No nl strength Skin: rash or lesions (Decubitus pressure ulcers: Clean, no odor, no drainage, scant drainage); No ecchymosis Lymph: nl lymph nodes Results Result Diagram: 08/04/18 0718 08/04/18 0718 TIFFANIE KLEIN NP Aug 08, 2018 10:44
--- NOTE | 2018-08-08 12:50 | PN ---
Date/Time of Note Date/Time of Note DATE: 08/08/18 TIME: 12:48 Assessment/Plan VTE Prophylaxis Risk score (from Ns)>0 risk: 3 SCD applied (from Nsg): Yes Pharmacological prophylaxis: LMWH Lines/Catheters IV Catheter Type (from Nrsg): PICC Line Central line still needed: Yes Urinary Cath still in place: Yes Reason Cath still needed: urinary retention Assessment/Plan Assessment/Plan 1. Sepsis secondary on admission, resolved 2. Proteus mirabilis bacteremia secondary to UTI, repeat bld cx neg, finished treatment 3. Multidrug-resistant Proteus mirabilis pyelonephritis, treated 4. Neurogenic bladder, chronic 5. Multiple decubitus with questionable osteomyelitis of right atrium and right iliac bone, treated 6. Chronic back pain, continue pain control 7. Hypertension, stable 8. DVT prophylaxis: lovenox 9. Disposition, awaiting for placement Result Diagram: 08/04/1871708/04/18717 Subjective 24 Hr Interval Summary Free Text/Dictation no event Exam/Review of Systems Exam Vitals Vital Signs Date Temp Pulse Resp B/P (MAP) Pulse Ox O2 O2 Flow FiO2 Time Delivery Rate 08/08/18 97.7 80 17 117/62 97 07:45 (80) 08/07/18 Room Air 14:00 Intake and Output 08/07/18 08/07/18 08/08/18 1515:00 23:00 07:00 IntakeIntake Total 1160 ml 480 ml OutputOutput Total 950 ml BalanceBalance 210 ml 480 ml Constitutional: alert, oriented, well developed Psych: no complaints Head: normocephalic, atraumatic Eyes: nl conjunctiva, EOMI, nl lids, PERRL ENMT: nl external ears & nose, nl lips & teeth, nl nasal mucosa & septum Neck: supple, non-tender Respiratory: clear to auscultation, normal air movement; No congested cough, No crackles/rales, No diminished breath sounds, No intercostal retraction, No labored breathing, No respirations, No tactile fremitus, No wheezing, No other Cardiovascular: regular rate and rhythm, nl pulses; No bruits, No diastolic murmur, No edema, No gallop, No irregular rhythm, No jugular venous distention (JVD), No murmurs/extra sounds, No rub, No systolic murmur, No S3, No S4, No other Gastrointestinal: soft, nl liver, spleen, non-tender Extremities: normal pulses Neurological: STORE CASHIER II-XII intact, nl mental status, nl speech Medications Medication Current Medications IV Flush (NS 3 ml) 3 ml PER PROTOCOL IV ; Start 06/22/18 at 18:30 Ondansetron HCl (Zofran Inj) 4 mg Q6H PRN IV NAUSEA/VOMITING Last administered on 06/26/18at 15:57; Admin Dose 4 MG; Start 06/22/18 at 18:30 Acetaminophen (Tylenol Tab) 650 mg Q6H PRN PO .PAIN 1-3 OR TEMP; Start 06/22/18 at 18:30 Enoxaparin Sodium (Lovenox) 30 mg DAILY SC Last administered on 08/08/18at 08:47; Admin Dose 30 MG; Start 06/23/18 at 09:00 Hydralazine HCl (Apresoline) 10 mg Q4H PRN IV SBP >160; Start 06/22/18 at 19:00 [facility] This patient villela... PRN PRN XX WOUND CARE; Start 06/23/18 at 00:30 Tamsulosin HCl (Flomax) 0.4 mg DAILY PO Last administered on 08/08/18 08:45; Admin Dose 0.4 MG; Start 06/24/18 at 09:00 Labetalol HCl (Labetalol) 10 mg Q4 PRN IV sbp>160; Start 06/24/18 at 13:30 Pantoprazole (Protonix Tab) 40 mg DAILY@06 PO Last administered on 08/08/18 05:45; Admin Dose 40 MG; Start 07/04/18 at 06:00 Carisoprodol (Soma) 350 mg Q6 PO Last administered on 08/08/18 11:11; Admin Dose 350 MG; Start 07/06/18 at 12:00 Docusate Sodium/ Ferrous Fumarate (Harry-Sequels) 1 tab BID PO Last administered on 08/08/18 08:45; Admin Dose 1 TAB; Start 07/13/18 at 21:00; Stop 08/12/18 at 20:59 Ascorbic Acid (Vitamin C) 500 mg DAILY PO Last administered on 08/08/18 08:45; Admin Dose 500 MG; Start 07/15/18 at 12:00 Zinc Sulfate (Zinc Sulfate) 220 mg DAILY PO Last administered on 08/08/18 08:45; Admin Dose 220 MG; Start 07/15/18 at 11:00 Multivitamins Therapeutic (Theragran) 1 tab DAILY PO Last administered on 08/08/18 08:45; Admin Dose 1 TAB; Start 07/15/18 at 11:00 IV Flush (NS 10 ml) 10 ml PRN PRN IV IV PROTOCOL Last administered on 07/19/18 02:30; Admin Dose 10 ML; Start 07/15/18 at 17:00 Docusate Sodium (Colace) 100 mg BID PRN PO constipation; Start 08/02/18 at 12:30 Magnesium Hydroxide (Milk Of Mag) 30 ml DAILY PRN PO constipation; Start 08/02/18 at 12:30 Morphine Sulfate (Ms Contin (Er)) 45 mg BID PO Last administered on 08/08/18 08:46; Admin Dose 45 MG; Start 08/03/18 at 09:00 Hydromorphone HCl (Dilaudid) 1 mg Q4H PRN IV SEVERE PAIN LEVEL 7-10 Last administered on 08/08/18 11:08; Admin Dose 1 MG; Start 08/04/18 at 17:03 GEOFF AMEZQUITA MD Aug 08, 2018 12:50
[2018-08-08 14:33] VITALS: BP 146/76; PULSE 82; RESP 19
[2018-08-08 19:42] VITALS: BP 151/72; PULSE 100; RESP 20
[2018-08-09 02:02] VITALS: BP 137/77; PULSE 94; RESP 20
[2018-08-09] MEDS: HYDROmorphONE 1 MG/ML SYG IV PRN ×5 (03:42→20:20)
[2018-08-09] MEDS: CARISOPRODOL 350 MG TAB PO SCH ×3 (06:17→17:46)
[2018-08-09] MEDS: PANTOPRAZOLE (EC) 40 MG TAB PO SCH (06:17)
[2018-08-09 07:52] VITALS: BP 150/74; PULSE 73; RESP 20
[2018-08-09] MEDS: FERROUS FUMARATE (SR) TAB PO SCH ×2 (08:47→20:20)
[2018-08-09] MEDS: MULTIVITAMINS THERAPEUTIC TAB PO SCH (08:47)
[2018-08-09] MEDS: ASCORBIC ACID 500 MG TAB PO SCH (08:47)
[2018-08-09] MEDS: morphine (ER) 15 MG TAB PO SCH ×2 (08:47→21:49)
[2018-08-09] MEDS: ZINC SULFATE 220 MG CAP PO SCH (08:47)
[2018-08-09] MEDS: TAMSULOSIN (SR) 0.4 MG CAP PO SCH (08:47)
[2018-08-09] MEDS: ENOXAPARIN 30 MG/0.3 ML SYG SC SCH (08:50)
--- NOTE | 2018-08-09 11:33 | PN ---
Date/Time of Note Date/Time of Note DATE: 08/09/18 TIME: 11:32 Objective Vitals Vital Signs Date Temp Pulse Resp B/P (MAP) Pulse Ox O2 O2 Flow FiO2 Time Delivery Rate 08/09/18 98.8 73 20 150/74 95 07:52 (99) 08/07/18 Room Air 14:00 Intake and Output 08/08/18 08/08/18 08/09/18 1515:00 23:00 07:00 IntakeIntake Total 1080 ml 760 ml OutputOutput Total 1400 ml 1250 ml 1100 ml BalanceBalance -320 ml -490 ml -1100 ml Medications Medications Current Medications IV Flush (NS 3 ml) 3 ml PER PROTOCOL IV ; Start 06/22/18 at 18:30 Ondansetron HCl (Zofran Inj) 4 mg Q6H PRN IV NAUSEA/VOMITING Last administered on 06/26/18at 15:57; Admin Dose 4 MG; Start 06/22/18 at 18:30 Acetaminophen (Tylenol Tab) 650 mg Q6H PRN PO .PAIN 1-3 OR TEMP; Start 06/22/18 at 18:30 Enoxaparin Sodium (Lovenox) 30 mg DAILY SC Last administered on 08/09/18at 08:50; Admin Dose 30 MG; Start 06/23/18 at 09:00 Hydralazine HCl (Apresoline) 10 mg Q4H PRN IV SBP >160; Start 06/22/18 at 19:00 [facility] This patient [place]... PRN PRN XX WOUND CARE; Start 06/23/18 at 00:30 Tamsulosin HCl (Flomax) 0.4 mg DAILY PO Last administered on 08/09/18at 08:47; Admin Dose 0.4 MG; Start 06/24/18 at 09:00 Labetalol HCl (Labetalol) 10 mg Q4 PRN IV sbp>160; Start 06/24/18 at 13:30 Pantoprazole (Protonix Tab) 40 mg DAILY@06 PO Last administered on 08/09/18at 06:17; Admin Dose 40 MG; Start 07/04/18 at 06:00 Carisoprodol (Soma) 350 mg Q6 PO Last administered on 08/09/18at 06:17; Admin Dose 350 MG; Start 07/06/18 at 12:00 Docusate Sodium/ Ferrous Fumarate (Harry-Sequels) 1 tab BID PO Last admin istered on 08/09/18 08:47; Admin Dose 1 TAB; Start 07/13/18 at 21:00; Stop 08/12/18 at 20:59 Ascorbic Acid (Vitamin C) 500 mg DAILY PO Last administered on 08/09/18 08:47; Admin Dose 500 MG; Start 07/15/18 at 12:00 Zinc Sulfate (Zinc Sulfate) 220 mg DAILY PO Last administered on 08/09/18 08:47; Admin Dose 220 MG; Start 07/15/18 at 11:00 Multivitamins Therapeutic (Theragran) 1 tab DAILY PO Last administered on 08/09/18 08:47; Admin Dose 1 TAB; Start 07/15/18 at 11:00 IV Flush (NS 10 ml) 10 ml PRN PRN IV IV PROTOCOL Last administered on 07/19/18 02:30; Admin Dose 10 ML; Start 07/15/18 at 17:00 Docusate Sodium (Colace) 100 mg BID PRN PO constipation; Start 08/02/18 at 12:30 Magnesium Hydroxide (Milk Of Mag) 30 ml DAILY PRN PO constipation; Start at 12:30 Morphine Sulfate (Ms Contin (Er)) 45 mg BID PO Last administered on 08/09/18 08:47; Admin Dose 45 MG; Start 08/03/18 at 09:00 Hydromorphone HCl (Dilaudid) 1 mg Q4H PRN IV SEVERE PAIN LEVEL 7-10 Last administered on 08/09/18 07:45; Admin Dose 1 MG; Start 08/04/18 at 17:03 VTE Prophylaxis Risk score (from Nsg)>0 risk: 5 SCD applied (from Nsg): No SCD contraindication: other Lines/Catheters IV Catheter Type: Cortez in Place: Yes Cont'd cortez catheter reason: skin wounds contaminated by urine Assessment/Plan Hospital Course Subjective No acute changes Objective Physical exam General: Patient is laying in bed and answers questions appropriately Mentation: Patient is alert and oriented 4, Head: Normocephalic atraumatic Eyes: EOMI, pupils reactive to light Neck: Supple, nontender, midline Respiratory: Clear to auscultation bilaterally Cardiovascular: regular rate, no obvious murmurs Gastrointestinal: non-tender to palpation, bowel sounds heard. Neurological: Moves all extremities spontaneously Skin: Multiple ulcers on patient's sacral decubitus area and buttock area, bandaged Assessment/Plan 1. Sepsis secondary to UTI, decubitus ulcers, and OM- resolved - Completed course of antibiotics and will monitor off antibiotics at this time - Remains afebrile and nl WBC - ID on board and appreciate recommendations 2. UTI- resolved 3. Sacral decubitus ulcer with abscess- stable - Surgery consultation appreciated and continue current medical management and wound care. Debridement as needed - Cortez in placed to protect decub ulcers 4. Osteomyelitis of ischium - Completed course of antibiotics - Increased MS Contin to 45mg today but still requiring IV breakthrough. Discussed increasing to 60 in the next few days to see if able to d/c Dilaudid with proper pain control - Pain management on board 5. Chronic back pain - continue pain control 6. Hypertension - stable 7. Neurogenic bladder - cortez in place - Urology on board 8. Disposition - Medically stable for discharge once accepted to [facility] Aug 09, 2018 11:33
[2018-08-09 14:16] VITALS: BP 136/69; RESP 18
[2018-08-09 20:00] VITALS: BP 128/68; PULSE 88; RESP 19
[2018-08-10] MEDS: CARISOPRODOL 350 MG TAB PO SCH ×4 (00:22→18:01)
[2018-08-10] MEDS: HYDROmorphONE 1 MG/ML SYG IV PRN ×6 (00:23→21:57)
[2018-08-10 02:00] VITALS: BP 134/62; PULSE 91; RESP 19
[2018-08-10] MEDS: PANTOPRAZOLE (EC) 40 MG TAB PO SCH (05:53)
[2018-08-10 07:25] VITALS: BP 133/66; PULSE 84; RESP 20
[2018-08-10] MEDS: ASCORBIC ACID 500 MG TAB PO SCH (08:28)
[2018-08-10] MEDS: FERROUS FUMARATE (SR) TAB PO SCH ×2 (08:28→20:22)
[2018-08-10] MEDS: MULTIVITAMINS THERAPEUTIC TAB PO SCH (08:28)
[2018-08-10] MEDS: morphine (ER) 15 MG TAB PO SCH ×2 (08:28→20:23)
[2018-08-10] MEDS: ZINC SULFATE 220 MG CAP PO SCH (08:28)
[2018-08-10] MEDS: TAMSULOSIN (SR) 0.4 MG CAP PO SCH (08:28)
[2018-08-10] MEDS: ENOXAPARIN 30 MG/0.3 ML SYG SC SCH (08:30)
--- NOTE | 2018-08-10 12:43 | PN ---
Date/Time of Note Date/Time of Note DATE: 08/10/18 TIME: 12:43 Objective Vitals Vital Signs Date Temp Pulse Resp B/P (MAP) Pulse Ox O2 O2 Flow FiO2 Time Delivery Rate 08/10/18 98.3 84 20 133/66 96 07:25 (88) 08/07/18 Room Air 14:00 Intake and Output 08/09/18 08/09/18 08/10/18 1515:00 23:00 07:00 IntakeIntake Total 700 ml 720 ml 900 ml OutputOutput Total 1300 ml 1500 ml BalanceBalance 700 ml -580 ml -600 ml Medications Medications Current Medications IV Flush (NS 3 ml) 3 ml PER PROTOCOL IV ; Start 06/22/18 at 18:30 Ondansetron HCl (Zofran Inj) 4 mg Q6H PRN IV NAUSEA/VOMITING Last administered on 06/26/18at 15:57; Admin Dose 4 MG; Start 06/22/18 at 18:30 Acetaminophen (Tylenol Tab) 650 mg Q6H PRN PO .PAIN 1-3 OR TEMP; Start 06/22/18 at 18:30 Enoxaparin Sodium (Lovenox) 30 mg DAILY SC Last administered on 08/10/18at 08:30; Admin Dose 30 MG; Start 06/23/18 at 09:00 Hydralazine HCl (Apresoline) 10 mg Q4H PRN IV SBP >160; Start 06/22/18 at 19:00 Miscellaneous Information (Pending [facility] Order For Wound Care) This patient [place]... PRN PRN XX WOUND CARE; Start 06/23/18 at 00:30 Tamsulosin HCl (Flomax) 0.4 mg DAILY PO Last administered on 08/10/18at 08:28; Admin Dose 0.4 MG; Start 06/24/18 at 09:00 Labetalol HCl (Labetalol) 10 mg Q4 PRN IV sbp>160; Start 06/24/18 at 13:30 Pantoprazole (Protonix Tab) 40 mg DAILY@06 PO Last administered on 08/10/18at 05:53; Admin Dose 40 MG; Start 07/04/18 at 06:00 Carisoprodol (Soma) 350 mg Q6 PO Last administered on 08/10/18at 05:53; Admin Dose 350 MG; Start 07/06/18 at 12:00 Docusate Sodium/ Ferrous Fumarate (Harry-Sequels) 1 tab BID PO Last administe red on 08/10/18 08:28; Admin Dose 1 TAB; Start 07/13/18 at 21:00; Stop 08/12/18 at 20:59 Ascorbic Acid (Vitamin C) 500 mg DAILY PO Last administered on 08/10/18 08:28; Admin Dose 500 MG; Start 07/15/18 at 12:00 Zinc Sulfate (Zinc Sulfate) 220 mg DAILY PO Last administered on 08/10/18 08:28; Admin Dose 220 MG; Start 07/15/18 at 11:00 Multivitamins Therapeutic (Theragran) 1 tab DAILY PO Last administered on 08/10/18 08:28; Admin Dose 1 TAB; Start 07/15/18 at 11:00 IV Flush (NS 10 ml) 10 ml PRN PRN IV IV PROTOCOL Last administered on 07/19/18 02:30; Admin Dose 10 ML; Start 07/15/18 at 17:00 Docusate Sodium (Colace) 100 mg BID PRN PO constipation; Start 08/02/18 at 12:30 Magnesium Hydroxide (Milk Of Mag) 30 ml DAILY PRN PO constipation; Start 08/02/18 at 12:30 Morphine Sulfate (Ms Contin (Er)) 45 mg BID PO Last administered on 08/10/18 08:28; Admin Dose 45 MG; Start 08/03/18 at 09:00 Hydromorphone HCl (Dilaudid) 1 mg Q4H PRN IV SEVERE PAIN LEVEL 7-10 Last administered on 08/10/18 09:39; Admin Dose 1 MG; Start 08/04/18 at 17:03 VTE Prophylaxis Risk score (from Nsg)>0 risk: 6 SCD applied (from Nsg): No SCD contraindication: other Lines/Catheters IV Catheter Type: Cortez in Place: No Assessment/Plan Hospital Course Subjective No acute changes Objective Physical exam General: Patient is laying in bed and answers questions appropriately Mentation: Patient is alert and oriented 4, Head: Normocephalic atraumatic Eyes: EOMI, pupils reactive to light Neck: Supple, nontender, midline Respiratory: Clear to auscultation bilaterally Cardiovascular: regular rate, no obvious murmurs Gastrointestinal: non-tender to palpation, bowel sounds heard. Neurological: Moves all extremities spontaneously Skin: Multiple ulcers on patient's sacral decubitus area and buttock area, bandaged Assessment/Plan 1. Sepsis secondary to UTI, decubitus ulcers, and OM- resolved - Completed course of antibiotics and will monitor off antibiotics at this time - Remains afebrile and nl WBC - ID on board and appreciate recommendations 2. UTI- resolved 3. Sacral decubitus ulcer with abscess- stable - Surgery consultation appreciated and continue current medical management and wound care. Debridement as needed - Cortez in placed to protect decub ulcers 4. Osteomyelitis of ischium - Completed course of antibiotics - Increased MS Contin to 45mg today but still requiring IV breakthrough. Discussed increasing to 60 in the next few days to see if able to d/c Dilaudid with proper pain control - Pain management on board 5. Chronic back pain - continue pain control 6. Hypertension - stable 7. Neurogenic bladder - cortez in place - Urology on board 8. Disposition - Medically stable for discharge once accepted to [facility] Aug 10, 2018 12:43
[2018-08-10 14:19] VITALS: BP 119/67; PULSE 67; RESP 18
[2018-08-10 20:00] VITALS: BP 121/73; PULSE 69; RESP 18
--- NOTE | 2018-08-10 22:00 | PN ---
Date/Time of Note Date/Time of Note DATE: 08/09/18 TIME: 21:54 Assessment/Plan Lines/Catheters IV Catheter Type (from Nrs): PICC Line Cortez in Place (from Nrs): No Assessment/Plan Chief Complaint/Hosp Course 1. Multiple decubitus pressure ulcers: Status post IV antibiotics, s/p osteomyelitis treatment -Continue offloading & nutritional optimization as able -Continue same wound care treatment -Debridement as needed -Vitamin C -snf placement still pending 2. Decompressed bladder with significant thickening concerning for bladder neoplasm versus cystitis: Urethritis, possible pyelonephritis; leaking between self caths, indwelling cortez placed -per Urology 3. Labile mood with intermittent bursts of anger and intermittent refusal of treatments -psych eval noted, refusing meds -Supportive 4. Hypoalbuminemia -Encourage nutritional optimization 5. Hypertension history -Nutrition and medication optimization 6. Anemia without evidence of acute blood loss -Monitor 7. Acute on chronic back pain, nephrolithiasis -Medical optimization -Judicious fluid management 8. Constipation history -bowel optimization 9. Elevated CEA however patient refusing colonoscopy and further workup 10. Generalized pain: -Per pain specialist Thank you Late entry 08/09 Subjective 24 Hr Interval Summary No acute events. No fevers, chills, sob, congested cough, cp, palpitations, [place], dizziness, n/v/d/dysuria. Constitutional: alert, oriented No distress Psych: labile Head: normocephalic, atraumatic Eyes: nl conjunctiva, EOMI, PERRL; No icteric ENMT: nl external ears & nose, nl lips & teeth, mucosa pink and moist Neck: supple, non-tender; No jvd Respiratory: normal air movement; No congested cough, No labored breathing, No wheezing Cardiovascular: regular rate and rhythm; No edema Gastrointestinal: soft, non-tender; No distended, No rebound or guarding Genitourinary - Male: nl penis, nl scrotum Musculoskeletal: No nl gait and stance, No joint tenderness Extremities: normal pulses; No calf tenderness, No edema, No tenderness Neurological: nl mental status, nl speech; No nl strength Skin: rash or lesions (Decubitus pressure ulcers: Clean, no odor, no drainage, scant drainage); No ecchymosis Lymph: nl lymph nodes Exam/Review of Systems Vital Signs Vitals Vital Signs Date Temp Pulse Resp B/P (MAP) Pulse Ox O2 O2 Flow FiO2 Time Delivery Rate 08/10/18 98.3 69 18 121/73 94 Room Air 20:00 (89) Intake and Output 08/09/18 08/09/18 08/10/18 1515:00 23:00 07:00 IntakeIntake Total 700 ml 720 ml 900 ml OutputOutput Total 1300 ml 1500 ml BalanceBalance 700 ml -580 ml -600 ml Exam Free Text/Dictation Constitutional: alert, oriented No distress Psych: labile Head: normocephalic, atraumatic Eyes: nl conjunctiva, EOMI, PERRL; No icteric ENMT: nl external ears & nose, nl lips & teeth, mucosa pink and moist Neck: supple, non-tender; No jvd Respiratory: normal air movement; No congested cough, No labored breathing, No wheezing Cardiovascular: regular rate and rhythm; No edema Gastrointestinal: soft, non-tender; No distended, No rebound or guarding Genitourinary - Male: nl penis, nl scrotum Musculoskeletal: No nl gait and stance, No joint tenderness Extremities: normal pulses; No calf tenderness, No edema, No tenderness Neurological: nl mental status, nl speech; No nl strength Skin: rash or lesions (Decubitus pressure ulcers: Clean, no odor, no drainage, scant drainage); No ecchymosis Lymph: nl lymph nodes GUSTABO AGRCIA MD Aug 10, 2018 22:00
--- NOTE | 2018-08-10 22:02 | PN ---
Date/Time of Note Date/Time of Note DATE: 08/10/18 TIME: 22:00 Assessment/Plan Lines/Catheters IV Catheter Type (from Nrs): PICC Line Cortez in Place (from Nrs): No Assessment/Plan Chief Complaint/Hosp Course 1. Multiple decubitus pressure ulcers: Status post IV antibiotics, s/p osteomyelitis treatment -Continue offloading & nutritional optimization as able -Continue same wound care treatment -Debridement as needed -Vitamin C -snf placement still pending 2. Decompressed bladder with significant thickening concerning for bladder neoplasm versus cystitis: Urethritis, possible pyelonephritis; leaking between self caths, indwelling cortez placed -per Urology 3. Labile mood with intermittent bursts of anger and intermittent refusal of treatments -psych eval noted, refusing meds -Supportive 4. Hypoalbuminemia -Encourage nutritional optimization 5. Hypertension history -Nutrition and medication optimization 6. Anemia without evidence of acute blood loss -Monitor 7. Acute on chronic back pain, nephrolithiasis -Medical optimization -Judicious fluid management 8. Constipation history -bowel optimization 9. Elevated CEA however patient refusing colonoscopy and further workup 10. Generalized pain: -Per pain specialist Thank you Subjective 24 Hr Interval Summary No acute events. No fevers, chills, sob, congested cough, cp, palpitations, [place], dizziness, n/v/d/dysuria. Exam/Review of Systems Vital Signs Vitals Vital Signs Date Temp Pulse Resp B/P (MAP) Pulse Ox O2 O2 Flow FiO2 Time Delivery Rate 08/10/18 98.3 69 18 121/73 94 Room Air 20:00 (89) Intake and Output 08/09/18 08/09/18 08/10/18 1515:00 23:00 07:00 IntakeIntake Total 700 ml 720 ml 900 ml OutputOutput Total 1300 ml 1500 ml BalanceBalance 700 ml -580 ml -600 ml Exam Free Text/Dictation Constitutional: alert, oriented No distress Psych: labile Head: normocephalic, atraumatic Eyes: nl conjunctiva, EOMI, PERRL; No icteric ENMT: nl external ears & nose, nl lips & teeth, mucosa pink and moist Neck: supple, non-tender; No jvd Respiratory: normal air movement; No congested cough, No labored breathing, No wheezing Cardiovascular: regular rate and rhythm; No edema Gastrointestinal: soft, non-tender; No distended, No rebound or guarding Genitourinary - Male: nl penis, nl scrotum Musculoskeletal: No nl gait and stance, No joint tenderness Extremities: normal pulses; No calf tenderness, No edema, No tenderness Neurological: nl mental status, nl speech; No nl strength Skin: rash or lesions (Decubitus pressure ulcers: Clean, no odor, no drainage, scant drainage); No ecchymosis Lymph: nl lymph nodes GUSTABO GARCIA MD Aug 10, 2018 22:02
[2018-08-11] MEDS: CARISOPRODOL 350 MG TAB PO SCH ×5 (00:37→17:24)
[2018-08-11 01:47] VITALS: BP 117/67; PULSE 83; RESP 16
[2018-08-11 01:49] VITALS: BP 131/60; PULSE 89; RESP 16
[2018-08-11] MEDS: HYDROmorphONE 1 MG/ML SYG IV PRN ×6 (01:58→22:09)
[2018-08-11] MEDS: PANTOPRAZOLE (EC) 40 MG TAB PO SCH (05:59)
[2018-08-11 08:00] VITALS: BP 136/74; PULSE 81; RESP 18
[2018-08-11] MEDS: FERROUS FUMARATE (SR) TAB PO SCH ×2 (08:49→21:11)
[2018-08-11] MEDS: ASCORBIC ACID 500 MG TAB PO SCH (08:49)
[2018-08-11] MEDS: MULTIVITAMINS THERAPEUTIC TAB PO SCH (08:49)
[2018-08-11] MEDS: morphine (ER) 15 MG TAB PO SCH (08:50)
[2018-08-11] MEDS: ZINC SULFATE 220 MG CAP PO SCH (08:50)
[2018-08-11] MEDS: TAMSULOSIN (SR) 0.4 MG CAP PO SCH (08:50)
--- NOTE | 2018-08-11 09:38 | PN ---
Date/Time of Note Date/Time of Note DATE: 08/11/18 TIME: 09:38 Assessment/Plan VTE Prophylaxis Risk score (from Nsg)>0 risk: 8 SCD applied (from Ns): No SCD contraindicated: other Pharmacological prophylaxis: LMWH Lines/Catheters IV Catheter Type (from Nrsg): PICC Line Central line still needed: Yes Urinary Cath still in place: No Reason Cath still needed: pres ulcer contaminated by urine Assessment/Plan Assessment/Plan 1. Sepsis secondary to UTI, decubitus ulcers, and OM- resolved - Completed course of antibiotics and will monitor off antibiotics at this time - ID on board and appreciate recommendations 2. UTI- resolved 3. Sacral decubitus ulcer with abscess- stable - Surgery consultation appreciated and continue current medical management and wound care. - Cortez in placed to protect decub ulcers 4. Osteomyelitis of ischium - Completed course of antibiotics - Will increase MS Contin to 60mg with goal to d/c IV Dilaudid - Pain management on board 5. Chronic back pain - continue pain control 6. Hypertension - stable 7. Neurogenic bladder - cortez in place - Urology on board 8. Disposition - Medically stable for discharge once accepted to SNF Subjective 24 Hr Interval Summary Free Text/Dictation Patient denies any acute issues but frustrated because he feels as if his discharge planning is not being communicated with him. Discussed with CM no accepting facilities including [facility] which patient states they keep telling him they have a bed available for him pending inquiry documentation. Exam/Review of Systems Exam Vitals Vital Signs Date Temp Pulse Resp B/P (MAP) Pulse Ox O2 O2 Flow FiO2 Time Delivery Rate 08/11/18 98.3 89 16 131/60 95 01:49 (83) 08/10/18 Room Air 20:00 Intake and Output 08/10/18 08/10/18 08/11/18 1414:59 22:59 06:59 IntakeIntake Total 760 ml 600 ml 740 ml OutputOutput Total 1600 ml BalanceBalance 760 ml -1000 ml 740 ml Exam General: Patient is laying in bed and answers questions appropriately Neck: Supple, nontender, midline Respiratory: Clear to auscultation bilaterally. no wheezing or rhonchi Cardiovascular: regular rate, no obvious murmurs Gastrointestinal: non-tender to palpation, bowel sounds heard. Neurological: Moves all extremities spontaneously Medications Medication Current Medications IV Flush (NS 3 ml) 3 ml PER PROTOCOL IV ; Start 06/22/18 at 18:30 Ondansetron HCl (Zofran Inj) 4 mg Q6H PRN IV NAUSEA/VOMITING Last administered on 06/26/18at 15:57; Admin Dose 4 MG; Start 06/22/18 at 18:30 Acetaminophen (Tylenol Tab) 650 mg Q6H PRN PO .PAIN 1-3 OR TEMP; Start 06/22/18 at 18:30 Enoxaparin Sodium (Lovenox) 30 mg DAILY SC Last administered on 08/10/18at 08:30; Admin Dose 30 MG; Start 06/23/18 at 09:00 Hydralazine HCl (Apresoline) 10 mg Q4H PRN IV SBP >160; Start 06/22/18 at 19:00 Miscellaneous Information (Pending [facility] Order For Wound Care) This patient villela... PRN PRN XX WOUND CARE; Start 06/23/18 at 00:30 Tamsulosin HCl (Flomax) 0.4 mg DAILY PO Last administered on 08/11/18at 08:50; Admin Dose 0.4 MG; Start 06/24/18 at 09:00 Labetalol HCl (Labetalol) 10 mg Q4 PRN IV sbp>160; Start 06/24/18 at 13:30 Pantoprazole (Protonix Tab) 40 mg DAILY@06 PO Last administered on 08/11/18 05:59; Admin Dose 40 MG; Start 07/04/18 at 06:00 Carisoprodol (Soma) 350 mg Q6 PO Last administered on 08/11/18 06:19; Admin Dose 350 MG; Start 07/06/18 at 12:00 Docusate Sodium/ Ferrous Fumarate (Harry-Sequels) 1 tab BID PO Last administered on 08/11/18 08:49; Admin Dose 1 TAB; Start 07/13/18 at 21:00; Stop 08/12/18 at 20:59 Ascorbic Acid (Vitamin C) 500 mg DAILY PO Last administered on 08/11/18 08:49; Admin Dose 500 MG; Start 07/15/18 at 12:00 Zinc Sulfate (Zinc Sulfate) 220 mg DAILY PO Last administered on 08/11/18 08:50; Admin Dose 220 MG; Start 07/15/18 at 11:00 Multivitamins Therapeutic (Theragran) 1 tab DAILY PO Last administered on 08/11/18 08:49; Admin Dose 1 TAB; Start 07/15/18 at 11:00 IV Flush (NS 10 ml) 10 ml PRN PRN IV IV PROTOCOL Last administered on 07/19/18 02:30; Admin Dose 10 ML; Start 07/15/18 at 17:00 Docusate Sodium (Colace) 100 mg BID PRN PO constipation; Start 08/02/18 at 12:30 Magnesium Hydroxide (Milk Of Mag) 30 ml DAILY PRN PO constipation; Start 08/02/18 at 12:30 Morphine Sulfate (Ms Contin (Er)) 45 mg BID PO Last administered on 08/11/18 08:50; Admin Dose 45 MG; Start 08/03/18 at 09:00 Hydromorphone HCl (Dilaudid) 1 mg Q4H PRN IV SEVERE PAIN LEVEL 7-10 Last administered on 08/11/18at 05:59; Admin Dose 1 MG; Start 08/04/18 at 17:03 KINGA WILLETT MD Aug 11, 2018 09:38
[2018-08-11] MEDS: ENOXAPARIN 30 MG/0.3 ML SYG SC SCH (11:38)
[2018-08-11 14:00] VITALS: BP 125/73; PULSE 84; RESP 18
--- NOTE | 2018-08-11 14:33 | PN ---
Date/Time of Note Date/Time of Note DATE: 08/11/18 TIME: 14:32 Assessment/Plan Lines/Catheters IV Catheter Type (from [facility]): PICC Line Cortez in Place (from [facility]): No Assessment/Plan Chief Complaint/Hosp Course 1. Multiple decubitus pressure ulcers: Status post IV antibiotics, s/p osteomyelitis treatment -Continue offloading & nutritional optimization as able -Continue same wound care treatment -Debridement as needed -Vitamin C -snf placement still pending 2. Decompressed bladder with significant thickening concerning for bladder neoplasm versus cystitis: Urethritis, possible pyelonephritis; leaking between self caths, indwelling cortez placed -per Urology 3. Labile mood with intermittent bursts of anger and intermittent refusal of treatments -psych eval noted, refusing meds -Supportive 4. Hypoalbuminemia -Encourage nutritional optimization 5. Hypertension history -Nutrition and medication optimization 6. Anemia without evidence of acute blood loss -Monitor 7. Acute on chronic back pain, nephrolithiasis -Medical optimization -Judicious fluid management 8. Constipation history -bowel optimization 9. Elevated CEA however patient refusing colonoscopy and further workup 10. Generalized pain: -Per pain specialist Thank you Subjective 24 Hr Interval Summary No acute events. No fevers, chills, sob, congested cough, cp, palpitations, [place]la, dizziness, n/v/d/dysuria. Exam/Review of Systems Vital Signs Vitals Vital Signs Date Temp Pulse Resp B/P (MAP) Pulse Ox O2 O2 Flow FiO2 Time Delivery Rate 08/11/18 98.2 81 18 136/74 95 08:00 (94) 08/10/18 Room Air 20:00 Intake and Output 08/10/18 08/10/18 08/11/18 1414:59 22:59 06:59 IntakeIntake Total 760 ml 600 ml 740 ml OutputOutput Total 1600 ml BalanceBalance 760 ml -1000 ml 740 ml Exam Free Text/Dictation Constitutional: alert, oriented No distress Psych: labile Head: normocephalic, atraumatic Eyes: nl conjunctiva, EOMI, PERRL; No icteric ENMT: nl external ears & nose, nl lips & teeth, mucosa pink and moist Neck: supple, non-tender; No jvd Respiratory: normal air movement; No congested cough, No labored breathing, No wheezing Cardiovascular: regular rate and rhythm; No edema Gastrointestinal: soft, non-tender; No distended, No rebound or guarding Genitourinary - Male: nl penis, nl scrotum Musculoskeletal: No nl gait and stance, No joint tenderness Extremities: normal pulses; No calf tenderness, No edema, No tenderness Neurological: nl mental status, nl speech; No nl strength Skin: rash or lesions (Decubitus pressure ulcers: Clean, no odor, no drainage, scant drainage); No ecchymosis Lymph: nl lymph nodes GUSTABO GARCIA MD Aug 11, 2018 14:33
[2018-08-11 20:14] VITALS: BP 123/62; PULSE 89; RESP 18
[2018-08-11] MEDS: morphine (ER) 30 MG TAB PO SCH (21:12)
[2018-08-12] MEDS: CARISOPRODOL 350 MG TAB PO SCH ×5 (00:27→23:32)
[2018-08-12 02:00] VITALS: BP 160/91; PULSE 112; RESP 18
[2018-08-12] MEDS: PANTOPRAZOLE (EC) 40 MG TAB PO SCH (06:20)
[2018-08-12] MEDS: HYDROmorphONE 1 MG/ML SYG IV PRN ×4 (06:21→21:29)
[2018-08-12 08:11] VITALS: BP 168/97; PULSE 110; RESP 18
[2018-08-12] MEDS: MULTIVITAMINS THERAPEUTIC TAB PO SCH (08:50)
[2018-08-12] MEDS: TAMSULOSIN (SR) 0.4 MG CAP PO SCH (08:50)
[2018-08-12] MEDS: ZINC SULFATE 220 MG CAP PO SCH (08:50)
[2018-08-12] MEDS: ASCORBIC ACID 500 MG TAB PO SCH (08:51)
[2018-08-12] MEDS: FERROUS FUMARATE (SR) TAB PO SCH (08:51)
[2018-08-12] MEDS: morphine (ER) 30 MG TAB PO SCH ×2 (08:51→21:10)
[2018-08-12] MEDS: ENOXAPARIN 30 MG/0.3 ML SYG SC SCH (08:53)
--- NOTE | 2018-08-12 09:05 | PN ---
Date/Time of Note Date/Time of Note DATE: 08/12/18 TIME: 09:05 Assessment/Plan VTE Prophylaxis Risk score (from Nsg)>0 risk: 6 SCD applied (from Nsg): No SCD contraindicated: other Pharmacological prophylaxis: LMWH Lines/Catheters IV Catheter Type (from Nrsg): PICC Line Central line still needed: Yes Urinary Cath still in place: Yes Reason Cath still needed: pres ulcer contaminated by urine Assessment/Plan Assessment/Plan 1. Sepsis secondary to UTI, decubitus ulcers, and OM- resolved - Completed course of antibiotics - ID on board and appreciate recommendations 2. UTI- resolved 3. Sacral decubitus ulcer with abscess- stable - Surgery consultation appreciated and continue current medical management and wound care. Offloading as much as possible recommended. - Cortez in placed to protect decub ulcers - pain control 4. Osteomyelitis of ischium - Completed course of antibiotics - Currently on MS Contin 60mg with improving pain control - Pain management on board 5. Chronic back pain - continue pain control 6. Hypertension - stable 7. Neurogenic bladder - cortez in place - Urology on board 8. Disposition - Medically stable for discharge once accepted to SNF Subjective 24 Hr Interval Summary Free Text/Dictation Patient denies any acute issues. Discussed pain control and hopes to be off IV medications in the next couple days. No acute overnight events. Exam/Review of Systems Exam Vitals Vital Signs Date Temp Pulse Resp B/P (MAP) Pulse Ox O2 O2 Flow FiO2 Time Delivery Rate 08/12/18 98.7 110 18 168/97 98 Room Air 08:11 (120) Intake and Output 08/11/18 08/11/18 08/12/18 1515:00 23:00 07:00 IntakeIntake Total 1360 ml 480 ml 500 ml OutputOutput Total 300 ml 1700 ml 300 ml BalanceBalance 1060 ml -1220 ml 200 ml Exam General: Patient is laying in bed and answers questions appropriately Neck: Supple, nontender, midline Respiratory: Clear to auscultation bilaterally. no wheezing or rhonchi Cardiovascular: regular rate, no obvious murmurs Gastrointestinal: non-tender to palpation, bowel sounds heard. Neurological: Moves all extremities spontaneously Medications Medication Current Medications IV Flush (NS 3 ml) 3 ml PER PROTOCOL IV ; Start 06/22/18 at 18:30 Ondansetron HCl (Zofran Inj) 4 mg Q6H PRN IV NAUSEA/VOMITING Last administered on 06/26/18at 15:57; Admin Dose 4 MG; Start 06/22/18 at 18:30 Acetaminophen (Tylenol Tab) 650 mg Q6H PRN PO .PAIN 1-3 OR TEMP; Start 06/22/18 at 18:30 Enoxaparin Sodium (Lovenox) 30 mg DAILY SC Last administered on 08/12/18at 08:53; Admin Dose 30 MG; Start 06/23/18 at 09:00 Hydralazine HCl (Apresoline) 10 mg Q4H PRN IV SBP >160; Start 06/22/18 at 19:00 Miscellaneous Information (Pending [facility] Order For Wound Care) This patient [place]... PRN PRN XX WOUND CARE; Start 06/23/18 at 00:30 Tamsulosin HCl (Flomax) 0.4 mg DAILY PO Last administered on 08/12/18at 08:50; Admin Dose 0.4 MG; Start 06/24/18 at 09:00 Labetalol HCl (Labetalol) 10 mg Q4 PRN IV sbp>160; Start 06/24/18 at 13:30 Pantoprazole (Protonix Tab) 40 mg DAILY@06 PO Last administered on 08/12/18 06:20; Admin Dose 40 MG; Start 07/04/18 at 06:00 Carisoprodol (Soma) 350 mg Q6 PO Last administered on 08/12/18 06:20; Admin Dose 350 MG; Start 07/06/18 at 12:00 Docusate Sodium/ Ferrous Fumarate (Harry-Sequels) 1 tab BID PO Last administered on 08/12/18at 08:51; Admin Dose 1 TAB; Start 07/13/18 at 21:00; Stop 08/12/18 at 20:59 Ascorbic Acid (Vitamin C) 500 mg DAILY PO Last administered on 08/12/18 08:51; Admin Dose 500 MG; Start 07/15/18 at 12:00; Stop 08/14/18 at 23:55 Zinc Sulfate (Zinc Sulfate) 220 mg DAILY PO Last administered on 08/12/18 08:50; Admin Dose 220 MG; Start 07/15/18 at 11:00; Stop 08/14/18 at 23:55 Multivitamins Therapeutic (Theragran) 1 tab DAILY PO Last administered on 08/12/18 08:50; Admin Dose 1 TAB; Start 07/15/18 at 11:00 IV Flush (NS 10 ml) 10 ml PRN PRN IV IV PROTOCOL Last administered on 07/19/18at 02:30; Admin Dose 10 ML; Start 07/15/18 at 17:00 Docusate Sodium (Colace) 100 mg BID PRN PO constipation; Start 08/02/18 at 12:30 Magnesium Hydroxide (Milk Of Mag) 30 ml DAILY PRN PO constipation; Start 08/02 at 12:30 Hydromorphone HCl (Dilaudid) 1 mg Q4H PRN IV SEVERE PAIN LEVEL 7-10 Last administered on 08/12/18 06:21; Admin Dose 1 MG; Start 08/04/18 at 17:03 Morphine Sulfate (Ms Contin (Er)) 60 mg BID PO Last administered on 08/12/18 08:51; Admin Dose 60 MG; Start 08/11/18 at 21:00 KINGA WILLETT MD Aug 12, 2018 09:05
--- NOTE | 2018-08-12 13:37 | PN ---
Date/Time of Note Date/Time of Note DATE: 08/12/18 TIME: 13:36 Assessment/Plan Lines/Catheters IV Catheter Type (from Nrs): PICC Line Cortez in Place (from Nrs): Yes Assessment/Plan Chief Complaint/Hosp Course 1. Multiple decubitus pressure ulcers: Status post IV antibiotics, s/p osteomyelitis treatment -Continue offloading & nutritional optimization as able -Continue same wound care treatment> same wound tx for outpatient -Debridement as needed -Vitamin C -snf placement- still pending 2. Decompressed bladder with significant thickening concerning for bladder neoplasm versus cystitis: Urethritis, possible pyelonephritis; leaking between self caths, indwelling cortez placed -per Urology 3. Labile mood with intermittent bursts of anger and intermittent refusal of treatments -psych eval noted, refusing meds -Supportive 4. Hypoalbuminemia -Encourage nutritional optimization 5. Hypertension history -Nutrition and medication optimization 6. Anemia without evidence of acute blood loss -Monitor 7. Acute on chronic back pain, nephrolithiasis -Medical optimization -Judicious fluid management 8. Constipation history -bowel optimization 9. Elevated CEA however patient refusing colonoscopy and further workup 10. Generalized pain: -Per pain specialist Thank you. Patient seen and examined in collaboration with Dr. Micah Hobbs. Subjective 24 Hr Interval Summary Feels ok. snf placement still pending. No fevers, chills, sob, congested cough, cp, palpitations, villela, dizziness, n/v/d/dysuria. Exam/Review of Systems Vital Signs Vitals Vital Signs Date Temp Pulse Resp B/P (MAP) Pulse Ox O2 O2 Flow FiO2 Time Delivery Rate 08/12/18 98.7 110 18 168/97 98 Room Air 08:11 (120) Intake and Output 08/11/18 08/11/18 08/12/18 1414:59 22:59 06:59 IntakeIntake Total 1360 ml 480 ml OutputOutput Total 300 ml 1700 ml BalanceBalance 1060 ml -1220 ml Exam Free Text/Dictation Constitutional: alert, oriented No distress Psych: labile Head: normocephalic, atraumatic Eyes: nl conjunctiva, EOMI, PERRL; No icteric ENMT: nl external ears & nose, nl lips & teeth, mucosa pink and moist Neck: supple, non-tender; No jvd Respiratory: normal air movement; No congested cough, No labored breathing, No wheezing Cardiovascular: regular rate and rhythm; No edema Gastrointestinal: soft, non-tender; No distended, No rebound or guarding Genitourinary - Male: nl penis, nl scrotum Musculoskeletal: No nl gait and stance, No joint tenderness Extremities: normal pulses; No calf tenderness, No edema, No tenderness Neurological: nl mental status, nl speech; No nl strength Skin: rash or lesions (Decubitus pressure ulcers: Clean, no odor, no drainage, scant drainage); No ecchymosis Lymph: nl lymph nodes TIFFANIE KLEIN NP Aug 12, 2018 13:37
[2018-08-12 14:26] VITALS: BP 141/78; PULSE 108; RESP 16
[2018-08-12 20:00] VITALS: BP 126/81; PULSE 110; RESP 17
[2018-08-13 02:00] VITALS: BP 169/85; PULSE 72; RESP 19
[2018-08-13] MEDS: HYDROmorphONE 1 MG/ML SYG IV PRN ×5 (03:04→21:02)
[2018-08-13 05:53] VITALS: BP 149/72; PULSE 77
[2018-08-13] MEDS: CARISOPRODOL 350 MG TAB PO SCH ×4 (06:13→23:38)
[2018-08-13] MEDS: PANTOPRAZOLE (EC) 40 MG TAB PO SCH (06:14)
[2018-08-13 07:58] VITALS: BP 126/69; PULSE 114; RESP 18
--- NOTE | 2018-08-13 09:08 | PN ---
Date/Time of Note Date/Time of Note DATE: 08/13/18 TIME: 09:08 Assessment/Plan VTE Prophylaxis Risk score (from Nsg)>0 risk: 4 SCD applied (from Ns): No SCD contraindicated: other Pharmacological prophylaxis: LMWH Lines/Catheters IV Catheter Type (from Nrsg): PICC Line Central line still needed: Yes Urinary Cath still in place: Yes Reason Cath still needed: pres ulcer contaminated by urine Assessment/Plan Assessment/Plan 1. Sepsis secondary to UTI, decubitus ulcers, and OM- resolved - Completed course of antibiotics - ID on board and appreciate recommendations 2. UTI- resolved 3. Sacral decubitus ulcer with abscess- stable - Surgery consultation appreciated and continue current medical management and wound care. Offloading as much as possible recommended. - Cortez in placed to protect decub ulcers - pain control 4. Osteomyelitis of ischium - Completed course of antibiotics - Currently on MS Contin 60mg with improvement in pain control 5. Chronic back pain - continue pain control 6. Hypertension - stable 7. Neurogenic bladder - cortez in place - Urology on board 8. Disposition - Medically stable for discharge once accepted to SNF - Ok to go outside for fresh air if accompanies by Staff Subjective 24 Hr Interval Summary Free Text/Dictation Patient denies any acute issues. Sitting in chair at bedside. Requesting to get some fresh air if possible and discussed will ask staff if possible. Exam/Review of Systems Exam Vitals Vital Signs Date Temp Pulse Resp B/P (MAP) Pulse Ox O2 O2 Flow FiO2 Time Delivery Rate 08/13/18 98.0 114 18 126/69 97 Room Air 07:58 (88) Intake and Output 08/12/18 08/12/18 08/13/18 1515:00 23:00 07:00 IntakeIntake Total 860 ml OutputOutput Total 700 ml BalanceBalance 160 ml Exam General: Patient is sitting in chair at bedside. No acute distress Neck: Supple Respiratory: Clear to auscultation bilaterally. no wheezing or rhonchi Cardiovascular: regular rate, no obvious murmurs Gastrointestinal: non-tender to palpation, bowel sounds heard. Extremities: moving UE b/l. muscle wasting LE Medications Medication Current Medications IV Flush (NS 3 ml) 3 ml PER PROTOCOL IV ; Start 06/22/18 at 18:30 Ondansetron HCl (Zofran Inj) 4 mg Q6H PRN IV NAUSEA/VOMITING Last administered on 06/26/18at 15:57; Admin Dose 4 MG; Start 06/22/18 at 18:30 Acetaminophen (Tylenol Tab) 650 mg Q6H PRN PO .PAIN 1-3 OR TEMP; Start 06/22/18 at 18:30 Enoxaparin Sodium (Lovenox) 30 mg DAILY SC Last administered on 08/12/18 08:53; Admin Dose 30 MG; Start 06/23/18 at 09:00 Hydralazine HCl (Apresoline) 10 mg Q4H PRN IV SBP >160; Start 06/22/18 at 19:00 [facility] This patient [place]... PRN PRN XX WOUND CARE; Start 06/23/18 at 00:30 Tamsulosin HCl (Flomax) 0.4 mg DAILY PO Last administered on 08/12/18 08:50; Admin Dose 0.4 MG; Start 06/24/18 at 09:00 Labetalol HCl (Labetalol) 10 mg Q4 PRN IV sbp>160; Start 06/24/18 at 13:30 Pantoprazole (Protonix Tab) 40 mg DAILY@06 PO Last administered on 08/13/18 06:14; Admin Dose 40 MG; Start 07/04/18 at 06:00 Carisoprodol (Soma) 350 mg Q6 PO Last administered on 08/13/18 06:13; Admin Dose 350 MG; Start 07/06/18 at 12:00 Ascorbic Acid (Vitamin C) 500 mg DAILY PO Last administered on 08/12/18 08:51; Admin Dose 500 MG; Start 07/15/18 at 12:00; Stop 08/14/18 at 23:55 Zinc Sulfate (Zinc Sulfate) 220 mg DAILY PO Last administered on 08/12/18 08:50; Admin Dose 220 MG; Start 07/15/18 at 11:00; Stop 08/14/18 at 23:55 Multivitamins Therapeutic (Theragran) 1 tab DAILY PO Last administered on 08/12/18 08:50; Admin Dose 1 TAB; Start 07/15/18 at 11:00 IV Flush (NS 10 ml) 10 ml PRN PRN IV IV PROTOCOL Last administered on 2/23/19at 02:30; Admin Dose 10 ML; Start 07/15/18 at 17:00 Docusate Sodium (Colace) 100 mg BID PRN PO constipation; Start 08/02/18 at 12:30 Magnesium Hydroxide (Milk Of Mag) 30 ml DAILY PRN PO constipation; Start 08/02/18 at 12:30 Hydromorphone HCl (Dilaudid) 1 mg Q4H PRN IV SEVERE PAIN LEVEL 7-10 Last administered on 08/13/18at 06:56; Admin Dose 1 MG; Start 08/04/18 at 17:03 Morphine Sulfate (Ms Contin (Er)) 60 mg BID PO Last administered on 08/12/18at 21:10; Admin Dose 60 MG; Start 08/11/18 at 21:00 Docusate Sodium/ Ferrous Fumarate (Harry-Sequels) 1 tab BID PO ; Start 08/13/18 at 09:00 KINGA WILLETT MD Aug 13, 2018 09:08
[2018-08-13] MEDS: morphine (ER) 30 MG TAB PO SCH ×2 (09:13→20:24)
[2018-08-13] MEDS: TAMSULOSIN (SR) 0.4 MG CAP PO SCH (09:13)
[2018-08-13] MEDS: MULTIVITAMINS THERAPEUTIC TAB PO SCH (09:13)
[2018-08-13] MEDS: ENOXAPARIN 30 MG/0.3 ML SYG SC SCH (09:14)
[2018-08-13] MEDS: ZINC SULFATE 220 MG CAP PO SCH (09:14)
[2018-08-13] MEDS: FERROUS FUMARATE (SR) TAB PO SCH ×2 (09:14→20:23)
[2018-08-13] MEDS: ASCORBIC ACID 500 MG TAB PO SCH (09:14)
--- NOTE | 2018-08-13 13:54 | PN ---
Date/Time of Note Date/Time of Note DATE: 08/13/18 TIME: 13:50 Assessment/Plan Lines/Catheters IV Catheter Type (from Nrs): PICC Line Cortez in Place (from Nrs): Yes Assessment/Plan Chief Complaint/Hosp Course 1. Multiple decubitus pressure ulcers: Status post IV antibiotics, s/p osteomyelitis treatment -Continue offloading & nutritional optimization as able -Continue same wound care treatment> same wound tx for outpatient -Debridement as needed -Vitamin C -snf placement- still pending 2. Decompressed bladder with significant thickening concerning for bladder neoplasm versus cystitis: Urethritis, possible pyelonephritis; leaking between self caths, indwelling cortez placed -per Urology 3. Labile mood with intermittent bursts of anger and intermittent refusal of treatments -psych eval noted, refusing meds -Supportive 4. Hypoalbuminemia -Encourage nutritional optimization 5. Hypertension history -Nutrition and medication optimization 6. Anemia without evidence of acute blood loss -Monitor 7. Acute on chronic back pain, nephrolithiasis -Medical optimization -Judicious fluid management 8. Constipation history -bowel optimization 9. Elevated CEA however patient refusing colonoscopy and further workup 10. Generalized pain: -Per pain specialist Thank you. Patient seen and examined in collaboration with Dr. Micah Hobbs. Subjective 24 Hr Interval Summary SNF placement pending. No fevers, chills, sob, congested cough, cp, palpitations, [place], dizziness, n/v/d/dysuria, wound drainage or odor. Exam/Review of Systems Vital Signs Vitals Vital Signs Date Temp Pulse Resp B/P (MAP) Pulse Ox O2 O2 Flow FiO2 Time Delivery Rate 08/13/18 98.0 114 18 126/69 97 Room Air 07:58 (88) Intake and Output 08/12/18 08/12/18 08/13/18 1515:00 23:00 07:00 IntakeIntake Total 860 ml OutputOutput Total 700 ml BalanceBalance 160 ml Exam Free Text/Dictation Free Text/Dictation Constitutional: alert, oriented No distress Psych: nl mood, irritable Head: normocephalic, atraumatic Eyes: nl conjunctiva, EOMI, PERRL; No icteric ENMT: nl external ears & nose, nl lips & teeth, mucosa pink and moist Neck: supple, non-tender; No jvd Respiratory: normal air movement; No congested cough, No labored breathing, No wheezing Cardiovascular: regular rate and rhythm; No edema Gastrointestinal: soft, non-tender; No distended, No rebound or guarding Genitourinary - Male: nl penis, nl scrotum Musculoskeletal: No nl gait and stance, No joint tenderness Extremities: normal pulses; No calf tenderness, No edema, No tenderness Neurological: nl mental status, nl speech; No nl strength Skin: rash or lesions (Decubitus pressure ulcers: Clean, no odor, no drainage, scant drainage); No ecchymosis Lymph: nl lymph nodes TIFFANIE KLEIN NP Aug 13, 2018 13:54
[2018-08-13 14:03] VITALS: BP 118/82; PULSE 78; RESP 18
[2018-08-13 19:53] VITALS: BP 138/78; PULSE 109; RESP 19
[2018-08-14 02:00] VITALS: BP 135/70; PULSE 102; RESP 20
[2018-08-14] MEDS: PANTOPRAZOLE (EC) 40 MG TAB PO SCH (05:31)
[2018-08-14] MEDS: CARISOPRODOL 350 MG TAB PO SCH ×3 (05:31→17:04)
[2018-08-14 07:34] VITALS: BP 122/75; PULSE 87; RESP 18
[2018-08-14] MEDS: ENOXAPARIN 30 MG/0.3 ML SYG SC SCH (08:58)
[2018-08-14] MEDS: HYDROmorphONE 1 MG/ML SYG IV PRN ×4 (08:58→21:58)
[2018-08-14] MEDS: FERROUS FUMARATE (SR) TAB PO SCH ×2 (09:00→20:42)
[2018-08-14] MEDS: TAMSULOSIN (SR) 0.4 MG CAP PO SCH (09:00)
[2018-08-14] MEDS: morphine (ER) 30 MG TAB PO SCH ×2 (09:00→20:42)
[2018-08-14] MEDS: ASCORBIC ACID 500 MG TAB PO SCH (09:00)
[2018-08-14] MEDS: ZINC SULFATE 220 MG CAP PO SCH (09:01)
[2018-08-14] MEDS: MULTIVITAMINS THERAPEUTIC TAB PO SCH (09:01)
--- NOTE | 2018-08-14 11:20 | PN ---
Date/Time of Note Date/Time of Note DATE: 08/14/18 TIME: 11:14 Assessment/Plan Lines/Catheters IV Catheter Type (from Nrsg): PICC Line Cortez in Place (from Nrsg): Yes Assessment/Plan Chief Complaint/Hosp Course 1. Multiple decubitus pressure ulcers: Status post IV antibiotics, s/p osteomyelitis treatment> continue w same recommendations -Continue offloading & nutritional optimization as able -Continue same wound care treatment> same wound tx for outpatient -Debridement as needed -Vitamin C -snf placement- still pending 2. Decompressed bladder with significant thickening concerning for bladder neoplasm versus cystitis: Urethritis, possible pyelonephritis; leaking between self caths, indwelling cortez placed -per Urology 3. Labile mood with intermittent bursts of anger and intermittent refusal of treatments -psych eval noted, refusing meds -Supportive 4. Hypoalbuminemia -Encourage nutritional optimization 5. Hypertension history -Nutrition and medication optimization 6. Anemia without evidence of acute blood loss -Monitor 7. Acute on chronic back pain, nephrolithiasis -Medical optimization -Judicious fluid management 8. Constipation history -bowel optimization 9. Elevated CEA however patient refusing colonoscopy and further workup 10. Generalized pain: -Per pain specialist Thank you. Patient seen and examined in collaboration with Dr. Micah Hobbs. Subjective 24 Hr Interval Summary No acute events. Feels well. No fevers, chills, sob, congested cough, cp, palpit ations, [place], dizziness, n/v/d/dysuria. Exam/Review of Systems Vital Signs Vitals Vital Signs Date Temp Pulse Resp B/P (MAP) Pulse Ox O2 O2 Flow FiO2 Time Delivery Rate 08/14/18 98.5 87 18 122/75 97 Room Air 07:34 (91) Intake and Output 08/13/18 08/13/18 08/14/18 1515:00 23:00 07:00 IntakeIntake Total 960 ml 480 ml 600 ml BalanceBalance 960 ml 480 ml 600 ml Exam Free Text/Dictation Constitutional: alert, oriented No distress Psych: nl mood, irritable Head: normocephalic, atraumatic Eyes: nl conjunctiva, EOMI, PERRL; No icteric ENMT: nl external ears & nose, nl lips & teeth, mucosa pink and moist Neck: supple, non-tender; No jvd Respiratory: normal air movement; No congested cough, No labored breathing, No wheezing Cardiovascular: regular rate and rhythm; No edema Gastrointestinal: soft, non-tender; No distended, No rebound or guarding Genitourinary - Male: nl penis, nl scrotum Musculoskeletal: No nl gait and stance, No joint tenderness Extremities: normal pulses; No calf tenderness, No edema, No tenderness Neurological: nl mental status, nl speech; No nl strength Skin: rash or lesions (Decubitus pressure ulcers: Clean, no odor, no drainage, scant drainage); No ecchymosis Lymph: nl lymph nodes TIFFANIE KLEIN NP Aug 14, 2018 11:20
--- NOTE | 2018-08-14 14:19 | PN ---
Date/Time of Note Date/Time of Note DATE: 08/14/18 TIME: 14:15 Assessment/Plan VTE Prophylaxis Risk score (from Nsg)>0 risk: 4 SCD applied (from Ns): No SCD contraindicated: other Pharmacological prophylaxis: LMWH Lines/Catheters IV Catheter Type (from Nrsg): PICC Line Central line still needed: Yes Urinary Cath still in place: Yes Reason Cath still needed: pres ulcer contaminated by urine Assessment/Plan Assessment/Plan 1. Sepsis secondary to UTI, decubitus ulcers, and OM- resolved - Completed course of antibiotics - ID on board and appreciate recommendations 2. UTI- resolved 3. Sacral decubitus ulcer with abscess- stable - Surgery consultation appreciated and continue current medical management and wound care. Offloading as much as possible recommended. - Cortez in placed to protect decub ulcers - pain control 4. Osteomyelitis of ischium - Completed course of antibiotics - Currently on MS Contin 60mg with improvement in pain control 5. Chronic back pain - continue pain control 6. Hypertension - stable 7. Neurogenic bladder - cortez in place - Urology on board 8. Disposition - Medically stable for discharge once accepted to [facility] Subjective 24 Hr Interval Summary Free Text/Dictation Patient's doing well and denies any acute issues at this time. No acute overnight events. Exam/Review of Systems Exam Vitals Vital Signs Date Temp Pulse Resp B/P (MAP) Pulse Ox O2 O2 Flow FiO2 Time Delivery Rate 08/14/18 98.5 87 18 122/75 97 Room Air 07:34 (91) Intake and Output 08/13/18 08/13/18 08/14/18 1515:00 23:00 07:00 IntakeIntake Total 960 ml 480 ml 600 ml BalanceBalance 960 ml 480 ml 600 ml Exam General: Patient is sitting in chair at bedside. No acute distress Neck: Supple Respiratory: Clear to auscultation bilaterally. no wheezing or rhonchi Cardiovascular: regular rate, no obvious murmurs Gastrointestinal: non-tender to palpation, bowel sounds heard. Extremities: moving UE b/l. muscle wasting LE Medications Medication Current Medications IV Flush (NS 3 ml) 3 ml PER PROTOCOL IV ; Start 06/22/18 at 18:30 Ondansetron HCl (Zofran Inj) 4 mg Q6H PRN IV NAUSEA/VOMITING Last administered on 06/26/18at 15:57; Admin Dose 4 MG; Start 06/22/18 at 18:30 Acetaminophen (Tylenol Tab) 650 mg Q6H PRN PO .PAIN 1-3 OR TEMP; Start 06/22/18 at 18:30 Enoxaparin Sodium (Lovenox) 30 mg DAILY SC Last administered on 08/14/18at 08:58; Admin Dose 30 MG; Start 06/23/18 at 09:00 Hydralazine HCl (Apresoline) 10 mg Q4H PRN IV SBP >160; Start 06/22/18 at 19:00 Miscellaneous Information (Pending Santyl Order For Wound Care) This patient villela... PRN PRN XX WOUND CARE; Start 06/23/18 at 00:30 Tamsulosin HCl (Flomax) 0.4 mg DAILY PO Last administered on 08/14/18at 09:00; Admin Dose 0.4 MG; Start 06/24/18 at 09:00 Labetalol HCl (Labetalol) 10 mg Q4 PRN IV sbp>160; Start 06/24/18 at 13:30 Pantoprazole (Protonix Tab) 40 mg DAILY@06 PO Last administered on 08/14/18at 05:31; Admin Dose 40 MG; Start 07/04/18 at 06:00 Carisoprodol (Soma) 350 mg Q6 PO Last administered on 08/14/18at 13:01; Admin Dose 350 MG; Start 07/06/18 at 12:00 Ascorbic Acid (Vitamin C) 500 mg DAILY PO Last administered on 08/14/18at 09:00; Admin Dose 500 MG; Start 07/15/18 at 12:00; Stop 08/14/18 at 23:55 Zinc Sulfate (Zinc Sulfate) 220 mg DAILY PO Last administered on 08/14/18 09:01; Admin Dose 220 MG; Start 07/15/18 at 11:00; Stop 08/14/18 at 23:55 Multivitamins Therapeutic (Theragran) 1 tab DAILY PO Last administered on 08/14/18 09:01; Admin Dose 1 TAB; Start 07/15/18 at 11:00 IV Flush (NS 10 ml) 10 ml PRN PRN IV IV PROTOCOL Last administered on 07/19/18at 02:30; Admin Dose 10 ML; Start 2/19/19 at 17:00 Docusate Sodium (Colace) 100 mg BID PRN PO constipation; Start 08/02/18 at 12:30 Magnesium Hydroxide (Milk Of Mag) 30 ml DAILY PRN PO constipation; Start 08/02/18 at 12:30 Hydromorphone HCl (Dilaudid) 1 mg Q4H PRN IV SEVERE PAIN LEVEL 7-10 Last administered on 08/14/18at 13:01; Admin Dose 1 MG; Start 08/04/18 at 17:03 Morphine Sulfate (Ms Contin (Er)) 60 mg BID PO Last administered on 08/14/18at 09:00; Admin Dose 60 MG; Start 08/11/18 at 21:00 Docusate Sodium/ Ferrous Fumarate (Harry-Sequels) 1 tab BID PO Last administered on 08/14/18at 09:00; Admin Dose 1 TAB; Start 08/13/18 at 09:00 KINGA WILLETT MD Aug 14, 2018 14:19
[2018-08-14 14:22] VITALS: BP 125/79; PULSE 97; RESP 16
[2018-08-14 20:49] VITALS: BP 132/82; PULSE 100; RESP 18
[2018-08-15] MEDS: CARISOPRODOL 350 MG TAB PO SCH ×3 (00:10→14:37)
[2018-08-15 02:00] VITALS: BP 145/98; PULSE 85; RESP 18
[2018-08-15] MEDS: HYDROmorphONE 1 MG/ML SYG IV PRN ×3 (03:22→12:09)
[2018-08-15] MEDS: PANTOPRAZOLE (EC) 40 MG TAB PO SCH (05:44)
[2018-08-15 08:00] VITALS: BP 121/68; PULSE 77; RESP 18
--- NOTE | 2018-08-15 08:38 | PN ---
Date/Time of Note Date/Time of Note DATE: 08/15/18 TIME: 08:38 Assessment/Plan VTE Prophylaxis Risk score (from Nsg)>0 risk: 3 SCD applied (from Ns): No SCD contraindicated: other Pharmacological prophylaxis: LMWH Lines/Catheters IV Catheter Type (from Nrsg): PICC Line Central line still needed: No Urinary Cath still in place: Yes Reason Cath still needed: pres ulcer contaminated by urine Assessment/Plan Assessment/Plan 1. Sepsis secondary to UTI, decubitus ulcers, and OM- resolved - Completed course of antibiotics - ID on board and appreciate recommendations 2. UTI- resolved 3. Sacral decubitus ulcer with abscess- stable - Surgery consultation appreciated and continue current medical management and wound care. Offloading as much as possible recommended. - Cortez in placed to protect decub ulcers - pain control 4. Osteomyelitis of ischium - Completed course of antibiotics - Currently on MS Contin 60mg with improvement in pain control 5. Chronic back pain - continue pain control 6. Hypertension - stable 7. Neurogenic bladder - cortez in place - Urology on board 8. Disposition - Medically stable for discharge to SNF Subjective 24 Hr Interval Summary Free Text/Dictation Patient doing well and resting comfortably. No acute overnight events. Exam/Review of Systems Exam Vitals Vital Signs Date Temp Pulse Resp B/P (MAP) Pulse Ox O2 O2 Flow FiO2 Time Delivery Rate 08/15/18 97.7 85 18 145/98 91 02:00 (114) 08/14/18 Room Air 14:22 Intake and Output 08/14/18 08/14/18 08/15/18 1515:00 23:00 07:00 IntakeIntake Total 800 ml BalanceBalance 800 ml Exam General: Patient is sitting in chair at bedside. No acute distress Neck: Supple Respiratory: Clear to auscultation bilaterally. no wheezing or rhonchi Cardiovascular: regular rate, no obvious murmurs Gastrointestinal: non-tender to palpation, bowel sounds heard. Extremities: moving UE b/l. muscle wasting LE Medications Medication Current Medications IV Flush (NS 3 ml) 3 ml PER PROTOCOL IV ; Start 06/22/18 at 18:30 Ondansetron HCl (Zofran Inj) 4 mg Q6H PRN IV NAUSEA/VOMITING Last administered on 06/26/18at 15:57; Admin Dose 4 MG; Start 06/22/18 at 18:30 Acetaminophen (Tylenol Tab) 650 mg Q6H PRN PO .PAIN 1-3 OR TEMP; Start 06/22/18 at 18:30 Enoxaparin Sodium (Lovenox) 30 mg DAILY SC Last administered on 08/14/18at 08:58; Admin Dose 30 MG; Start 06/23/18 at 09:00 Hydralazine HCl (Apresoline) 10 mg Q4H PRN IV SBP >160; Start 06/22/18 at 19:00 Miscellaneous Information (Pending Santyl Order For Wound Care) This patient [place]... PRN PRN XX WOUND CARE; Start 06/23/18 at 00:30 Tamsulosin HCl (Flomax) 0.4 mg DAILY PO Last administered on 08/14/18at 09:00; Admin Dose 0.4 MG; Start 06/24/18 at 09:00 Labetalol HCl (Labetalol) 10 mg Q4 PRN IV sbp>160; Start 06/24/18 at 13:30 Pantoprazole (Protonix Tab) 40 mg DAILY@06 PO Last administered on 08/15/18at 05:44; Admin Dose 40 MG; Start 07/04/18 at 06:00 Carisoprodol (Soma) 350 mg Q6 PO Last administered on 08/15/18at 05:43; Admin Dose 350 MG; Start 07/06/18 at 12:00 Multivitamins Therapeutic (Theragran) 1 tab DAILY PO Last administered on 08/14/18at 09:01; Admin Dose 1 TAB; Start 07/15/18 at 11:00 IV Flush (NS 10 ml) 10 ml PRN PRN IV IV PROTOCOL Last administered on 07/19/18at 02:30; Admin Dose 10 ML; Start 07/15/18 at 17:00 Docusate Sodium (Colace) 100 mg BID PRN PO constipation; Start 08/02/18 at 12:30 Magnesium Hydroxide (Milk Of Mag) 30 ml DAILY PRN PO constipation; Start 08/02/18 at 12:30 Hydromorphone HCl (Dilaudid) 1 mg Q4H PRN IV SEVERE PAIN LEVEL 7-10 Last administered on 08/15/18at 07:40; Admin Dose 1 MG; Start 08/04/18 at 17:03 Morphine Sulfate (Ms Contin (Er)) 60 mg BID PO Last administered on 08/14/18at 20:42; Admin Dose 60 MG; Start 08/11/18 at 21:00 Docusate Sodium/ Ferrous Fumarate (Harry-Sequels) 1 tab BID PO Last administered on 08/14/18at 20:42; Admin Dose 1 TAB; Start 08/13/18 at 09:00 KINGA WILLETT MD Aug 15, 2018 08:38
[2018-08-15] MEDS: MULTIVITAMINS THERAPEUTIC TAB PO SCH (09:24)
[2018-08-15] MEDS: FERROUS FUMARATE (SR) TAB PO SCH (09:24)
[2018-08-15] MEDS: TAMSULOSIN (SR) 0.4 MG CAP PO SCH (09:25)
[2018-08-15] MEDS: morphine (ER) 30 MG TAB PO SCH (09:25)
[2018-08-15] MEDS: ENOXAPARIN 30 MG/0.3 ML SYG SC SCH (09:25)
[2018-08-15] MEDS ORDERED: MORP30TA3 PO (11:29)
[2018-08-15] MEDS ORDERED: HYDR-4011 PO (11:29)
[2018-08-15] MEDS ORDERED: FERR1TAB14 PO (11:29)
--- NOTE | 2018-08-15 11:33 | PDOCDIS ---
Discharge Instructions DIAGNOSIS Discharge Diagnosis 1. Sepsis secondary to UTI, decubitus ulcers, and OM- resolved 2. UTI- resolved 3. Sacral decubitus ulcer with abscess- stable 4. Osteomyelitis of ischium 5. Chronic back pain 6. Hypertension 7. Neurogenic bladder CONDITION [id number] Patient Condition: [id number] Stable HOME CARE INSTRUCTIONS: [id number] Diet Instructions: [id number] Regular [id number] Your diet recommendation is: [id number] add Julius protein sup/Boost FOLLOW UP/APPOINTMENTS Follow-up Plan 1. Follow-up with primary care physician in 1-2 weeks 2. Continue keeping wounds clean and dry 3. Take pain medications with breakthrough as needed. Hopefully you can be weaned off these medications in the future. 4. If experiencing any concerning symptoms, please go to the closest emergency department KINGA WILLETT MD Aug 15, 2018 11:33
--- NOTE | 2018-08-15 17:07 | DS ---
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 (Pantoprazole*) 40 Mg Tablet.dr, 40 MG PO DAILY@06 for 30 Days Prov:DONG,JHONNY V. INSURANCE VERIFICATION CLERK 07/15/18 Magnesium Hydroxide* (Alcantara' MOM*) 30 Ml Susp, 30 ML PO DAILY PRN for CONSTIPATION for 30 Days Prov:DONGJHONNY LANG V. INSURANCE VERIFICATION CLERK 07/15/18 Docusate Sodium* (Colace*) 100 Mg Capsule, 100 MG PO BID for 30 Days, CAP Prov:DONG,JHONNY V. INSURANCE VERIFICATION CLERK 07/15/18 Cholestyramine* (Questran*) 1 Pkt Susp, 1 PKT PO TID for 30 Days Prov:DONG,JHONNY V. INSURANCE VERIFICATION CLERK 07/15/18 Ferrous Fumarate/Ascorbic Acid (Harry-Sequels 65-25 mg Caplet) 1 Each Tablet.er, 1 TAB PO BID for 30 Days, TAB Prov:DONG,JHONNY V. INSURANCE VERIFICATION CLERK 07/15/18 Tamsulosin Hcl* (Flomax*) 0.4 Mg Cap.er.24h, 0.4 MG PO DAILY for 30 Days, CAP Prov:DONG,JHONNY V. INSURANCE VERIFICATION CLERK 07/15/18 Carisoprodol* (Carisoprodol*) 350 Mg Tablet, 350 MG PO Q6 for 30 Days, TAB Prov:DONG,JHONNY V. INSURANCE VERIFICATION CLERK 07/15/18 Follow-up Plan 1. Follow-up with primary care physician in 1-2 weeks 2. Continue keeping wounds clean and dry 3. Take pain medications with breakthrough as needed. Hopefully you can be weaned off these medications in the future. 4. If experiencing any concerning symptoms, please go to the closest emergency department Primary Care Provider [facility] Time spent on discharge: > 30 minutes Pending Labs Laboratory Tests Test 08/15/18 07:37 White Blood Count 8.3 10^3/ul (4.8-10.8) Red Blood Count 3.91 10^6/ul (4.70-6.10) Hemoglobin 8.6 g/dl (14.0-18.0) Hematocrit 28.8 % (42.0-52.0) Mean Corpuscular Volume 73.7 fl (82.0-101.0) Mean Corpuscular Hemoglobin 22.0 pg (29.0-33.0) Mean Corpuscular Hemoglobin Concent 29.9 g/dl (32.0-37.0) Red Cell Distribution Width 16.5 % (11.5-14.5) Platelet Count 259 10^3/UL (140-415) Mean Platelet Volume 8.6 fl (7.4-10.4) Immature Granulocytes % 0.200 % (0.001-0.429) Neutrophils % 72.9 % (39.0-77.0) Lymphocytes % 11.8 % (15.0-51.0) Monocytes % 8.1 % (0.0-11.0) Eosinophils % 6.5 % (0.0-7.0) Basophils % 0.5 % (0.0-2.0) Nucleated Red Blood Cells % 0.0 /100WBC (0.0-0.0) Immature Granulocytes # 0.020 10^3/ul (0.0-0.031) Neutrophils # 6.1 10^3/ul (1.6-7.5) Lymphocytes # 1.0 10^3/ul (0.8-2.9) Monocytes # 0.7 10^3/ul (0.3-0.9) Eosinophils # 0.5 10^3/ul (0.0-0.5) Basophils # 0.0 10^3/ul (0.0-0.1) Nucleated Red Blood Cells # 0.0 10^3/ul (0.0-0.0) Sodium Level 140 mmol/L (135-144) Potassium Level 4.2 mmol/L (3.5-5.1) Chloride Level 103 mmol/L (97-110) Carbon Dioxide Level 26 mmol/L (21-31) Anion Gap 11 (5-13) Blood Urea Nitrogen 37 mg/dl (7-20) Creatinine 1.09 mg/dl (0.61-1.24) Glucose Level 122 mg/dl (70-220) Calcium Level 8.5 mg/dl (8.4-10.2) Phosphorus Level 5.1 mg/dl (2.5-4.9) Magnesium Level 2.3 mg/dl (1.7-2.5) Albumin 3.2 g/dl (3.3-4.9) KINGA WILLETT MD Aug 15, 2018 17:07
== END 2018-08-15 15:00 | DRG 871 ==
LOC: E/R 16:26 → 6WM 18:09 → 5EC 07-08 13:54
PROVIDERS: ADMIT Internal Medicine; ATTEND Internal Medicine
PROC: 02HV33Z Insertion of Infusion Device into Superior Vena Cava, Percutaneous Approach (ICD-10-PCS; principal; 2018-07-15)
DX: A41.9 Sepsis, unspecified organism (principal); L89.154 Pressure ulcer of sacral region, stage 4; L89.314 Pressure ulcer of right buttock, stage 4; N17.9 Acute kidney failure, unspecified; E87.1 Hypo-osmolality and hyponatremia; E44.0 Moderate protein-calorie malnutrition; Z68.1 Body mass index [BMI] 19.9 or less, adult; G82.20 Paraplegia, unspecified; N13.6 Pyonephrosis; K59.2 Neurogenic bowel, not elsewhere classified; M86.8X8 Other osteomyelitis, other site; L02.31 Cutaneous abscess of buttock; N31.9 Neuromuscular dysfunction of bladder, unspecified; I10 Essential (primary) hypertension; M62.838 Other muscle spasm; R33.9 Retention of urine, unspecified; K59.00 Constipation, unspecified; D64.9 Anemia, unspecified; Z99.3 Dependence on wheelchair; Z59.0 Homelessness
CPT/HCPCS: 36415; 36569; 71045; 71260; 74018; 74176; 74177; 76937; 80048; 80053; 80069; 80202; 81001; 82378; 82565; 83540; 83605; 83690; 83735; 84100; 84443; 84484; 84520; 85025; 85610; 85730; 87040; 87070; 87081; 87086; 92526; 92610; 93005; 96365; 97110; 97161; 97164; 97166; 97530; A4310; C9113; J0290; J0692; J1170; J1650; J1815; J2270; J2405; J2543; J3370; J3475; J7030; J7040; J7050; Q9967

== ENCOUNTER 2018-11-16 21:09 | Emergency (ER) | payer OTHER ==
[~2018-11-16] VITALS: Ht 188 cm; Wt 80.5 kg
[~2018-11-16 21:09] MED LIST changes: +CARI350T29 PO; -CEPH-443 PO; +DOCU-144 PO; +FERR1TAB14 PO; +HYDR-4011 PO; -LISI-471 PO; +MORP30TA3 PO; +MULTI PO; +PANT40TA4 PO; +POLY17PO6 PO; +QUESTRAN PO; +TAMS-14 PO; +UDMOM PO
[2018-11-16 21:12] VITALS: Ht 188 cm; Wt 80.5 kg
--- NOTE | 2018-11-16 21:30 | ERD ---
ER Documentation Chief Complaint Chief Complaint urinary retention since last nite, hx paraplegia HPI This is a 63-year-old man with a history of neurogenic bladder who catheterizes himself multiple times per day complaining of suprapubic discomfort and urinary retention. He denies back pain, no fevers or chills, no chest pain or shortness of breath, no vomiting or diarrhea. ROS All systems reviewed and are negative except as per history of present illness. Medications Home Meds Active Scripts Cephalexin* (Keflex*) 500 Mg Capsule, 500 MG PO QID for 5 Days, CAP Prov:TRACE ONTIVEROS MD 11/16/18 Hydrocodone/Acetaminophen (Jermyn 5-325 Tablet) 1 Each Tablet, 1 EACH PO Q6 for 10 Days, #30 TAB Prov:KINGA WILLETT MD 08/15/18 Morphine Sulfate (Morphine Sulfate ER) 30 Mg Tablet.er, 60 MG PO BID for 30 Days, #60 TAB Prov:KINGA WILLETT MD 08/15/18 Ferrous Fumarate/Ascorbic Acid (Harry-Sequels 65-25 mg Caplet) 1 Each Tablet.er, 1 TAB PO BID for 30 Days, #60 TAB Prov:KINGA WILLETT MD 08/15/18 Multivitamins* (Theragran*) 1 Tab Tab, 1 TAB PO DAILY for 30 Days, TAB Prov:JHONNY DONG NP 07/15/18 Polyethylene Glycol* (Miralax*) 17 Gm Powd.pack, 17 GM PO DAILY for 30 Days Prov:JHONNY DONG NP 07/15/18 Pantoprazole* (Pantoprazole*) 40 Mg Tablet.dr, 40 MG PO DAILY@06 for 30 Days Prov:JHONNY DONG NP 07/15/18 Magnesium Hydroxide* (Alcantara' MOM*) 30 Ml Susp, 30 ML PO DAILY PRN for CONSTIPATION for 30 Days Prov:JHONNY DONG V. PLACEMENT MANAGER 07/15/18 Docusate Sodium* (Colace*) 100 Mg Capsule, 100 MG PO BID for 30 Days, CAP Prov:JHONNY DONG V. PLACEMENT MANAGER 07/15/18 Cholestyramine* (Questran*) 1 Pkt Susp, 1 PKT PO TID for 30 Days Prov:JHONNY DONG V. PLACEMENT MANAGER 07/15/18 Ferrous Fumarate/Ascorbic Acid (Harry-Sequels 65-25 mg Caplet) 1 Each Tablet.er, 1 TAB PO BID for 30 Days, TAB Prov:DONG,JHONNY V. PLACEMENT MANAGER 07/15/18 Tamsulosin Hcl* (Flomax*) 0.4 Mg Cap.er.24h, 0.4 MG PO DAILY for 30 Days, CAP Prov:DONG,JHONNY V. PLACEMENT MANAGER 07/15/18 Carisoprodol* (Carisoprodol*) 350 Mg Tablet, 350 MG PO Q6 for 30 Days, TAB Prov:DONG,JHONNY V. PLACEMENT MANAGER 07/15/18 Allergies Allergies: Coded Allergies: No Known Allergy (Unverified , 06/22/18) PMhx/Soc Patient has a history of sacral decubitus ulcers, neurogenic bladder requiring daily bladder catheterizations, paraplegia to the lower extremities requiring wheelchair use, history of UTIs, chronic pain syndrome, osteomyelitis of the ischium, hypertension History of Surgery: Yes (kidney stones) Anesthesia Reaction: No Hx Neurological Disorder: Yes Hx Respiratory Disorders: Yes Hx Cardiac Disorders: Yes Hx Psychiatric Problems: No Hx Miscellaneous Medical Probl: No Hx Alcohol Use: Yes Hx Substance Use: No Hx Tobacco Use: No FmHx Family History: No diabetes Physical Exam Vitals Vital Signs Date Temp Pulse Resp B/P (MAP) Pulse Ox O2 O2 Flow FiO2 Time Delivery Rate 11/16/18 98.2 112 20 179/89 100 21:12 (119) Physical Exam Const: No acute distress, well-developed well-nourished man, afebrile Resp: Clear to auscultation bilaterally Cardio: Regular rate and rhythm, no murmurs Abd: Soft, non tender, non distended. No guarding, rigidity, or tenderness Neur: Awake and alert x3, bilateral lower extremity paraplegia, pupils equal round reactive to light, no facial asymmetry Psych: Normal Mood and Affect Result Diagram: 11/16/18213811/[id number]/182138 Results 24 hrs Laboratory Tests Test 11/16/18 21:39 White Blood Count 15.0 10^3/ul Red Blood Count 4.27 10^6/ul Hemoglobin 8.9 g/dl Hematocrit 29.1 % Mean Corpuscular Volume 68.1 fl Mean Corpuscular Hemoglobin 20.8 pg Mean Corpuscular Hemoglobin Concent 30.6 g/dl Red Cell Distribution Width 20.9 % Platelet Count 303 10^3/UL Mean Platelet Volume 8.6 fl Immature Granulocytes % 0.200 % Neutrophils % 90.6 % Lymphocytes % 4.2 % Monocytes % 4.9 % Eosinophils % 0.0 % Basophils % 0.1 % Nucleated Red Blood Cells % 0.0 /100WBC Immature Granulocytes # 0.030 10^3/ul Neutrophils # 13.6 10^3/ul Lymphocytes # 0.6 10^3/ul Monocytes # 0.7 10^3/ul Eosinophils # 0.0 10^3/ul Basophils # 0.0 10^3/ul Nucleated Red Blood Cells # 0.0 10^3/ul Urine Color YELLOW Urine Clarity TURBID Urine pH 6.0 Urine Specific [place] 1.012 Urine Ketones TRACE mg/dL Urine Nitrite POSITIVE mg/dL Urine Bilirubin NEGATIVE mg/dL Urine Urobilinogen NEGATIVE mg/dL Urine Leukocyte Esterase 3+ Cyn/ul Urine Microscopic RBC 31 /HPF Urine Microscopic WBC > 182 /HPF Urine Bacteria MODERATE /HPF Urine Hemoglobin 2+ mg/dL Urine Glucose NEGATIVE mg/dL Urine Total Protein 2+ mg/dl Sodium Level 135 mmol/L Potassium Level 4.3 mmol/L Chloride Level 103 mmol/L Carbon Dioxide Level 18 mmol/L Anion Gap 14 Blood Urea Nitrogen 50 mg/dl Creatinine 2.95 mg/dl Est Glomerular Filtrat Rate mL/min 22 mL/min Glucose Level 121 mg/dl Calcium Level 8.8 mg/dl Current Medications Medications Dose Sig/Lewis Start Time Status Last (Trade) Ordered Route PRN Stop Time Admin Dose Reason Admin Sodium 1,000 ml @ Q1H STAT 11/16/18 11/16/18 Chloride 1,000 mls/hr IV 22:25 23:09 11/16/18 23:24 Ceftriaxone 50 ml @ ONCE ONCE 11/16/18 DC 11/16/18 Sodium 100 mls/hr IVPB 22:30 23:09 11/16/18 22:59 Procedures/MDM Straight catheterization of the bladder was performed in our a liter of urine was obtained, patient did feel better. CBC reveals a leukocytosis of 15, mild anemia with a hemoglobin of 8.9, and electrolytes revealed dehydration and acute kidney injury with a BUN/creatinine of 50/3, urine analysis was also positive for infection. I spoke to the patient and recommended inpatient management and IV antibiotics because the patient has developed acute renal insufficiency but the patient refused and stated he knows he has "kidney issues" and has an appointment with a stock shaper early next month. I told him his renal function has acutely decreased based on his previous creatinine levels and that despite his appointment he would still benefit from admission, IV hydration, and continued IV antibiotics. Despite my explanation and recommendation patient decided to leave AGAINST MEDICAL ADVICE. I administered 1 L normal saline IV and ceftriaxone 1 g IV. Departure Diagnosis: Primary Impression: Urinary retention Additional Impressions: Neurogenic bladder Acute UTI Acute dehydration Acute kidney injury Condition: Stable TRACE ONTIVEROS MD Nov 16, 2018 21:30
[2018-11-16] MEDS ORDERED: SOD CHLORIDE 0.9% 1,000 ML IV STA (22:25)
[2018-11-16] MEDS ORDERED: CEPH-443 PO (22:28)
[2018-11-16] MEDS ORDERED: CEFTRIAXONE 1 GM/50 ML (PMX) 50 ML IVPB ONE (22:30)
[2018-11-16 23:59] VITALS: BP 148/80; PULSE 82; RESP 20
== END 2018-11-17 | disposition left against medical advice (07) ==
LOC: E/R 21:09
DX: N31.9 Neuromuscular dysfunction of bladder, unspecified (principal); I10 Essential (primary) hypertension; N39.0 Urinary tract infection, site not specified; E86.0 Dehydration; N17.9 Acute kidney failure, unspecified; R40.2142 Coma scale, eyes open, spontaneous, at arrival to emergency department; R40.2362 Coma scale, best motor response, obeys commands, at arrival to emergency department; R40.2252 Coma scale, best verbal response, oriented, at arrival to emergency department
CPT/HCPCS: 51702; 80048; 81001; 85025; 87086; 96374; J0696; J7030; Z7502; Z7610

== ENCOUNTER → 2019-01-30 | Emergency (ER) | payer OTHER ==
[~2019-01-30] VITALS: Ht 182.9 cm; Wt 79.5 kg
[~2019-01-30] MED LIST changes: +CEPH-443 PO; +CIPR500T4 PO; +CIPROFLOXACIN 500 MG TAB PO ONE
[2019-01-30 15:50] VITALS: Ht 182.9 cm; Wt 79.5 kg
[2019-01-30 17:30] VITALS: BP 170/98; PULSE 92; RESP 16
== END | disposition home or self-care (01) ==
LOC: E/R 15:36
DX: N30.90 Cystitis, unspecified without hematuria (principal); I10 Essential (primary) hypertension; F17.210 Nicotine dependence, cigarettes, uncomplicated
CPT/HCPCS: 51702; 81001; 87086; Z7502; Z7610

== ENCOUNTER 2019-02-09 08:43 | Emergency (ER) | payer OTHER ==
[~2019-02-09] VITALS: Ht 175.3 cm; Wt 65.0 kg
[~2019-02-09 08:43] MED LIST changes: +AMIT50TA3 PO; +AMLO-145 ORAL; +ASPI-817 PO; +ASPI-831 ORAL; -CIPROFLOXACIN 500 MG TAB PO ONE; +LISI-471 ORAL; +LISI-471 PO; -MORP30TA3 PO; +[UNRECOGNIZED DRUG - CODE] PO
[2019-02-09 08:56] VITALS: Ht 175.3 cm; Wt 65.0 kg
[2019-02-09] MEDS ORDERED: IBUPROFEN 800 MG TAB PO ONE (09:00)
[2019-02-09] MEDS ORDERED: CEPHALEXIN 500 MG CAP PO ONE (09:00)
[2019-02-09] MEDS ORDERED: SOD CHLORIDE 0.9% 1,000 ML IV STA (12:09)
[2019-02-09 17:41] VITALS: BP 158/91; PULSE 95; RESP 16
== END 2019-02-09 17:45 | disposition home or self-care (01) ==
LOC: E/R 08:43
DX: T83.011A Breakdown (mechanical) of indwelling urethral catheter, initial encounter (principal); N30.00 Acute cystitis without hematuria; R40.2142 Coma scale, eyes open, spontaneous, at arrival to emergency department; R40.2252 Coma scale, best verbal response, oriented, at arrival to emergency department; R40.2362 Coma scale, best motor response, obeys commands, at arrival to emergency department; Y73.2 Prosthetic and other implants, materials and accessory gastroenterology and urology devices associated with adverse incidents; Z79.82 Long term (current) use of aspirin
CPT/HCPCS: 51702; 87086; 96360; 96361; J7030; Z7502; Z7610; A4310